=== PATIENT | female | born 1950 | race Caucasian/White ===

== ENCOUNTER 2023-07-20 08:26 | Outpatient (OUT) | payer MEDICARE, OTHER, SELFPAY ==
--- NOTE | 2023-07-20 08:36 | CT_ITS ---
The [address] [address] Patient Name: MYRNA KIRBY MRN: [id number] date: 1950 Sex: F Assigned Patient Location: CT Current Patient Location: CT Accession/Order Number: [id number] Exam Date: 07/20/2023 08:40 Report Date: 07/20/2023 09:47 At the request of: MUNIRA BERNARDO Procedure: CT chest wo con EXAMINATION: CT chest wo con HISTORY: pulmonary fibrosis J84.10 COMPARISON: 05/27/2022 TECHNIQUE: Multi-planar CT images were created with IV contrast. Axial, Coronal, and Sagittal images. Dose reduction techniques were achieved by using automated exposure control and/or adjustment of mA and/or kV according to patient size and/or use of iterative reconstruction technique. FINDINGS: LUNGS: Left lung volume loss with elevation of the hemidiaphragm. Scattered patchy and linear opacities throughout the left lung appears stable from the 2021 exam. No new pulmonary nodules masses or infiltrates are observed. PLEURA: No mass, effusion, or pneumothorax. VASCULATURE: No abnormality. CHAPARRO: No mass or adenopathy. MEDIASTINUM: No mass or adenopathy. CARDIAC: No enlargement or pericardial effusion. Coronary atherosclerosis AORTA: No aortic aneurysm. Extensive atherosclerosis CHEST WALL: Multiple serpiginous vessels. Median sternotomy wires. BONES: No bone lesion or fracture. LIMITED ABDOMEN: No suspicious findings. Limited images of the upper abdomen. OTHER: Negative. CT/CT chest wo con IMPRESSION: Stable exam. Scattered left lung infiltrates likely representing chronic scarring. Electronically authenticated by: AZALEA COLON Date: 07/20/2023 09:47
== END 2023-07-20 08:27 | disposition home or self-care (01) ==
LOC: CT 08:30
PROVIDERS: PCP Family Medicine; Visit Provider Internal Medicine
DX: J84.10 Pulmonary fibrosis, unspecified (principal); I87.1 Compression of vein
CPT/HCPCS: 71250

== ENCOUNTER 2023-08-07 07:11 | Outpatient (RCR) | payer MEDICARE, OTHER, SELFPAY ==
--- NOTE | 2023-07-28 13:07 | CR1_ITS ---
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
== END 2023-08-07 14:08 | disposition home or self-care (01) ==
LOC: CR 07:11
PROVIDERS: PCP Family Medicine; Visit Provider Internal Medicine
DX: J84.10 Pulmonary fibrosis, unspecified (principal); J98.6 Disorders of diaphragm
CPT/HCPCS: G0239

== ENCOUNTER 2023-08-08 09:48 | Outpatient (OUT) | payer MEDICARE, OTHER, SELFPAY ==
--- OUTSIDE RECORDS SUMMARY | 2023-08-08 09:54 | XMS_ITS | CCD ---
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 unspecified body region, initial encounter Episodic Other liver diseases (5 sources) Abnormal levels of other serum enzymes Onset: 07-13-2021 Resolved: 01-12-2022 Episodic Other lower respiratory disease (1 source) Dyspnea on exertion; Translations: [Other forms of dyspnea] Episodic Other nervous system disorders (20 sources) Carpal tunnel syndrome; Translations: [Carpal tunnel syndrome, unspecified upper limb] Chronic Other nervous system disorders (20 sources) Bilateral carpal tunnel syndrome; Translations: [Carpal tunnel syndrome, bilateral upper limbs] Chronic Other nervous system disorders (8 sources) Critical illness myopathy; 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 Other nutritional; endocrine; and metabolic disorders (3 sources) Abnormal weight loss Episodic Other screening for suspected conditions (not mental disorders or infectious disease) (2 sources) Standard chest X-ray abnormal; Translations: [Abnormal findings on diagnostic imaging of other specified body structures] Chronic Other screening for suspected conditions (not mental disorders or infectious disease) (12 sources) Other specified abnormal findings of blood chemistry; Translations: [Elevated liver function tests] Onset: 07-14-2021 Resolved: 01-12-2022 Episodic Other skin disorders (2 sources) Localized swelling, mass and lump, unspecified Episodic Other upper respiratory disease (20 sources) Allergic rhinitis; Translations: [Allergic rhinitis, unspecified] Chronic Other upper respiratory disease (1 source) Allergic rhinitis, unspecified Chronic Other upper respiratory infections (20 sources) Sinusitis; Translations: [Chronic sinusitis, unspecified] Chronic Pulmonary heart disease (20 sources) Pulmonary hypertension; Translations: [Pulmonary hypertension, unspecified] Onset: 05-27-2021 Resolved: 01-12-2022 Chronic Residual codes; unclassified (8 sources) Edema, unspecified Onset: 10-13-2021 Resolved: 01-12-2022 Episodic Residual codes; unclassified (20 sources) Insomnia; Translations: [Insomnia, unspecified] Episodic Residual codes; unclassified (8 sources) History of extracorporeal membrane oxygenation; Translations: [Personal history of extracorporeal membrane oxygenation (ECMO)] 04-08-2020 Episodic Respiratory failure; insufficiency; arrest (adult) (8 sources) [id number] respiratory failure; Translations: [Acute and chronic respiratory failure, unspecified whether with hypoxia or hypercapnia] Onset: 01-27-2020 04-07-2020 Chronic Respiratory failure; insufficiency; arrest (adult) (8 sources) Acute respiratory failure; Translations: [Acute respiratory failure, unspecified whether with hypoxia or hypercapnia] 04-08-2020 Episodic Retinal detachments; defects; vascular occlusion; and retinopathy (20 sources) Degenerative disorder of macula ; Translations: [Unspecified macular degeneration] Chronic Spondylosis; intervertebral disc disorders; other back problems (4 sources) Pain in thoracic spine; Translations: [Cervicalgia] Onset: 08-08-2019 Episodic Sprains and strains (1 source) Sprain of ligaments of cervical spine, initial encounter; Translations: [SPRAIN LIG CERV SPINE INITIAL ENC] Onset: 08-12-2019 Episodic Superficial injury; contusion (15 sources) Hematoma of scalp; Translations: [Contusion of scalp, initial encounter] 04-06-2022 Episodic Thyroid disorders (20 sources) Hypothyroidism, unspecified; Translations: [Acquired hypothyroidism] Onset: 04-15-2019 Resolved: 01-12-2022 04-07-2020 Chronic Past or Other Problems Problem Classification Problem Date Documented Da te Episodic/Chronic Administrative/social admission (20 sources) Patient encounter status; Translations: [Persons encountering health services in other specified circumstances] Onset: 03-20-2020 04-07-2020 Episodic Complications of surgical procedures or medical care (8 sources) Expected difficult tracheal intubation; Translations: [Failed or difficult intubation, initial encounter] Onset: 01-13-2020 04-01-2020 Episodic Fever of unknown origin (1 source) Fever, unspecified Onset: 01-12-2022 Resolved: 01-12-2022 Episodic Fluid and electrolyte disorders (3 sources) Hypokalemia Onset: 07-14-2021 Resolved: 01-12-2022 Episodic Immunizations and screening for infectious disease (1 source) Encounter for immunization; Translations: [Encounter for immunization Z23] Onset: 04-21-2021 Resolved: 04-21-2021 Episodic Malaise and fatigue (5 sources) Other fatigue; Translations: [Weakness] Onset: 12-30-2018 Resolved: 02-03-2022 Episodic Nonspecific chest pain (1 source) Other chest pain Onset: 02-03-2022 Resolved: 02-03-2022 Episodic Other connective tissue disease (4 sources) Pain in unspecified hand; Translations: [PAIN IN UNSPECIFIED HAND] Onset: 12-20-2018 Episodic Other gastrointestinal disorders (8 sources) Finding of abdomen; Translations: [Intra-abdominal and pelvic swelling, mass and lump, unspecified site] Onset: 08-07-2005 08-07-2005 Episodic Other gastrointestinal disorders (1 source) Flatulence; Translations: [Flatulence R14.3] Onset: 04-07-2021 Resolved: 04-07-2021 Episodic Other liver diseases (8 sources) Enzyme level - finding; Translations: [Transaminitis] Onset: 03-30-2020 04-07-2020 Episodic Other lower respiratory disease (1 source) Other abnormalities of breathing; Translations: [Rhonchi R06.89] Onset: 04-07-2021 Resolved: 04-07-2021 Episodic Other lower respiratory disease (2 sources) Other nonspecific abnormal finding of lung field; Translations: [Other nonspecific abnormal finding of lung field] Onset: 12-16-2022 Episodic Other lower respiratory disease (1 source) Other forms of dyspnea; Translations: [Dyspnea on exertion] Onset: 11-11-2022 Episodic Other nervous system disorders (1 source) Anesthesia of skin; Translations: [ANESTHESIA OF SKIN] Onset: 12-30-2018 Episodic Other non-traumatic joint disorders (1 source) Pain in unspecified joint; Translations: [PAIN IN UNSPECIFIED JOINT] Onset: 12-30-2018 Episodic Other nutritional; endocrine; and metabolic disorders (1 source) Abnormal weight gain Onset: 10-13-2021 Resolved: 10-13-2021 Episodic Other upper respiratory disease (1 source) Other specified disorders of nose and nasal sinuses; Translations: [Sinus drainage J34.89] Onset: 04-07-2021 Resolved: 04-07-2021 Episodic Other upper respiratory infections (3 sources) Acute pharyngitis, unspecified; Translations: [Acute sinusitis, unspecified] Onset: 07-14-2021 Resolved: 08-25-2021 Episodic Ovarian cyst (8 sources) Cyst of ovary; Translations: [Unspecified ovarian cyst, unspecified side] Onset: 08-30-2005 08-30-2005 Episodic Phlebitis; thrombophlebitis and thromboembolism (20 sources) Acute deep venous thrombosis of both upper extremities; Translations: [Acute embolism and thrombosis of deep veins of upper extremity, bilateral] Onset: 02-04-2020 Resolved: 01-12-2022 04-07-2020 Episodic Pleurisy; pneumothorax; pulmonary collapse (16 sources) Hemothorax; Translations: [Hemothorax] Onset: 02-03-2020 04-07-2020 Episodic Residual codes; unclassified (8 sources) Edema; Translations: [Edema, unspecified] Onset: 04-14-1997 11-03-2003 Episodic Residual codes; unclassified (1 source) Insomnia, unspecified Onset: 01-12-2022 Resolved: 01-12-2022 Episodic Unclassified (1 source) Cough R05.9 Onset: 01-12-2022 Resolved: 01-12-2022 Results Test Name Value Interpretation Reference Range Facility Prothrombin Time INRon 07-19 INR Coag (PPP) [Relative time] 1.3 {INR} RFMarq Other [facility] [employer] Other Prothrombin Time INRon 07-06 INR Coag (PPP) [Relative time] 1.3 {INR} RFMarq Other [facility] [employer] Other Prothrombin Time INRon 06-07 INR Coag (PPP) [Relative time] 2.4 {INR} RFMarq Other Prothrombin Time INR [facility] [employer] Other Free T4 (Free Thyroxine)on 07-18-2022 Free T4 [Mass/Vol] 0.90 ng/dL Normal 0.61-1.12 [facility] Comment on above: Performed By: #### T 3F, TSH3, T4F #### [facility] [address] [place] [address] [place] Thyroid Stimulating Hormoneo n 05-18-2023 TSH Qn 1.91 m[IU]/L Normal 0.45-5.33 [facility] Comment on above: Result Comment: PERF ORMED BY: [place] [address] PATHOLOGIST SPLITTING MACHINE OPERATOR LETICIA JAVIER M.D. Performed By: #### T 3F, TSH3, T4F #### [facility] [address] [place] [address] [place] Thyrotropin [Units/volume] i n Serum or PlasmaOrdered By: Azalea Rodrigez on 05-18-2023 TSH Qn 1.91 m[IU]/L 0.45-5.33 [facility] Thyroxine (T4) free [Mass/vo lume] in Serum or PlasmaOrdered By: Azalea Rodrigez on 05-18-2023 Free T4 [Mass/Vol] 0.90 ng/dL 0.61-1.12 [facility] Triiodothyronine (T3) Freeon 05-18-2023 Triiodothyronine (T3) Free 2.45 pg/mL Low 2.50-3.90 [facility] Comment on above: Result Comment: PERF ORMED BY: [place] [address] PATHOLOGIST SPLITTING MACHINE OPERATOR LETICIA JAVIER M.D. Performed By: #### T 3F, TSH3, T4F #### [facility] [address] [place] [id number] [place] Triiodothyronine (T3) Free [ Mass/volume] in Serum or PlasmaOrdered By: Azalea Rodrigez on 05-18-2023 Free T3 [Mass/Vol] 2.45 pg/mL 2.50-3.90 [facility] Prothrombin Time INRon 05-10 INR Coag (PPP) [Relative time] 2.6 {INR} RFMarq Other Prothrombin Time INR [facility] [employer] Other Prothrombin Time INRon 04-27 INR Coag (PPP) [Relative time] 4.1 {INR} RFMarq Other Prothrombin Time INR [facility] [employer] Other Prothrombin Time INRon 03-16 INR Coag (PPP) [Relative time] 2.8 {INR} RFMarq Other Prothrombin Time INR [facility] [employer] Other Acanthocytes [Presence] in B lood by Light microscopyOrdered By: Azalea Rodrigez on 02-15-2023 Acanthocytes LM Ql (Bld) Slight [facility] Alanine aminotransferase [En zymatic activity/volume] in Serum or PlasmaOrdered By: Azalea Rodrigez on 02-15-2023 ALT [Catalytic activity/Vol] 24 U/L 7-52 [facility] Albumin [Mass/volume] in Ser um or Plasma by Bromocresol green (BCG) dye binding methoOrdered By: Azalea Rodrigez on 02-15-2023 Albumin BCG dye [Mass/Vol] 4.4 g/dL 3.5-5.7 [facility] Alkaline Phosphatase Isoenzy meon 02-15-2023 Bone Fraction 36 % Normal 14-68 [facility] Comment on above: Order Comment: FASTI NG: Y Performed By: #### T 3F, TSH3, T4F #### [address] Intestinal Fraction 7 % Normal 0-18 [facility] Comment on above: Order Comment: FASTI NG: Y Result Comment: Perf ormed at: CB - [facility] [address] [id number] Certified Coder: Jayro Zaidi PhD, Phone: [phone] PERFORMED BY: [place] [address] PATHOLOGIST SPLITTING MACHINE OPERATOR LETICIA JAVIER M.D. Performed By: #### T 3F, TSH3, T4F #### [facility] [address] [facility] Alkaline Phosphatase 164 High 44-121 [facility] Comment on above: Order Comment: FASTI NG: Y Performed By: #### T 3F, TSH3, T4F #### [facility] [address] Liver Fraction 57 % Normal 18-85 [facility] Comment on above: Order Comment: FASTI NG: Y Performed By: #### T 3F, TSH3, T4F #### [facility] [address] Alkaline phosphatase [Enzyma tic activity/volume] in Serum or PlasmaOrdered By: Azalea Rodrigez on 02-15-2023 ALP [Catalytic activity/Vol] 148 U/L 34-104 [facility] Anisocytosis LM Ql (Bld)Orde red By: Azalea Rodrigez on 02-15-2023 Anisocytosis Ql (Bld) Slight [facility] Aspartate aminotransferase [ Enzymatic activity/volume] in Serum or PlasmaOrdered By: Azalea Rodrigez on 02-15-2023 AST [Catalytic activity/Vol] 24 U/L 13-39 [facility] Basophils Auto (Bld) [#/Vol] Ordered By: Azalea Rodrigez on 02-15-2023 Basophils (Bld) [#/Vol] N/A [facility] Basophils/100 WBC Auto (Bld) Ordered By: Azalea Rodrigez on 02-15-2023 Basophils/100 WBC (Bld) N/A [facility] Bilirubin.total [Mass/volume ] in Serum or PlasmaOrdered By: Azalea Rodrigez on 02-15-2023 Bilirubin [Mass/Vol] 0.8 mg/dL 0.3-1.0 [facility] [place] cells [Presence] in Blo od by Light microscopyOrdered By: Azalea Rodrigez on 02-15-2023 [place] cells LM Ql (Bld) Slight [facility] Calcium [Mass/volume] in Ser um or PlasmaOrdered By: Azalea Rodrigez on 02-15-2023 Calcium [Mass/Vol] 9.5 mg/dL 8.6-10.3 [facility] Carbon dioxide, total [Moles /volume] in Serum or PlasmaOrdered By: Azalea Rodrigez on 02-15-2023 CO2 [Moles/Vol] 33.0 mmol/L 21.0-31.0 [facility] Chloride [Moles/volume] in S harris or PlasmaOrdered By: Azalea Rodrigez on 02-15-2023 Chloride [Moles/Vol] 100 mmol/L 98-107 [facility] Cholesterol [Mass/volume] in Serum or PlasmaOrdered By: Azalea Rodrigez on 02-15-2023 Cholesterol [Mass/Vol] 133 mg/dL 140-200 [facility] Comment on above: Chol less than 200 m g/dl low riskChol 201-239 mg/dl borderline riskChol 240 mg/dl and greater high risk Cholesterol in LDL Calc [Mas s/Vol]Ordered By: Azalea Rodrigez on 02-15-2023 Cholesterol in LDL [Mass/Vol] 71 mg/dL 0-100 [facility] Comment on above: LDL ATP III CLASSIFI CATIONLDL less than 100 mg/dL OptimalLDL 100-129 mg/dL Near or above optimalLDL 130-159 mg/dL Borderline highLDL 160-189 mg/dL HighLDL greater than 189 mg/dL Very high Cholesterol in VLDL Calc [Ma ss/Vol]Ordered By: Azalea Rodrigez on 02-15-2023 Cholesterol in VLDL [Mass/Vol] 24 mg/dL [facility] Comprehensive Metabolic Pane jennifer 02-15-2023 Albumin [Mass/Vol] 4.4 g/dL Normal 3.5-5.7 [facility] Comment on above: Performed By: #### T 3F, TSH3, T4F #### [facility] [address] [place] [address] [place] Albumin/Globulin [Mass ratio] 2.0 {ratio} Normal [facility] Comment on above: Performed By: #### T 3F, TSH3, T4F #### [facility] [address] [place] [id number] [place] ALP [Catalytic activity/Vol] 148 U/L High 34-104 [facility] Comment on above: Performed By: #### T 3F, TSH3, T4F #### [facility] [address] ALT [Catalytic activity/Vol] 24 U/L Normal 7-52 [facility] Comment on above: Performed By: #### T 3F, TSH3, T4F #### [facility] [address] Anion gap [Moles/Vol] 11.5 mmol/L Normal 6.0-15.0 [facility] Comment on above: Performed By: #### T 3F, TSH3, T4F #### [facility] [address] AST [Catalytic activity/Vol] 24 U/L Normal 13-39 [facility] Comment on above: Performed By: #### T 3F, TSH3, T4F #### [facility] [address] Bilirubin [Mass/Vol] 0.8 mg/dL Normal 0.3-1.0 [facility] Comment on above: Performed By: #### T 3F, TSH3, T4F #### [facility] [address] [place] [address] Calcium [Mass/Vol] 9.5 mg/dL Normal 8.6-10.3 [facility] Comment on above: Performed By: #### T 3F, TSH3, T4F #### [facility] [address] [place] [address] [place] Chloride [Moles/Vol] 100 mmol/L Normal 98-107 [facility] Comment on above: Performed By: #### T 3F, TSH3, T4F #### [facility] [address] [place] [address] [place] CO2 [Moles/Vol] 33.0 mmol/L High 21.0-31.0 [facility] Comment on above: Performed By: #### T 3F, TSH3, T4F #### [facility] [address] Creatinine [Mass/Vol] 1.01 mg/dL Normal 0.60-1.20 [facility] Comment on above: Performed By: #### T 3F, TSH3, T4F #### [facility] [address] [place] [id number] [place] GFR/1.73 sq M.predicted MDRD (S/P/Bld) [Vol rate/Area] 59.887 mL/min/{1.73_m2} Normal [facility] Comment on above: Performed By: #### T 3F, TSH3, T4F #### [facility] [address] [place] [address] [place] Globulin (S) [Mass/Vol] 2.2 g/dL [facility] Comment on above: Performed By: #### T 3F, TSH3, T4F #### [facility] [address] Glucose [Mass/Vol] 88 mg/dL Normal 70-100 [facility] Comment on above: Result Comment: [place] Glucose Reference Range is dependent on time and content of last meal. Glucose of more than 200 mg/dL in a nonstressed, ambulatory subject supports the diagnosis of Diabetes Mellitus. ADA recommended reference range Performed By: #### T 3F, TSH3, T4F #### [facility] [address] [place] [address] [place] Potassium [Moles/Vol] 3.5 mmol/L Normal 3.5-5.1 [facility] Comment on above: Performed By: #### T 3F, TSH3, T4F #### [facility] [address] [place] [id number] [place] Protein [Mass/Vol] 6.6 g/dL Normal 6.4-8.9 [facility] Comment on above: Performed By: #### T 3F, TSH3, T4F #### [facility] [address] [place] [id number] [place] Sodium [Moles/Vol] 141 mmol/L Normal 136-145 [facility] Comment on above: Performed By: #### T 3F, TSH3, T4F #### [facility] [address] [place] [id number] [place] Urea nitrogen [Mass/Vol] 23 mg/dL Normal 7-25 [facility] Comment on above: Performed By: #### T 3F, TSH3, T4F #### [facility] [address] [place] [address] Creatinine [Mass/volume] in Serum or PlasmaOrdered By: Azalea Rodrigez on 02-15-2023 Creatinine [Mass/Vol] 1.01 mg/dL 0.60-1.20 [facility] Diff and CBCon 02-15-2023 Acanthocytes Slight Normal [facility] Comment on above: Performed By: #### C MP, [id number], T3F, TSH3, LIPID, DIFF CBC, T4F #### [facility] [address] [place] [address] #### ALK PHOSIS #### [facility] , Anisocytosis Ql (Bld) Slight Normal [facility] Comment on above: Performed By: #### C MP, [id number], T3F, TSH3, LIPID, DIFF CBC, T4F #### [facility] [address] [place] [address] #### ALK PHOSIS #### [facility] , Crenated RBC Slight Normal [facility] Comment on above: Performed By: #### C MP, [id number], T3F, TSH3, LIPID, DIFF CBC, T4F #### [facility] [address] [place] [address] #### ALK PHOSIS #### [facility] , Eosinophils/100 WBC (Bld) 2 % Normal 1-3 [facility] Comment on above: Performed By: #### C MP, [id number], T3F, TSH3, LIPID, DIFF CBC, T4F #### [facility] [address] [place] [address] [place] #### ALK PHOSIS #### [facility] , Erythrocyte distribution width (RBC) [Ratio] 14.5 % Normal 11.9-15.3 [facility] Comment on above: Performed By: #### C MP, [id number], T3F, TSH3, LIPID, DIFF CBC, T4F #### [facility] [address] [place] [address] [place] #### ALK PHOSIS #### [facility] , Giant Platelet Tally 3 /100{WBC} Normal [facility] Comment on above: Result Comment: PERF ORMED BY: [place] [address] PATHOLOGIST SPLITTING MACHINE OPERATOR LETICIA JAVIER M.D. Performed By: #### C MP, [id number], T3F, TSH3, LIPID, DIFF CBC, T4F #### [address] #### ALK PHOSIS #### [facility] , Hematocrit (Bld) [Volume fraction] 37.3 % Normal 34.0-46.4 [facility] Comment on above: Performed By: #### C MP, [id number], T3F, TSH3, LIPID, DIFF CBC, T4F #### [address] #### ALK PHOSIS #### [facility] , Hemoglobin (Bld) [Mass/Vol] 12.3 g/dL Normal 11.8-15.4 [facility] Comment on above: Performed By: #### C MP, [id number], T3F, TSH3, LIPID, DIFF CBC, T4F #### [facility] [address] [place] [address] [place] #### ALK PHOSIS #### [facility] , Lymphocytes/100 WBC (Bld) 19 % Normal 18-42 [facility] Comment on above: Performed By: #### C MP, [id number], T3F, TSH3, LIPID, DIFF CBC, T4F #### [facility] [address] [place] [address] [place] #### ALK PHOSIS #### [facility] , MCH (RBC) [Entitic mass] 28.8 pg Normal 24.7-34.3 [facility] Comment on above: Performed By: #### C MP, [id number], T3F, TSH3, LIPID, DIFF CBC, T4F #### [facility] [address] [place] [address] #### ALK PHOSIS #### [facility] , MCV (RBC) [Entitic vol] 87.1 fL Normal 80-100 [facility] Comment on above: Performed By: #### C MP, [id number], T3F, TSH3, LIPID, DIFF CBC, T4F #### [address] #### ALK PHOSIS #### [facility] , Mean Corpuscular HGB Conc 33.1 g/dL Normal 32.0-35.0 [facility] Comment on above: Performed By: #### C MP, [id number], T3F, TSH3, LIPID, DIFF CBC, T4F #### [address] #### ALK PHOSIS #### [facility] , Microcytosis Slight Normal [facility] Comment on above: Performed By: #### C MP, [id number], T3F, TSH3, LIPID, DIFF CBC, T4F #### [address] #### ALK PHOSIS #### [facility] , Monocytes/100 WBC (Bld) 10 % Normal 2-11 [facility] Comment on above: Performed By: #### C MP, [id number], T3F, TSH3, LIPID, DIFF CBC, T4F #### [place] [address] [place] #### ALK PHOSIS #### [facility] , Ovalocytes Slight Normal [facility] Comment on above: Performed By: #### C MP, [id number], T3F, TSH3, LIPID, DIFF CBC, T4F #### [facility] [address] [place] [address] #### ALK PHOSIS #### [facility] , Platelet Estimate Normal Normal Normal [facility] Comment on above: Performed By: #### C MP, [id number], T3F, TSH3, LIPID, DIFF CBC, T4F #### [facility] [address] [place] [address] #### ALK PHOSIS #### [facility] , Platelet mean volume (Bld) [Entitic vol] 10.4 fL Normal 6.3-10.7 [facility] Comment on above: Performed By: #### C MP, [id number], T3F, TSH3, LIPID, DIFF CBC, T4F #### [address] #### ALK PHOSIS #### [facility] , Platelets (Bld) [#/Vol] 203 10*3/uL Normal 150-450 [facility] Comment on above: Performed By: #### C MP, [id number], T3F, TSH3, LIPID, DIFF CBC, T4F #### [facility] [address] [place] [address] [place] #### ALK PHOSIS #### [facility] , Poikilocytosis Moderate Normal [facility] Comment on above: Performed By: #### C MP, [id number], T3F, TSH3, LIPID, DIFF CBC, T4F #### [place] [address] [place] #### ALK PHOSIS #### [facility] , RBC (Bld) [#/Vol] 4.28 10*6/uL Normal 3.60-5.00 [facility] Comment on above: Performed By: #### C MP, [id number], T3F, TSH3, LIPID, DIFF CBC, T4F #### [place] [address] [place] #### ALK PHOSIS #### [facility] , Segmented neutrophils/100 WBC (Bld) 70 % Normal 50-70 [facility] Comment on above: Performed By: #### C MP, [id number], T3F, TSH3, LIPID, DIFF CBC, T4F #### [address] #### ALK PHOSIS #### [facility] , WBC (Bld) [#/Vol] 5.6 10*3/uL Normal 3.8-11.6 [facility] [facility] Comment on above: Performed By: #### C MP, [id number], T3F, TSH3, LIPID, DIFF CBC, T4F #### [facility] [address] [place] [address] #### ALK PHOSIS #### [facility] , Eosinophils Auto (Bld) [#/Vo l]Ordered By: Azalea Rodrigez on 02-15-2023 Eosinophils (Bld) [#/Vol] N/A [facility] Eosinophils/100 WBC Auto (Bl d)Ordered By: Azalea Rodrigez on 02-15-2023 Eosinophils/100 WBC (Bld) N/A [facility] Eosinophils/100 WBC Manual c nt (Bld)Ordered By: Azalea Rodrigez on 02-15-2023 Eosinophils/100 WBC (Bld) 2 % 1-3 [facility] Erythrocyte distribution wid th Auto (RBC) [Ratio]Ordered By: Azalea Rodrigez on 02-15-2023 Erythrocyte distribution width (RBC) [Ratio] 14.5 % 11.9-15.3 [facility] Free T4 (Free Thyroxine)on 0 02-15-2023 Free T4 [Mass/Vol] 1.18 ng/dL High 0.61-1.12 [facility] Comment on above: Performed By: #### T 3F, TSH3, T4F #### [address] Giant platelets/100 leukocyt es [Ratio] in Blood by Manual countOrdered By: Azalea Rodrigez on 02-15-2023 Giant platelets/100 WBC Manual cnt (Bld) [Ratio] 3 /100{WBC} [facility] Globulin Calc (S) [Mass/Vol] Ordered By: Azalea Rodrigez on 02-15-2023 Globulin (S) [Mass/Vol] 2.2 g/dL [facility] Glucose [Mass/volume] in Ser um or PlasmaOrdered By: Azalea Rodrigez on 02-15-2023 Glucose [Mass/Vol] 88 mg/dL 70-100 [facility] Comment on above: ADA recommended refe rence rangeRandom Glucose Reference Range is dependent on time and content of last meal. Glucose of more than 200 mg/dL in a nonstressed, ambulatory subject supports the diagnosis of Diabetes Mellitus. Hematocrit Auto (Bld) [Volum e fraction]Ordered By: Azalea Rodrigez on 02-15-2023 Hematocrit (Bld) [Volume fraction] 37.3 % 34.0-46.4 [facility] Hemoglobin [Mass/volume] in BloodOrdered By: Azalea Rodrigez on 02-15-2023 Hemoglobin (Bld) [Mass/Vol] 12.3 g/dL 11.8-15.4 [facility] Leukocytes [#/volume] correc shelly for nucleated erythrocytes in Blood by Automated counOrdered By: Azalea Rodrigez on 02-15-2023 WBC corrected for nucl RBC Auto (Bld) [#/Vol] 5.6 10*3/uL 3.8-11.6 [facility] Lipid Panelon 02-15-2023 Cholesterol [Mass/Vol] 133 mg/dL Low 140-200 [facility] Comment on above: Result Comment: Chol less than 200 mg/dl low risk Chol 201-239 mg/dl borderline risk Chol 240 mg/dl and greater high risk Performed By: #### T 3F, TSH3, T4F #### [facility] [address] Cholesterol in HDL [Mass/Vol] 37 mg/dL Normal 23-92 [facility] Comment on above: Result Comment: HDL CHOL ATP-III CLASSIFICATION Cardiovascular Risk HDL > or equal to 60 mg/dL LOW HDL < 40 mg/dL HIGH Performed By: #### T 3F, TSH3, T4F #### [facility] [address] Cholesterol.total/Chol esterol in HDL [Mass ratio] 3.6 {ratio} Normal <5.0 [facility] Comment on above: Performed By: #### T 3F, TSH3, T4F #### [facility] [address] LDL Cholesterol,Calculated 71 mg/dL Normal 0-100 [facility] Comment on above: Result Comment: LDL ATP III CLASSIFICATION LDL less than 100 mg/dL Optimal LDL 100-129 mg/dL Near or above optimal LDL 130-159 mg/dL Borderline high LDL 160-189 mg/dL High LDL greater than 189 mg/dL Very high Performed By: #### T 3F, TSH3, T4F #### [address] Triglyceride w/Reflex 123 mg/dL Normal 0-149 [facility] Comment on above: Result Comment: TRIG ATP III CLASSIFICATION TRIG less than 150 mg/dL Normal TRIG 150-199 mg/dL Borderline high TRIG 200-500 mg/dL High TRIG greater than 500 mg/dL Very high Standard traceable to the Center for Disease Conrtrol and Prevention (CDC) test method. Performed By: #### T 3F, TSH3, T4F #### [address] VLDL CHOLESTEROL 24 mg/dL Normal [facility] Comment on above: Performed By: #### T 3F, TSH3, T4F #### [address] Lymphocytes Auto (Bld) [#/Vo l]Ordered By: Azalea Rodrigez on 02-15-2023 Lymphocytes (Bld) [#/Vol] N/A [facility] Lymphocytes/100 WBC Auto (Bl d)Ordered By: Azalea Rodrigez on 02-15-2023 Lymphocytes/100 WBC (Bld) N/A [facility] Lymphocytes/100 WBC Manual c nt (Bld)Ordered By: Azalea Rodrigez on 02-15-2023 Lymphocytes/100 WBC (Bld) 19 % 18-42 [facility] MCH Auto (RBC) [Entitic mass ]Ordered By: Azalea Rodrigez on 02-15-2023 MCH (RBC) [Entitic mass] 28.8 pg 24.7-34.3 [facility] MCHC Auto (RBC) [Mass/Vol]Or dered By: Azalea Rodrigez on 02-15-2023 MCHC (RBC) [Mass/Vol] 33.1 g/dL 32.0-35.0 [facility] MCV Auto (RBC) [Entitic vol] Ordered By: Azalea Rodrigez on 02-15-2023 MCV (RBC) [Entitic vol] 87.1 fL 80-100 [facility] Microcytes LM Ql (Bld)Ordere d By: Azalea Rodrigez on 02-15-2023 Microcytes Ql (Bld) Slight [facility] Monocytes Auto (Bld) [#/Vol] Ordered By: Azalea Rodrigez on 02-15-2023 Monocytes (Bld) [#/Vol] N/A [facility] Monocytes/100 WBC Auto (Bld) Ordered By: Azalea Rodrigez on 02-15-2023 Monocytes/100 WBC (Bld) N/A [facility] Monocytes/100 WBC Manual cnt (Bld)Ordered By: Azalea Rodrigez on 02-15-2023 Monocytes/100 WBC (Bld) 10 % 2-11 [facility] Neutrophils Auto (Bld) [#/Vo l]Ordered By: Azalea Rodrigez on 02-15-2023 Neutrophils (Bld) [#/Vol] N/A [facility] Neutrophils/100 WBC Auto (Bl d)Ordered By: Azalea Rodrigez on 02-15-2023 Neutrophils/100 WBC (Bld) N/A [facility] No Panel InformationOrdered By: Azalea Rodrigez on 02-15-2023 Estimated GFR (CKD-EPI) 59.887 mL/Min [facility] Pharmacy Creatinine Clearance (Chem N/A [facility] Nucleated erythrocytes [Pres ence] in Blood by Automated countOrdered By: Azalea Rodrigez on 02-15-2023 Nucleated RBC Auto Ql (Bld) N/A [facility] Ovalocyte detectionOrdered B y: Azalea Rodrigez on 02-15-2023 Ovalocytes LM Ql (Bld) Slight [facility] Platelet adequacy [Presence] in Blood by Light microscopyOrdered By: Azalea Rodrigez on 02-15-2023 Platelets LM Ql (Bld) Normal Normal [facility] Platelet mean volume Auto (B ld) [Entitic vol]Ordered By: Azalea Rodrigez on 02-15-2023 Platelet mean volume (Bld) [Entitic vol] 10.4 fL 6.3-10.7 [facility] Platelet morphology finding [Identifier] in BloodOrdered By: Azalea Rodrigez on 02-15-2023 Platelet morphology finding Nom (Bld) N/A [facility] Platelets Auto (Bld) [#/Vol] Ordered By: Aazlea Rodrigez on 02-15-2023 Platelets (Bld) [#/Vol] 203 10*3/uL 150-450 [facility] Poikilocytosis [Presence] in Blood by Light microscopyOrdered By: Azalea Rodrigez on 02-15-2023 Poikilocytosis LM Ql (Bld) Moderate [facility] Potassium [Moles/volume] in Serum or PlasmaOrdered By: Azalea Rodrigez on 02-15-2023 Potassium [Moles/Vol] 3.5 mmol/L 3.5-5.1 [facility] Protein [Mass/volume] in Ser um or PlasmaOrdered By: Azalea Rodrigze on 02-15-2023 Protein [Mass/Vol] 6.6 g/dL 6.4-8.9 [facility] RBC Auto (Bld) [#/Vol]Ordere d By: Azalea Rodrigez on 02-15-2023 RBC (Bld) [#/Vol] 4.28 10*6/uL 3.60-5.00 [facility] RBC morphologyOrdered By: Adrian Rodrigez on 02-15-2023 RBC morphology finding Nom (Bld) N/A [facility] Segmented neutrophils/100 WB C Manual cnt (Bld)Ordered By: Azalea Rodrigez on 02-15-2023 Segmented neutrophils/100 WBC (Bld) 70 % 50-70 [facility] Serum or plasma albumin/glob ulin mass ratioOrdered By: Azalea Rodrigez on 02-15-2023 Albumin/Globulin [Mass ratio] 2.0 {ratio} [facility] Serum or plasma anion gap de terminationOrdered By: Azalea Rodrigez on 02-15-2023 Anion gap [Moles/Vol] 11.5 mmol/L 6.0-15.0 [facility] Serum or plasma high density lipoprotein (HDL) cholesterol measurementOrdered By: Azalea Rodrigez on 02-15-2023 Cholesterol in HDL [Mass/Vol] 37 mg/dL 23-92 [facility] Comment on above: HDL CHOL ATP-III CLA SSIFICATION Cardiovascular RiskHDL > or equal to 60 mg/dL LOWHDL < 40 mg/dL HIGH Serum or plasma total choles terol/high density lipoprotein (HDL) cholesterol mass ratOrdered By: Azalea Rodrigez on 02-15-2023 Cholesterol.total/Chol esterol in HDL [Mass ratio] 3.6 {ratio} <5.0 [facility] Sodium [Moles/volume] in Ser um or PlasmaOrdered By: Azalea Rodrigez on 02-15-2023 Sodium [Moles/Vol] 141 mmol/L 136-145 [facility] Thyroid Stimulating Hormoneo n 02-15-2023 TSH Qn 0.08 m[IU]/L Low 0.45-5.33 [facility] Comment on above: Performed By: #### T 3F, TSH3, T4F #### [address] Thyrotropin [Units/volume] i n Serum or PlasmaOrdered By: Azalea Rodrigez on 02-15-2023 TSH Qn 0.08 m[IU]/L 0.45-5.33 [facility] Thyroxine (T4) free [Mass/vo lume] in Serum or PlasmaOrdered By: Azalea Rodrigez on 02-15-2023 Free T4 [Mass/Vol] 1.18 ng/dL 0.61-1.12 [facility] Triglyceride [Mass/volume] i n Serum or PlasmaOrdered By: Azalea Rodrigez on 02-15-2023 Triglyceride [Mass/Vol] 123 mg/dL 0-149 [facility] Comment on above: TRIG ATP III CLASSIF ICATIONTRIG less than 150 mg/dL NormalTRIG 150-199 mg/dL Borderline highTRIG 200-500 mg/dL High TRIG greater than 500 mg/dL Very highStandard traceable to the Center for Disease Conrtrol and Prevention (CDC) test method. Triiodothyronine (T3) Freeon 02-15-2023 Triiodothyronine (T3) Free 2.86 pg/mL Normal 2.50-3.90 [facility] Comment on above: Result Comment: PERF ORMED BY: [place] [id number] PATHOLOGIST SPLITTING MACHINE OPERATOR LETICIA JAVIER M.D. Performed By: #### T 3F, TSH3, T4F #### [facility] [address] [place] [id number] [facility] Triiodothyronine (T3) Free [ Mass/volume] in Serum or PlasmaOrdered By: Azalea Rodrigez on 02-15-2023 Free T3 [Mass/Vol] 2.86 pg/mL 2.50-3.90 [facility] Urea nitrogen [Mass/volume] in Serum or PlasmaOrdered By: Azalea Rodrigez on 02-15-2023 Urea nitrogen [Mass/Vol] 23 mg/dL 7-25 [facility] Vitamin D 25 Hydroxy Totalon 02-15-2023 Vitamin D 25 Hydroxy Total 25.1 ng/mL Low 30-100 [facility] Comment on above: Result Comment: VIVIANA MIN D STATUS 25(OH)VITAMIN D RANGE (ng/mL) Deficient <20 Insufficient 20 to <30 Sufficient 30 to 100 Reference: Glendy MF,Sveta NC, Luis Felipe BAUTISTA, et al. Evaluation,treatment, and prevention of vitamin D deficiency; an Endocrine Society clinical practice guideline. JCEM. 2010; 96(7):1911-30. PERFORMED BY: [facility] [address] [place] [address] PATHOLOGIST SPLITTING MACHINE OPERATOR LETICIA JAVIER M.D. Performed By: #### T 3F, TSH3, T4F #### [facility] [address] [place] [id number] [facility] Vitamin D+Metabolites [Mass/ volume] in Serum or PlasmaOrdered By: Azalea Rodrigez on 02-15-2023 Vitamin D+Metabolites [Mass/Vol] 25.1 ng/mL 30-100 [facility] Comment on above: VITAMIN D STATUS 25( [place])VITAMIN D RANGE (ng/mL) Deficient <20 Insufficient 20 to <30Sufficient 30 to 100Reference: Glendy MF,Sveta ORTIZ, Luis Felipe BAUTISTA, et al. Evaluation,treatment, and prevention of vitamin D deficiency; an Endocrine Society clinical practice guideline. JCEM. 2010; 96(7):1911-30. WBC Auto (Bld) [#/Vol]Ordere d By: Azalea Rodrigez on 02-15-2023 WBC (Bld) [#/Vol] 5.6 10*3/uL 3.8-11.6 [facility] Prothrombin Time INRon 02-13 INR Coag (PPP) [Relative time] 2.9 {INR} RFMarq Other Prothrombin Time INR Nort (In)Touch Network Other Prothrombin Time INRon 01-16 INR Coag (PPP) [Relative time] 2.5 {INR} RFMarq Other Prothrombin Time INR Pulse [facility] (In)Touch Network Other XR chest 2V*on 12-16-2022 XR chest 2V* [place] [address] XRay Report Signed Patient: Myrna Kirby MR#: [id number] : 1950 Acct:[id number] Age/Sex: 72 / F ADM Date: 12/16/22 Loc: XD Room: Type: [facility] Attending Dr: Azalea Rodrigez DO Copies to: Azalea Rodrigez DO Ordering Provider: Azalea Rodrigez DO Date of Service: 12/16/22 XR/XR chest 2V*: R91.8 XR chest 2V*, FL fluoroscopy <1hr 12/16/2022 8:58 AM SIGNS AND SYMPTOMS: Follow-up prior CABG procedure requiring chest tubes for hemothorax. 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 PROTOCOL: Frontal and lateral graphs of the chest. Fluoroscopic images of the chest were obtained. COMPARISON: None FINDINGS: Chest radiographs: The trachea is midline. There is evidence of prior sternotomy. There is elevation of the left hemidiaphragm. The heart and mediastinal structures are within normal limits. The lung parenchyma is clear. The bony thorax is intact. There is a dextro convex curvature of the thoracic spine. Sniff test: There is paradoxical movement in the cranial direction involving the left hemidiaphragm during deep inspiration. There is normal downward movement of the right hemidiaphragm during deep inspiration. This is consistent with paralysis of the left hemidiaphragm. Cumulative Air Kerma in mGy: 6.94 mGy XR/XR chest 2V* IMPRESSION: The lung parenchyma is clear. There is paradoxical movement of the left hemidiaphragm on deep inspiration consistent with paralysis of the left hemidiaphragm. Impression dictated by: Marek Barrera M.D.12/16/2022 12:37 PM Dictation Location: [place] [address] Transcribed By: [facility] 12/16/22 1237 Dictated By: Marek Barrera II, MD 12/16/22 1234 Signed By: 12/16/22 1237 [facility] 11-28-2022 CNPN Telephone (CARCMN) ----- MYRNA KIRBY ([id number]) 1950 F Date Time Provider Department 11/28/22 STEVE DENTAZ During your visit today, we recorded the following information about you: Nayeli Bray 12/18/2022 1:07 PM Addendum Office notes mailed today. Nayeli Bray November 28, 2022 4:51 PM Received outside office notes from Pulmonary function test have been placed in OPD folder and uploaded in [employer]. Nayeli Bray December 18, 2022 1:07 PM Allergies As of Date: 11/28/2022 Noted Allergy Reaction CAPTOPRIL 11/11/2022 14 - Other: See Comments CHLORHEXIDINE 04/07/2020 10 - Anaphylaxis 16 - Unknown 9 - Itching EPOETIN FAISAL 11/11/2022 14 - Other: See Comments ERYTHROMYCIN 11/11/2022 14 - Other: See Comments ESCITALOPRAM 11/11/2022 14 - Other: See Comments EZETIMIBE 11/11/2022 8 - GI Upset LEVAQUIN (LEVOFLOXACIN) 12/01/2020 17 - Myalgia LISINOPRIL 11/11/2022 14 - Other: See Comments OXYCODONE 12/26/2019 1 - Mental Status Change READYPREP CHG (CHLORHEXIDINE GLUC*03/31/2020 9 - Itching SULFA (SULFONAMIDE ANTIBIOTICS) 12/26/2019 8 - GI Upset SULFUR 11/11/2022 16 - Unknown SULFUR DIOXIDE 04/07/2020 14 - Other: See Comments TRAMADOL 12/26/2019 14 - Other: See Comments Comments: annorexia TRIAMCINOLONE 11/11/2022 14 - Other: See Comments VENLAFAXINE 11/11/2022 14 - Other: See Comments Date Reviewed: 11/11/2022 Reviewed by: Gilberto Messer MA - Fully Assessed Reason for Visit: Patient Update [1234] Prescriptions as of 12/18/2022 - buPROPion XL (WELLBUTRIN XL) 150 mg 24 hr tablet - cholecalciferol (VITAMIN D3) 50 mcg (2,000 unit) tablet Take by mouth q 24 HR. - metoprolol succinate ER (TOPROL XL) 25 mg 24 hr tablet Take 1 tablet by mouth once daily. - warfarin sodium (WARFARIN ORAL) Take by mouth as directed. Pt's dosage varies - atorvastatin (LIPITOR) 20 mg tablet Take 20 mg by mouth once daily. - torsemide (DEMADEX) 20 mg tablet Take 0.5 tablets by mouth once daily. - potassium chloride ER (K-DUR, KLOR-CON) 20 mEq tablet Take 3 tablets by mouth once daily. - ALPRAZolam (XANAX) 0.25 mg tablet Take 0.25 mg by mouth as needed. - omeprazole (PRILOSEC) 20 mg capsule Take 20 mg by mouth once daily. - levothyroxine (SYNTHROID) 125 mcg tablet Take 1 tablet by mouth DAILY (6 AM). - aspirin 81 mg chewable tablet 1 tablet by ORAL/FEEDING TUBE route once daily. - magnesium oxide (MAG-OX) 400 mg (241.3 mg magnesium) tablet Take 1 tablet by mouth once daily. Facility-Administered Medications as of 12/18/2022 - perflutren lipid microspheres 1.3 mL in NaCl (PF) 0.9% 10 mL injection (DEFINITY) - sodium chloride 0.9 % (flush) 10 mL (BD POSIFLUSH) Problem List As Of Date 11/28/2022 Noted Resolved Aortic valve disorder [I35.9] 04/14/1997 Class: Chronic Edema [R60.9] 04/14/1997 Class: Chronic Chest pain [786.5] 04/14/1997 04/12/2016 Class: Chronic Panic disorder without agoraphobia [F41.0] 02/08/2002 Congenital stenosis of aortic valve [Q23.0] 07/30/2003 03/16/2020 ABD/PEL SWELL/MASS/LUMP UNSP SITE [R19.00] 08/07/2005 OVARIAN CYST NEC/NOS [N83.209] 08/30/2005 S/P Ross procedure [Z95.4] 04/16/2014 Aortic regurgitation [I35.1] 06/04/2016 Right onktuxggp-ht-iiiwyuozj artery (RV-PA) con*06/04/2016 04/04/2020 Congenital aortic stenosis [Q23.0] 12/28/2019 Dyspnea due to congestive heart failure (HCC) *12/28/2019 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] 12/28/2019 03/16/2020 Difficult airway [T88.4XXA] 01/13/2020 Pulmonary edema [J81.1] 01/13/2020 01/25/2020 Post-op pain [G89.18] 01/13/2020 01/17/2020 Coagulopathy (HCC) [D68.9] 01/13/2020 01/15/2020 Acquired hypothyroidism [E03.9] 01/13/2020 Chronic atrial fibrillation (HCC) [I48.20] 01/13/2020 03/04/2020 Personal history of ECMO [Z92.81] 01/13/2020 01/17/2020 Pulmonary artery injury [S25.409A] 01/13/2020 04/04/2020 Postoperative hypertension [I97.3] 01/13/2020 01/13/2020 Hypotension after procedure [I95.81] 01/13/2020 01/18/2020 Obtundation [R40.1] 01/17/2020 01/18/2020 Moderate protein-calorie malnutrition (HCC) [E4*01/17/2020 04/06/2020 Leukocytosis [D72.829] 01/18/2020 03/23/2020 Altered mental status [R41.82] 01/18/2020 01/27/2020 Cardiac insufficiency (HCC) [I50.9] 01/18/2020 01/25/2020 Delirium [R41.0] 01/27/2020 01/27/2020 Acute on chronic respiratory failure (HCC) [J96*01/27/2020 Hypernatremia [E87.0] 01/27/2020 03/01/2020 Hemothorax on left [J94.2] 02/03/2020 Acute deep vein thrombosis (DVT) of both upper *02/04/2020 Atrial flutter (HCC) [I48.92] 02/18/2020 Acute blood loss anemia [D62] 02/22/2020 04/04/2020 Acute deep vein thrombosis (DVT) of right lower*02/23/2020 Ileus (HCC) [K56.7] 02/29/2020 03/03/2020 Encounter for support and coordination of trans*03/04/2020 03/11/2020 Encounter for support and coordination of trans*03/20/2020 Discharge planning issues [Z02.9] 03/25/2020 Postoperative il (more content not included)... Normal [facility] Michelle 11-24-2022 CNPN Telephone (CARCMN) ----- MYRNA KIRBY ([id number]) 1950 F Date Time Provider Department 11/24/22 STEVE DENT During your visit today, we recorded the following information about you: Zoe Saunders 11/24/2022 10:11 AM Signed November 24, 2022 Patient Contact Number: [phone] Patient last seen within the last year: Yes Date of last office visit: 11/11/2022 Reason For Call: Pt's calling in regards to discussion he and pt had with Dr. Dent at [facility]; states that they are to receive visit notes and a letter from the doctor regarding what the patient is going through and how it is affecting her stress levels; also requested [facility] notes be sent to PCP, which I will do. Physician: Carlito Dent MD Patient was informed that non-urgent calls may be returned within the next three business days. Yes Zoe Holland RN 11/24/2022 10:47 AM Signed Message: Pt's calling in regards to discussion he and pt had with Dr. Dent at [facility]; states that they are to receive visit notes and a letter from the doctor regarding what the patient is going through and how it is affecting her stress levels; also requested [facility] notes be sent to PCP, which I will do. 11/11/22: Ms. Myrna Kirby is a pleasant 72 yo F with: Congenital aortic stenosis Full term baby, no complications, NVD Diagnosed with during 2nd at age 34 Surgery 1993: Ross procedure via median sternotomy by Dr. Velez at [facility]. Surgery 12/1995: aortic root homograft replacement via median sternotomy by Dr. Velez at [facility]. Surgery 09/04/1996: RV-PA #25 mm homograft replacement via median sternotomy by Dr. Velez at [facility]. Visit with Dr. 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 RVSP 59 + RA, normal aortic homograft function. Today's Echo 12/26/2019: severe RV-PA conduit PS and FL (PG/MG 72/43 mmHg), moderately dilated RV with low normal systolic function, e/o RV pressure and volume overload, normal aortic homograft. 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 Presentation 12/2019: Very symptomatic with dyspnea on exertion, limited functional capacity, abdominal bloating, early satiety, nausea. TPVR 01/13/2020: severe mixed PS/FL and heavily calcified conduit s/p conduit stenting with 8zig 5cm CP on 18 BIB, [id number] on 20 BIB and 22 Kat however post-dilation at the very end was complicated by PA perforation, VA ECMO was instituted quickly and an attempt at covered stenting of the bleeding source was made however it was difficult to visualize true source given left hemothorax and ECMO flow, patient taken emergently to the OR Surgery 01/13/2020: Emergent Reoperation fourth open-heart surgery. Evacuation of left chest hematoma. Replacement of the pulmonary valve root and proximal pulmonary artery. Removal of the ECMO and reinsertion of VV-ECMO. 01/14/2020: Mediastinal and chest washout 01/16/2020: Chest exploration, washout and closure, VV ECMO decannulation 01/21/2020: Percutaneous tracheostomy (Bivona 8.0 TTS tracheostomy). 02/08/2020: Trach down-sized 02/14/2020: Left thoracotomy, decortication, partial pleurectomy, evacuation of hemothorax, and intercostal nerve block. Atrial fibrillation and atrial flutter: in NSR, on metoprolol, and warfarin (previsouly on diltiazem and apixaban, digoxin, prior DCCV 12/2019), f/b Dr. Louis S/p 2 c-sections, children and grandchildren without known CHD. No FH of CHD or SCA PLAN: Myrna and her present to clinic.She still is not back to normal and still suffers from PTSD given her prolonged hospitalization and complex congenital cardiac history. Her father recently , her brother who was not present in the father's care is suing her, her two sisters are supportive of her. She is under significant emotional stress from such legal troules coming from her family member in regards to her father whom she cared for immensely, and it has taken a toll on her overall health including cardiovascular health. We discussed the importance that for her to get back to a healthy state she must prioritize her cardiac rehabilitation and reduce stress, these legal proceedings are adversely affecting her cardiac recovery and this is overall detrimental. We discussed she needs to maintain a regular exercise regimen, and heart healthy diet. Echo is reassuring and stable, but there is moderate TR which we will monitor,. Dyspnea on exertion: check PFT's and diaphragmatic function with a sniff test, and given FH of CAD and her LUONG can be an anginal equivalent proc (more content not included)... [facility] [facility] CNPNon 11-15-2022 CNPN Telephone (CARCMN) ----- MYRNA KIRBY ([id number]) 1950 F Date Time Provider Department 11/15/22 STEVE DENT CARCGALEN During your visit today, we recorded the following information about you: Nayeli Bray 11/15/2022 8:23 AM Signed Received outside office notes, sent down I purple folder to be uploaded in [employer]. Nayeli Bray November 15, 2022 8:23 AM Allergies As of Date: 11/15/2022 Noted Allergy Reaction CAPTOPRIL 11/11/2022 14 - Other: See Comments CHLORHEXIDINE 04/07/2020 10 - Anaphylaxis 16 - Unknown 9 - Itching EPOETIN FAISAL 11/11/2022 14 - Other: See Comments ERYTHROMYCIN 11/11/2022 14 - Other: See Comments ESCITALOPRAM 11/11/2022 14 - Other: See Comments EZETIMIBE 11/11/2022 8 - GI Upset LEVAQUIN (LEVOFLOXACIN) 12/01/2020 17 - Myalgia LISINOPRIL 11/11/2022 14 - Other: See Comments OXYCODONE 12/26/2019 1 - Mental Status Change READYPREP CHG (CHLORHEXIDINE GLUC*03/31/2020 9 - Itching SULFA (SULFONAMIDE ANTIBIOTICS) 12/26/2019 8 - GI Upset SULFUR 11/11/2022 16 - Unknown SULFUR DIOXIDE 04/07/2020 14 - Other: See Comments TRAMADOL 12/26/2019 14 - Other: See Comments Comments: annorexia TRIAMCINOLONE 11/11/2022 14 - Other: See Comments VENLAFAXINE 11/11/2022 14 - Other: See Comments Date Reviewed: 11/11/2022 Reviewed by: Gilberto Messer MA - Fully Assessed Reason for Visit: OSH [Other] Prescriptions as of 11/15/2022 - buPROPion XL (WELLBUTRIN XL) 150 mg 24 hr tablet - cholecalciferol (VITAMIN D3) 50 mcg (2,000 unit) tablet Take by mouth q 24 HR. - metoprolol succinate ER (TOPROL XL) 25 mg 24 hr tablet Take 1 tablet by mouth once daily. - warfarin sodium (WARFARIN ORAL) Take by mouth as directed. Pt's dosage varies - atorvastatin (LIPITOR) 20 mg tablet Take 20 mg by mouth once daily. - torsemide (DEMADEX) 20 mg tablet Take 0.5 tablets by mouth once daily. - potassium chloride ER (K-DUR, KLOR-CON) 20 mEq tablet Take 3 tablets by mouth once daily. - ALPRAZolam (XANAX) 0.25 mg tablet Take 0.25 mg by mouth as needed. - omeprazole (PRILOSEC) 20 mg capsule Take 20 mg by mouth once daily. - levothyroxine (SYNTHROID) 125 mcg tablet Take 1 tablet by mouth DAILY (6 AM). - aspirin 81 mg chewable tablet 1 tablet by ORAL/FEEDING TUBE route once daily. - magnesium oxide (MAG-OX) 400 mg (241.3 mg magnesium) tablet Take 1 tablet by mouth once daily. Facility-Administered Medications as of 11/15/2022 - perflutren lipid microspheres 1.3 mL in NaCl (PF) 0.9% 10 mL injection (DEFINITY) - sodium chloride 0.9 % (flush) 10 mL (BD POSIFLUSH) - perflutren lipid microspheres 1.3 mL in NaCl (PF) 0.9% 10 mL injection (DEFINITY) - sodium chloride 0.9 % (flush) 10 mL (BD POSIFLUSH) Problem List As Of Date 11/15/2022 Noted Resolved Aortic valve disorder [I35.9] 04/14/1997 Class: Chronic Edema [R60.9] 04/14/1997 Class: Chronic Chest pain [786.5] 04/14/1997 04/12/2016 Class: Chronic Panic disorder without agoraphobia [F41.0] 02/08/2002 Congenital stenosis of aortic valve [Q23.0] 07/30/2003 03/16/2020 ABD/PEL SWELL/MASS/LUMP UNSP SITE [R19.00] 08/07/2005 OVARIAN CYST NEC/NOS [N83.209] 08/30/2005 S/P Ross procedure [Z95.4] 04/16/2014 Aortic regurgitation [I35.1] 06/04/2016 Right xcvivkzpq-pf-ewqsjbagh artery (RV-PA) con*06/04/2016 04/04/2020 Congenital aortic stenosis [Q23.0] 12/28/2019 Dyspnea due to congestive heart failure (HCC) *12/28/2019 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] 12/28/2019 03/16/2020 Difficult airway [T88.4XXA] 01/13/2020 Pulmonary edema [J81.1] 01/13/2020 01/25/2020 Post-op pain [G89.18] 01/13/2020 01/17/2020 Coagulopathy (HCC) [D68.9] 01/13/2020 01/15/2020 Acquired hypothyroidism [E03.9] 01/13/2020 Chronic atrial fibrillation (HCC) [I48.20] 01/13/2020 03/04/2020 Personal history of ECMO [Z92.81] 01/13/2020 01/17/2020 Pulmonary artery injury [S25.409A] 01/13/2020 04/04/2020 Postoperative hypertension [I97.3] 01/13/2020 01/13/2020 Hypotension after procedure [I95.81] 01/13/2020 01/18/2020 Obtundation [R40.1] 01/17/2020 01/18/2020 Moderate protein-calorie malnutrition (HCC) [E4*01/17/2020 04/06/2020 Leukocytosis [D72.829] 01/18/2020 03/23/2020 Altered mental status [R41.82] 01/18/2020 01/27/2020 Cardiac insufficiency (HCC) [I50.9] 01/18/2020 01/25/2020 Delirium [R41.0] 01/27/2020 01/27/2020 Acute on chronic respiratory failure (HCC) [J96*01/27/2020 Hypernatremia [E87.0] 01/27/2020 03/01/2020 Hemothorax on left [J94.2] 02/03/2020 Acute deep vein thrombosis (DVT) of both upper *02/04/2020 Atrial flutter (HCC) [I48.92] 02/18/2020 Acute blood loss anemia [D62] 02/22/2020 04/04/2020 Acute deep vein thrombosis (DVT) of right lower*02/23/2020 Ileus (HCC) [K56.7] 02/29/2020 03/03/2020 Encounter for support and coordination of trans*03/04/2020 03/11/2020 Encounter for support and coordination of trans*03/20/2020 Discharge planning issues [Z02.9] 0 (more content not included)... Normal [facility] CNOVon 11-11-2022 CNOV Office Visit (CARCMN ) ----- MYRNA KIRBY ([id number]) 1950 F Date Time Provider Department 11/11/22 9:45 AM STEVE DENT During your visit today, we recorded the following information about you: Pulse Blood pressure Weight 66/minute 115/68 73.5 kg Steve Dent MD 11/20/2022 7:39 AM [facility] OUTPATIENT VISIT DATE November 11, 2022 OUTPATIENT VISIT TYPE EST PRIMARY CARE PHYSICIAN: Azalea Rodrigez, DO [address] [place] [address] REFERRING PHYSICIAN: Valente Louis MD [address] [facility] [address] CHIEF COMPLAINT: Congenital aortic stenosis s/p Ross procedure CONGENITAL CARDIAC HISTORY: Ms. Myrna Kirby is a pleasant 72 yo F with: Congenital aortic stenosis Full term baby, no complications, NVD Diagnosed with during 2nd at age 34 Surgery 1993: Ross procedure via median sternotomy by Dr. Velez at [facility]. Surgery 12/1995: aortic root homograft replacement via median sternotomy by Dr. Velez at [facility]. Surgery 09/04/1996: RV-PA #25 mm homograft replacement via median sternotomy by Dr. Velez at [facility]. Visit with Dr. 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 RVSP 59 + RA, normal aortic homograft function. Today's Echo 12/26/2019: severe RV-PA conduit PS and FL (PG/MG 72/43 mmHg), moderately dilated RV with low normal systolic function, e/o RV pressure and volume overload, normal aortic homograft. 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 Presentation 12/2019: Very symptomatic with dyspnea on exertion, limited functional capacity, abdominal bloating, early satiety, nausea. TPVR 01/13/2020: severe mixed PS/FL and heavily calcified conduit s/p conduit stenting with 8zig 5cm CP on 18 BIB, [id number] on 20 BIB and 22 Kat however post-dilation at the very end was complicated by PA perforation, VA ECMO was instituted quickly and an attempt at covered stenting of the bleeding source was made however it was difficult to visualize true source given left hemothorax and ECMO flow, patient taken emergently to the OR Surgery 01/13/2020: Emergent Reoperation fourth open-heart surgery. Evacuation of left chest hematoma. Replacement of the pulmonary valve root and proximal pulmonary artery. Removal of the ECMO and reinsertion of VV-ECMO. 01/14/2020: Mediastinal and chest washout 01/16/2020: Chest exploration, washout and closure, VV ECMO decannulation 01/21/2020: Percutaneous tracheostomy (Bivona 8.0 TTS tracheostomy). 02/08/2020: Trach down-sized 02/14/2020: Left thoracotomy, decortication, partial pleurectomy, evacuation of hemothorax, and intercostal nerve block. Atrial fibrillation and atrial flutter: in NSR, on metoprolol, and warfarin (previsouly on diltiazem and apixaban, digoxin, prior DCCV 12/2019), f/b Dr. Louis S/p 2 c-sections, children and grandchildren without known CHD. No FH of CHD or SCA INTERVAL HISTORY: Ms. Kirby is a 71 year old female here today for ACHD follow up visit. She presents with her . Was last evaluated 08/2020 with UTE Beal. At her initial office visit, she was very symptomatic with dyspnea on exertion, limited functional capacity, abdominal bloating, early satiety, nausea, fatigue, dizziness with position changes, and palpitations which wake her up at night. She denied chest pain, syncope. Ms. Kirby had a long hospitalization (01/13/2020-04/07/2020) and is detailed below: Transcatheter PV replacement on 01/13/2020 in heavily calcified conduit, after successful stenting and Kat valve placement, postdilation resulted in PA perforation, resulting in left hemothorax and hemodyamic compromise requiring support with VA ECMO placed percutaneously through left groin vessels, bleeding source could not be identified percutaneously so taken emergently to OR. 01/13/2020: Emergent Reoperation fourth open-heart surgery. Evacuation of left chest hematoma. Replacement of the pulmonary valve root and proximal pulmonary artery. Removal of the ECMO and reinsertion of VV-ECMO. 01/14/2020: Mediastinal and chest washout 01/16/2020: Chest exploration, washout and closure, VV ECMO decannualtion 01/21/2020: Percutaneous tracheostomy (Bivona 8.0 TTS tracheostomy). 02/08/2020: Trach down-sized 02/14/2020: Left thoracotomy, decortication, partial pleurectomy, evacuation of hemothorax, and intercostal nerve block. Last visit, Myrna reports she has been feeling well. She denies chest pain, shortness of breath, PND, orthopnea, palpitations, edema, light headedn (more content not included)... Normal [facility] ECG COMPLETEon 11-11-2022 ECG COMPLETE Ventricular Rate : 6 2 BPM Atrial Rate : 62 BPM P-R Interval : 152 ms QRS Duration : 96 ms Q-T Interval : 414 ms QTC Calculation(Bazett) : 420 ms Calculated P Pep : 16 degrees Calculated R Pep : 91 degrees Calculated T Pep : 71 degrees NORMAL SINUS RHYTHM RIGHT AXIS ANTEROLATERAL T WAVE ABNORMALITY ABNORMAL ECG Confirmed by MD BRAR HEBA ([id number]) on 11/15/2022 7:12:35 PM NAME : MYRNA KIRBY PID : [id number] : 1950 Gender : Female Race : ORD : [id number] Procedure Date : Nov 11 2022 07:09:23 Edit Date : Nov 15 2022 19:12:39 Diagnosis: NORMAL SINUS RHYTHM RIGHT AXIS ANTEROLATERAL T WAVE ABNORMALITY ABNORMAL ECG Confirmed by MD BRAR HEBA ([id number]) on 11/15/2022 7:12:35 PM Test Reason : Location : 314 : J14 J1-4 Overread By : MD BRAR HEBA Edited By : MD BRAR HEBA Referred By : STEVE DENT Acquired by : DENNY KAPLAN [facility] ECHOon 11-11-2022 Echocardiography Echocardiography Rep ort: Transthoracic Echo [facility]-2 Date of service: 11/11/2022 8:04:47 AM NURSE Ordering physician: ZACH GAFFNEY Indication: S/P Ross procedure, Technologist: Debbie Joy [facility] Interpreting physician: Steve Dent MD PATIENT: Name: MRS. MYRNA KIRBY : 1950 Age: 72 years Gender: F History of congenital heart disease, arrhythmia and valvular heart disease. Previous cardiovascular interventions: Ross Procedure (1993) Aortic root homograft & RV-PA conduit replacement (1996) PV root replacement & Proximal PA (01/2020) Primary rhythm: sinus. Height: 175.30 cm BSA: 1.91 m Weight: 74.84 kg BMI: 24.4 kg/m Heart rate 65 bpm Blood pressure 124/63 mmHg Technically difficult exam due to body habitus. Color Doppler was utilized to interrogate the cardiac valves assessed and spectral Doppler was utilized to determine the flow velocities and pressure gradients reported in this exam. MEASUREMENTS: Value Indexed Normal Max aortic dimension 2.4 cm Ao < 3.8 Left atrial volume 61 ml (biplane A-L) 32 ml/m Maryana <= 34 LV ID (diastole) 4.0 cm (2D) 2.10 cm/m LV ID (systole) 2.4 cm (2D) 1.26 cm/m IVS, leaflet tips 0.8 cm (2D) Posterior wall thickness 1.0 cm (2D) Left ventricular mass 110 g (2D) 57 g/m LV stroke volume 34 ml (2D biplane) LV end diastolic volume 56 ml (2D biplane) 29.4 ml/m 29<=EDVi<62 LV end systolic volume 22 ml (2D biplane) 11.3 ml/m Ejection Fraction 61 % (2D biplane) EF > 54 FINDINGS: LEFT VENTRICLE The left ventricle is normal in size. Left ventricular systolic function is normal. Normal left ventricular diastolic function. Mitral annular lateral E/e': 6.7. Mitral annular septal E/e': 8.0. Wall Motion: All scored segments are normal. RIGHT VENTRICLE The right ventricle is mildly dilated. Right ventricular systolic function is low normal. RV systolic tissue Doppler velocity is 9.7 cm/s. Tricuspid annular displacement is 1.0 cm. Estimated right ventricular systolic pressure is 50 mmHg consistent with mild pulmonary hypertension. Estimated right atrial pressure is 3 mmHg based on IVC assessment. LEFT ATRIUM The left atrial cavity is normal in size. Pulmonary Veins: The pulmonary venous pattern showed normal systolic flow. RIGHT ATRIUM The right atrial cavity is mildly dilated. Inferior Vena Cava: The inferior vena cava appears normal measuring 1.7 cm. The vessel decreases greater than 50 percent with inspiration. MITRAL VALVE There is mild mitral annular calcification observed posterior. There is mild (1+) mitral valve regurgitation. The pressure half time is 54 msec. The peak mitral E/A ratio is 1.09. The average mitral E/e' ratio is 7.4. The mitral flow deceleration time is 185 msec. TRICUSPID VALVE There is moderate (2+ - 3+) tricuspid valve regurgitation. There is no thickening. The hepatic venous pattern showed reversed systolic flow. AORTIC VALVE Homograft prosthetic valve. There is trace aortic valve regurgitation. The peak gradient is 28 mmHg (peak velocity = 263.0 cm/s). The mean gradient is 12 mmHg. The LVOT mean velocity is 46.6 cm/s. The aortic VTI is 50.4 cm. The mean velocity in the aortic valve is 164.0 cm/s. The dimensionless valve index is 0.33. PULMONIC VALVE [employer] prosthetic valve size #26. There is mild (1+) pulmonic valve regurgitation. The peak gradient is 26 mmHg. The mean gradient is 15 mmHg. The mean velocity in the pulmonic valve is 181.0 cm/s. AORTA The visualized aorta is normal in size. Measurements - Mid ascending aorta 2.4 cm. Distal descending diaphragmatic level 1.9 cm. PULMONARY ARTERIES The pulmonary arteries are unseen or not interrogated. INTERATRIAL SEPTUM There is no evidence of intracardiac shunting as detected by Doppler. INTERVENTRICULAR SEPTUM There is abnormal motion of the interventricular septum. There is systolic and diastolic flattening of the interventricular septum consistent with RV pressure and volume overload. There is no flow through the interventricular septum as detected by Doppler. PERICARDIUM There is no pericardial effusion. CONCLUSIONS: - Technically difficult exam due to body habitus. - Exam indication: S/P Ross procedure, - Congenital aortic stenosis s/p Ross procedure (1993, [facility]), aortic root homograft (1995, [facility]), RV-PA homograft replacement (04-SEP-1996, [facility]), and replacement of the pulmonary valve root and proximal pulmonary artery (13-JAN-2020, [facility]). - The left ventricle is normal in size. Left ventricular systolic function is normal. EF = 61 5% (2D biplane) Normal left ventricular diastolic function. - The right ventricle is mildly dilated. Right ventricular systolic function is low normal. - The right atrial cavity is mildly dilated. - Mild (1+) MR. - There is moderate (2+ - 3+) tricuspid valve regurgitation. - Homograft prosthetic ao (more content not included)... Normal [facility] TSH SerPl-aCncon 11-11-2022 TSH Qn 2.190 m[IU]/L Normal 0.270-4.20 0 [facility] Comment on above: Order Comment: Speci men Type: BLOOD SPECIMEN Ordering Facility: [facility] Address: [address] [place] [id number] Performed By: #### 3 016-3 #### [facility] CLIA [id number] [facility] [place] [address] [place] Prothrombin Time INRon 10-18 INR Coag (PPP) [Relative time] 2.6 {INR} RFMarq Other Prothrombin Time INR [employer] jodie [employer] Other Alanine aminotransferase [En zymatic activity/volume] in Serum or PlasmaOrdered By: Azalea Rodrigez on 10-12-2022 ALT [Catalytic activity/Vol] 13 U/L 7-52 [facility] Albumin [Mass/volume] in Ser um or Plasma by Bromocresol green (BCG) dye binding methoOrdered By: Azalea Rodrigez on 10-12-2022 Albumin BCG dye [Mass/Vol] 4.5 g/dL 3.5-5.7 [facility] Alkaline phosphatase [Enzyma tic activity/volume] in Serum or PlasmaOrdered By: Azalea Rodrigez on 10-12-2022 ALP [Catalytic activity/Vol] 129 U/L 34-104 [facility] Aspartate aminotransferase [ Enzymatic activity/volume] in Serum or PlasmaOrdered By: Azalea Rodrigez on 10-12-2022 AST [Catalytic activity/Vol] 19 U/L 13-39 [facility] Basophils Auto (Bld) [#/Vol] Ordered By: Azalea Rodrigez on 10-12-2022 Basophils (Bld) [#/Vol] 0.0 10*3/uL 0.0-0.2 [facility] Basophils/100 WBC Auto (Bld) Ordered By: Azalea Rodrigez on 10-12-2022 Basophils/100 WBC (Bld) 0.9 % . [facility] Bilirubin.total [Mass/volume ] in Serum or PlasmaOrdered By: Azalea Rodrigez on 10-12-2022 Bilirubin [Mass/Vol] 1.2 mg/dL 0.3-1.0 [facility] Calcium [Mass/volume] in Ser um or PlasmaOrdered By: Azalea Rodrigez on 10-12-2022 Calcium [Mass/Vol] 9.9 mg/dL 8.6-10.3 [facility] Carbon dioxide, total [Moles /volume] in Serum or PlasmaOrdered By: Azalea Rodrigez on 10-12-2022 CO2 [Moles/Vol] 32.1 mmol/L 21.0-31.0 [facility] Chloride [Moles/volume] in S harris or PlasmaOrdered By: Azalea Rodrigez on 10-12-2022 Chloride [Moles/Vol] 104 mmol/L 98-107 [facility] Complete Blood Count Auto Di ffon 10-12-2022 Basophils (Bld) [#/Vol] 0.0 10*3/uL Normal 0.0-0.2 [facility] Comment on above: Result Comment: PERF ORMED BY: [place] [address] PATHOLOGIST SPLITTING MACHINE OPERATOR LETICIA JAVIER M.D. Performed By: #### C BC, CMP, TSH3, T4F, T3F #### [address] Basophils/100 WBC (Bld) 0.9 % Normal . [facility] Comment on above: Performed By: #### C BC, CMP, TSH3, T4F, T3F #### [address] Eosinophils (Bld) [#/Vol] 0.2 10*3/uL Normal 0.0-0.45 [facility] Comment on above: Performed By: #### C BC, CMP, TSH3, T4F, T3F #### [address] Eosinophils/100 WBC (Bld) 2.9 % Normal . [facility] Comment on above: Performed By: #### C BC, CMP, TSH3, T4F, T3F #### [address] Erythrocyte distribution width (RBC) [Ratio] 14.5 % Normal 11.9-15.3 [facility] Comment on above: Performed By: #### C BC, CMP, TSH3, T4F, T3F #### [address] Hematocrit (Bld) [Volume fraction] 39.4 % Normal 34.0-46.4 [facility] Comment on above: Performed By: #### C BC, CMP, TSH3, T4F, T3F #### [place] [address] [place] Hemoglobin (Bld) [Mass/Vol] 12.8 g/dL Normal 11.8-15.4 [facility] Comment on above: Performed By: #### C BC, CMP, TSH3, T4F, T3F #### [address] Lymphocytes (Bld) [#/Vol] 1.5 10*3/uL Normal 1.00-4.8 [facility] Comment on above: Performed By: #### C BC, CMP, TSH3, T4F, T3F #### [address] Lymphocytes/100 WBC (Bld) 25.5 % Normal . [facility] Comment on above: Performed By: #### C BC, CMP, TSH3, T4F, T3F #### [address] MCH (RBC) [Entitic mass] 28.6 pg Normal 24.7-34.3 [facility] Comment on above: Performed By: #### C BC, CMP, TSH3, T4F, T3F #### [address] MCV (RBC) [Entitic vol] 88.0 fL Normal 80-100 [facility] Comment on above: Performed By: #### C BC, CMP, TSH3, T4F, T3F #### [address] Mean Corpuscular HGB Conc 32.5 g/dL Normal 32.0-35.0 [facility] Comment on above: Performed By: #### C BC, CMP, TSH3, T4F, T3F #### [address] Monocytes (Bld) [#/Vol] 0.4 10*3/uL Normal 0.0-0.8 [facility] Comment on above: Performed By: #### C BC, CMP, TSH3, T4F, T3F #### [place] [address] [place] Monocytes/100 WBC (Bld) 7.7 % Normal . [facility] Comment on above: Performed By: #### C BC, CMP, TSH3, T4F, T3F #### [facility] [address] Neutrophils (Bld) [#/Vol] 3.7 10*3/uL Normal 1.8-7.7 [facility] Comment on above: Performed By: #### C BC, CMP, TSH3, T4F, T3F #### [address] Neutrophils/100 WBC (Bld) 63.0 % Normal . [facility] Comment on above: Performed By: #### C BC, CMP, TSH3, T4F, T3F #### [address] NRBC% 0.1 /100{WBC} Normal 0-0.5 [facility] Comment on above: Performed By: #### C BC, CMP, TSH3, T4F, T3F #### [address] Platelet mean volume (Bld) [Entitic vol] 10.4 fL Normal 6.3-10.7 [facility] Comment on above: Performed By: #### C BC, CMP, TSH3, T4F, T3F #### [place] [address] [place] Platelets (Bld) [#/Vol] 205 10*3/uL Normal 150-450 [facility] Comment on above: Performed By: #### C BC, CMP, TSH3, T4F, T3F #### [facility] [address] [place] [address] [place] RBC (Bld) [#/Vol] 4.47 10*6/uL Normal 3.60-5.00 [facility] Comment on above: Performed By: #### C BC, CMP, TSH3, T4F, T3F #### [place] [address] [place] WBC (Bld) [#/Vol] 5.8 10*3/uL Normal 3.8-11.6 [facility] Comment on above: Performed By: #### C BC, CMP, TSH3, T4F, T3F #### [facility] [address] Comprehensive Metabolic Pane jennifer 10-12-2022 Albumin [Mass/Vol] 4.5 g/dL Normal 3.5-5.7 [facility] Comment on above: Performed By: #### C BC, CMP, TSH3, T4F, T3F #### [facility] [address] Albumin/Globulin [Mass ratio] 1.9 {ratio} Normal [facility] Comment on above: Performed By: #### C BC, CMP, TSH3, T4F, T3F #### [facility] [address] ALP [Catalytic activity/Vol] 129 U/L High 34-104 [facility] Comment on above: Performed By: #### C BC, CMP, TSH3, T4F, T3F #### [facility] [address] ALT [Catalytic activity/Vol] 13 U/L Normal 7-52 [facility] Comment on above: Performed By: #### C BC, CMP, TSH3, T4F, T3F #### [facility] [address] Anion gap [Moles/Vol] 9.6 mmol/L Normal 6.0-15.0 [facility] Comment on above: Performed By: #### C BC, CMP, TSH3, T4F, T3F #### [facility] [address] [place] [address] AST [Catalytic activity/Vol] 19 U/L Normal 13-39 [facility] Comment on above: Performed By: #### C BC, CMP, TSH3, T4F, T3F #### [facility] [address] Bilirubin [Mass/Vol] 1.2 mg/dL High 0.3-1.0 [facility] Comment on above: Performed By: #### C BC, CMP, TSH3, T4F, T3F #### [address] Calcium [Mass/Vol] 9.9 mg/dL Normal 8.6-10.3 [facility] Comment on above: Performed By: #### C BC, CMP, TSH3, T4F, T3F #### [address] Chloride [Moles/Vol] 104 mmol/L Normal 98-107 [facility] Comment on above: Performed By: #### C BC, CMP, TSH3, T4F, T3F #### [address] CO2 [Moles/Vol] 32.1 mmol/L High 21.0-31.0 [facility] Comment on above: Performed By: #### C BC, CMP, TSH3, T4F, T3F #### [address] Creatinine [Mass/Vol] 0.87 mg/dL Normal 0.60-1.20 [facility] Comment on above: Performed By: #### C BC, CMP, TSH3, T4F, T3F #### [address] GFR/1.73 sq M.predicted MDRD (S/P/Bld) [Vol rate/Area] mL/min/{1.73_m2} [facility] Comment on above: Performed By: #### C BC, CMP, TSH3, T4F, T3F #### [address] Globulin (S) [Mass/Vol] 2.4 g/dL [facility] Comment on above: Performed By: #### C BC, CMP, TSH3, T4F, T3F #### [address] Glucose [Mass/Vol] 91 mg/dL Normal 70-100 [facility] Comment on above: Result Comment: [place] Glucose Reference Range is dependent on time and content of last meal. Glucose of more than 200 mg/dL in a nonstressed, ambulatory subject supports the diagnosis of Diabetes Mellitus. ADA recommended reference range Performed By: #### C BC, CMP, TSH3, T4F, T3F #### [facility] [address] Potassium [Moles/Vol] 3.7 mmol/L Normal 3.5-5.1 [facility] Comment on above: Performed By: #### C BC, CMP, TSH3, T4F, T3F #### [address] Protein [Mass/Vol] 6.9 g/dL Normal 6.4-8.9 [facility] Comment on above: Performed By: #### C BC, CMP, TSH3, T4F, T3F #### [address] Sodium [Moles/Vol] 142 mmol/L Normal 136-145 [facility] Comment on above: Performed By: #### C BC, CMP, TSH3, T4F, T3F #### [address] Urea nitrogen [Mass/Vol] 19 mg/dL Normal 7-25 [facility] Comment on above: Performed By: #### C BC, CMP, TSH3, T4F, T3F #### [address] Creatinine [Mass/volume] in Serum or PlasmaOrdered By: Azalea Rodrigez on 10-12-2022 Creatinine [Mass/Vol] 0.87 mg/dL 0.60-1.20 [facility] Eosinophils Auto (Bld) [#/Vo l]Ordered By: Azalea Rodrigez on 10-12-2022 Eosinophils (Bld) [#/Vol] 0.2 10*3/uL 0.0-0.45 [facility] Eosinophils/100 WBC Auto (Bl d)Ordered By: Azalea Rodrigez on 10-12-2022 Eosinophils/100 WBC (Bld) 2.9 % . [facility] Erythrocyte distribution wid th Auto (RBC) [Ratio]Ordered By: Azalea Rodrigez on 10-12-2022 Erythrocyte distribution width (RBC) [Ratio] 14.5 % 11.9-15.3 [facility] Free T4 (Free Thyroxine)on 0 10-12-2022 Free T4 [Mass/Vol] 0.99 ng/dL Normal 0.61-1.12 [facility] Comment on above: Performed By: #### C BC, CMP, TSH3, T4F, T3F #### [facility] [address] Globulin Calc (S) [Mass/Vol] Ordered By: Azalea Rodrigez on 10-12-2022 Globulin (S) [Mass/Vol] 2.4 g/dL [facility] Glucose [Mass/volume] in Ser um or PlasmaOrdered By: Azalea Rodrigez on 10-12-2022 Glucose [Mass/Vol] 91 mg/dL 70-100 [facility] Comment on above: ADA recommended refe rence rangeRandom Glucose Reference Range is dependent on time and content of last meal. Glucose of more than 200 mg/dL in a nonstressed, ambulatory subject supports the diagnosis of Diabetes Mellitus. Hematocrit Auto (Bld) [Volum e fraction]Ordered By: Azalea Rodrigez on 10-12-2022 Hematocrit (Bld) [Volume fraction] 39.4 % 34.0-46.4 [facility] Hemoglobin [Mass/volume] in BloodOrdered By: Azalea Rodrigez on 10-12-2022 Hemoglobin (Bld) [Mass/Vol] 12.8 g/dL 11.8-15.4 [facility] Leukocytes [#/volume] correc shelly for nucleated erythrocytes in Blood by Automated counOrdered By: Azalea Rodrigez on 10-12-2022 WBC corrected for nucl RBC Auto (Bld) [#/Vol] 5.8 10*3/uL 3.8-11.6 [facility] Lymphocytes Auto (Bld) [#/Vo l]Ordered By: Azalea Rodrigez on 10-12-2022 Lymphocytes (Bld) [#/Vol] 1.5 10*3/uL 1.00-4.8 [facility] Lymphocytes/100 WBC Auto (Bl d)Ordered By: Azalea Rodrigez on 10-12-2022 Lymphocytes/100 WBC (Bld) 25.5 % . [facility] MCH Auto (RBC) [Entitic mass ]Ordered By: Azalea Rodrigez on 10-12-2022 MCH (RBC) [Entitic mass] 28.6 pg 24.7-34.3 [facility] MCHC Auto (RBC) [Mass/Vol]Or dered By: Azalea Rodrigez on 10-12-2022 MCHC (RBC) [Mass/Vol] 32.5 g/dL 32.0-35.0 [facility] MCV Auto (RBC) [Entitic vol] Ordered By: Azalea Rodrigez on 10-12-2022 MCV (RBC) [Entitic vol] 88.0 fL 80-100 [facility] Monocytes Auto (Bld) [#/Vol] Ordered By: Azalea Rodrigez on 10-12-2022 Monocytes (Bld) [#/Vol] 0.4 10*3/uL 0.0-0.8 [facility] Monocytes/100 WBC Auto (Bld) Ordered By: Azalea Rodrigez on 10-12-2022 Monocytes/100 WBC (Bld) 7.7 % . [facility] Neutrophils Auto (Bld) [#/Vo l]Ordered By: Azalea Rodrigez on 10-12-2022 Neutrophils (Bld) [#/Vol] 3.7 10*3/uL 1.8-7.7 [facility] Neutrophils/100 WBC Auto (Bl d)Ordered By: Azalea Rodrigez on 10-12-2022 Neutrophils/100 WBC (Bld) 63.0 % . [facility] No Panel InformationOrdered By: Azalea Rodrigez on 10-12-2022 Estimated GFR (CKD-EPI) > 60.0 mL/Min [facility] Pharmacy Creatinine Clearance (Chem N/A [facility] Nucleated erythrocytes [Pres ence] in Blood by Automated countOrdered By: Azalea Rodrigez on 10-12-2022 Nucleated RBC Auto Ql (Bld) 0.1 /100{WBC} 0-0.5 [facility] Platelet mean volume Auto (B ld) [Entitic vol]Ordered By: Azalea Rodrigez on 10-12-2022 Platelet mean volume (Bld) [Entitic vol] 10.4 fL 6.3-10.7 [facility] Platelets Auto (Bld) [#/Vol] Ordered By: Azalea Rodrigez on 10-12-2022 Platelets (Bld) [#/Vol] 205 10*3/uL 150-450 [facility] Potassium [Moles/volume] in Serum or PlasmaOrdered By: Azalea Rodrigez on 10-12-2022 Potassium [Moles/Vol] 3.7 mmol/L 3.5-5.1 [facility] Protein [Mass/volume] in Ser um or PlasmaOrdered By: Azalea Rodrigez on 10-12-2022 Protein [Mass/Vol] 6.9 g/dL 6.4-8.9 [facility] RBC Auto (Bld) [#/Vol]Ordere d By: Azalea Rodrigez on 10-12-2022 RBC (Bld) [#/Vol] 4.47 10*6/uL 3.60-5.00 [facility] Serum or plasma albumin/glob ulin mass ratioOrdered By: Azalea Rodrigez on 10-12-2022 Albumin/Globulin [Mass ratio] 1.9 {ratio} [facility] Serum or plasma anion gap de terminationOrdered By: Azalea Rodrigez on 10-12-2022 Anion gap [Moles/Vol] 9.6 mmol/L 6.0-15.0 [facility] Sodium [Moles/volume] in Ser um or PlasmaOrdered By: Azalea Rodrigez on 10-12-2022 Sodium [Moles/Vol] 142 mmol/L 136-145 [facility] Thyroid Stimulating Hormoneo n 10-12-2022 TSH Qn 1.41 m[IU]/L Normal 0.45-5.33 [facility] Comment on above: Result Comment: PERF ORMED BY: [facility] [address] [place] [address] PATHOLOGIST [employer]PLITTING MACHINE OPERATOR LETICIA JAVIER M.D. Performed By: #### C BC, CMP, TSH3, T4F, T3F #### [facility] [address] [place] [id number] [facility] Thyrotropin [Units/volume] i n Serum or PlasmaOrdered By: Azalea Rodrigez on 10-12-2022 TSH Qn 1.41 m[IU]/L 0.45-5.33 [facility] Thyroxine (T4) free [Mass/vo lume] in Serum or PlasmaOrdered By: Azalea Rodrigez on 10-12-2022 Free T4 [Mass/Vol] 0.99 ng/dL 0.61-1.12 [facility] Triiodothyronine (T3) Freeon 10-12-2022 Triiodothyronine (T3) Free 3.11 pg/mL Normal 2.50-3.90 [facility] Comment on above: Result Comment: PERF ORMED BY: [place] [address] PATHOLOGIST SPLITTING MACHINE OPERATOR LETICIA JAVIER M.D. Performed By: #### C BC, CMP, TSH3, T4F, T3F #### [facility] [address] [place] [id number] [facility] Triiodothyronine (T3) Free [ Mass/volume] in Serum or PlasmaOrdered By: Azalea Rodrigez on 10-12-2022 Free T3 [Mass/Vol] 3.11 pg/mL 2.50-3.90 [facility] Urea nitrogen [Mass/volume] in Serum or PlasmaOrdered By: Azalea Rodrigez on 10-12-2022 Urea nitrogen [Mass/Vol] 19 mg/dL 7-25 [facility] WBC Auto (Bld) [#/Vol]Ordere d By: Azalea Rodrigez on 10-12-2022 WBC (Bld) [#/Vol] 5.8 10*3/uL 3.8-11.6 [facility] Prothrombin Time INRon 09-21 INR Coag (PPP) [Relative time] 2.6 {INR} [place] [employer] Other Prothrombin Time INR [facility] [employer] Other Prothrombin Time INRon 08-24 INR Coag (PPP) [Relative time] 2.4 {INR} [facility] [employer] Other Prothrombin Time INR [facility] [employer] Other Basophils Auto (Bld) [#/Vol] Ordered By: Azalea Rodrigez on 07-27-2022 Basophils (Bld) [#/Vol] 0.1 10*3/uL 0.0-0.2 [facility] Basophils/100 WBC Auto (Bld) Ordered By: Azalea Rodrigez on 07-27-2022 Basophils/100 WBC (Bld) 0.9 % . [facility] Creatinine and Glomerular fi ltration rate.predicted panel (S/P/Bld)Ordered By: Azalea Rodrigez on 07-27-2022 Creatinine [Mass/Vol] 1.04 mg/dL 0.44-1.03 [facility] Eosinophils Auto (Bld) [#/Vo l]Ordered By: Azalea Rodrigez on 07-27-2022 Eosinophils (Bld) [#/Vol] 0.2 10*3/uL 0.0-0.45 [facility] Eosinophils/100 WBC Auto (Bl d)Ordered By: Azalea Rodrigez on 07-27-2022 Eosinophils/100 WBC (Bld) 2.9 % . [facility] Erythrocyte distribution wid th Auto (RBC) [Ratio]Ordered By: Azalea Rodrigez on 07-27-2022 Erythrocyte distribution width (RBC) [Ratio] 14.3 % 11.9-15.3 [facility] Estimated glomerular filtrat ion rate (GFR) non- AmericanOrdered By: Azalea Rodrigez on 07-27-2022 GFR/1.73 sq M.predicted among non-blacks MDRD (S/P/Bld) [Vol rate/Area] 52 mL/Min [facility] Hematocrit Auto (Bld) [Volum e fraction]Ordered By: Azalea Rodrigez on 07-27-2022 Hematocrit (Bld) [Volume fraction] 38.5 % 34.0-46.4 [facility] Hemoglobin [Mass/volume] in BloodOrdered By: Azalea Rodrigez on 07-27-2022 Hemoglobin (Bld) [Mass/Vol] 12.3 g/dL 11.8-15.4 [facility] Leukocytes [#/volume] correc shelly for nucleated erythrocytes in Blood by Automated counOrdered By: Azalea Rodrigez on 07-27-2022 WBC corrected for nucl RBC Auto (Bld) [#/Vol] 5.9 10*3/uL 3.8-11.6 [facility] Lymphocytes Auto (Bld) [#/Vo l]Ordered By: Azalea Rodrigez on 07-27-2022 Lymphocytes (Bld) [#/Vol] 1.4 10*3/uL 1.00-4.8 [facility] Lymphocytes/100 WBC Auto (Bl d)Ordered By: Azalea Rodrigez on 07-27-2022 Lymphocytes/100 WBC (Bld) 23.3 % . [facility] MCH Auto (RBC) [Entitic mass ]Ordered By: Azalea Rodrigez on 07-27-2022 MCH (RBC) [Entitic mass] 28.5 pg 24.7-34.3 [facility] MCHC Auto (RBC) [Mass/Vol]Or dered By: Azalea Rodrigez on 07-27-2022 MCHC (RBC) [Mass/Vol] 32.0 g/dL 32.0-35.0 [facility] MCV Auto (RBC) [Entitic vol] Ordered By: Azalea Rodrigez on 07-27-2022 MCV (RBC) [Entitic vol] 88.9 fL 80-100 [facility] Monocytes Auto (Bld) [#/Vol] Ordered By: Azalea Rodrigez on 07-27-2022 Monocytes (Bld) [#/Vol] 0.6 10*3/uL 0.0-0.8 [facility] Monocytes/100 WBC Auto (Bld) Ordered By: Azalea Rodrigez on 07-27-2022 Monocytes/100 WBC (Bld) 9.6 % . [facility] Neutrophils Auto (Bld) [#/Vo l]Ordered By: Azalea Rodrigez on 07-27-2022 Neutrophils (Bld) [#/Vol] 3.7 10*3/uL 1.8-7.7 [facility] Neutrophils/100 WBC Auto (Bl d)Ordered By: Azalea Rodrigez on 07-27-2022 Neutrophils/100 WBC (Bld) 63.3 % . [facility] No Panel InformationOrdered By: Azalea Rodrigez on 07-27-2022 Estimated GFR () > 60 mL/Min [facility] Comment on above: GFR estimated refere nce range: According to KDOQI guidelines, <60 ml/min/1.73m2 is sufficient to diagnose a patient with chronic kidney disease. Pharmacy Creatinine Clearance (Chem N/A [facility] Nucleated erythrocytes [Pres ence] in Blood by Automated countOrdered By: Azalea Rodrigez on 07-27-2022 Nucleated RBC Auto Ql (Bld) 0.1 /100{WBC} 0-0.5 [facility] Platelet mean volume Auto (B ld) [Entitic vol]Ordered By: Azalea Rodrigez on 07-27-2022 Platelet mean volume (Bld) [Entitic vol] 10.4 fL 6.3-10.7 [facility] Platelets Auto (Bld) [#/Vol] Ordered By: Azalea Rodrigez on 07-27-2022 Platelets (Bld) [#/Vol] 212 10*3/uL 150-450 [facility] RBC Auto (Bld) [#/Vol]Ordere d By: Azalea Rodrigez on 07-27-2022 RBC (Bld) [#/Vol] 4.33 10*6/uL 3.60-5.00 [facility] Serum or plasma anion gap de terminationOrdered By: Azalea Rodrigez on 07-27-2022 Anion gap [Moles/Vol] 15.0 mmol/L 6.0-15.0 [facility] Serum or plasma calcium kely urement (mass/volume)Ordered By: Azalea Rodrigez on 07-27-2022 Calcium [Mass/Vol] 9.3 mg/dL 8.2-10.2 [facility] Serum or plasma chloride cruz surement (moles/volume)Ordered By: Azalea Rodrigez on 07-27-2022 Chloride [Moles/Vol] 97 mmol/L 95-114 [facility] Serum or plasma glucose kely urement (mass/volume)Ordered By: Azalea Rodrigez on 07-27-2022 Glucose [Mass/Vol] 85 mg/dL 70-100 [facility] Comment on above: ADA recommended refe rence rangeRandom Glucose Reference Range is dependent on time and content of last meal. Glucose of more than 200 mg/dL in a nonstressed, ambulatory subject supports the diagnosis of Diabetes Mellitus. Serum or plasma potassium me asurement (moles/volume)Ordered By: Azalea Rodrigez on 07-27-2022 Potassium [Moles/Vol] 3.9 mmol/L 3.5-5.1 [facility] Serum or plasma sodium measu rement (moles/volume)Ordered By: Azalea Rodrigez on 07-27-2022 Sodium [Moles/Vol] 140 mmol/L 136-146 [facility] Serum or plasma total carbon dioxide measurement (moles/volume)Ordered By: Azalea Rodrigez on 07-27-2022 CO2 [Moles/Vol] 31.9 mmol/L 22.0-30.0 [facility] Serum or plasma urea nitroge n measurement (mass/volume)Ordered By: Azalea Rodrigez on 07-27-2022 Urea nitrogen [Mass/Vol] 22 mg/dL 9-23 [facility] WBC Auto (Bld) [#/Vol]Ordere d By: Azalea Rodrigez on 07-27-2022 WBC (Bld) [#/Vol] 5.9 10*3/uL 3.8-11.6 [facility] Albumin [Mass/volume] in Ser um or PlasmaOrdered By: Azalea Rodrigez on 07-13-2022 Albumin [Mass/Vol] 4.0 g/dL 3.2-5.5 [facility] Automated erythrocytes count in urine sediment (number/area)Ordered By: Azalea Rodrigez on 07-13-2022 RBC Auto (Urine sed) [#/Area] 0-1 [HPF] 0-4 [facility] Automated leukocytes count i n urine sediment (number/area)Ordered By: Azalea Rodrigez on 07-13-2022 WBC Auto (Urine sed) [#/Area] 5-9 [HPF] 0-4 [facility] Basophils Auto (Bld) [#/Vol] Ordered By: Azalea Rodrigez on 07-13-2022 Basophils (Bld) [#/Vol] 0.1 10*3/uL 0.0-0.2 [facility] Basophils/100 WBC Auto (Bld) Ordered By: Azalea Rodrigez on 07-13-2022 Basophils/100 WBC (Bld) 0.9 % . [facility] Bilirubin Test strip Ql (U)O rdered By: Azalea Rodrigez on 07-13-2022 Bilirubin Ql (U) Negative Negative [facility] Cholesterol [Mass/volume] in Serum or PlasmaOrdered By: Azalea Rodrigez on 07-13-2022 Cholesterol [Mass/Vol] 139 mg/dL 140-[facility] Comment on above: Chol less than 200 m g/dl low riskChol 201-239 mg/dl borderline riskChol 240 mg/dl and greater high risk Cholesterol in LDL Calc [Mas s/Vol]Ordered By: Azalea Rodrigez on 07-13-2022 Cholesterol in LDL [Mass/Vol] 79 mg/dL 0-100 [facility] Comment on above: LDL ATP III CLASSIFI CATIONLDL less than 100 mg/dL OptimalLDL 100-129 mg/dL Near or above optimalLDL 130-159 mg/dL Borderline highLDL 160-189 mg/dL HighLDL greater than 189 mg/dL Very high Cholesterol in VLDL Calc [Ma ss/Vol]Ordered By: Azalea Rodrigez on 07-13-2022 Cholesterol in VLDL [Mass/Vol] 24 mg/dL [facility] Color Auto (U)Ordered By: Adrian Rodrigez on 07-13-2022 Color (U) Yellow Yellow [facility] Creatinine and Glomerular fi ltration rate.predicted panel (S/P/Bld)Ordered By: Azalea Rodrigez on 07-13-2022 Creatinine [Mass/Vol] 0.95 mg/dL 0.44-1.03 [facility] Eosinophils Auto (Bld) [#/Vo l]Ordered By: Azalea Rodrigez on 07-13-2022 Eosinophils (Bld) [#/Vol] 0.2 10*3/uL 0.0-0.45 [facility] Eosinophils/100 WBC Auto (Bl d)Ordered By: Azalea Rodrigez on 07-13-2022 Eosinophils/100 WBC (Bld) 3.6 % . [facility] Erythrocyte distribution wid th Auto (RBC) [Ratio]Ordered By: Azalea Rodrigez on 07-13-2022 Erythrocyte distribution width (RBC) [Ratio] 14.0 % 11.9-15.3 [facility] Estimated glomerular filtrat ion rate (GFR) non- AmericanOrdered By: Azalea Rodrigez on 07-13-2022 GFR/1.73 sq M.predicted among non-blacks MDRD (S/P/Bld) [Vol rate/Area] 58 mL/Min [facility] Globulin Calc (S) [Mass/Vol] Ordered By: Azalea Rodrigez on 07-13-2022 Globulin (S) [Mass/Vol] 2.1 g/dL [facility] Hematocrit Auto (Bld) [Volum e fraction]Ordered By: Azalea Rodrigez on 07-13-2022 Hematocrit (Bld) [Volume fraction] 36.6 % 34.0-46.4 [facility] Hemoglobin [Mass/volume] in BloodOrdered By: Azalea Rodrigez on 07-13-2022 Hemoglobin (Bld) [Mass/Vol] 12.0 g/dL 11.8-15.4 [facility] Ketones Auto test strip (U) [Mass/Vol]Ordered By: Azalea Rodrigez on 07-13-2022 Ketones (U) [Mass/Vol] Negative Negative [facility] Laboratory - UrinalysisOrder ed By: Azalea Rodrigez on 07-13-2022 Hyaline casts LM Ql (Urine sed) 0-8 [LPF] 0-8 [facility] Leukocytes [#/volume] correc shelly for nucleated erythrocytes in Blood by Automated counOrdered By: Azalea Rodrigez on 07-13-2022 WBC corrected for nucl RBC Auto (Bld) [#/Vol] 5.6 10*3/uL 3.8-11.6 [facility] Lymphocytes Auto (Bld) [#/Vo l]Ordered By: Azalea Rodrigez on 07-13-2022 Lymphocytes (Bld) [#/Vol] 1.6 10*3/uL 1.00-4.8 [facility] Lymphocytes/100 WBC Auto (Bl d)Ordered By: Azalea Rodrigez on 07-13-2022 Lymphocytes/100 WBC (Bld) 28.4 % . [facility] MCH Auto (RBC) [Entitic mass ]Ordered By: Azalea Rodrigez on 07-13-2022 MCH (RBC) [Entitic mass] 28.9 pg 24.7-34.3 [facility] MCHC Auto (RBC) [Mass/Vol]Or dered By: Azalea Rodrigez on 07-13-2022 MCHC (RBC) [Mass/Vol] 32.7 g/dL 32.0-35.0 [facility] MCV Auto (RBC) [Entitic vol] Ordered By: Azalea Rodrigez on 07-13-2022 MCV (RBC) [Entitic vol] 88.5 fL 80-100 [facility] Monocytes Auto (Bld) [#/Vol] Ordered By: Azalea Rodrigez on 07-13-2022 Monocytes (Bld) [#/Vol] 0.4 10*3/uL 0.0-0.8 [facility] Monocytes/100 WBC Auto (Bld) Ordered By: Azalea Rodrigez on 07-13-2022 Monocytes/100 WBC (Bld) 8.0 % . [facility] Neutrophils Auto (Bld) [#/Vo l]Ordered By: Azalea Rodrigez on 07-13-2022 Neutrophils (Bld) [#/Vol] 3.3 10*3/uL 1.8-7.7 [facility] Neutrophils/100 WBC Auto (Bl d)Ordered By: Azalea Rodrigez on 07-13-2022 Neutrophils/100 WBC (Bld) 59.1 % . [facility] Nitrite Test strip Ql (U)Ord ered By: Azalea Rodrigez on 07-13-2022 Nitrite Ql (U) Negative Negative [facility] No Panel InformationOrdered By: Azalea Rodrigez on 07-13-2022 25-Hydroxy Vitamin D Total 16.4 ng/mL 30-100 [facility] Comment on above: VITAMIN D STATUS 25( [place])VITAMIN D RANGE (ng/mL) Deficient <20 Insufficient 20 to <30Sufficient 30 to 100Reference: Glendy MF,Sveta ORTIZ, Luis Felipe BAUTISTA, et al. Evaluation,treatment, and prevention of vitamin D deficiency; an Endocrine Society clinical practice guideline. JCEM. 2010; 96(7):1911-30. Estimated GFR () > 60 mL/Min [facility] Comment on above: GFR estimated refere nce range: According to KDOQI guidelines, <60 ml/min/1.73m2 is sufficient to diagnose a patient with chronic kidney disease. Pharmacy Creatinine Clearance (Chem N/A [facility] Nucleated erythrocytes [Pres ence] in Blood by Automated countOrdered By: Azalea Rodrigez on 07-13-2022 Nucleated RBC Auto Ql (Bld) 0.2 /100{WBC} 0-0.5 [facility] Platelet mean volume Auto (B ld) [Entitic vol]Ordered By: Azalea Rodrigez on 07-13-2022 Platelet mean volume (Bld) [Entitic vol] 10.4 fL 6.3-10.7 [facility] Platelets Auto (Bld) [#/Vol] Ordered By: Azalea Rodrigez on 07-13-2022 Platelets (Bld) [#/Vol] 220 10*3/uL 150-450 [facility] Protein Auto test strip (U) [Mass/Vol]Ordered By: Azalea Rodrigez on 07-13-2022 Protein (U) [Mass/Vol] Negative Negative [facility] Protein [Mass/volume] in Ser um or PlasmaOrdered By: Azalea Rodrigez on 07-13-2022 Protein [Mass/Vol] 6.1 g/dL 6.1-7.9 [facility] RBC Auto (Bld) [#/Vol]Ordere d By: Azalea Rodrigez on 07-13-2022 RBC (Bld) [#/Vol] 4.14 10*6/uL 3.60-5.00 [facility] Serum or plasma alanine guillen otransferase measurement without P-5'-P (enzymatic activiOrdered By: Azalea Rodrigez on 07-13-2022 ALT No additional P-5'-P [Catalytic activity/Vol] 26 U/L 10-60 [facility] Serum or plasma albumin/glob ulin mass ratioOrdered By: Azalea Rodrigez on 07-13-2022 Albumin/Globulin [Mass ratio] 1.9 {ratio} [facility] Serum or plasma alkaline sujatha sphatase measurement (enzymatic activity/volume)Ordered By: Azalea Rodrigez on 07-13-2022 ALP [Catalytic activity/Vol] 130 U/L 32-92 [facility] ALP [Catalytic activity/Vol] 149 U/L 44-121 [facility] Serum or plasma anion gap de terminationOrdered By: Azalea Rodrigez on 07-13-2022 Anion gap [Moles/Vol] 12.1 mmol/L 6.0-15.0 [facility] Serum or plasma aspartate am inotransferase measurement (enzymatic activity/volume)Ordered By: Azalea Rodrigez on 07-13-2022 AST [Catalytic activity/Vol] 25 U/L 10-42 [facility] Serum or plasma bone alkalin e phosphatase/total alkaline phosphatase ratioOrdered By: Azalea Rodrigez on 07-13-2022 ALP Bone [Catalytic fraction] 38 % 14-68 [facility] Serum or plasma calcium kely urement (mass/volume)Ordered By: Azalea Rodrigez on 07-13-2022 Calcium [Mass/Vol] 9.2 mg/dL 8.2-10.2 [facility] Serum or plasma chloride cruz surement (moles/volume)Ordered By: Azalea Rodrigez on 07-13-2022 Chloride [Moles/Vol] 100 mmol/L 95-114 [facility] Serum or plasma glucose kely urement (mass/volume)Ordered By: Azalea Rodrigez on 07-13-2022 Glucose [Mass/Vol] 77 mg/dL 70-100 [facility] Comment on above: ADA recommended refe rence rangeRandom Glucose Reference Range is dependent on time and content of last meal. Glucose of more than 200 mg/dL in a nonstressed, ambulatory subject supports the diagnosis of Diabetes Mellitus. Serum or plasma high density lipoprotein (HDL) cholesterol measurementOrdered By: Azalea Rodrigez on 07-13-2022 Cholesterol in HDL [Mass/Vol] 36 mg/dL 35-85 [facility] Comment on above: HDL CHOL ATP-III CLA SSIFICATION Cardiovascular RiskHDL > or equal to 60 mg/dL LOWHDL < 40 mg/dL HIGH Serum or plasma intestinal a lkaline phosphatase/total alkaline phosphatase ratio (catOrdered By: Azalea Rodrigez on 07-13-2022 ALP Intest [Catalytic fraction] 3 % 0-18 [facility] Comment on above: Performed at: [address] [id number] Director: Jayro Zaidi PhD, Phone: [phone] Serum or plasma potassium me asurement (moles/volume)Ordered By: Azalea Rodrigez on 07-13-2022 Potassium [Moles/Vol] 3.5 mmol/L 3.5-5.1 [facility] Serum or plasma sodium measu rement (moles/volume)Ordered By: Azalea Rodrigez on 07-13-2022 Sodium [Moles/Vol] 138 mmol/L 136-146 [facility] Serum or plasma total biliru bin measurement (mass/volume)Ordered By: Azalea Rodrigez on 07-13-2022 Bilirubin [Mass/Vol] 0.8 mg/dL 0.3-1.2 [facility] Serum or plasma total carbon dioxide measurement (moles/volume)Ordered By: Azalea Rodrigez on 07-13-2022 CO2 [Moles/Vol] 29.4 mmol/L 22.0-30.0 [facility] Serum or plasma total choles terol/high density lipoprotein (HDL) cholesterol mass ratOrdered By: Azalea Rodrigez on 07-13-2022 Cholesterol.total/Chol esterol in HDL [Mass ratio] 3.9 {ratio} <5.0 [facility] Serum or plasma urea nitroge n measurement (mass/volume)Ordered By: Azalea Rodrigez on 07-13-2022 Urea nitrogen [Mass/Vol] 17 mg/dL 9-23 [facility] Specific gravity Auto test s trip (U) [Rel density]Ordered By: Azalea Rodrigez on 07-13-2022 Specific gravity (U) [Rel density] 1.018 1.001-1.03 0 [facility] Squamous epithelial cells de tection in urine sediment by light microscopyOrdered By: Azalea Rodrigez on 07-13-2022 Epithelial cells.squamous LM Ql (Urine sed) 1-2 [HPF] 0-2 [facility] TSH DL <= 0.005 mIU/L QnOrde red By: Azalea Rodrigez on 07-13-2022 TSH Qn 5.34 m[IU]/L 0.45-5.33 [facility] Thyroxine (T4) free [Mass/vo lume] in Serum or PlasmaOrdered By: Azalea Rodrigez on 07-13-2022 Free T4 [Mass/Vol] 0.96 ng/dL 0.61-1.12 [facility] Total alkaline phosphatase m easurement with isoenzyme panelOrdered By: Azalea Rodrigez on 07-13-2022 ALP Iso Pnl 60 % 18-85 [facility] Triglyceride [Mass/volume] i n Serum or PlasmaOrdered By: Azalea Rodrigez on 07-13-2022 Triglyceride [Mass/Vol] 121 mg/dL 35-149 [facility] Comment on above: TRIG ATP III CLASSIF ICATIONTRIG less than 150 mg/dL NormalTRIG 150-199 mg/dL Borderline highTRIG 200-500 mg/dL High TRIG greater than 500 mg/dL Very highStandard traceable to the Center for Disease Conrtrol and Prevention (CDC) test method. Triiodothyronine (T3) Free [ Mass/volume] in Serum or PlasmaOrdered By: Azalea Rodrigez on 07-13-2022 Free T3 [Mass/Vol] 3.11 pg/mL 2.50-3.90 [facility] Urine bacteria detection by automated methodOrdered By: Azalea Rodrigez on 07-13-2022 Bacteria Auto Ql (U) None seen None Seen [facility] Urine clarity by refractomet ry automatedOrdered By: Azalea Rodrigez on 07-13-2022 Clarity Refractometry automated (U) Clear Clear [facility] Urine culture routineOrdered By: Azalea Rodrigez on 07-13-2022 Bacteria identified Cx Nom (U) 2 Days [facility] Urine glucose measurement by automated test strip (mass/volume)Ordered By: Azalea Rodrigez on 07-13-2022 Glucose Auto test strip (U) [Mass/Vol] Normal mg/dL Normal [facility] Urine hemoglobin detection b y automated test stripOrdered By: Azalea Rodrigez on 07-13-2022 Hemoglobin Auto test strip Ql (U) Trace Negative [facility] Urine leukocyte esterase det ection by automated test stripOrdered By: Azalea Rodrigez on 07-13-2022 Leukocyte esterase Auto test strip Ql (U) 2+ Negative [facility] Urobilinogen Auto test strip (U) [Mass/Vol]Ordered By: Azalea Rodrigez on 07-13-2022 Urobilinogen (U) [Mass/Vol] Normal mg/dL Normal [facility] WBC Auto (Bld) [#/Vol]Ordere d By: Azalea Rodrigez on 07-13-2022 WBC (Bld) [#/Vol] 5.6 10*3/uL 3.8-11.6 [facility] pH Auto test strip (U)Ordere d By: Azalea Rodrigez on 07-13-2022 pH (U) 5.5 [pH] 5.0-9.0 [facility] Creatinine and Glomerular fi ltration rate.predicted panel (S/P/Bld)Ordered By: Azalea Rodrigez on 05-27-2022 Creatinine [Mass/Vol] 1.27 mg/dL 0.44-1.03 [facility] Estimated glomerular filtrat ion rate (GFR) non- AmericanOrdered By: Azalea Rodrigez on 05-27-2022 GFR/1.73 sq M.predicted among non-blacks MDRD (S/P/Bld) [Vol rate/Area] 42 mL/Min [facility] No Panel InformationOrdered By: Azalea Rodrigez on 05-27-2022 Estimated GFR () 50 mL/Min [facility] Comment on above: GFR estimated refere nce range: According to KDOQI guidelines, <60 ml/min/1.73m2 is sufficient to diagnose a patient with chronic kidney disease. Pharmacy Creatinine Clearance (Chem N/A [facility] Serum or plasma urea nitroge n measurement (mass/volume)Ordered By: Azalea Rodrigez on 05-27-2022 Urea nitrogen [Mass/Vol] 20 mg/dL 9 [facility] Prothrombin Time INRon 05-26 INR Coag (PPP) [Relative time] 2.8 {INR} [employer] Other Prothrombin Time INR [facility] [employer] Other Prothrombin Time INRon 04-28 INR Coag (PPP) [Relative time] 2.0 {INR} [employer] Other Prothrombin Time INR [facility] [employer] Other Prothrombin Time INRon 04-14 INR Coag (PPP) [Relative time] 3.7 {INR} [facility] [employer] Other Prothrombin Time INR [facility] [employer] Other TSH DL <= 0.005 mIU/L QnOrde red By: Azalea Rodrigez on 04-08-2022 TSH Qn 2.19 m[IU]/L 0.45-5.33 [facility] Thyroxine (T4) free [Mass/vo lume] in Serum or PlasmaOrdered By: Azalea Rodrigez on 04-08-2022 Free T4 [Mass/Vol] 0.74 ng/dL 0.61-1.12 [facility] Triiodothyronine (T3) Free [ Mass/volume] in Serum or PlasmaOrdered By: Azalea Rodrigez on 04-08-2022 Free T3 [Mass/Vol] 2.88 pg/mL 2.50-3.90 [facility] Basophils Auto (Bld) [#/Vol] Ordered By: Dm Paris on 04-06-2022 Basophils (Bld) [#/Vol] 0.0 10*3/uL 0.0-0.2 [facility] Basophils/100 WBC Auto (Bld) Ordered By: Dm Paris on 04-06-2022 Basophils/100 WBC (Bld) 0.8 % . [facility] Blood hemoglobin measurement (mass/volume)Ordered By: Dm Paris on 04-06-2022 Hemoglobin (Bld) [Mass/Vol] 12.3 g/dL 11.8-15.4 [facility] Blood leukocytes automated c ount (number/volume)Ordered By: Dm Paris on 04-06-2022 WBC (Bld) [#/Vol] 6.2 10*3/uL 4.5-11.0 [facility] Creatinine and Glomerular fi ltration rate.predicted panel (S/P/Bld)Ordered By: Dm Paris on 04-06-2022 Creatinine [Mass/Vol] 0.99 mg/dL 0.44-1.03 [facility] Eosinophils Auto (Bld) [#/Vo l]Ordered By: Dm Paris on 04-06-2022 Eosinophils (Bld) [#/Vol] 0.2 10*3/uL 0.0-0.45 [facility] Eosinophils/100 WBC Auto (Bl d)Ordered By: Dm Paris on 04-06-2022 Eosinophils/100 WBC (Bld) 2.9 % . [facility] Erythrocyte distribution wid th Auto (RBC) [Ratio]Ordered By: Dm Paris on 04-06-2022 Erythrocyte distribution width (RBC) [Ratio] 14.9 % 11.9-15.3 [facility] Estimated glomerular filtrat ion rate (GFR) non- AmericanOrdered By: Dm Paris on 04-06-2022 GFR/1.73 sq M.predicted among non-blacks MDRD (S/P/Bld) [Vol rate/Area] 56 mL/Min [facility] Hematocrit Auto (Bld) [Volum e fraction]Ordered By: Dm Paris on 04-06-2022 Hematocrit (Bld) [Volume fraction] 37.4 % 34.0-46.4 [facility] Laboratory - CoagulationOrde red By: Dm Paris on 04-06-2022 PT Coag (PPP) [Time] 25.9 s 9.0-12.9 [facility] Laboratory - Hematology and Cell countsOrdered By: Dm Paris on 04-06-2022 Nucleated RBC/100 WBC (Bld) [Ratio] 0.0 % 0-0.5 [facility] Lymphocytes Auto (Bld) [#/Vo l]Ordered By: Dm Paris on 04-06-2022 Lymphocytes (Bld) [#/Vol] 0.8 10*3/uL 1.00-4.8 [facility] Lymphocytes/100 WBC Auto (Bl d)Ordered By: Dm Paris on 04-06-2022 Lymphocytes/100 WBC (Bld) 12.5 % . [facility] MCH Auto (RBC) [Entitic mass ]Ordered By: Dm Paris on 04-06-2022 MCH (RBC) [Entitic mass] 29.2 pg 24.7-34.3 [facility] MCHC Auto (RBC) [Mass/Vol]Or dered By: Dm Paris on 04-06-2022 MCHC (RBC) [Mass/Vol] 32.8 g/dL 32.0-35.0 [facility] MCV Auto (RBC) [Entitic vol] Ordered By: Dm Paris on 04-06-2022 MCV (RBC) [Entitic vol] 89.0 fL 80-100 [facility] Monocytes Auto (Bld) [#/Vol] Ordered By: Dm Paris on 04-06-2022 Monocytes (Bld) [#/Vol] 0.5 10*3/uL 0.0-0.8 [facility] Monocytes/100 WBC Auto (Bld) Ordered By: Dm Paris on 04-06-2022 Monocytes/100 WBC (Bld) 8.4 % . [facility] Neutrophils Auto (Bld) [#/Vo l]Ordered By: Dm Paris on 04-06-2022 Neutrophils (Bld) [#/Vol] 4.7 10*3/uL 1.8-7.7 [facility] Neutrophils/100 WBC Auto (Bl d)Ordered By: Dm Paris on 04-06-2022 Neutrophils/100 WBC (Bld) 75.4 % . [facility] No Panel InformationOrdered By: Dm Paris on 04-06-2022 Estimated GFR () > 60 mL/Min [facility] Comment on above: GFR estimated refere nce range: According to KDOQI guidelines, <60 ml/min/1.73m2 is sufficient to diagnose a patient with chronic kidney disease. Pharmacy Creatinine Clearance (Chem 56.05 [facility] Platelet mean volume Auto (B ld) [Entitic vol]Ordered By: Dm Paris on 04-06-2022 Platelet mean volume (Bld) [Entitic vol] 9.7 fL 6.3-10.7 [facility] Platelet poor plasma interna tional normalized ratio (INR) by coagulation assay (relatOrdered By: Dm Paris on 04-06-2022 INR Coag (PPP) [Relative time] 2.3 {INR} [facility] Comment on above: INR Therapeutic Rang e A) Pre- and Peroperative OAT started two weeks before surgery. NOT HIP SURGERY: 1.5 - 2.5 HIP SURGERY: 2 - 3B) Primary and secondary prevention of venous THROMBOSIS: 2 - 3C) Active venous thrombosis, pulmonary embolismand prevention of recurrent venous thrombosis: 2 - 3D) Prevention of arterial thromboembolismincluding patients with mechanical heart valves: 3 - 4.5 Platelets Auto (Bld) [#/Vol] Ordered By: Dm Paris on 04-06-2022 Platelets (Bld) [#/Vol] 206 10*3/uL 150-450 [facility] RBC Auto (Bld) [#/Vol]Ordere d By: Dm Paris on 04-06-2022 RBC (Bld) [#/Vol] 4.20 10*6/uL 3.60-5.00 [facility] Serum or plasma anion gap de terminationOrdered By: Dm Paris on 04-06-2022 Anion gap [Moles/Vol] 14.1 mmol/L 6.0-15.0 [facility] Serum or plasma calcium kely urement (mass/volume)Ordered By: Dm Paris on 04-06-2022 Calcium [Mass/Vol] 9.2 mg/dL 8.2-10.2 [facility] Serum or plasma chloride cruz surement (moles/volume)Ordered By: Dm Paris on 04-06-2022 Chloride [Moles/Vol] 100 mmol/L 95-114 [facility] Serum or plasma glucose kely urement (mass/volume)Ordered By: Dm Paris on 04-06-2022 Glucose [Mass/Vol] 86 mg/dL 70-100 [facility] Comment on above: ADA recommended refe rence rangeRandom Glucose Reference Range is dependent on time and content of last meal. Glucose of more than 200 mg/dL in a nonstressed, ambulatory subject supports the diagnosis of Diabetes Mellitus. Serum or plasma potassium me asurement (moles/volume)Ordered By: Dm Paris on 04-06-2022 Potassium [Moles/Vol] 3.8 mmol/L 3.5-5.1 [facility] Serum or plasma sodium measu rement (moles/volume)Ordered By: Dm Paris on 04-06-2022 Sodium [Moles/Vol] 139 mmol/L 136-146 [facility] Serum or plasma total carbon dioxide measurement (moles/volume)Ordered By: Dm Paris on 04-06-2022 CO2 [Moles/Vol] 28.7 mmol/L 22.0-30.0 [facility] Serum or plasma urea nitroge n measurement (mass/volume)Ordered By: Dm Paris on 04-06-2022 Urea nitrogen [Mass/Vol] 20 mg/dL 9 [facility] Prothrombin Time INRon 03-31 INR Coag (PPP) [Relative time] 1.3 {INR} [employer] Other Prothrombin Time INR [place] [employer] Other Prothrombin Time INRon 03-17 INR Coag (PPP) [Relative time] 1.7 {INR} [employer] Other Prothrombin Time INR [facility] [employer] Other Basophils Auto (Bld) [#/Vol] Ordered By: Azalea Rodrigez on 02-01-2022 Basophils (Bld) [#/Vol] 0.0 10*3/uL 0.0-0.2 [facility] Basophils/100 WBC Auto (Bld) Ordered By: Azalea Rodrigez on 02-01-2022 Basophils/100 WBC (Bld) 0.6 % . [facility] Blood hemoglobin measurement (mass/volume)Ordered By: Azalea Rodrigez on 02-01-2022 Hemoglobin (Bld) [Mass/Vol] 13.3 g/dL 11.8-15.4 [facility] Blood leukocytes automated c ount (number/volume)Ordered By: Azalea Rodrigez on 02-01-2022 WBC (Bld) [#/Vol] 6.6 10*3/uL 4.5-11.0 [facility] Eosinophils Auto (Bld) [#/Vo l]Ordered By: Azalea Rodrigez on 02-01-2022 Eosinophils (Bld) [#/Vol] 0.2 10*3/uL 0.0-0.45 [facility] Eosinophils/100 WBC Auto (Bl d)Ordered By: Azalea Rodrigez on 02-01-2022 Eosinophils/100 WBC (Bld) 2.9 % . [facility] Erythrocyte distribution wid th Auto (RBC) [Ratio]Ordered By: Azalea Rodrigez on 02-01-2022 Erythrocyte distribution width (RBC) [Ratio] 13.6 % 11.9-15.3 [facility] Hematocrit Auto (Bld) [Volum e fraction]Ordered By: Azalea Rodrigez on 02-01-2022 Hematocrit (Bld) [Volume fraction] 40.7 % 34.0-46.4 [facility] Laboratory - Hematology and Cell countsOrdered By: Azalea Rodrigez on 02-01-2022 Nucleated RBC/100 WBC (Bld) [Ratio] 0.0 % 0-0.5 [facility] Lymphocytes Auto (Bld) [#/Vo l]Ordered By: Azalea Rodrigez on 02-01-2022 Lymphocytes (Bld) [#/Vol] 1.5 10*3/uL 1.00-4.8 [facility] Lymphocytes/100 WBC Auto (Bl d)Ordered By: Azalea Rodrigez on 02-01-2022 Lymphocytes/100 WBC (Bld) 22.2 % . [facility] MCH Auto (RBC) [Entitic mass ]Ordered By: Azalea Rodrigez on 02-01-2022 MCH (RBC) [Entitic mass] 29.3 pg 24.7-34.3 [facility] MCHC Auto (RBC) [Mass/Vol]Or dered By: Azalea Rodrigez on 02-01-2022 MCHC (RBC) [Mass/Vol] 32.8 g/dL 32.0-35.0 [facility] MCV Auto (RBC) [Entitic vol] Ordered By: Azalea Rodrigez on 02-01-2022 MCV (RBC) [Entitic vol] 89.5 fL 80-100 [facility] Monocytes Auto (Bld) [#/Vol] Ordered By: Azalea Rodrigez on 02-01-2022 Monocytes (Bld) [#/Vol] 0.7 10*3/uL 0.0-0.8 [facility] Monocytes/100 WBC Auto (Bld) Ordered By: Azalea Rodrigez on 02-01-2022 Monocytes/100 WBC (Bld) 10.7 % . [facility] Neutrophils Auto (Bld) [#/Vo l]Ordered By: Azalea Rodrigez on 02-01-2022 Neutrophils (Bld) [#/Vol] 4.2 10*3/uL 1.8-7.7 [facility] Neutrophils/100 WBC Auto (Bl d)Ordered By: Azalea Rodrigez on 02-01-2022 Neutrophils/100 WBC (Bld) 63.6 % . [facility] Platelet mean volume Auto (B ld) [Entitic vol]Ordered By: Azalea Rodrigez on 02-01-2022 Platelet mean volume (Bld) [Entitic vol] 10.8 fL 6.3-10.7 [facility] Platelets Auto (Bld) [#/Vol] Ordered By: Azalea Rodrigez on 02-01-2022 Platelets (Bld) [#/Vol] 227 10*3/uL 150-450 [facility] RBC Auto (Bld) [#/Vol]Ordere d By: Azalea Rodrigez on 02-01-2022 RBC (Bld) [#/Vol] 4.55 10*6/uL 3.60-5.00 [facility] Prothrombin Time INRon 01-27 INR Coag (PPP) [Relative time] 5.5 {INR} [place] [employer] Other Prothrombin Time INR [facility] [employer] Other Prothrombin Time INRon 01-13 INR Coag (PPP) [Relative time] 3.9 {INR} [employer] Other Prothrombin Time INR [facility] [employer] Other XR chest 2V*on 01-13-2022 XR chest 2V* [facility] [employer] Other XR chest 2V* [facility] [employer] Other XR chest 2V* [address] [place] [address] [employer] Other XR chest 2V* [place] [address] [facility] [employer] Other XR chest 2V* XRay Report [place] [employer] Other XR chest 2V* Signed [place] [employer] Other XR chest 2V* Patient: Nellie Kirby MR#: [id number] [employer] Other XR chest 2V* 728 [employer] Other XR chest 2V* : 1950 Acct:[id number] [employer] Other XR chest 2V* Age/Sex: 71 / F ADM Date: 01/13/22 [employer] Other XR chest 2V* Loc: XD Room: Type: [facility] [employer] Other XR chest 2V* Attending Dr: Azalea Rodrigez DO [employer] Other XR chest 2V* Copies to: Azalea Rodrigez, [employer] Other XR chest 2V* Ordering Provider: Tracey Rodrigez DO [employer] Other XR chest 2V* Date of Service: 01/13/22 [employer] Other XR chest 2V* XR/XR chest 2V*: Cough;Fever [employer] Other XR chest 2V* Plain film chest2 view [employer] Other XR chest 2V* HISTORY:Cough and fe georges for one week [employer] Other XR chest 2V* COMPARISON:11/22/19 [facility] [employer] Other XR chest 2V* FINDINGS:Sternal wir es and mediastinal clips identified. Cardiac, mediastinal and hilar [employer] Other XR chest 2V* silhouettes are stab le. The LEFT apical and basilar consolidation identified. No large pleural [employer] Other XR chest 2V* effusion or pneumoth orax identified. Thoracic spondylosis identified. [employer] Other XR chest 2V* X R/XR chest 2V* [employer] Other XR chest 2V* IMPRESSION: LEFT api deb and basilar consolidation. Consider infiltrate. [employer] Other XR chest 2V* Impression dictated by: Hector Luciano M.D.01/13/2022 10:42 AM [employer] Other XR chest 2V* Dictation Location: [facility] [employer] Other XR chest 2V* Transcribed By: PWS 01/13/22 104 [employer] Other XR chest 2V* Dictated By: Sloan Luciano DO 01/13/22 [facility] [employer] Other XR chest 2V* Signed By: [employer] Other XR chest 2V* 01/13/22 [facility] [email or web address] [facility] [employer] Other Basophils Auto (Bld) [#/Vol] Ordered By: Azalea Rodrigez on 01-03-2022 Basophils (Bld) [#/Vol] 0.0 10*3/uL 0.0-0.2 [facility] Basophils/100 WBC Auto (Bld) Ordered By: Azalea Rodrigez on 01-03-2022 Basophils/100 WBC (Bld) 0.8 % . [facility] Blood hemoglobin measurement (mass/volume)Ordered By: Azalea Rodrigez on 01-03-2022 Hemoglobin (Bld) [Mass/Vol] 12.1 g/dL 11.8-15.4 [facility] Blood leukocytes automated c ount (number/volume)Ordered By: Azalea Rodrigez on 01-03-2022 WBC (Bld) [#/Vol] 4.9 10*3/uL 4.5-11.0 [facility] Body fluid albumin measureme nt (mass/volume)Ordered By: Azalea Rodrigez on 01-03-2022 Albumin (Body fld) [Mass/Vol] 4.0 g/dL 3.2-5.5 [facility] Cholesterol [Mass/volume] in Serum or PlasmaOrdered By: Azalea Rodrigez on 01-03-2022 Cholesterol [Mass/Vol] 171 mg/dL 140-200 [facility] Comment on above: Chol less than 200 m g/dl low risk Chol 201-239 mg/dl borderline risk Chol 240 mg/dl and greater high risk Cholesterol in LDL Calc [Mas s/Vol]Ordered By: Azalea Rodrigez on 01-03-2022 Cholesterol in LDL [Mass/Vol] 96 mg/dL 0-100 [facility] Comment on above: LDL ATP III CLASSIFI CATION LDL less than 100 mg/dL Optimal LDL 100-129 mg/dL Near or above optimal LDL 130-159 mg/dL Borderline high LDL 160-189 mg/dL High LDL greater than 189 mg/dL Very high Cholesterol in VLDL Calc [Ma ss/Vol]Ordered By: Azalea Rodrigez on 01-03-2022 Cholesterol in VLDL [Mass/Vol] 33 mg/dL [facility] Creatinine and Glomerular fi ltration rate.predicted panel (S/P/Bld)Ordered By: Azalea Rodrigez on 01-03-2022 Creatinine [Mass/Vol] 1.05 mg/dL 0.44-1.03 [facility] Eosinophils Auto (Bld) [#/Vo l]Ordered By: Azalea Rodrigez on 01-03-2022 Eosinophils (Bld) [#/Vol] 0.2 10*3/uL 0.0-0.45 [facility] Eosinophils/100 WBC Auto (Bl d)Ordered By: Azalea Rodrigez on 01-03-2022 Eosinophils/100 WBC (Bld) 3.5 % . [facility] Erythrocyte distribution wid th Auto (RBC) [Ratio]Ordered By: Azalea Rodrigez on 01-03-2022 Erythrocyte distribution width (RBC) [Ratio] 14.2 % 11.9-15.3 [facility] Estimated glomerular filtrat ion rate (GFR) non- AmericanOrdered By: Azalea Rodrigez on 01-03-2022 GFR/1.73 sq M.predicted among non-blacks MDRD (S/P/Bld) [Vol rate/Area] 52 mL/Min [facility] Globulin Calc (S) [Mass/Vol] Ordered By: Azalea Rodrigez on 01-03-2022 Globulin (S) [Mass/Vol] 2.1 g/dL [facility] Hematocrit Auto (Bld) [Volum e fraction]Ordered By: Azalea Rodrigez on 01-03-2022 Hematocrit (Bld) [Volume fraction] 36.8 % 34.0-46.4 [facility] Laboratory - Hematology and Cell countsOrdered By: Azalea Rodrigez on 01-03-2022 Nucleated RBC/100 WBC (Bld) [Ratio] 0.1 % 0-0.5 [facility] Lymphocytes Auto (Bld) [#/Vo l]Ordered By: Azalea Rodrigez on 01-03-2022 Lymphocytes (Bld) [#/Vol] 1.2 10*3/uL 1.00-4.8 [facility] Lymphocytes/100 WBC Auto (Bl d)Ordered By: Azalea Rodrigez on 01-03-2022 Lymphocytes/100 WBC (Bld) 24.7 % . [facility] MCH Auto (RBC) [Entitic mass ]Ordered By: Azalea Rodrigez on 01-03-2022 MCH (RBC) [Entitic mass] 29.5 pg 24.7-34.3 [facility] MCHC Auto (RBC) [Mass/Vol]Or dered By: Azalea Rodrigez on 01-03-2022 MCHC (RBC) [Mass/Vol] 32.9 g/dL 32.0-35.0 [facility] MCV Auto (RBC) [Entitic vol] Ordered By: Azalea Rodrigez on 01-03-2022 MCV (RBC) [Entitic vol] 89.9 fL 80-100 [facility] Monocytes Auto (Bld) [#/Vol] Ordered By: Azalea Rodrigez on 01-03-2022 Monocytes (Bld) [#/Vol] 0.5 10*3/uL 0.0-0.8 [facility] Monocytes/100 WBC Auto (Bld) Ordered By: Azalea Rodrigez on 01-03-2022 Monocytes/100 WBC (Bld) 10.0 % . [facility] Neutrophils Auto (Bld) [#/Vo l]Ordered By: Azalea Rodrigez on 01-03-2022 Neutrophils (Bld) [#/Vol] 3.0 10*3/uL 1.8-7.7 [facility] Neutrophils/100 WBC Auto (Bl d)Ordered By: Azalea Rodrigez on 01-03-2022 Neutrophils/100 WBC (Bld) 61.0 % . [facility] No Panel InformationOrdered By: Azalea Rodrigez on 01-03-2022 25-Hydroxy Vitamin D Total 31.5 ng/mL 30-100 [facility] Comment on above: VITAMIN D STATUS 25( [place])VITAMIN D RANGE (ng/mL) Deficient <20 Insufficient 20 to <30 Sufficient 30 to 100 Reference: Glendy MF,Sveta NC, Luis Felipe BAUTISTA, et al. Evaluation,treatment, and prevention of vitamin D deficiency; an Endocrine Society clinical practice guideline. JCEM. 2010; 96(7):1911-30. Estimated GFR () > 60 mL/Min [facility] Comment on above: GFR estimated refere nce range: According to KDOQI guidelines, <60 ml/min/1.73m2 is sufficient to diagnose a patient with chronic kidney disease. Pharmacy Creatinine Clearance (Chem N/A [facility] Platelet mean volume Auto (B ld) [Entitic vol]Ordered By: Azalea Rodrigez on 01-03-2022 Platelet mean volume (Bld) [Entitic vol] 10.6 fL 6.3-10.7 [facility] Platelets Auto (Bld) [#/Vol] Ordered By: Azalea Rodrigez on 01-03-2022 Platelets (Bld) [#/Vol] 195 10*3/uL 150-450 [facility] Protein [Mass/volume] in Ser um or PlasmaOrdered By: Azalea Rodrigez on 01-03-2022 Protein [Mass/Vol] 6.1 g/dL 6.1-7.9 [facility] RBC Auto (Bld) [#/Vol]Ordere d By: Azalea Rodrigez on 01-03-2022 RBC (Bld) [#/Vol] 4.09 10*6/uL 3.60-5.00 [facility] Serum or plasma alanine guillen otransferase measurement without P-5'-P (enzymatic activiOrdered By: Azalea Rodrigez on 01-03-2022 ALT No additional P-5'-P [Catalytic activity/Vol] 18 U/L 10-60 [facility] Serum or plasma albumin/glob ulin mass ratioOrdered By: Azalea Rodrigez on 01-03-2022 Albumin/Globulin [Mass ratio] 1.9 {ratio} [facility] Serum or plasma alkaline sujatha sphatase measurement (enzymatic activity/volume)Ordered By: Azalea Rodrigez on 01-03-2022 ALP [Catalytic activity/Vol] 148 U/L 44-121 [facility] Serum or plasma aspartate am inotransferase measurement (enzymatic activity/volume)Ordered By: Azalea Rodrigez on 01-03-2022 AST [Catalytic activity/Vol] 20 U/L 10-42 [facility] Serum or plasma bone alkalin e phosphatase/total alkaline phosphatase ratioOrdered By: Azalea Rodrigez on 01-03-2022 ALP Bone [Catalytic fraction] 43 % 14-68 [facility] Serum or plasma calcium kely urement (mass/volume)Ordered By: Azalea Rodrigez on 01-03-2022 Calcium [Mass/Vol] 9.5 mg/dL 8.2-10.2 [facility] Serum or plasma chloride cruz surement (moles/volume)Ordered By: Azalea Rodrigez on 01-03-2022 Chloride [Moles/Vol] 100 mmol/L 95-114 [facility] Serum or plasma glucose kely urement (mass/volume)Ordered By: Azalea Rodrigez on 01-03-2022 Glucose [Mass/Vol] 81 mg/dL 70-100 [facility] Comment on above: ADA recommended refe rence range Random Glucose Reference Range is dependent on time and content of last meal. Glucose of more than 200 mg/dL in a nonstressed, ambulatory subject supports the diagnosis of Diabetes Mellitus. Serum or plasma high density lipoprotein (HDL) cholesterol measurementOrdered By: Azalea Rodrigez on 01-03-2022 Cholesterol in HDL [Mass/Vol] 41 mg/dL 35-85 [facility] Comment on above: HDL CHOL ATP-III CLA SSIFICATION Cardiovascular Risk HDL > or equal to 60 mg/dL LOW HDL < 40 mg/dL HIGH Serum or plasma intestinal a lkaline phosphatase/total alkaline phosphatase ratio (catOrdered By: Azalea Rodrigez on 01-03-2022 ALP Intest [Catalytic fraction] 1 % 0-18 [facility] Comment on above: Performed at: - [address] [id number] Certified Coder: Jayro Zaidi PhD, Phone: [phone] Serum or plasma potassium me asurement (moles/volume)Ordered By: Azalea Rodrigez on 01-03-2022 Potassium [Moles/Vol] 3.8 mmol/L 3.5-5.1 [facility] Serum or plasma sodium measu rement (moles/volume)Ordered By: Azalea Rodrigez on 01-03-2022 Sodium [Moles/Vol] 141 mmol/L 136-146 [facility] Serum or plasma total biliru bin measurement (mass/volume)Ordered By: Azalea Rodrigez on 01-03-2022 Bilirubin [Mass/Vol] 1.1 mg/dL 0.3-1.2 [facility] Serum or plasma total carbon dioxide measurement (moles/volume)Ordered By: Azalea Rodrigez on 01-03-2022 CO2 [Moles/Vol] 31.0 mmol/L 22.0-30.0 [facility] Serum or plasma total choles terol/high density lipoprotein (HDL) cholesterol mass ratOrdered By: Azalea Rodrigez on 01-03-2022 Cholesterol.total/Chol esterol in HDL [Mass ratio] 4.2 {ratio} <5.0 [facility] Serum or plasma urea nitroge n measurement (mass/volume)Ordered By: Azalea Rodrigez on 01-03-2022 Urea nitrogen [Mass/Vol] 18 mg/dL 9-23 [facility] TSH DL <= 0.005 mIU/L QnOrde red By: Azalea Rodrigez on 01-03-2022 TSH Qn 0.19 m[IU]/L 0.45-5.33 [facility] Thyroxine (T4) free [Mass/vo lume] in Serum or PlasmaOrdered By: Azalea Rodrigez on 01-03-2022 Free T4 [Mass/Vol] 1.06 ng/dL 0.61-1.12 [facility] Total alkaline phosphatase m easurement with isoenzyme panelOrdered By: Azalea Rodrigez on 01-03-2022 ALP Iso Pnl 55 % 18-85 [facility] Triglyceride [Mass/volume] i n Serum or PlasmaOrdered By: Azalea Rodrigez on 01-03-2022 Triglyceride [Mass/Vol] 169 mg/dL 35-149 [facility] Comment on above: TRIG ATP III CLASSIF ICATION TRIG less than 150 mg/dL Normal TRIG 150-199 mg/dL Borderline high TRIG 200-500 mg/dL High TRIG greater than 500 mg/dL Very high Standard traceable to the Center for Disease Conrtrol and Prevention (CDC) test method. Triiodothyronine (T3) Free [ Mass/volume] in Serum or PlasmaOrdered By: Azalea Rodrigez on 01-03-2022 Free T3 [Mass/Vol] 3.32 pg/mL 2.50-3.90 [facility] Prothrombin Time INRon 12-23 INR Coag (PPP) [Relative time] 3.3 {INR} [employer] Other Prothrombin Time INR [facility] [employer] Other Prothrombin Time INRon 12-09 INR Coag (PPP) [Relative time] 1.8 {INR} [employer] Other Prothrombin Time INR [facility] [employer] Other Prothrombin Time INRon 11-11 INR Coag (PPP) [Relative time] 1.7 {INR} [employer] Other Prothrombin Time INR [facility] [employer] Other Prothrombin Time INRon 10-14 INR Coag (PPP) [Relative time] 3.6 {INR} [employer] Other Prothrombin Time INR [facility] [employer] Other Prothrombin Time INRon 08-18 INR Coag (PPP) [Relative time] 2.8 {INR} [employer] Other Prothrombin Time INR [facility] [employer] Other Prothrombin Time INRon 07-22 INR Coag (PPP) [Relative time] 1.9 {INR} [employer] Other Prothrombin Time INR Nort [employer] Other Prothrombin Time INRon 04-21 INR Coag (PPP) [Relative time] 2.7 {INR} [employer] Other Prothrombin Time INR Nort [employer] Other FREE T3on 07-12-2019 Free T3 [Mass/Vol] 2.52 pg/mL Critically low 2.77-5.27 [facility] Comment on above: Performed By: #### C RP, URIC #### [facility] [address] [place] [address] Juan Pablo Lori FREE T4on 07-12-2019 Free T4 [Mass/Vol] 1.28 ng/dL Normal 0.78-2.19 [facility] Comment on above: Performed By: #### C RP, URIC #### [facility] [address] [place] [address] Juan Pablo Lori TSHon 07-12-2019 TSH Qn 0.113 uIU/mL Critically low 0.470-4.68 0 [facility] Comment on above: Performed By: #### C RP, URIC #### [facility] [address] [place] [address] Juan Pablo Lori TSH Qn SEE BELOW Normal [facility] Comment on above: Result Comment: <0.3 4 UIU/ml HYPERTHYROID 0.34-5.60 UIU/ml EUTHYROID >5.60 UIU/ml HYPOTHYROID Performed By: #### C RP, URIC #### [facility] [address] [place] [address] Juan Pablo Lori CBC AUTO DIFFon 04-11-2019 Basophils (Bld) [#/Vol] 0.1 103/ul Normal 0.0-0.1 [facility] Comment on above: Performed By: #### C BC #### [facility] [address] [place] [address] Juan Pablo Lori Basophils/100 WBC (Bld) 0.8 % Normal 0.2-2.0 [facility] Comment on above: Performed By: #### C BC #### [facility] [address] [id number] Juan Pablo Lori Eosinophils (Bld) [#/Vol] 0.2 103/ul Normal 0.0-0.7 [facility] Comment on above: Performed By: #### C BC #### [facility] [address] [id number] Juan Pablo Lori Eosinophils/100 WBC (Bld) 2.3 % Normal 0.9-7.0 [facility] Comment on above: Performed By: #### C BC #### [facility] [address] [place], [place] [id number] Juan Pablo Lori Erythrocyte distribution width (RBC) [Ratio] 13.3 % Normal 11.0-15.0 [facility] Comment on above: Performed By: #### C BC #### [facility] [address] [place] [address] Juan Pablo Lori Hematocrit (Bld) [Volume fraction] 38.6 % Normal 36.0-48.0 [facility] Comment on above: Performed By: #### C BC #### [facility] [address] [place], [place] [id number] Juan Pablo Lori Hemoglobin (Bld) [Mass/Vol] 12.4 g/dL Normal 12.0-16.0 [facility] Comment on above: Performed By: #### C BC #### [facility] [address] [place], [place] [id number] Juan Pablo Lori IG # 0.04 10e3/ul Critically high 0.00-0.03 [facility] Comment on above: Performed By: #### C BC #### [facility] [address] [place], [place] [id number] Juan Pablo Lori IG % 0.5 % Normal 0.0-0.5 [facility] Comment on above: Performed By: #### C BC #### [facility] [address] [place], [place] [id number] Juan Pablo Lori Lymphocytes (Bld) [#/Vol] 1.5 103/ul Normal 1.2-3.8 [facility] Comment on above: Performed By: #### C BC #### [facility] [address] [place], [place] [address] Juan Pablo Lori Lymphocytes/100 WBC (Bld) 18.9 % Critically low 20.5-60.0 [facility] Comment on above: Performed By: #### C BC #### [facility] [address] [place], [place] [address] Juan Pablo Lori MANUAL DIFF REQ NO Normal [facility] Comment on above: Performed By: #### C BC #### [facility] [address] [place], [place] [address] Juan Pablo Lori MCH (RBC) [Entitic mass] 29.0 pg Normal 26.7-34.0 [facility] Comment on above: Performed By: #### C BC #### [facility] [address] [place] [address] Juan Pablo Lori MCHC (RBC) [Mass/Vol] 32.1 g/dL Normal 29.9-35.2 [facility] Comment on above: Performed By: #### C BC #### [facility] [address] [place] [address] Juan Pablo Lori MCV (RBC) [Entitic vol] 90.4 fL Normal 81.0-99.0 [facility] Comment on above: Performed By: #### C BC #### [facility] [address] [place] [address] Juan Pablo Lori Monocytes (Bld) [#/Vol] 0.6 103/ul Normal 0.3-0.8 [facility] Comment on above: Performed By: #### C BC #### [facility] [address] [place] [address] Juan Pablo Lori Monocytes/100 WBC (Bld) 7.8 % Normal 1.7-12.0 [facility] Comment on above: Performed By: #### C BC #### [facility] [address] [place], [place] [address] Juan Pablo Lori Neutrophils (Bld) [#/Vol] 5.4 103/ul Normal 1.4-6.5 [facility] Comment on above: Performed By: #### C BC #### [facility] [address] [place], [place] [address] Juan Pablo Lori Neutrophils/100 WBC (Bld) 69.7 % Normal 43.0-75.0 [facility] Comment on above: Performed By: #### C BC #### [facility] [address] [place] [address] Juan Pablo Lori Platelet mean volume (Bld) [Entitic vol] 10.9 fL Normal 9.5-13.5 [facility] Comment on above: Performed By: #### C BC #### [facility] [address] [place] [address] Juan Pablo Lori Platelets (Bld) [#/Vol] 227 103/ul Normal 150-450 [facility] Comment on above: Performed By: #### C BC #### [facility] [address] [place], [place] [phone] Juan Pablo Lori RBC (Bld) [#/Vol] 4.27 106/ul Normal 4.20-5.40 [facility] Comment on above: Performed By: #### C BC #### [facility] [address] [place] [address] Juan Pablo Lori WBC (Bld) [#/Vol] 7.7 103/ul Normal 4.0-11.0 [facility] Comment on above: Performed By: #### C BC #### [facility] [address] [place], [place] [phone] Juan Pablo Lori CULTURE URINEon 04-11-2019 CULTURE URINE Culture Observations : No growth Normal [facility] Comment on above: Performed By: #### C RP, URIC #### [facility] [address] [place] [address] Juan Pablo Lori FREE T3on 04-11-2019 Free T3 [Mass/Vol] 2.42 pg/mL Critically low 2.77-5.27 [facility] Comment on above: Performed By: #### C RP, URIC #### [facility] [address] [place], [place] [phone] Juan Pablo Lori FREE T4on 04-11-2019 Free T4 [Mass/Vol] 1.17 ng/dL Normal 0.78-2.19 [facility] Comment on above: Performed By: #### F T4 #### [facility] [address] [place], [place] [address] Juan Pablo Lori LIPID PROFILEon 04-11-2019 CHOL-HDL RATIO NORM SEE BELOW Normal [facility] Comment on above: Result Comment: 3.3 - 4.4 LOW RISK 4.4 - 7.1 AVERAGE RISK 7.1 - 11.0 MODERATE RISK >11.0 HIGH RISK Performed By: #### C RP, URIC #### [facility] [address] [place], [place] [address] Juan Pablo Lori Cholesterol [Mass/Vol] 155 mg/dL Normal <=200 [facility] Comment on above: Performed By: #### C RP, URIC #### [facility] [address] [place] [address] Juan Pablo Lori Cholesterol in HDL [Mass/Vol] 53 mg/dL Normal [facility] Comment on above: Performed By: #### C RP, URIC #### [facility] [address] [place] [address] Juan Pablo Lori Cholesterol in HDL [Mass/Vol] > or = 60 mg/dl - LOW CARDIOVASCULAR RISK <40 mg/dl - HIGH CARDIOVASCULAR RISK Normal [facility] Comment on above: Performed By: #### C RP, URIC #### [facility] [address] [place] [address] Juan Pablo Lori Cholesterol in LDL [Mass/Vol] SEE BELOW Normal [facility] Comment on above: Result Comment: <100 mg/dl OPTIMAL 100 - 129 mg/dl NEAR OR ABOVE OPTIMAL 130 - 159 mg/dl BORDERLINE HIGH 160 - 189 mg/dl HIGH >190 mg/dl VERY HIGH Performed By: #### C RP, URIC #### [facility] [address] [place], [place] [phone] Juan Pablo Lori Cholesterol in LDL [Mass/Vol] 83.8 mg/dL Normal [facility] Comment on above: Performed By: #### C RP, URIC #### [facility] [address] [place] [address] Juan Pablo Lori Cholesterol.total/Chol esterol in HDL [Mass ratio] 2.9 {ratio} Normal [facility] Comment on above: Performed By: #### C RP, URIC #### [facility] [address] [place], [place] [phone] Juan Pablo Lori Triglyceride [Mass/Vol] 91 mg/dL Normal <=150 [facility] Comment on above: Performed By: #### C RP, URIC #### [facility] [address] [place], [place] [phone] Juan Pablo Lori VLDL CALC 18.2 mg/dL Normal [facility] Comment on above: Performed By: #### C RP, URIC #### [facility] [address] [place], [place] [phone] Juan Pablo Lori PROF 14(COMP METB)on 019 Albumin [Mass/Vol] 3.7 g/dL Normal 3.5-5.0 [facility] Comment on above: Performed By: #### C RP, URIC #### [facility] [address] [place] [address] Juan Pablo Lori Albumin/Globulin [Mass ratio] 1.0 {ratio} Normal [facility] Comment on above: Performed By: #### C RP, URIC #### [facility] [address] [place] [address] Juan Pablo Lori ALP [Catalytic activity/Vol] 121 U/L Normal 38-126 [facility] Comment on above: Performed By: #### C RP, URIC #### [facility] [address] [place] [address] Juan Pablo Lori ALT [Catalytic activity/Vol] 21 U/L Normal 9-52 [facility] Comment on above: Performed By: #### C RP, URIC #### [facility] [address] [place], [place] [phone] Juan Pablo Lori Anion gap [Moles/Vol] 9.6 mmol/L Normal [facility] Comment on above: Performed By: #### C RP, URIC #### [facility] [address] [place], [place] [address] Juan Pablo Lori AST [Catalytic activity/Vol] 15 U/L Normal 14-36 [facility] Comment on above: Performed By: #### C RP, URIC #### [facility] [address] [place] [address] Juan Pablo Lori Bilirubin Ql (U) 0.9 mg/dL Normal 0.2-1.3 [facility] Comment on above: Performed By: #### C RP, URIC #### [facility] [address] [place] [address] Juan Pablo Lori Calcium [Mass/Vol] 9.4 mg/dL Normal 8.4-10.2 [facility] Comment on above: Performed By: #### C RP, URIC #### [facility] [address] [place] [address] Juan Pablo Lori Chloride [Moles/Vol] 106 mmol/L Normal 98-107 [facility] Comment on above: Performed By: #### C RP, URIC #### [facility] [address] [place] [address] Juan Pablo Lori CO2 [Moles/Vol] 29.6 mmol/L Normal 22.0-30.0 [facility] Comment on above: Performed By: #### C RP, URIC #### [facility] [address] [place] [address] Juan Pablo Lori Creatinine [Mass/Vol] 0.70 mg/dL Normal 0.52-1.04 [facility] Comment on above: Performed By: #### C RP, URIC #### [facility] [address] [place], [place] [phone] Juan Pablo Lori EGFR-AF SWAZI >60 Normal >=60 [facility] Comment on above: Performed By: #### C RP, URIC #### [facility] [address] [place], [place] [address] Juan Pablo Lori EGFR-NON AF SWAZI >60 Normal >=60 [facility] Comment on above: Performed By: #### C RP, URIC #### [facility] [address] [place] [address] Juan Pablo Lori Globulin (S) [Mass/Vol] 3.6 g/dL Normal [facility] Comment on above: Performed By: #### C RP, URIC #### [facility] [address] [id number] Juan Pablo Lori Glucose [Mass/Vol] 92 mg/dL Normal 74-106 [facility] Comment on above: Performed By: #### C RP, URIC #### [facility] [address] [phone] Juan Pablo Lori Potassium [Moles/Vol] 4.2 mmol/L Normal 3.4-5.0 [facility] Comment on above: Performed By: #### C RP, URIC #### [facility] [address] [place], [place] [phone] Juan Pablo Lori Protein [Mass/Vol] 7.3 g/dL Normal 6.1-8.2 [facility] Comment on above: Performed By: #### C RP, URIC #### [facility] [address] [place] [address] Juan Pablo Lori Sodium [Moles/Vol] 141 mmol/L Normal 137-145 [facility] Comment on above: Performed By: #### C RP, URIC #### [facility] [address] [place] [address] Juan Pablo Lori Urea nitrogen [Mass/Vol] 10.0 mg/dL Normal 7.0-17.0 [facility] Comment on above: Performed By: #### C RP, URIC #### [facility] [address] [place] [address] Juan Pablo Lori Urea nitrogen/Creatinine [Mass ratio] 14.3 mg/mg Normal [facility] Comment on above: Performed By: #### C RP, URIC #### [facility] [address] [place], [place] [phone] Juan Pablo Lori TSHon 04-11-2019 TSH Qn SEE BELOW Normal [facility] Comment on above: Result Comment: <0.3 4 UIU/ml HYPERTHYROID 0.34-5.60 UIU/ml EUTHYROID >5.60 UIU/ml HYPOTHYROID Performed By: #### T SH, CMP, LIPID, FT3 #### [facility] [address] [place] [address] Juan Pablo Lori TSH Qn 0.311 uIU/mL Critically low 0.470-4.68 0 [facility] Comment on above: Performed By: #### T SH, CMP, LIPID, FT3 #### [facility] [address] [place] [address] Juan Pablo Lori UA RANDOM W/MICROSCOPICon Bacteria LM.HPF (Urine sed) [#/Area] TRACE Normal NONE SEEN [facility] Comment on above: Performed By: #### C RP, URIC #### [facility] [address] [place] [address] Juan Pablo Lori Bilirubin [Mass/Vol] Negative Normal NEGATIVE [facility] Comment on above: Performed By: #### C RP, URIC #### [facility] [address] [place] [address] Juan Pablo Lori BLOOD TRACE-INTACT Normal NEGATIVE [facility] Comment on above: Performed By: #### C RP, URIC #### [facility] [address] [place] [address] Juan Pablo Lori CAST NONE SEEN Normal NONE SEEN [facility] Comment on above: Performed By: #### C RP, URIC #### [facility] [address] [place] [address] Juan Pablo Lori Clarity (U) CLEAR Normal [facility] Comment on above: Performed By: #### C RP, URIC #### [facility] [address] [place] [address] Juan Pablo Lori Color (U) LT. YELLOW Normal YELLOW [facility] Comment on above: Performed By: #### C RP, URIC #### [facility] [address] [place] [address] Juan Pablo Lori Crystals LM Nom (Urine sed) NONE SEEN Normal NONE SEEN [facility] Comment on above: Performed By: #### C RP, URIC #### [facility] [address] [place] [address] Juan Pablo Lori Epithelial cells LM.HPF (Urine sed) [#/Area] FEW Normal [facility] Comment on above: Performed By: #### C RP, URIC #### [facility] [address] [place] [address] Juan Pablo Lori Glucose [Mass/Vol] Negative Normal NEGATIVE [facility] Comment on above: Performed By: #### C RP, URIC #### [facility] [address] [place] [address] Juan Pablo Lori Ketones Ql (U) Negative Normal NEGATIVE [facility] Comment on above: Performed By: #### C RP, URIC #### [facility] [address] [place] [address] Juan Pablo Lori MUCOUS NONE SEEN Normal NONE SEEN [facility] Comment on above: Performed By: #### C RP, URIC #### [facility] [address] [place] [address] Juan Pablo Lori Nitrite Ql (U) Negative Normal NEGATIVE [facility] Comment on above: Performed By: #### C RP, URIC #### [facility] [address] [place] [address] Juan Pablo Lori pH (Bld) 5.5 Normal 5-9 [facility] Comment on above: Performed By: #### C RP, URIC #### [facility] [address] [place] [address] Juan Pablo Lori Protein [Mass/Vol] Negative Normal [facility] Comment on above: Performed By: #### C RP, URIC #### [facility] [address] [place] [address] Juan Pablo Lori RBC (Bld) [#/Vol] 0-2 Normal 0-2 [facility] Comment on above: Performed By: #### C RP, URIC #### [facility] [address] [place] [address] Juan Pablo Lori SPEC GRAVITY 1.020 Normal 1.005-<=1. 025 [facility] Comment on above: Performed By: #### C RP, URIC #### [facility] [address] [place] [address] Juan Pablo Lori Urobilinogen Qn (U) 0.2 EU/dl Normal [facility] Comment on above: Performed By: #### C RP, URIC #### [facility] [address] [address] Juan Pablo Lori WBC (Bld) [#/Vol] 0-2 Normal NONE SEEN [facility] Comment on above: Performed By: #### C RP, URIC #### [facility] [address] [address] Juan Pablo Lori WBC (Bld) [#/Vol] Negative Normal NEGATIVE [facility] Comment on above: Performed By: #### C RP, URIC #### [facility] [address] [address] Juan Pablo Lori ESTUARDO by IFAon 12-21-2018 Antinuclear Antibodies, IFA Positive Abnormal [facility] Comment on above: Result Comment: Nega tive <1:80 Borderline 1:80 Positive >1:80 Performed By: #### A NAIFA #### [facility] [address] [place] [address] Juan Pablo Lori Centriole Pattern Normal [facility] Comment on above: Performed By: #### A NAIFA #### [facility] [address] [address] Juan Pablo Lori Centromere Pattern Normal [facility] Comment on above: Performed By: #### A NAIFA #### [facility] [address] [address] Juan Pablo Lori Homogeneous Pattern Normal [facility] Comment on above: Performed By: #### A NAIFA #### [facility] [address] [place] [address] Juan Pablo Lori Midbody Pattern Normal [facility] Comment on above: Performed By: #### A NAIFA #### [facility] [address] [address] Juan Pablo Lori Note: Comment Normal [facility] Comment on above: Result Comment: A po sitive ESTUARDO result may occur in healthy individuals (low titer) or be associated with a variety of diseases. See interpretation chart which is not all inclusive: . Pattern Antigen Detected Suggested Disease Association Homogeneous DNA(ds,ss), SLE - High titers Nucleosomes, Histones Drug-induced SLE Speckled Sm, [employer], SCL-70, SLE,MCTD,PSS (diffuse form), SS-A/SS-B Sjogrens Nucleolar SCL-70, PM-1/SCL High titers Scleroderma, PM/DM Centromere Centromere PSS (limited form) w/Crest syndrome variable Nuclear Dot Sp100,[id number] Primary Biliary Cirrhosis Nuclear GP210, Primary Biliary Cirrhosis Membrane raeann A,B,C Performed By: #### A NEAL #### [address] [address] Juan Pablo Lori Nuclear Dot Pattern Normal [facility] Comment on above: Performed By: #### A NAIFA #### [facility] [address] [address] Juan Pablo Lori Nuclear Membrane Pattern Normal [facility] Comment on above: Performed By: #### A NAIFA #### [facility] [address] [address] Juan Pablo Lori Nucleolar Pattern Normal [facility] Comment on above: Performed By: #### A NAIFA #### [facility] [address] [address] Juan Pablo Lori PCNA Pattern Normal [facility] Comment on above: Performed By: #### A NAIFA #### [facility] [address] [place] [address] Juan Pablo Lori Speckled Pattern 1:160 Critically high [facility] Comment on above: Result Comment: Dens e Fine Speckled pattern is noted. This pattern suggests the presence of DFS70 antibody which has a low prevalence in systemic autoimmune rheumatic diseases. Performed By: #### A NAIFA #### [facility] [address] [place] [address] Juan Pablo Lori Spindle Apparatus Pattern Normal [facility] Comment on above: Performed By: #### A NAIFA #### [facility] [address] [place] [address] Juan Pablo Sandoval ANTISTREPTOLYSIN O AB (ASO)o n 12-21-2018 Antistreptolysin O Ab 64.7 IU/mL Normal 0.0-200.0 [facility] Comment on above: Performed By: #### R F, ASOAB #### [facility] [address] [place] [address] Juan Pablo Gormanen RHEUMATOID FACTORon 12-22-19 19 RA Latex Turbid. <10.0 Normal 0.0-13.9 [facility] Comment on above: Performed By: #### R F, ASOAB #### [facility] [address] [address] Juan Pablobharat Sandoval CRPon 12-20-2018 CRP [Mass/Vol] mg/L Normal <=1.0 [facility] Comment on above: Performed By: #### C RP, URIC #### [facility] [address] [place] [address] Juan Pablo Sandoval SED RATE WESTERGRENon 2018 SED RATE 20 mm/hr Normal <=30 [facility] Comment on above: Performed By: #### S EDR #### [facility] [address] [place] [address] Juan Pablo Sandoval SEDRH METHOD AND NORMAL CH JAMIE 08/14/15. RESULTS ARE NOT AFFECTED BY HEMATOCRIT. Normal [facility] Comment on above: Performed By: #### S EDR #### [facility] [address] [place] [address] Juan Pablo Sandoval URIC ACID SERUMon 12-20-2018 Urate [Mass/Vol] 5.3 mg/dL Normal 2.5-6.2 [facility] Comment on above: Performed By: #### C RP, URIC #### [facility] [address] [place] [address] Juan Pablo Sandoval XR HAND RT MIN 3Von 12-21-19 19 XR HAND RT MIN 3V Patient: KHANH KIRBY. Exam Date: 12/20/2018 : 1950 Gender:F Ordering : DR AZALEA RODRIGEZ Admission #: [id number] Family : Order #: [id number] CLICK HERE TO VIEW EXAM RADIOLOGY REPORT PROCEDURE: RADIOGRAPH HAND RIGHT MIN 3 VIEWS COMPARISON: XR HAND URI MIN 3V, 12/20/2013. INDICATIONS: Chronic right hand pain without injury FINDINGS: BONES: Narrowing of the interphalangeal joints with small periarticular degenerative osteophytes. Narrowing of the 1st carpal-metacarpal joints. SOFT TISSUES: No visible soft tissue swelling or radiopaque foreign body. OTHER: Negative. CONCLUSION: 1. Multifocal moderate degenerative joint disease favoring osteoarthritis. Dictated by: Fallon Adam M.D. on 12/20/2018 at 10:53 Approved by: Fallon Adam M.D. on 12/20/2018 at 10:58 Normal [facility] Vital Signs Date Time Vital Sign Value Performing Clinician Facility 05-25-2023 09:50-0500 Body height 173.99 cm Azalea Rain Other [facility] Other 02-22-2023 09:50-0400 Body height 173.99 cm Azalea Rain Other [facility] Other 02-22-2023 09:50-0400 Body mass index (BMI) [Ratio] 24.42 kg/m2 Azalea Rodrigez Other [facility] Other 02-22-2023 09:50-0400 Body temperature 97.8 [degF] Azalea Rodrigez Other [facility] Other 02-22-2023 09:50-0400 Body weight 73.94 kg Azalea Rodrigez Other [facility] Other 02-22-2023 09:50-0400 Diastolic blood pressure 82 mm[Hg] Azalea Rain Other [facility] Other 02-22-2023 09:50-0400 Respiratory rate 18 /min Azalea Rodrigez Other [facility] Other 02-22-2023 09:50-0400 SaO2% (BldA) [Mass fraction] 96 % Azalea Rodrigez Other [facility] Other 02-22-2023 09:50-0400 Systolic blood pressure 118 mm[Hg] Azalea Rodrigez Other [facility] Other 07-19-2022 09:30-0500 Body height 173.99 cm Azalea Rodrigez Other [facility] Other 07-19-2022 09:30-0500 Body mass index (BMI) [Ratio] 25.32 kg/m2 Azalea Rodrigez Other [facility] Other 07-19-2022 09:30-0500 Body temperature 97.1 [degF] Azalea Rodrigez Other [facility] Other 07-19-2022 09:30-0500 Body weight 76.66 kg Azalea Rodrigez Other [facility] Other 07-19-2022 09:30-0500 Diastolic blood pressure 78 mm[Hg] Azalea Rodrigez Other [facility] Other 07-19-2022 09:30-0500 Respiratory rate 18 /min Azalea Rodrigez Other [facility] Other 07-19-2022 09:30-0500 SaO2% (BldA) [Mass fraction] 98 % Azalea Rain Other [facility] Other 07-19-2022 09:30-0500 Systolic blood pressure 114 mm[Hg] Azalea Rodrigez Other [facility] Other 06-21-2022 15:05-0500 Body weight 74.84 kg Zach Gaffney APRN.ENROLLMENT NURSE Work Phone: [facility] 06-21-2022 15:05-0500 Diastolic blood pressure 78 mm[Hg] Zach Gaffney APRN.ENROLLMENT NURSE Work Phone: [facility] 06-21-2022 15:05-0500 Heart rate 94 /min Zach Gaffney HEAD TELLER.ENROLLMENT NURSE Work Phone: [facility] 06-21-2022 15:05-0500 Respiratory rate 19 /min Zach Gaffney APRN.ENROLLMENT NURSE Work Phone: [facility] 06-21-2022 15:05-0500 SaO2% (BldA) [Mass fraction] 95 % Zach Gaffney APRN.ENROLLMENT NURSE Work Phone: [facility] 06-21-2022 15:05-0500 Systolic blood pressure 110 mm[Hg] Zach Gaffney APRN.ENROLLMENT NURSE Work Phone: [facility] 05-18-2022 11:30-0500 Body height 173.99 cm Azalea Rodrigez Other [facility] Other 04-13-2022 10:50-0400 Body height 173.99 cm Azalea Rodrigez Other [facility] Other 04-13-2022 10:50-0400 Body mass index (BMI) [Ratio] 25.39 kg/m2 Azalea Rodrigez Other [facility] Other 04-13-2022 10:50-0400 Body temperature 97.2 [degF] Azalea Rodrigez Other [facility] Other 04-13-2022 10:50-0400 Body weight 76.89 kg Azalea Rodrigez Other [facility] Other 04-13-2022 10:50-0400 Diastolic blood pressure 78 mm[Hg] Azalea Rodrigez Other [facility] Other 04-13-2022 10:50-0400 Respiratory rate 18 /min Azalea Rodrigez Other [facility] Other 04-13-2022 10:50-0400 SaO2% (BldA) [Mass fraction] 98 % Azalea Rodrigez Other [facility] Other 04-13-2022 10:50-0400 Systolic blood pressure 120 mm[Hg] Azalea Rodrigez Other [facility] Other 04-06-2022 13:19-0400 Diastolic blood pressure 79 mm[Hg] DO Azalea Rodrigez Work Phone: [facility] 04-06-2022 13:19-0400 Heart rate 65 /min DO Azalea Rodrigez Work Phone: [facility] 04-06-2022 13:19-0400 Respiratory rate 18 /min DO Azalea Rodrigez Work Phone: [facility] 04-06-2022 13:19-0400 SaO2% (BldA) [Mass fraction] 99 % DO Azalea Rodrigez Work Phone: [facility] 04-06-2022 13:19-0400 Systolic blood pressure 182 mm[Hg] DO Azalea Rodrigez Work Phone: [facility] 04-06-2022 11:20-0400 Body height 175.26 cm DO Azalea Rodrigez Work Phone: [facility] 04-06-2022 11:20-0400 Body temperature 97.9 [degF] DO Azalea Rodrigez Work Phone: [facility] 04-06-2022 11:20-0400 Body weight 72.57 kg DO Azalea Rodrigez Work Phone: [facility] 02-10-2022 07:29-0400 Diastolic blood pressure 64 mm[Hg] Michael Donohue MD Work Phone: [facility] 02-10-2022 07:29-0400 Heart rate 75 /min Michael Donohue MD Work Phone: [facility] 02-10-2022 07:29-0400 Systolic blood pressure 120 mm[Hg] Michael Donohue MD Work Phone: [facility] 02-10-2022 07:23-0400 Body height 175.3 cm Michael Donohue MD Work Phone: [facility] 02-10-2022 07:23-0400 Body weight 76.34 kg Michael Donohue MD Work Phone: [phone] [place] [address] 02-03-2022 10:50-0400 Body height 173.99 cm Azalea Rodrigez Other [facility] Other 02-03-2022 10:50-0400 Body mass index (BMI) [Ratio] 25.17 kg/m2 Azalea Rodrigez Other [facility] Other 02-03-2022 10:50-0400 Body temperature 96.9 [degF] Azalea Rodrigez Other [facility] Other 02-03-2022 10:50-0400 Body weight 76.2 kg Azalea Rodrigez Other [facility] Other 02-03-2022 10:50-0400 Diastolic blood pressure 76 mm[Hg] Azalea Rodrigez Other [facility] Other 02-03-2022 10:50-0400 Respiratory rate 20 /min Azalea Rodrigez Other [facility] Other 02-03-2022 10:50-0400 SaO2% (BldA) [Mass fraction] 95 % Azalea Rodrigez Other [facility] Other 02-03-2022 10:50-0400 Systolic blood pressure 118 mm[Hg] Azalea Rodrigez Other [facility] Other 10-13-2021 10:10-0400 Body height 173.99 cm Azalea Rodrigez Other [facility] Other 10-13-2021 10:10-0400 Body mass index (BMI) [Ratio] 24.42 kg/m2 Azalea Rodrigez Other [facility] Other 10-13-2021 10:10-0400 Body temperature 97.2 [degF] Azalea Rodrigez Other [facility] Other 10-13-2021 10:10-0400 Body weight 73.94 kg Azalea Rodrigez Other [facility] Other 10-13-2021 10:10-0400 Diastolic blood pressure 78 mm[Hg] Azalea Rodrigez Other [facility] Other 10-13-2021 10:10-0400 Respiratory rate 18 /min Azalea Rodrigez Other [facility] Other 10-13-2021 10:10-0400 SaO2% (BldA) [Mass fraction] 97 % Azalea Rodrigez Other [facility] Other 10-13-2021 10:10-0400 Systolic blood pressure 116 mm[Hg] Azalea Rodrigez Other [facility] Other 04-30-2021 10:30-0400 Body height 173.99 cm Azalea Rodrigez Other [facility] Other 04-30-2021 10:30-0400 Body mass index (BMI) [Ratio] 21.72 kg/m2 Azalea Rodrigez Other [facility] Other 04-30-2021 10:30-0400 Body temperature 98.2 [degF] Azalea Rodrigez Other [facility] Other 04-30-2021 10:30-0400 Body weight 65.77 kg Azalea Rodrigez Other [facility] Other 04-30-2021 10:30-0400 Diastolic blood pressure 74 mm[Hg] Azalea Rodrigez Other [facility] Other 04-30-2021 10:30-0400 Respiratory rate 18 /min Azalea Rodrigez Other [facility] Other 04-30-2021 10:30-0400 SaO2% (BldA) [Mass fraction] 97 % Azalea Rodrigez Other [facility] Other 04-30-2021 10:30-0400 Systolic blood pressure 118 mm[Hg] Azalea Rodrigez Other [facility] Other 04-07-2021 09:10-0400 Body height 173.99 cm Azalea Rodrigez Other [facility] Other 04-07-2021 09:10-0400 Body mass index (BMI) [Ratio] 21.35 kg/m2 Azalea Rodrigez Other [facility] Other 04-07-2021 09:10-0400 Body temperature 97.7 [degF] Azalea Rodrigez Other [facility] Other 04-07-2021 09:10-0400 Body weight 64.64 kg Azalea Rodrigez Other [facility] Other 04-07-2021 09:10-0400 Diastolic blood pressure 70 mm[Hg] Azalea Rodrigez Other [facility] Other 04-07-2021 09:10-0400 Respiratory rate 18 /min Azalea Rodrigez Other [facility] Other 04-07-2021 09:10-0400 SaO2% (BldA) [Mass fraction] 98 % Azalea Rodrigez Other [facility] Other 04-07-2021 09:10-0400 Systolic blood pressure 110 mm[Hg] Azalea Rodrigez Other [facility] Other Encounters Encounter Date Encounter Type Care Provider Facility Start: 08-03-2023 ambulatory Azalea Rodrigez Facility:[facility] Start: 08-01-2023 End: 08-01-2023 ambulatory STEVE DENT Facility:[facility] Start: 07-19-2023 ([facility] R A/c) [facility] Re peat A/C Kaitlyn Silvino [facility] Start: 07-19-2023 End: 07-19-2023 ambulatory Kaitlyn Hampton Other [facility] Other Start: 07-18-2023 End: 07-18-2023 ambulatory DUY MARTINEZ Not Available Start: 07-17-2023 End: 07-17-2023 ambulatory Azalea Rain Other [facility] Other Start: 07-17-2023 Telephone encounter Azalea Rodrigez [facility] Start: 07-06-2023 ([facility] R A/c) [facility] Re peat A/C Kaitlyn Hampton [facility] Start: 07-06-2023 End: 07-06-2023 ambulatory Kaitlyn Silvino Other [facility] Other Start: 06-07-2023 ([facility] R A/c) [facility] Re peat A/C Kaitlyn Silvino [facility] Start: 06-07-2023 End: 06-07-2023 ambulatory Kaitlyn Hampton Other [facility] Other Start: 06-06-2023 End: 06-06-2023 ambulatory ANTHONY JC Not Available Start: 05-26-2023 Telephone encounter Steve causey MD Work Phone: Cardiology Comment on above: Appointment Start: 05-25-2023 End: 05-25-2023 ambulatory Azalea Rodrigez Other [email or web address] [facility] [employer] Other Start: 05-25-2023 Telephone encounter Azalea Rain [facility] [place] Start: 05-24-2023 Telephone encounter Steve causey MD Work Phone: Cardiology Start: 05-23-2023 End: 05-23-2023 ambulatory DUY MARTINEZ [facility] [employer] Other Start: 05-23-2023 Tele[facility] Start: 05-18-2023 End: 05-18-2023 ambulatory Azalea Rodrigez Facility:[facility] Start: 05-18-2023 End: 05-18-2023 ambulatory DO Azalea Rodrigez Work Phone: [facility] Work Phone: Start: 05-18-2023 End: 05-18-2023 Patient encounter procedure DO Azalea Rodrigez Work Phone: [facility] [place] Work Phone: Start: 05-10-2023 ([facility] R A/c) [facility] Re peat A/C Kaitlyn Dubois [facility] Start: 05-10-2023 End: 05-10-2023 ambulatory Kaitlyn Dubois Other [facility] [employer] Other Start: 05-10-2023 Registered Recurring DO Azalea Rodrigez Work Phone: [facility] Work Phone: Start: 05-02-2023 End: 05-02-2023 ambulatory Azalea Rodrigez Other [facility] [employer] Other Start: 05-02-2023 Telephone encounter [facility] Start: 04-27-2023 ([facility] R A/c) [facility] Re peat A/C Marlen Macdonald [facility] Start: 04-27-2023 End: 04-27-2023 ambulatory Marlen Macdonald Other [facility] Other Start: 04-27-2023 Telephone encounter Marlen Crane [facility] Start: 04-13-2023 End: 04-13-2023 ambulatory Marlen Macdonald Other [facility] Other Start: 04-13-2023 Telephone encounter Marlen Crane [facility] Start: 04-10-2023 End: 04-10-2023 ambulatory Azalea Rodrigez Other [facility] Other Start: 04-10-2023 Telephone encounter Azalea Rodrigez [facility] Start: 03-16-2023 ([facility] R A/c) [facility] Re peat A/C Kaitlyn Silvino [facility] Start: 03-16-2023 End: 03-16-2023 ambulatory Kaitlyn Dubois Other [facility] Other Start: 02-22-2023 End: 02-22-2023 ambulatory Azalea Rodrigez Other [facility] Other Start: 02-22-2023 Office outpatient vi sit 25 minutes Azalea Rodrigez [facility] Start: 02-15-2023 End: 02-15-2023 ambulatory Azalea Rodrigez Facility:[facility] Start: 02-15-2023 End: 02-15-2023 ambulatory DO Azalea Rodrigez Work Phone: [facility] Work Phone: Start: 02-15-2023 End: 02-15-2023 Patient encounter procedure DO Azalea Rodrigez Work Phone: [facility] [place] Work Phone: Start: 02-13-2023 ([facility] R A/c) [facility] Re peat A/C Kaitlyn Dubois [facility] Start: 02-13-2023 End: 02-13-2023 ambulatory Kaitlyn Hampton Other [facility] Other Start: 02-13-2023 Registered Recurring DO Azalea Rodrigez Work Phone: [facility] Work Phone: Start: 01-16-2023 ([facility] R A/c) [facility] Re peat A/C Nael Santamariabrigida [facility] Start: 01-16-2023 End: 01-16-2023 ambulatory Nayakgladis Pate Other [facility] Other Start: 01-04-2023 End: 01-04-2023 ambulatory Azalea Rodrigez Other [facility] Other Start: 01-04-2023 Telephone encounter Azalea Rodrigez [facility] Start: 12-26-2022 End: 12-26-2022 ambulatory Azalea Rodrigez Other [facility] Other Start: 12-26-2022 Telephone encounter Azalea Rodrigez [facility] Start: 12-16-2022 End: 12-16-2022 ambulatory Azalea Rodrigez Facility:[facility] Start: 12-16-2022 End: 12-16-2022 ambulatory Azalea Rodrigez Facility:[facility] Start: 12-16-2022 End: 12-16-2022 Patient encounter procedure DO Azalea Rodrigez Work Phone: [facility] [place] Work Phone: Start: 12-16-2022 End: 12-16-2022 Patient encounter procedure DO Azalea Rodrigez Work Phone: [facility] Work Phone: Start: 12-06-2022 End: 12-06-2022 ambulatory Azalea Rodrigez Other [facility] Other Start: 12-06-2022 Telephone encounter Azalea Rodrigez [facility] [place] Start: 11-17-2022 End: 11-17-2022 ambulatory Azalea Fatimahjustin Other [facility] Other Start: 11-17-2022 Telephone encounter Azalea Fatimahjustin [facility] [place] Start: 11-15-2022 End: 11-15-2022 ambulatory Marlen Macdonald Other [facility] Other Start: 11-15-2022 Telephone encounter Steve causey MD Work Phone: Cardiology Comment on above: OSH Start: 11-14-2022 End: 11-14-2022 ambulatory Azalea Rodrigez Other [facility] Other Start: 11-14-2022 Telephone encounter Azalea Rodrigez [facility] [place] Start: 11-11-2022 End: 11-11-2022 ambulatory STEVEMISSY MELCHORRIAL Facility:[facility] Start: 11-11-2022 End: 11-12-2022 ambulatory [facility] Facility:[facility] Start: 11-10-2022 End: 11-10-2022 ambulatory Azalea Rodrigez Other [facility] Other Start: 11-10-2022 Telephone encounter Azalea Rain [facility] [place] Start: 11-09-2022 End: 11-09-2022 ambulatory Azalea Rain Other [facility] Other Start: 11-09-2022 Telephone encounter Azalea Rodrigez [facility] [place] Start: 10-19-2022 End: 10-19-2022 ambulatory Azalea Fatimahjustin Other [facility] Other Start: 10-19-2022 Telephone encounter Azalea Fatimahjustin [facility] [place] Start: 10-18-2022 ([facility] R A/c) [facility] Re peat A/C Kaitlyn Silvino [facility] Start: 10-18-2022 End: 10-18-2022 ambulatory Kaitlyn Silvino Other [facility] Other Start: 10-12-2022 End: 10-12-2022 ambulatory Azalea Fatimahjustin Facility:[facility] Start: 10-12-2022 End: 10-12-2022 ambulatory DO Azalea Rodrigez Work Phone: [facility] Work Phone: Start: 10-12-2022 End: 10-12-2022 Patient encounter procedure DO Azalea Rodrigez Work Phone: [facility] [place] Work Phone: Start: 10-10-2022 End: 10-10-2022 ambulatory Azalea Rodrigez Other [facility] Other Start: 10-10-2022 Telephone encounter [facility] Start: 09-21-2022 ([facility] R A/c) [facility] Re peat A/C Kaitlyn Silvino [facility] Start: 09-21-2022 End: 09-21-2022 ambulatory Kaitlyn Silvino Other [facility] Other Start: 09-21-2022 Registered Recurring DO Azalea Rodrigez Work Phone: [facility] Work Phone: Start: 09-14-2022 End: 09-14-2022 ambulatory Azalea Rodrigez Other [facility] Other Start: 09-14-2022 Telephone encounter Azalea Rodrigez [facility] [place] Start: 09-13-2022 ambulatory Steve atkinson MD Work Phone: Cardiology Comment on above: upcoming apt. Start: 08-24-2022 ([facility] R A/c) [facility] Re peat A/C Nael Pate [facility] Start: 08-24-2022 End: 08-24-2022 ambulatory Nael Rosaliobrigida Other [facility] Other Start: 08-15-2022 End: 08-15-2022 ambulatory Azalea Rodrigez Other [facility] Other Start: 08-15-2022 Telephone encounter Azalea Rodrigez [facility] [place] Start: 07-27-2022 Telephone encounter Azalea Rodrigez [facility] [place] Start: 07-27-2022 End: 07-27-2022 ambulatory DO Azalea Rodrigez Work Phone: [facility] Work Phone: Start: 07-27-2022 End: 07-27-2022 Patient encounter procedure DO Azalea Rodrigez Work Phone: [facility] [place] Work Phone: Start: 07-21-2022 Registered Recurring DO Azalea Rodrigez Work Phone: [facility] Work Phone: Start: 07-19-2022 End: 07-19-2022 ambulatory Azalea Rodrigez Other [facility] Other Start: 07-19-2022 Office outpatient vi sit 25 minutes Azalea Rodrigez [facility] [place] Start: 07-13-2022 End: 07-13-2022 ambulatory DO Azalea Rodrigez Work Phone: [facility] Work Phone: Start: 07-13-2022 End: 07-13-2022 Patient encounter procedure DO Azalea Rodrigez Work Phone: [facility] [place] Work Phone: Start: 06-24-2022 End: 06-24-2022 ambulatory Azalea Rodrigez Other [facility] Other Start: 06-24-2022 Telephone encounter Azalea Rodrigez [facility] Start: 06-23-2022 ([facility] R A/c) [facility] Re peat A/C Kaitlyn Silvino [facility] Start: 06-23-2022 End: 06-23-2022 ambulatory Kaitlyn Silvino Other [facility] Other Start: 06-23-2022 Registered Recurring Azalea Rain Work Phone: [facility] Work Phone: Start: 06-21-2022 End: 06-21-2022 Patient encounter procedure Zach Gaffney APRN.[facility] Work Phone: Cardiology Comment on above: Congenital heart dis ease (Primary Dx); Fatigue, unspecified type; Hypothyroidism, unspecified type; Elevated Lp(a); Mixed hyperlipidemia; Congenital aortic stenosis; H/O Ross procedure; S/P Ross procedure; Dyspnea on exertion Start: 05-31-2022 End: 05-31-2022 ambulatory Azalea Rodrigez Other [facility] Other Start: 05-31-2022 Telephone encounter Azalea Rodrigez [facility] Start: 05-27-2022 End: 05-27-2022 Patient encounter procedure DO Azalea Rodrigez Work Phone: [facility]-CT Scan Main [place] Work Phone: Start: 05-26-2022 ([facility] R A/c) [facility] Re peat A/C Alexandro Noe [facility] Start: 05-26-2022 End: 05-26-2022 ambulatory Alexandro Noe Other [facility] Other Start: 05-26-2022 Telephone encounter Azalea Rodrigez [facility] Start: 05-23-2022 ambulatory Steve atkinson MD Work Phone: Cardiology Comment on above: upcoming MRI Start: 05-20-2022 End: 05-20-2022 ambulatory Azalea Rodrigez Other [facility] Other Start: 05-20-2022 Telephone encounter Azalea Rodrigez [facility] [place] Start: 05-18-2022 End: 05-18-2022 ambulatory Azalea Rodrigez Other [facility] Other Start: 05-18-2022 Telephone encounter Azalea Rodrigez [facility] [place] Start: 05-17-2022 End: 05-17-2022 ambulatory Azalea Rodrigez Work Phone: [facility] Work Phone: Start: 05-17-2022 End: 05-17-2022 Patient encounter procedure DO Azalea Sheridanjustin Work Phone: [facility] Start: 05-16-2022 End: 05-16-2022 ambulatory Azalea Rodrigez Other [facility] Other Start: 05-16-2022 Telephone encounter Azalea Rodrigez [facility] [place] Start: 04-28-2022 ([facility] R A/c) [facility] Re peat A/C Marlen Macdonald [facility] Start: 04-28-2022 End: 04-28-2022 ambulatory Marlen Macdonald Other [facility] Other Start: 04-28-2022 Registered Recurring DO Azalea Rodrigez Work Phone: [facility] Start: 04-20-2022 End: 04-20-2022 ambulatory Azalea Rodrigez Other [facility] Other Start: 04-20-2022 Telephone encounter Azalea Rodrigez [facility] [place] Start: 04-14-2022 ([facility] R A/c) [facility] Re peat A/C Marlen Fitt [facility] Start: 04-14-2022 End: 04-14-2022 ambulatory Marlen Fitt Other [facility] Other Start: 04-13-2022 End: 04-13-2022 ambulatory Azalea Rodrigez Other [facility] Other Start: 04-13-2022 Office outpatient vi sit 15 minutes Azalea Rodrigez [facility] Start: 04-12-2022 End: 04-12-2022 ambulatory Azalea Rodrigez Other [facility] Other Start: 04-12-2022 Telephone encounter Azalea Rodrigez [facility] Start: 04-08-2022 End: 04-08-2022 Patient encounter procedure DO Azalea Rodrigez Work Phone: [facility]-Lab [place] Start: 04-06-2022 End: 04-06-2022 ambulatory Marlen Fitt Other [facility] Other Start: 04-06-2022 Telephone encounter Marlen Macdonald [facility] Start: 04-06-2022 End: 04-06-2022 Emergency department patient visit DO Azalea Rodrigez Work Phone: [facility]-Emergency Room Start: 04-01-2022 End: 04-01-2022 ambulatory Azalea Rodrigez Other [facility] Other Start: 04-01-2022 Telephone encounter Azalea Rodrigez [facility] Start: 03-31-2022 ([facility] R A/c) [facility] Re peat A/C Marlen Fitt [facility] Start: 03-31-2022 End: 03-31-2022 ambulatory Marlen Fitt Other [facility] Other Start: 03-31-2022 Registered Recurring DO Azalea Rodrigez Work Phone: [facility] Start: 03-30-2022 End: 03-30-2022 ambulatory Azalea Rodrigez Other [facility] Other Start: 03-30-2022 Telephone encounter Azalea Rodrigez [facility] Start: 03-17-2022 ([facility] R A/c) [facility] Re peat A/C Marlen Dennysara [facility] Start: 03-17-2022 End: 03-17-2022 ambulatory Marlen Dennyt Other [facility] Other Start: 03-02-2022 End: 03-02-2022 ambulatory Azalea Rodrigez Other [facility] Other Start: 03-02-2022 Telephone encounter Azalea Rodrigez [facility] Start: 02-14-2022 End: 02-14-2022 ambulatory Marlen Dennyt Other [facility] Other Start: 02-14-2022 Telephone encounter Marlen Crane [facility] Start: 02-10-2022 End: 02-10-2022 ambulatory Marlen Fitt Other [facility] Other Start: 02-10-2022 Telephone encounter Marlensaba Crane [facility] Start: 02-10-2022 End: 02-10-2022 Patient encounter procedure Michael Donohue MD Work Phone: Preventive Cardiology Comment on above: Elevated Lp(a) (Prim santi Dx); Mixed hyperlipidemia; Congenital heart disease; Paroxysmal atrial fibrillation (HCC); Hypothyroidism, unspecified type Start: 02-07-2022 End: 02-07-2022 ambulatory Azalea Rodrigez Other [facility] Other Start: 02-07-2022 Telephone encounter Azalea Rodrigez [facility] [place] Start: 02-03-2022 End: 02-03-2022 ambulatory Azalea Rodrigez Other [facility] Other Start: 02-03-2022 Office outpatient vi sit 15 minutes Azalea Rodrigez [facility] [place] Start: 02-01-2022 End: 02-01-2022 Patient encounter procedure DO Azalea Rodrgiez Work Phone: [facility] [place] Start: 01-31-2022 End: 01-31-2022 ambulatory Azalea Rodrigez Other [facility] Other Start: 01-31-2022 Telephone encounter Azalea Rodrigez [facility] [place] Start: 01-27-2022 ([facility] R A/c) [facility] Re peat A/C Marlen Fitt [facility] Start: 01-27-2022 End: 01-27-2022 ambulatory Marlen Macdonald Other [facility] Other Start: 01-13-2022 ([facility] R A/c) [facility] Re peat A/C Marlen Fitt [facility] Start: 01-13-2022 End: 01-13-2022 ambulatory Azalea Rodrigez Other [facility] Other Start: 01-13-2022 Telephone encounter Azalea Rodrigez [facility] [place] Start: 01-13-2022 End: 01-13-2022 Patient encounter procedure DO Azalea Rodrigez Work Phone: [facility]-XRay Main [place] Start: 01-12-2022 End: 01-12-2022 ambulatory Azalea Rodrigez Other [facility] Other Start: 01-12-2022 Telephone encounter Azalea Rodrigez [facility] [place] Start: 01-03-2022 End: 01-03-2022 ambulatory Azalea Rodrigez Other [facility] Other Start: 01-03-2022 Telephone encounter [facility] Start: 01-03-2022 End: 01-03-2022 Patient encounter procedure DO Azalea Rodrigez Work Phone: [facility] [place] Start: 12-28-2021 End: 12-28-2021 ambulatory Azalea Sheridanjustin Other [facility] Other Start: 12-28-2021 Telephone encounter [facility] Start: 12-23-2021 ([facility] R A/c) [facility] Marlen Fitt [facility] Start: 12-23-2021 End: 12-23-2021 ambulatory Marlen Fitt Other [facility] Other Start: 12-21-2021 End: 12-21-2021 ambulatory Azalea Rodrigez Other [facility] Other Start: 12-21-2021 Telephone encounter Azalea Fatimahjustin [facility] Start: 12-09-2021 ([facility] R A/c) [facility]C Marlen Fitt [facility] Start: 12-09-2021 End: 12-09-2021 ambulatory Marlen Fitt Other [facility] Other Start: 11-26-2021 Orders Only Michael coe MD Work Phone: Cardiology Comment on above: Mixed hyperlipidemia (Primary Dx) Start: 11-25-2021 End: 11-25-2021 ambulatory Azalea Rodrigez Other [facility] Other Start: 11-25-2021 Telephone encounter [facility] Start: 11-11-2021 ([facility] R A/c) [facility] Marlen Fitt [facility] Start: 11-11-2021 End: 11-11-2021 ambulatory Marlen Baldwint Other [facility] Other Start: 10-28-2021 End: 10-28-2021 ambulatory Azalea Rodrigez Other [facility] Other Start: 10-28-2021 Telephone encounter Azalea Rodrigez [facility] [place] Start: 10-25-2021 End: 10-25-2021 ambulatory Azalea Rodrigez Other [facility] Other Start: 10-25-2021 Telephone encounter Azalea Rodrigez [facility] [place] Start: 10-19-2021 End: 10-19-2021 ambulatory Azalea Rodrigez Other [facility] Other Start: 10-19-2021 Telephone encounter Azalea Rodrigez [facility] [place] Start: 10-14-2021 ([facility] R A/c) [facility] Re peat A/C Marlen Fitt [facility] Start: 10-14-2021 End: 10-14-2021 ambulatory Marlen Baldwint Other [facility] Other Start: 10-13-2021 End: 10-13-2021 ambulatory Azalea Rodrigez Other [facility] Other Start: 10-13-2021 Office outpatient vi sit 15 minutes Azalea Rodrigez [facility] [place] Start: 09-30-2021 End: 09-30-2021 ambulatory Azalea Rodrigez Other [facility] Other Start: 09-30-2021 Telephone encounter Azalea Rodrigez [facility] [place] Start: 08-25-2021 End: 08-25-2021 ambulatory Azalea Rodrigez Other [facility] Other Start: 08-25-2021 Telephone encounter Azalea Rodrigez [facility] [place] Start: 08-18-2021 ([facility] R A/c) [facility] Re peat A/C Marlen Fitt [facility] Start: 08-18-2021 End: 08-18-2021 ambulatory Marlen Fitt Other [facility] Other Start: 08-04-2021 End: 08-04-2021 ambulatory Azalea Rodrigez Other [facility] Other Start: 08-04-2021 Telephone encounter Azalea Rodrigez [facility] Start: 07-22-2021 ([facility] R A/c) [facility] Re peat A/C Marlen Fitt [facility] Start: 07-22-2021 End: 07-22-2021 ambulatory Marlen Fitt Other [facility] Other Start: 07-14-2021 End: 07-14-2021 ambulatory Marlen Fitt Other [facility] Other Start: 07-14-2021 Telephone encounter Marlen Fitt [facility] Start: 07-13-2021 End: 07-13-2021 ambulatory Azalea Rodrigez Other [facility] Other Start: 07-13-2021 Telephone encounter [facility] Start: 06-28-2021 End: 06-28-2021 ambulatory Azalea Rodrigez Other [facility] Other Start: 06-28-2021 Telephone encounter Azalea Rodrigez [facility] Medicine [place] Start: 06-07-2021 End: 06-07-2021 ambulatory Azalea Rodrigez Other [facility] Other Start: 06-07-2021 Telephone encounter [facility] Start: 05-27-2021 End: 05-27-2021 ambulatory Azalea Rodrigez Other [facility] Other Start: 05-27-2021 Telephone encounter [facility] Start: 2021 End: 2021 ambulatory Azalea Rodrigez Other [facility] Other Start: 2021 Telephone encounter [facility] Start: 05-19-2021 ([facility] R A/c) [facility] Re peat A/C Marlen Fitt [facility] Start: 05-19-2021 End: 05-19-2021 ambulatory Marlen Macdonald Other [facility] Other Start: 05-07-2021 Telephone encounter Azale[facility] Start: 05-06-2021 Telephone encounter Azalea Rodrigez [facility] Start: 04-30-2021 Office outpatient vi sit 15 minutes Azalea Rodrigez [facility] Start: 04-21-2021 ([facility] R A/c) [facility] Re peat A/C Marlen Fitt [facility] Start: 04-13-2021 Telephone encounter Marlen Macdonald [facility] Start: 04-07-2021 Office outpatient vi sit 15 minutes Azalea Rod[facility]igez [facility] Start: 08-08-2019 End: 08-08-2019 Patient encounter procedure AZALEA RODRIGEZ Facility:[facility] Start: 07-12-2019 End: 07-13-2019 Patient encounter procedure AZALEA RODRIGEZ Facility:[facility] Start: 04-11-2019 End: 04-12-2019 Patient encounter procedure AZALEA RODRIGEZ Facility:[facility] Start: 12-20-2018 End: 12-21-2018 Patient encounter procedure AZALEA RODRIGEZ Facility: Procedures Date Procedure Procedure Detail Performing Clinician Start: 12-16-2022 Plain chest X-ray DO Azalea Rodrigez Work Phone: Start: 07-13-2022 Urine culture DO Azalea Rodrigez Work Phone: Start: 05-27-2022 Computed tomography of abdomen and pelvis with contrast DO Azalea Rodrigez Work Phone: Start: 05-27-2022 CT of thorax with contrast DO Azalea Rodrigez Work Phone: Start: 05-17-2022 Plain X-ray abdomen DO Azalea Rodrigez Work Phone: Start: 04-06-2022 Plain X-ray of right forearm DO Azalea Rodrigez Work Phone: Start: 04-06-2022 CT cervical spine without contrast DO Azalea Rodrigez Work Phone: Start: 04-06-2022 CT of head without contrast DO Azalea Rodrigez Work Phone: Start: 02-08-2022 Adult depression screening assessment Michael Donohue MD Work Phone: Start: 01-13-2022 Plain chest X-ray DO Azalea Rodrigez Work Phone: Start: 01-09-2020 Lipid 1996 panel - Serum or Plasma Steve Dent MD Work Phone: H/O: tracheostomy S/P emergency tracheotomy for assistance in breathing DO Azalea Rodrigez Work Phone: Plan of Treatment Date Care Activity Detail Author Start: 05-17-2027 Urine microalbumin profile [facility] Start: 06-21-2025 DIABETES SCREEN DIABETES SCREEN [facility] Start: 06-21-2025 Diabetes Screening Diabetes Screenin g [facility] Start: 01-08-2025 Lipid 1996 panel - S harris or Plasma Lipid Screening [facility] Start: 01-08-2025 LIPID SCREEN LIPID SCREEN [facility] Start: 07-20-2024 DIABETES SCREEN DIABETES SCREEN [facility] Start: 06-21-2023 End: 08-21-2023 CBC W Auto Differential panel - Blood CBC + DIFF Lab Routine Congenital heart disease Fatigue, unspecified type Hypothyroidism, unspecified type Elevated Lp(a) Mixed hyperlipidemia Congenital aortic stenosis H/O Ross procedure S/P Ross procedure Dyspnea on exertion Expected: 06/21/2023, Expires: 08/21/2023 [facility] Work Phone: Comment on above: Expected: 06/21/2023 , Expires: 08/21/2023 Start: 06-21-2023 End: 08-21-2023 Comprehensive metabolic 2000 panel - Serum or Plasma COMP METABOLIC PANEL Lab Routine Congenital heart disease Fatigue, unspecified type Hypothyroidism, unspecified type Elevated Lp(a) Mixed hyperlipidemia Congenital aortic stenosis H/O Ross procedure S/P Ross procedure Dyspnea on exertion Expected: 06/21/2023, Expires: 08/21/2023 [facility] Work Phone: Comment on above: Expected: 06/21/2023 , Expires: 08/21/2023 Start: 06-21-2023 End: 06-21-2023 ECG COMPLETE ECG COMPLETE ECG Routine Congenital heart disease Fatigue, unspecified type Hypothyroidism, unspecified type Elevated Lp(a) Mixed hyperlipidemia Congenital aortic stenosis H/O Ross procedure S/P Ross procedure Dyspnea on exertion Expected: 06/21/2023, Expires: 06/21/2023 [facility] Work Phone: Comment on above: Expected: 06/21/2023 , Expires: 06/21/2023 Start: 06-21-2023 End: 06-21-2023 Echocardiography ECHO Cardiology Routine Congenital heart disease Fatigue, unspecified type Hypothyroidism, unspecified type Elevated Lp(a) Mixed hyperlipidemia Congenital aortic stenosis H/O Ross procedure S/P Ross procedure Dyspnea on exertion Expected: 06/21/2023, Expires: 06/21/2023 [facility] Work Phone: Comment on above: Expected: 06/21/2023 , Expires: 06/21/2023 Start: 06-21-2023 End: 08-21-2023 Lipid 1996 panel - Serum or Plasma LIPID PANEL BASIC Lab Routine Congenital heart disease Fatigue, unspecified type Hypothyroidism, unspecified type Elevated Lp(a) Mixed hyperlipidemia Congenital aortic stenosis H/O Ross procedure S/P Ross procedure Dyspnea on exertion Expected: 06/21/2023, Expires: 08/21/2023 [facility] Work Phone: Comment on above: Expected: 06/21/2023 , Expires: 08/21/2023 Start: 06-21-2023 End: 08-21-2023 Natriuretic peptide.B prohormone N-Terminal [Mass/volume] in Serum or Plasma NT PRO BNP Lab Routine Congenital heart disease Fatigue, unspecified type Hypothyroidism, unspecified type Elevated Lp(a) Mixed hyperlipidemia Congenital aortic stenosis H/O Ross procedure S/P Ross procedure Dyspnea on exertion Expected: 06/21/2023, Expires: 08/21/2023 [facility] Work Phone: Comment on above: Expected: 06/21/2023 , Expires: 08/21/2023 Start: 03-10-2023 Covid-19 Vaccine () Covid-19 Vaccine () [facility] Start: 03-10-2023 Influenza vaccination Influenza Vacc ine (#1) [facility] Start: 02-15-2023 [facility] Start: 02-08-2023 Adult depression screening assessment DEPRESSION SCREENING [facility] Start: 09-19-2022 End: 11-19-2022 Thyrotropin [Units/volume] in Serum or Plasma TSH BLD Lab Routine Congenital heart disease Fatigue, unspecified type Hypothyroidism, unspecified type Elevated Lp(a) Mixed hyperlipidemia Congenital aortic stenosis H/O Ross procedure S/P Ross procedure Dyspnea on exertion Expected: 09/19/2022, Expires: 11/19/2022 [facility] Work Phone: Comment on above: Expected: 09/19/2022 , Expires: 11/19/2022 Start: 07-13-2022 [facility] Start: 07-10-2022 ADVANCE DIRECTIVE DISCUSSION ADVANCE DIRECTIVE DISCUSSION [facility] Start: 07-10-2022 DEPRESSION ASSESSMENT DEPRESSION ASS ESSMENT [facility] Start: 03-10-2022 Influenza vaccination C [facility] Start: 02-28-2022 Registered Recurring Registered Recu rring [facility] Start: 02-10-2022 End: 04-12-2022 Lipid 1996 panel - Serum or Plasma LIPID PANEL BASIC Lab Routine Mixed hyperlipidemia Expected: 02/10/2022, Expires: 04/12/2022 [facility] Work Phone: Comment on above: Expected: 02/10/2022 , Expires: 04/12/2022 Start: 02-10-2022 End: 04-12-2022 Thyrotropin [Units/volume] in Serum or Plasma TSH BLD Lab Routine Hypothyroidism, unspecified type Expected: 02/10/2022, Expires: 04/12/2022 [facility] Work Phone: Comment on above: Expected: 02/10/2022 , Expires: 04/12/2022 Start: 12-06-2021 COVID-19 VACCINE (5 - Booster for Pfizer series) COVID-19 VACCINE (5 - Booster for Pfizer series) [facility] Start: 08-05-2021 COVID-19 VACCINE (4 - Booster for Pfizer series) COVID-19 VACCINE (4 - Booster for Pfizer series) [facility] Start: 07-10-2021 ADVANCE DIRECTIVE DISCUSSION ADVANCE DIRECTIVE DISCUSSION [facility] Start: 07-10-2021 DEPRESSION ASSESSMENT DEPRESSION ASS ESSMENT [facility] Start: 2017 BONE DENSITY BONE DENSITY [facility] Start: 2017 Bone Density Screening Bone Density Screening [facility] Start: 2012 RSV Vaccine (1 - 1-d ose 60+ series) RSV Vaccine (1 - 1-dose 60+ series) [facility] Start: 1997 COLOGUARD (FIT-DNA) COLOGUARD (FIT-D NA) [facility] Start: 1997 Colonoscopy COLONOSCOPY [facility] Start: 1997 COLORECTAL CANCER SCREENING COLORECTAL CANCER SCREENING [facility] Start: [address] COLONOGRAPHY [facility] Start: 1997 FECAL OCCULT BLOOD FECAL OCCULT BLOO D [facility] Start: 1997 SIGMOIDOSCOPY SIGMOIDOSCOPY [facility] Start: 1992 Mammography [facility] Start: 1970 ANNUAL PCP TEAM BASEBALL GLOVE STUFFER JOY DISEASE VISIT ANNUAL PCP TEAM CHRONIC DISEASE VISIT [facility] Start: 1964 Adult depression screening assessment DEPRESSION SCREENING [facility] Alkaline phosphatase - bone isoenzyme measurement [facility] Alkaline phosphatase [Enzymatic activity/volume] in Serum or Plasma [facility] Alkaline phosphatase isoenz panel - Serum or Plasma [facility] End: 11-26-2022 ECG COMPLETE ECG COMPLETE ECG Routine Mixed hyperlipidemia 1 Occurrences starting 11/26/2021 until 11/26/2022 [facility] Work Phone: Comment on above: 1 Occurrences starti ng 11/26/2021 until 11/26/2022 Intestinal alkaline phosphatase measurement [facility] Patient Education Closed Head In jury Contusion (DC) [facility] Work Phone: Patient referral [facility] Work Phone: [facility] Immunizations Immunization Date Immunization Notes Care Provider Katey breaux 04-07-2023 Flu Shot - Documentation Purposes Only Azalea Rodrigez Other [facility] Other 05-05-2022 Prevnar 20 Azalea Rodrigez Other [facility] Other 05-05-2022 influenza, seasonal, injectable Azalea Rodrigez Other [facility] Other 05-05-2022 influenza virus vaccine, unspecified formulation Steve Dent MD Work Phone: [facility] 03-21-2022 COVID-19 Pfizer (bivalent) Azalea Rodrigez Other [facility] Other 10-11-2021 COVID-19 Pfizer Azalea Rodrigez Other [facility] Other 10-11-2021 COVID-19 Vaccine Pfi zer - Documentation Purposes Only Azalea Rodrigez Other [facility] Other 04-21-2021 influenza, seasonal, injectable Marlen Dennysara Other [facility] Other 04-05-2021 Do not use COVID-19 Pfizer 2 dose Azalea Rodrigez Other [facility] Other 09-11-2020 COVID-19 Vaccine Pfi zer - Documentation Purposes Only Azalea Rodrigez Other [facility] Other 08-21-2020 COVID-19 Vaccine Pfi zer - Documentation Purposes Only Azalea Rodrigez Other [facility] Other 03-28-2020 influenza, high-dose , quadrivalent vaccine (FLUZONE HIGH DOSE QUADRIVALENT) Michael Donohue MD Work Phone: [facility] 07-08-2019 zoster vaccine recombinant Azalea Rodrigez Other [facility] 06-12-2019 influenza, high dose seasonal, preservative-free Michael Donohue MD Work Phone: [facility] 05-10-2019 influenza, high dose seasonal, preservative-free Michael Donohue MD Work Phone: [facility] 05-10-2019 pneumococcal conjuga te vaccine, 13 rian Donohue MD Work Phone: [facility] 05-07-2019 zoster vaccine recombinant Michael Donohue MD Work Phone: [facility] 02-12-2019 Kenalog -40 mg Azalea Rodrigez Other [facility] Other 06-20-2018 pneumococcal polysaccharide vaccine, 23 valmart Donohue MD Work Phone: [facility] 05-10-2018 pneumococcal polysaccharide vaccine, 23 valmart Donohue MD Work Phone: [facility] 05-04-2018 Seasonal trivalent influenza vaccine, adjuvanted, preservative free Michael Donohue MD Work Phone: [facility] 06-08-2017 influenza, high dose seasonal, preservative-free Michael Donohue MD Work Phone: [facility] 06-08-2017 pneumococcal conjuga te vaccine, 13 valmart Donohue MD Work Phone: [facility] 05-17-2017 tetanus toxoid, redu miroslava diphtheria toxoid, and acellular pertussis vaccine, adsorbed Azalea Rodrigez Other [facility] 05-25-2016 influenza, injectabl e, quadrivalent, preservative free Michael Donohue MD Work Phone: [facility] 04-22-2015 influenza, injectabl e, quadrivalent, preservative free Michael Donohue MD Work Phone: [facility] 04-30-2014 influenza, injectabl e, quadrivalent, preservative free Michael Donohue MD Work Phone: [facility] 07-31-2013 influenza, seasonal, injectable Michael Donohue MD Work Phone: [facility] 11-19-2012 KENALOG - 10 mg Azalea Rodrigez Other [facility] Other 05-23-2012 zoster vaccine, live Michael Donohue MD Work Phone: [facility] Payers Date Payer Category Payer Unknown [id number] 2020 Self-pay [id number] 2017 Medicare MEDICARE MEDICAR E A AND B [id number] 2017-Present [phone] [place] [address] Medicare [id number] 2017 Medicare MEDICARE MEDICAR E A AND B [id number] 2017-Present [phone] [place] [address] Medicare [id number] 2017 Unknown 2017 Unknown HOSPITAL/MEDICAL GENERIC MEDICAL GENERIC [id number] 2017-Present [phone] [address] [address] [place] [address] Indemnity [id number] 1959 Medicare [id number] 1959 Unknown [id number] 1952 Unknown [id number] 1952 Unknown [id number] 1952 Unknown [id number] 1952 Unknown [id number] 1952 Unknown [id number] 9 1952 Unknown [id number] 9 1952 Unknown [id number] 9 Unknown [facility] [id number] Unknown [id number] Unknown [id number] Unknown [id number] [id number] Unknown [id number] Unknown [id number] Unknown [id number] Social History Date Type Detail Facility Start: 12-26-2019 End: 04-08-2020 Tobacco smoking status NHIS Never smoked tobacco [facility] Start: 07-20-2021 End: 02-10-2022 Alcohol intake Current drinker of alcohol (finding) [facility] Start: 08-14-2020 History SDOH Alcohol Comment occasional beer [facility] Start: 01-14-2020 History SDOH Financial 5 [facility] Start: 01-14-2020 History SDOH Food Worry 1 [facility] Start: 01-14-2020 History SDOH Transpo rt Med 2 [facility] Start: 1950 Sex Assigned At Not on file C [facility] Start: 10-31-2021 End: 11-10-2021 Exposure to SARS-CoV-2 (event) Unable to assess [facility] Start: 02-10-2022 End: 11-11-2022 Sex Assigned At [facility] Work Phone: Start: 01-31-2022 End: 02-10-2022 Exposure to SARS-CoV-2 (event) Not sure [facility] Start: 1950 Sex Assigned At Female F [facility] Start: 12-26-2019 Tobacco use and exposure Smoke less tobacco non-user [facility] Start: 02-10-2022 End: 11-11-2022 History of Social function [facility] Work Phone: How hard is it for y ou to pay for the very basics like food, housing, medical care, and heating Not hard at all [facility] Work Phone: (I/We) worried whestephanie er (my/our) food would run out before (I/we) got money to buy more. Never true [facility] Work Phone: Start: 08-10-2020 Gender identity Identifies as female gender (finding) [facility] Start: 08-10-2020 Sexual orientation Choose not to dis close [facility] Medical Equipment Procedure Code Equipment Code Equipment Origin al Text Equipment Identifier Dates Graft 22mm Pulmo nary Valve Soft Tissue - [id number] Start: 01-13-2020 Comment on above: Description: SIZE 26 MM X 3.5 CM Home Thk1.65mm P tfe 4x.5in Cardiovascular Sterile - [id number] Start: 01-13-2020 Tube Bivona Tts 11mm 8mm Silicone 88mm Tracheostomy Cuff Clip In Obturator - [id number] Start: 01-21-2020 Clinical Notes 03-26-2020 to 07-19-2023 Note Date & Type Note Facility 07-19-2023 Evaluation note Encounter Date Diagnosis Assessment Notes Jul, Medication monitoring encounter (ICD-10 - Z51.81) Referring Provider: Azalea Rodrigez ([facility]) Diagnosis: Atrial Fibrillation , DVT (2019) INR Goal: 2-3 INR: 1.3 Warfarin Tablet Size: 5mg Monday: 7.5mg Monday: 5mg Monday: 7.5mg Monday: 7.5mg : 7.5mg Monday: 5mg Monday: 7.5mg Total Weekly Dose: 47.5mg Boost by 2.5mg for 3 days, then begin plan above, a 12% increase. Follow up in 2 weeks. Patient reports starting trazodone in June, probable cause of subtherapeutic INR. Patient reports doubling dose of trazodone from 50mg to 100mg yesterday 07/18. Seen by Tosha Dubois, [facility] Other 12-28-2023 Evaluation note* Encounter Date Diagnosis Assessment Notes Treatment Notes Treatment Clinical Notes Jun, Medication monitoring encounter (ICD-10 - Z51.81) Referring Provider: Azalea Rodrigez ([facility]) Diagnosis: Atrial Fibrillation, DVT (2019) INR Goal: 2-3 INR: 1.3 Warfarin Tablet Size: 5mg Monday: 7.5mg Monday: 5mg Monday: 7.5mg Monday: 5mg : 7.5mg Monday: 5mg Monday: 5mg Total Weekly Dose: 42.5mg Boost by 2.5mg for 3 days, then continue current plan. Follow up in 2 weeks. Unable to determine cause of subtherapeutic INR. Patient reports weaning off sertraline over the past month. Unlikley that this is the cause of the subtherapeutic INR. Patient denies missed doses of warfarin. Seen by Tosha Dubois, [facility] Other 11-29-2023 Evaluation note* Encounter Date Diagnosis Assessment Notes Treatment Notes Treatment Clinical Notes May, Medication monitoring encounter (ICD-10 - Z51.81) Referring Provider: Azalea Rodrigez ([facility]) Diagnosis: Atrial Fibrillation, DVT (2019) INR Goal: 2-3 INR: 2.4 Warfarin Tablet Size: 5mg Monday: 7.5mg Monday: 5mg Monday: 7.5mg Monday: 5mg : 7.5mg Monday: 5mg Monday: 5mg Total Weekly Dose: 42.5mg Continue current plan. Follow up in 4 weeks. Seen by Tosha Dubois [facility] Other [phone] Miscellaneous Notes* Telephone Encounter - Nayeli Bray - 05/26/2023 6:18 PM EST Phone visit has been scheduled reminder placed in the mail. Nayeli Bray May 26, 2023 6:18 PM documented [facility]23 Miscellaneous Notes* Telephone Encounter - Rebecca Garcia RN - 05/26/2023 3:57 PM EST Called and spoke with patient. Told her to hold Torsemide. She will decrease metoprolol by half (now to be on 12.5mg). She will let us know how she is feeling in 1 week and will be set up for next available virtual visit (routed to admin to assist). Rebecca Garcia RN * Telephone Encounter - Rebecca Garcia RN - 05/26/2023 10:[address] Dent, please hold torsemide. Cut beta rober in half. Oral hydration is cope. Eat healthy. See how you are feeling. Please update us in 1 week and a virtual visit next available. * Telephone Encounter - Nayeli Bray - 05/24/2023 10:49 AM EST May 24, 2023 Patient Contact Number: [phone] Patient last seen within the last year: Yes Date of last office visit: 11/11/22 Reason For Call: Patient called and states she has been having some symptoms not sure if it her medication (metoprolol) she's been fatigue, upset stomach, head pressure BP dropping 98/72 and she states she has almost fainted. Denies any pain Physician: Carlito Dent MD Patient was informed that non-urgent calls may be returned within the next three business days. Yes Nayeli Bray documented in this encounterR[facility]11-16-[facility] Evaluation note* Encounter Date Diagnosis Assessment Notes Treatment Notes Treatment Clinical Notes May, Hypothyroidism (ICD-10 - E03.9) We discussed her thyroid results today. Her TSH is 1.91. Free T3 is 2.45. Free T4 is 0.90. Her symptoms of low blood pressure do not appear to be related to her thyroid or her Zoloft. After discussion we decided to keep her Levothyroxine dose the same. May, Elevated blood pressure (ICD-10 - R03.0) She voices that her blood pressure has been on the low side, and she has felt fatigued and has had pressure in her head. She has contacted her rhinestone setter but is still waiting to hear back from them. At times when she would stand up her vision would go black and her pulse would drop down into the low 40-50's. Her systolic reading has been low. We discussed that her blood pressure is too low and her medications could be discontinued or lowered but this is something that needs to be done under the guidance of her rhinestone setter. May, Edema (ICD-10 - R60.9) She may hold the Torsemide and Potassium and see if she feels better and if her blood pressure does not go down so low. She may do this until she hears back from the [facility]. May, Weight loss (ICD-10 - R63.4) She weighed 153 pounds since last seen. She has been trying to lose weight but voices that she has not been hungry and does not feel like eating. I did explain to her that weight loss will contribute to her blood pressure coming down. Again, her weight loss is intentional. May, Other 10:28 AM - 10:42 AM [facility] Other 11-01-2023 Evaluation note* Encounter Date Diagnosis Assessment Notes Treatment Notes Treatment Clinical Notes May, Medication monitoring encounter (ICD-10 - Z51.81) Referring Provider: Azalea Rodrigez ([facility]) Diagnosis: Atrial Fibrillation, DVT (2019) INR Goal: 2-3 INR: 2.6 Warfarin Tablet Size: 5mg Monday: 7.5mg Monday: 5mg Monday: 7.5mg Monday: 5mg : 7.5mg Monday: 5mg Monday: 5mg Total Weekly Dose: 42.5mg Continue current plan. Follow up in 4 weeks per patient preference. Seen by Tosha Dubois, [facility] Other 10-24-2023 Evaluation note* Encounter Date Diagnosis Assessment Notes Treatment Notes Treatment Clinical Notes Apr, Hypothyroidism (ICD-10 - E03.9) [facility] Other 10-19-2023 Evaluation note* Encounter Date Diagnosis Assessment Notes Treatment Notes Treatment Clinical Notes Apr, Medication monitoring encounter (ICD-10 - Z51.81) Referring Provider: Azalea Rodrigez ([facility]) Diagnosis: Atrial Fibrillation, DVT (2019) INR Goal: 2-3 INR: 4.1 Warfarin Tablet Size: 5mg Monday: 7.5mg Monday: 5mg Monday: 7.5mg Monday: 5mg : 7.5mg Monday: 5mg Monday: 5mg Total Weekly Dose: 42.5mg Hold dose today 04/27, reduce to 2.5mg tomorrow 04/28, then continue current plan. Follow up in 2 weeks. Patient started a new medication yesterday to help her sleep. She cannot recall the name of it so she will call back later. She is trying to wean off alprazolam. Seen by Marlen Macdonald, [facility] Other 10-02-2023 Evaluation note* Encounter Date Diagnosis Assessment Notes Treatment Notes Treatment Clinical Notes Apr, Edema (ICD-10 - R60.9) [facility] Other 09-07-2023 Evaluation note* Encounter Date Diagnosis Assessment Notes Treatment Notes Treatment Clinical Notes Mar, Medication monitoring encounter (ICD-10 - Z51.81) Referring Provider: Azalea Rodrigez ([facility]) Diagnosis: Atrial Fibrillation, DVT (2019) INR Goal: 2-3 INR: 2.8 Warfarin Tablet Size: 5mg Monday: 7.5mg Monday: 5mg Monday: 7.5mg Monday: 5mg : 7.5mg Monday: 5mg Monday: 5mg Total Weekly Dose: 42.5mg Continue current plan. Follow up in 4 weeks. Seen by Tosha Dubois [facility] Other 08-16-2023 Evaluation note* Encounter Date Diagnosis Assessment Notes Treatment Notes Treatment Clinical Notes Feb, Hypothyroidism (ICD-10 - E03.9) Discussed thyroid results with patient today. TSH is 0.08. Free T3 is 2.86. Free T4 is 1.18. At this time I would like her to decrease her dose to 88 MCG daily. Guidance is given on how to take the new dose. I would like to repeat lab in three months. She believes she has the 88 MCG dose at home, if not she will call and we will send this in for her. Feb, Hyperlipidemia (ICD-10 - E78.5) Discussed cholesterol results with patient today. Total is 133. HDL is 37. LDL is 71. Triglycerides are 123. VLDL is 24. Encouraged her to continue with above medication daily, watch intake of carbs and sugars. Stay active. Feb, Elevated alkaline phosphatase level (ICD-10 - R74.8) Her alk phos level was 148. Alk phos isoenzymes showed a level of 164. Liver fraction was 57. Bone fraction was 36. Intestinal fraction was 7. I suspect that her readings are related to her Vitamin D level being low. Feb, Vitamin D deficiency (ICD-10 - E55.9) Vitamin D level is 25.1. She is going to return to taking her Vitamin D supplement daily. I did recommend that she take this daily as directed. 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 Her BUN is 23. Creatinine is 1.01. EGFR is 59.887. Feb, Anxiety (ICD-10 - F41.9) She is seeing Duy Martinez for evaluation and was put on Zoloft. She was also encouraged to walk daily to help with anxiety. She voices that she has been trying to walk daily for at least 10 minutes. Her dose of Xanax was decreased and it is still written as three times a day but she is only using it at night and hopes to come off the medicine. She did take the Zoloft but was miserable for two weeks so her dose was cut in half until she could tolerate it and now she is up to 1 tablet daily. She feels her mood is much better. Feb, Atrial fibrillation (ICD-10 - I48.91) Continue to follow with the [facility] for evaluation/manageme nt of Coumadin. Feb, Low hemoglobin (ICD-10 - D64.9) Her hemoglobin level is staying steady at 12.3. She refuses a colonoscopy, FOBT today 02-22-23. Feb, Pulmonary hypertension (ICD-10 - I27.20) Blood pressure is controlled. Continue with above medication daily as directed. Feb, Edema (ICD-10 - R60.9) Continue with above medication as directed. Feb, Nocturia (ICD-10 - R35.1) Feb, Weight loss (ICD-10 - R63.4) She has lost five pounds since last seen. She voices that she is walking for exercise and to help with her anxiety. [facility] Other 08-07-2023 Evaluation note* Encounter Date Diagnosis Assessment Notes Treatment Notes Treatment Clinical Notes Feb, Medication monitoring encounter (ICD-10 - Z51.81) Referring Provider: Azalea Rodrigez ([facility]) Diagnosis: Atrial Fibrillation, DVT (2019) INR Goal: 2-3 INR: 2.9 Warfarin Tablet Size: 5mg Monday: 7.5mg Monday: 5mg Monday: 7.5mg Monday: 5mg : 7.5mg Monday: 5mg Monday: 5mg Total Weekly Dose: 42.5mg Continue current plan. Follow up in 4 weeks. Seen by Tosha Dubois jodie [place] [employer] Other 07-10-2023 Evaluation note* Encounter Date Diagnosis Assessment Notes Treatment Notes Treatment Clinical Notes Jan, Medication monitoring encounter (ICD-10 - Z51.81) Referring Provider: Azalea Rodrigez ([facility]) Diagnosis: Atrial Fibrillation, DVT (2019) INR Goal: 2-3 INR: 2.5 Warfarin Tablet Size: 5mg Monday: 7.5mg Monday: 5mg Monday: 7.5mg Monday: 5mg : 7.5mg Monday: 5mg Monday: 5mg Total Weekly Dose: 42.5mg Continue current plan. Follow up in 4 weeks. Patient started on Zoloft once daily, unsure of dose. No other changes to medications or diet. Seen by Nael Pate PharmD [place] [employer] [facility] [employer] Other 05-09-2023 Miscellaneous Notes* Telephone Encounter - Nayeli Bray - 11/15/2022 8:22 AM EDT Received outside office notes, sent down I purple folder to be uploaded in [employer]. Nayeli Bray November 15, 2022 8:23 AM documented in this encounterR[facility]05-[facility]23 NoteHNO ID: [id number] Author: Steve Dent MD Service: ? Author Type: Physician Type: Progress Notes Filed: 11/20/2022 7:39 AM Note Text: [facility] OUTPATIENT VISIT DATE November 11, 2022 OUTPATIENT VISIT TYPE EST PRIMARY CARE PHYSICIAN: Azalea Rodrigez, DO [address] [place] [address] REFERRING PHYSICIAN: Valente Louis MD [address] [facility] [address] CHIEF COMPLAINT: Congenital aortic stenosis s/p Ross procedure CONGENITAL CARDIAC HISTORY: Ms. Myrna Kirby is a pleasant 72 yo F with: Congenital aortic stenosis Full term baby, no complications, NVD Diagnosed with during 2nd at age 34 Surgery 1993: Ross procedure via median sternotomy by Dr. Velez at [facility]. Surgery 12/1995: aortic root homograft replacement via median sternotomy by Dr. Velez at [facility]. Surgery 09/04/1996: RV-PA #25 mm homograft replacement via median sternotomy by Dr. Velez at [facility]. Visit with Dr. 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 RVSP 59 + RA, normal aortic homograft function. Today's Echo 12/26/2019: severe RV-PA conduit PS and FL (PG/MG 72/43 mmHg), moderately dilated RV with low normal systolic function, e/o RV pressure and volume overload, normal aortic homograft. 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 Presentation 12/2019: Very symptomatic with dyspnea on exertion, limited functional capacity, abdominal bloating, early satiety, nausea. TPVR 01/13/2020: severe mixed PS/FL and heavily calcified conduit s/p conduit stenting with 8zig 5cm CP on 18 BIB, [id number] on 20 BIB and 22 Kat however post-dilation at the very end was complicated by PA perforation, VA ECMO was instituted quickly and an attempt at covered stenting of the bleeding source was made however it was difficult to visualize true source given left hemothorax and ECMO flow, patient taken emergently to the OR Surgery 01/13/2020: Emergent Reoperation fourth open-heart surgery. Evacuation of left chest hematoma. Replacement of the pulmonary valve root and proximal pulmonary artery. Removal of the ECMO and reinsertion of VV-ECMO. 01/14/2020: Mediastinal and chest washout 01/16/2020: Chest exploration, washout and closure, VV ECMO decannulation 01/21/2020: Percutaneous tracheostomy (Bivona 8.0 TTS tracheostomy). 02/08/2020: Trach down-sized 02/14/2020: Left thoracotomy, decortication, partial pleurectomy, evacuation of hemothorax, and intercostal nerve block. Atrial fibrillation and atrial flutter: in NSR, on metoprolol, and warfarin (previsouly on diltiazem and apixaban, digoxin, prior DCCV 12/2019), f/b Dr. Louis S/p 2 c-sections, children and grandchildren without known CHD. No FH of CHD or SCA INTERVAL HISTORY: Ms. Kirby is a 71 year old female here today for ACHD follow up visit. She presents with her . Was last evaluated 08/2020 with UTE Beal. At her initial office visit, she was very symptomatic with dyspnea on exertion, limited functional capacity, abdominal bloating, early satiety, nausea, fatigue, dizziness with position changes, and palpitations which wake her up at night. She denied chest pain, syncope. Ms. Kirby had a long hospitalization (01/13/2020-04/07/2020) and is detailed below: Transcatheter PV replacement on 01/13/2020 in heavily calcified conduit, after successful stenting and Kat valve placement, postdilation resulted in PA perforation, resulting in left hemothorax and hemodyamic compromise requiring support with VA ECMO placed percutaneously through left groin vessels, bleeding source could not be identified percutaneously so taken emergently to OR. 01/13/2020: Emergent Reoperation fourth open-heart surgery. Evacuation of left chest hematoma. Replacement of the pulmonary valve root and proximal pulmonary artery. Removal of the ECMO and reinsertion of VV-ECMO. 01/14/2020: Mediastinal and chest washout 01/16/2020: Chest exploration, washout and closure, VV ECMO decannualtion 01/21/2020: Percutaneous tracheostomy (Bivona 8.0 TTS tracheostomy). 02/08/2020: Trach down-sized 02/14/2020: Left thoracotomy, decortication, partial pleurectomy, evacuation of hemothorax, and intercostal nerve block. Last visit, Myrna reports she has been feeling well. She denies chest pain, shortness of breath, PND, orthopnea, palpitations, edema, light headedness and syncope. Her accompanies her. She is doing quite well and spending a lot of time with her grandchildren. We reviewed the events of her prolonged hospitalization in detail, we discussed the transcatheter interventi (more content not included)...[facility]05-03-2023 Evaluation note* Encounter Date Diagnosis Assessment Notes Treatment Notes Treatment Clinical Notes November, Anxiety (ICD-10 - F41.9) [facility] Other 04-12-2023 Evaluation note* Encounter Date Diagnosis Assessment Notes Treatment Notes Treatment Clinical Notes Oct, Hypothyroidism (ICD-10 - E03.9) Discussed thyroid results with patient today. TSH is 1.41. Free T3 is 3.11. Free T4 is 0.99. I would like her to continue with the same dose of Levothyroxine. Oct, Anxiety (ICD-10 - F41.9) She voices that she is talking to her counselor about her situation with her brother, she is unsure if this is contributing to her depression symptoms. She is not on medication to treat depression. An OARRS report was reviewed no discrepancies noted. She does continue to use and benefit from the Xanax. Frequent appointments needed due to addiction potential of medication. She should return in three months for evaluation. Side effects/risks/benef its of medication were reviewed. Oct, Depression (ICD-10 - F32.9) She admits she is having a difficult time because her brother is suing her because he feels she did not care for her parents and he does not live in the area. She is very upset by this and it has caused her to be depressed. 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 She is talking to her counselor about this. She is trying to get out and walk every day to help her mood. There have been days she has difficulty getting out of the house or out of bed. In the past we have tried medication for anxiety/depression but she has never been able to continue with the medicine due to side effects. We discussed Wellbutrin today. 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 She is willing to try the Wellbutrin. Guidance is given on how to take the medicatin. She has never had a seizure. She is to take this in the morning. We can increase the dose if needed. She does need to let the [facility] know that she is starting the Wellbutrin incase they need to check her PT/INR sooner. Oct, Other keno terminal operator (current) drug therapy (ICD-10 - Z79.899) Oct, Low hemoglobin (ICD-10 - D64.9) Her hemoglobin is 12.8 at this time. Will continue to monitor. Oct, Allergic rhinitis (ICD-10 - J30.9) She felt like she was getting plugged up at night so she began taking Zyrtec. She admits to getting spring allergies. During the day she feels she needs something. I did recommend that she take Claritin in the morning and take Zyrtec at night just through the spring season. Do not take any D version of either medication. Oct, Edema (ICD-10 - R60.9) She voices that she is only taking 2 Potassium in the morning and not the evening dose. Her potassium is 3.7. She can continue with this. Oct, Other One of her sist er was recently diagnosed with early onset dementia at age 71. Her mother had dementia in her late 70's but in her 90's. I did advise her that the best thing she can do for dementia is to walk. She got her last COVID-19 vaccine in Mar (2021) and is told that she does not need another one until the fall of 2022. Her CO2 level was 32.1. She admits she snores. She did do a sleep study at one point and was not diagnosed with sleep apnea, she was told she was a loud sleeper . She is encouraged to try to avoid sleeping on her back. 10:18 AM - 10:40 AM [facility] Other 04-11-2023 Evaluation note* Encounter Date Diagnosis Assessment Notes Treatment Notes Treatment Clinical Notes Oct, Medication monitoring encounter (ICD-10 - Z51.81) Referring Provider: Azalea Rodrigez ([facility]) Diagnosis: Atrial Fibrillation, DVT (2019) INR Goal: 2-3 INR: 2.6 Warfarin Tablet Size: 5mg Monday: 7.5mg Monday: 5mg Monday: 7.5mg Monday: 5mg : 7.5mg Monday: 5mg Monday: 5mg Total Weekly Dose: 42.5mg Continue current plan. Follow up in 4 weeks. Seen by Tosha Dubois, [facility]q Other 04-03-2023 Evaluation note* Encounter Date Diagnosis Assessment Notes Treatment Notes Treatment Clinical Notes Oct, Anxiety (ICD-10 - F41.9) [facility] Other 03-15-2023 Evaluation note* Encounter Date Diagnosis Assessment Notes Treatment Notes Treatment Clinical Notes Sep, Medication monitoring encounter (ICD-10 - Z51.81) Referring Provider: Azalea Rodrigez ([facility]) Diagnosis: Atrial Fibrillation, DVT (2019) INR Goal: 2-3 INR: 2.6 Warfarin Tablet Size: 5mg Monday: 7.5mg Monday: 5mg Monday: 7.5mg Monday: 5mg : 7.5mg Monday: 5mg Monday: 5mg Total Weekly Dose: 42.5mg Continue current plan. Follow up in 4 weeks. Seen by Tosha Dubois [facility]q Other 03-08-2023 Evaluation note* Encounter Date Diagnosis Assessment Notes Treatment Notes Treatment Clinical Notes Sep, Anxiety (ICD-10 - F41.9) [facility] Other 02-15-2023 Evaluation note* Encounter Date Diagnosis Assessment Notes Treatment Notes Treatment Clinical Notes Aug, Medication monitoring encounter (ICD-10 - Z51.81) Referring Provider: Azalea Rodrigez ([facility]) Diagnosis: Atrial Fibrillation, DVT (2019) INR Goal: 2-3 INR: 2.4 Warfarin Tablet Size: 5mg Monday: 7.5mg Kiran: 5mg Monday: 7.5mg Monday: 5mg : 7.5mg Monday: 5mg Monday: 5mg Total Weekly Dose: 42.5mg Continue current plan. Follow up in 4 weeks. Patient reports missing at least two doses about two weeks ago while on vacation, but was very adherent following up to her appointment. Seen by Nael Pate PharmD, [facility]q Other 02-06-2023 Evaluation note* Encounter Date Diagnosis Assessment Notes Treatment Notes Treatment Clinical Notes Aug, Anxiety (ICD-10 - F41.9) [facility]Marq Other 01-10-2023 Evaluation note* Encounter Date Diagnosis Assessment Notes Treatment Notes Treatment Clinical Notes Jul, Hypothyroidism (ICD-10 - E03.9) Discussed thyroid results with patient today. TSH is 5.34. Free T3 is 3.11. Free T4 is 0.96. She voices that she has been more sensitive to the cold recently. At this time we need to increase her dose of medication to 100 MCG daily. Guidance is given on how to increase her dose. Jul, Hyperlipidemia (ICD-10 - E78.5) She changed her diet and is eating more oatmeal. Discussed her cholesterol today. Total is 139. HDL is 36. LDL is 79. Triglycerides are 121. VLDL is 24. Continue with above medication daily. Watch intake of carbs and sugars. Jul, Low hemoglobin (ICD-10 - D64.9) She denies black stools. We discussed that her lab work from Jun (2021) that was done at the [facility] and the lab that was recently done shows that she was likely dehydrated when she had lab drawn in Jun (2021) Her HGB in Jun at the clinic was 14.6 but now it is 12.0. She voices that she is unsure if they had the right chart when she was at the [facility], she does not feel that the PA she saw had even looked at her chart before she was seen. I would like her to have a CBC repeated in two weeks and call for results. Jul, Elevated alkaline phosphatase level (ICD-10 - R74.8) Her alk phos level was 130. Alk phos isoenzyme level was 149. Liver fraction was 60. Bone fraction was 38. Intestine fraction was 3. Again, suspect this was elevated due to her low Vitamin D level. Jul, Vitamin D deficiency (ICD-10 - E55.9) Her Vitamin D level is low at 16.4. I did recommend that she go back on the Vitamin D supplement daily. I suspect this level being low is why her alk phos level is elevated. Jul, Hematuria (ICD-10 - R31.9) No infection was noted in the urine. We discussed that there was a trace of blood but when evaluated further she only had 0-1 blood cells in the urine which is normal. Will continue to monitor. Jul, Other keno terminal operator (current) drug therapy (ICD-10 - Z79.899) Jul, Other abnormal blood chemistry (ICD-10 - R79.89) She voices that she is drinking more water at this time instead of pop. When she was seen at the [facility] in Jun (2021) she was informed she was drinking too much pop which she admits she was at the time so she did switch to drinking more water instead. Her kidney studies are good at this time but they were poor when checked at the [facility] in Jun (2021). We discussed that drinking pop can irritate the stomach and she was drinking alot of pop so I did recommend that she avoid this and continue with the water. I will have her get a BMP drawn in two weeks to recheck her kidney studies. Jul, Atrial fibrillation (ICD-10 - I48.91) She went to the [facility] in Jun (2021) for evaluation and voices that she had an echo and an EKG done. She was seen by a physician treasury assistant but that particular day they did not have the results available to give her. I did ask her to look on her My Chart and see what her ejection fraction was on her echocardiogram and call me with that result. I would also like her to contact them and ask them to send me a copy of her office visit notes. Jul, Weight loss (ICD-10 - R63.4) Jul, Pulmonary hypertension (ICD-10 - I27.20) Continue with above medication daily as directed. Jul, Edema (ICD-10 - R60.9) Continue with above medications daily as directed. Jul, Anxiety (ICD-10 - F41.9) An [facility] report was reviewed no discrepancies noted. Frequent appointments needed due to addiction potential of medication. She does continue to use and benefit from the Xanax. I will see her back in three months. Side effects/risks/benef its of medication were reviewed. Jul, Other She was told th at she needed to have a test for sleep apnea and she told her specialist she already had one done and was just a noisy sleeper she was never contacted by anyone for a repeat sleep study. She voices that right now she feels good, she stopped taking all her vitamins and her stomach feels better. She currently has projects that she is working on which she thinks helps her to feel better. She can return to taking her eye vitamin and her Vitamin D and otherwise should avoid the other vitamins, her normal [place] diet should provide her with everything else she needs. RFMarq Other 12-16-2022 Evaluation note* Encounter Date Diagnosis Assessment Notes Treatment Notes Treatment Clinical Notes Jun, Anxiety (ICD-10 - F41.9) RFMarq Other 12-15-2022 Evaluation note* Encounter Date Diagnosis Assessment Notes Treatment Notes Treatment Clinical Notes Jun, Medication monitoring encounter (ICD-10 - Z51.81) Referring Provider: Azalea Rodrigez () Diagnosis: Atrial Fibrillation, DVT (2019) INR Goal: 2-3 INR: 1.5 Warfarin Tablet Size: 5mg Monday: 7.5mg Monday: 5mg Monday: 7.5mg Monday: 5mg : 7.5mg Monday: 5mg Monday: 5mg Total Weekly Dose: 42.5mg Boost an additional 2.5mg for 2 days, then continue current plan. Follow up in 4 weeks. Patient missed her dose on Monday06/21/22 which is likely the reason for the subtherapeutic INR. Seen by Tosha Dubois [facility]Marq Other 12-13-2022 Instructions* Patient Instructions* Zach Gaffney APRN.ENROLLMENT NURSE - 06/21/2022 4:04 PM EST PLAN: As discussed in office with Dr. Dent - Continue current medications. - Continue heart healthy, low salt/fat diet - Continue to monitor blood pressure at home at least once daily, 1-2 hours after morning medications --record. - Continue to monitor and record your daily weights at home. If you gain more than 3 lbs in one dayof 5 lbs in one week please call or MyChart us. - Continue to increase physical activity as tolerated. - Follow up with Dr. Dent in 3 months with ECHO, ECG, FLP, CMP, CBC, and NT Pro BNP testing [facility] of Present illness Narrative* Zach Gaffney APRN.CNP - 06/21/2022 3:30 PM EST Images from the original note were not included. [facility] OUTPATIENT VISIT DATE June 21, 2022 OUTPATIENT VISIT TYPE ESTABLISHED PRIMARY CARE PHYSICIAN: Azalea Rodrigez [address] [place] [id number] REFERRING PHYSICIAN: Steve Dent [address] [facility] [id number] CHIEF COMPLAINT: Congenital aortic stenosis s/p Ross procedure CONGENITAL CARDIAC HISTORY: Ms. Myrna Kirby is a pleasant 72 yo F with: Congenital aortic stenosis Full term baby, no complications, NVD Diagnosed with during 2nd at age 34 Surgery 1993: Ross procedure via median sternotomy by Dr. Velez at [facility]. Surgery 12/1995: aortic root homograft replacement via median sternotomy by Dr. Velez at [facility]. Surgery 09/04/1996: RV-PA #25 mm homograft replacement via median sternotomy by Dr. Velez at [facility]. Visit with Dr. 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 RVSP 59 + RA, normal aortic homograft function. Today's Echo 12/26/2019: severe RV-PA conduit PS and FL (PG/MG 72/43 mmHg), moderately dilated RV with low normal systolic function, e/o RV pressure and volume overload, normal aortic homograft. CTA chest 12/2019: severe pulmonary homograft calcification, the aortic homograft is also calcified,not as heavily, possible small anterior, leftward pseudoaneurysm from the ascending aortic homograft at its distal end. Presentation 12/2019: Very symptomatic with dyspnea on exertion, limited functional capacity, abdominal bloating, early satiety, nausea. TPVR 01/13/2020: severe mixed PS/FL and heavily calcified conduit s/p conduit stenting with 8zig 5cm CP on 18 BIB, [id number] on 20 BIB and 22 Kat however post- dilation at the very end was complicated byPA perforation, VA ECMO was instituted quickly and an attempt at covered stenting of the bleeding source was made however it was difficult to visualize true source given left hemothorax and ECMO flow, patient taken emergently to the OR Surgery 01/13/2020: Emergent Reoperation fourth open-heart surgery. Evacuation of left chest hematoma. Replacement of the pulmonary valve root and proximal pulmonary artery. Removal of the ECMO and reinsertion of VV-ECMO. 01/14/2020: Mediastinal and chest washout 01/16/2020: Chest exploration, washout and closure, VV ECMO decannulation 01/21/2020: Percutaneous tracheostomy (Bivona 8.0 TTS tracheostomy). 02/08/2020: Trach down-sized 02/14/2020: Left thoracotomy, decortication, partial pleurectomy, evacuation of hemothorax, and intercostal nerve block. Atrial fibrillation and atrial flutter: in NSR, on metoprolol, and warfarin (previsouly on diltiazem and apixaban, digoxin, prior DCCV 12/2019), f/b Dr. Louis S/p 2 c-sections, children and grandchildren without known CHD. No FH of CHD or SCA INTERVAL HISTORY: Ms. Kirby Is delightful 72 year old female who presents today for cardiovascular medicine follow up. She is an established patient who was last evaluated in the office on 07/20/[address] Dent with impression as follows: PLAN: Myrna is doing well from a cardiovascular standpoint, her echo is reassuring. She has fatigue symptoms, that are likely not cardiac related given her reported symptoms of poor nutrition and poor sleep, but from her report, there is concern for malnutrition, as well as either sleep apnea versus insomnia. I have placed a nutrition referral, sleep medicine referral with a sleepstudy. In addition, given she has had some palpitations, she will get an event monitor. Repeat CXR today to re-evaluate lung parenchyma - reviewed, looks clear She has expressed concern for CAD with her FH of premature CAD, a lipid panel and Lp(a) is ordered. Plan for follow up in 12-18 months with repeat echo Today she is accompanied by her . She reports that since her MIKALA she had been seeing her local PCP regarding having trouble eating/getting full quickly and being extra tired. Her PCP ordered aCT of abdomen that per her was negative. She reports that she got very frustrated and stopped taking all of her medications for 2-3 days around this time. Reports that her PCP gave her a firm talkingto about how she can not just stop taking her thyroid and heart medications and states that she nowunderstands that it could make symptoms worse and cause worse issues like blood clots/strokes. Today she is endorsing worsening LUONG. It has progressively gotten worse over the last several months to the point that she is barely able to make it up 3 flights of stairs at her doctors office and is very short of breath when she does and previously she was able to do it with no LUONG. She reports that she is also tiring very quickly and gets very cold and has to curl up on the couch in multiple thick blankets to try to get warm and that is new for her. She denies chest pain, orthopnea, cough, edema, palpitations, PND, lightheadedness or syncope. +shortness of breath and fatigue as detailed above PAST MEDICAL HISTORY Diagnosis Date Aortic valve insufficiency Atrial fibrillation (HCC) DVT (deep vein thrombosis) in History of tracheostomy Hypothyroidism Moderate protein-calorie malnutrition (HCC) 01/17/2020 History: Recommended Malnutrition Diagnosis: Moderate Protein-Calorie Malnutrition In the context of: Acute Illness or Injury Based on: Insufficient Energy Intake; Muscle Loss. Assessment: 02/28 Patient with nausea/vomiting, KUB revealed mild ileus. Held TF, started miralax, colace, and dulcolax suppository, patient with multiple BMs. Nausea/vomiting resolved Plan: Tolerating TF at goal, advanced t Pulmonary vein stenosis PAST SURGICAL HISTORY Procedure Laterality Date APPENDECTOMY BACK SURGERY HX SNGL x2 CARDIAC VALVE SURGERY HX 1993 ROSS procedure DECORTICATION LUNG, PARTIAL 02/14/2020 02/14/2020: Left thoracotomy, decortication, partial pleurectomy, evacuation of hemothorax, and intercostal nerve block. KNEE SURGERY HX x3 OTHER attempted PV replacement, resulting in PA perf and HD instability SALPINGECTOMY OR OOPHERECTOMY-ECTOPIC TRACH DECANULATION DRESSING PLACEMENT 03/2020 tracheostomy decanulation TRACHEOSTOMY (SPECIFY) 01/21/2020 Percutaneous tracheostomy (Bivona 8.0 TTS Tracheostomy) UNLISTED CARDIAC SURGERY 1995 aortic root homograft replacement UNLISTED CARDIAC SURGERY 1996 RV-PA homograft replacement UNLISTED CARDIAC SURGERY 01/13/2020 01/13/2020: Emergent Reoperation fourth open-heart surgery. Evacuation of left chest hematoma. Replacement of the pulmonary valve root and proximal pulmonary artery. Removal of the ECMO and reinsertionof VV-ECMO. SOCIAL HISTORY Social History Tobacco Use Smoking status: Never Smokeless tobacco: Never Vaping Use Vaping Use: Never used Substance Use Topics Alcohol use: Yes Comment: occasional beer Drug use: Never FAMILY HISTORY Problem Relation Age of Onset Alzheimer's Disease Mother Thyroid Mother Thyroid Father Heart Attack Father Coronary Artery Disease Father Hyperlipidemia Father Hypertension Father Hypertension Brother ALLERGIES: ALLERGIES Allergen Reactions Levaquin [Levofloxa* Myalgia Oxycodone Mental Status Change Readyprep Chg [Chlo* Itching Sulfa (Sulfonamide * GI Upset Tramadol Other: See Comments annorexia MEDICATIONS: metoprolol succinate ER (TOPROL XL) 25 mg 24 hr tablet^Take 1 tablet by mouth once daily.^Disp: ^Rfl: warfarin sodium (WARFARIN ORAL)^Take by mouth as directed. Pt's dosage varies^Disp: ^Rfl: atorvastatin (LIPITOR) 20 mg tablet^Take 20 mg by mouth once daily. ^Disp: ^Rfl: torsemide (DEMADEX) 20 mg tablet^Take 0.5 tablets by mouth once daily.^Disp: ^Rfl: potassium chloride ER (K-DUR, KLOR-CON) 20 mEq tablet^Take 3 tablets by mouth once daily.^Disp: ^Rfl: ALPRAZolam (XANAX) 0.25 mg tablet^Take 0.25 mg by mouth as needed.^Disp: ^Rfl: omeprazole (PRILOSEC) 20 mg capsule^Take 20 mg by mouth once daily.^Disp: ^Rfl: levothyroxine (SYNTHROID) 125 mcg tablet^Take 1 tablet by mouth DAILY (6 AM).^Disp: ^Rfl: (Patient taking differently: Take 120 mcg by mouth DAILY (6 AM). ) aspirin 81 mg chewable tablet^1 tablet by ORAL/FEEDING TUBE route once daily.^Disp: ^Rfl: magnesium oxide (MAG-OX) 400 mg (241.3 mg magnesium) tablet^Take 1 tablet by mouth once daily.^Disp: ^Rfl: REVIEW OF SYSTEMS: Positives in bold GENERAL: Negative for: Weight loss or gain, Fever or Chills, Weakness and Sleep difficulties. HEENT: Negative for: Headache, Impaired Vision, Glasses, Hearing Impairment, Ringing in Ears, Nosebleeds, Poor dental care, Bleeding Gums, Dentures NECK: Negative for: Swelling, Pain, Stiffness RESPIRATORY: Negative for: Cough, Blood in Sputum, Shortness of breath, Wheezing, Apnea GASTROINTESTINAL: Negative for: Trouble swallowing, Heartburn, Change in bowel habits, Blood in stool, Dark black stools MUSCULOSKELETAL: Negative for: Muscle or joint pain, Stiffness , Joint swelling NEUROLOGIC/PSYCHIATRIC: Negative for: Weakness, Paralysis, Numbness, Tingling, Tremor, Nervousness,Depressed mood, Memory loss SKIN: Negative for: Rashes, Itching HEMATOLOGICAL/LYMPHATIC: Negative for: Easy bruising , Easy bleeding ENDOCRINE: Negative for: Heat or cold intolerance, Excessive sweating, Frequent urination, Frequentthirst PHYSICAL EXAMINATION: BP 110/78 Pulse 94 Resp 19 Wt 74.8 kg (165 lb) SpO2 95% BMI 24.37 kg/m General: Well appearing, in no acute distress, speaking in complete sentences. Skin: No clubbing, no cyanosis. Eyes: Extra ocular movements intact Neck: no jugular venous distention, Lungs: Clear to auscultation bilaterally, no wheezing or rhonchi. Heart: Regular rhythm, PMI not displaced, S1, S2 normal, and + murmur. Abdomen: Soft, bowel sounds normal Extremities: No peripheral edema . Grade 2/4 distal pulses bilaterally. Neuro: Oriented to person, place and time, alert, cooperative, gait coordinated. CARDIOVASCULAR MEDICINE TESTING: ECG 06/21/2022 ECHO Pending Labs 06/21/2022 Pending CMP and NT Pro BNP Component Latest Ref Rng & Units 06/21/2022 WBC 3.70 - 11.00 k/uL 8.26 RBC 3.90 - 5.20 m/uL 4.97 Hemoglobin 11.5 - 15.5 g/dL 14.6 Hematocrit 36.0 - 46.0 % 45.4 MCV 80.0 - 100.0 fL 91.3 MCH 26.0 - 34.0 pg 29.4 MCHC 30.5 - 36.0 g/dL 32.2 RDW-CV 11.5 - 15.0 % 12.9 Platelet Count 150 - 400 k/uL 282 MPV 9.0 - 12.7 fL 12.3 Absolute nRBC <0.01 k/uL <0.01 ECG 07/20/2021: NSR, 80's TTE 07/20/2021: - Exam indication: H/O Ross Procedure; TPVR, AVR - Congenital aortic stenosis s/p Ross procedure (1993, [facility]), aortic root homograft (1995, [facility]), RV-PA homograft replacement (04-SEP-1996, [facility]), and replacement of the pulmonary valve root and proximal pulmonary artery (13-JAN-2020, [facility]). - The left ventricle is normal in size. Left ventricular systolic function is normal. EF = 66 5% (2D 4-ch.) - The right ventricle is normal in size. Right ventricular systolic function is normal. - There is moderate (2+ - 3+) tricuspid valve regurgitation. - Homograft prosthetic aortic valve. Prosthetic leaflets not seen. There is trace aortic valve regurgitation. The peak gradient is 20 mmHg, the mean gradient is 8 mmHg and the dimensionless valve index is 0.38. Prior pk/mn AV gradients were 24/13 mmHg. - Cryolife Homograft prosthetic pulmonic valve (size #26). Prosthetic leaflets not seen. Peak/mean gradients 21/11 mmHg. Mild (1+) pulmonary regurgitation. Prior peak/mean gradients 22/13 mmHg. - Estimated right ventricular systolic pressure is 48 mmHg. In the setting of pulmonary prosthesis with outflow gradient, RVSP does not estimate PA pressure. Estimated right atrial pressure is 3 mmHg based on IVC assessment. - Exam was compared with the prior echocardiographic exam performed on 12/01/2020. Tricuspid regurgitation has increased slightly. Otherwise similar findings. ECG 12/01/2020 TTE 11/27/2020 - Congenital aortic stenosis s/p Ross procedure (1993, [facility]), aortic root homograft (1995, ), RV-PA homograft replacement (04-SEP-1996, [facility]), and replacement of the pulmonary valve root and proximal pulmonary artery (13-JAN-2020, [facility]). - The left ventricle is normal in size. Left ventricular systolic function is normal. EF = 68 5% (2D biplane) Grade II left ventricular diastolic dysfunction. - The right ventricle is normal in size. Right ventricular systolic function is normal. - Homograft prosthetic aortic valve. Prosthetic leaflets not seen. There is trace aortic valve regurgitation. The peak gradient is 24 mmHg, the mean gradient is 13 mmHg and the dimensionless valve index is 0.38. Prior aortic peak/mean gradients were 18/9 mmHg. - Cryolife Homograft prosthetic pulmonic valve (size #26). Prosthetic leaflets not seen. Peak/mean gradients 22/13 mmHg. Trivial prosthetic regurgitation. Prior peak/mean gradients 21/11 mmHg. - Estimated right ventricular systolic pressure is 50 mmHg consistent with mild pulmonary hypertension. Estimated right atrial pressure is 3 mmHg based on IVC assessment. - Exam was compared with the prior [facility] echocardiographic exam performed on 08/14/2020. RVSP slightly higher. CT Chest 12/01/2020 1. Interval resolution of consolidative and groundglass opacities in the right lung suggestive of infectious/inflammatory etiology. 2. Interval improvement without complete resolution of the consolidative opacities in the left lung and residual peripheral groundglass opacities representing improved infection/inflammation with residual scarring/atelectasis. 3. Interval resolution of left hemothorax since the prior exam. 4. Postsurgical changes of aortic root repair, pulmonic root repair and pulmonary valve replacement. TTE 08/14/2020 CONCLUSIONS: - Exam indication: post PV replacement - The left ventricle is normal in size. Left ventricular systolic function is normal. EF = 63 5% (2D biplane) - The right ventricle is normal in size. Right ventricular systolic function is normal. - Mild mitral and tricuspid valve regurgitation. - Homograft prosthetic aortic valve. There is trace (trace - 1+) aortic valve regurgitation. The peak gradient is 18 mmHg, the mean gradient is 9 mmHg and the dimensionless valve index is 0.47. - Cryolife Homograft prosthetic pulmonic valve (size #26). Pk/Mn gradients 16/9 mmHg. No evidence of pulmonic regurgitation. Prior peak/mean gradients 14/6 mmHg. - Exam was compared with the prior [facility] echocardiographic exam performed on 05/13/2020. Similar findings. GIANFRANCO 03/12/2020 CONCLUSIONS: - Exam indication: Pre Cardioversion, Pre AF Ablation - The left ventricle is small. Left ventricular systolic function is normal. EF = 60 5% (visual est.) - The right ventricle is normal in size. Right ventricular systolic function is normal. - The left atrial cavity is dilated. - The right atrial cavity is dilated. - S/P Ross procedure and re-do aortic valve surgery. The aortic leaflets are not optimally visualized. The leaflets appear calcific. Normal Doppler profile. - Status post pulmonary valve deployment with Akt valve and stent complicated by PA rupture requiring emergent replacement of the pulmonary valve root and proximal pulmonary artery. The pulmonic valve leaflets are not optimally visualized. Pulmonic valve Vmax = 80 cm/sec. Remote Ross procedure and aortic valve and reoperations with aortic and pulmonary root replacementswith homograft aortic root and homograft pulmonic root in place - Exam was compared with the prior [facility] echocardiographic exam performed on 01/24/2020. Better visualization of the cardiac structures and function, as above. CTA TPVR 12/27/2019: IMPRESSION: COMPLEX SURGICAL REPAIR OF THE AORTIC ROOT AND CENTRAL PULMONARY ARTERY CENTRAL PULMONARY ARTERY: CHANGES CONSISTENT WITH DENSELY CALCIFIED HOMOGRAFT Max. and min. Diameter (systole) PROXIMAL ASPECT OF GRAFT: 1.4 x 1 cm; AREA 1.2 cm2 orthogonal Angulations e.g.: LAO20 cranial 22; LAO0 cranial 24; RAO20 cranial 23 [place] left and right central pulmonary artery 2.7 and 2 cm; no evidence of branch vessel stenosis PULMONIC VALVE: Assessment is limited in the current study, leaflets are not identified - no evidence of leaflet calcification AORTA: CHANGES CONSISTENT WITH CALCIFIED HOMOGRAFT AORTIC ROOT AND ASCENDING AORTA - Aortic Valve: appears trileaflet, moderate calcification at the base of the leaflets - likely unrestricted leaflet opening, but assessment is limited in the current study - extensive calcification and surgical changes of the graft -in the left anterior aspect of the distal anastomosis is a small approximately 1 cm high density structure which likely represents surgical material. However in the absence of a noncontrast acquisition definitively exclusion of a small pseudoaneurysm is not possible Electrocardiogram 12/26/2019: Diagnosis:ATRIAL FIBRILLATION WITH PREMATURE VENTRICULAR COMPLEXES RIGHT AXIS POSSIBLE INFERIOR MYOCARDIAL INFARCTION , AGE UNDETERMINED ST & LATERAL T WAVE ABNORMALITY ABNORMAL ECG TTE 12/26/2019: - Exam indication: RV-PA conduit stenosis; Homograft AVR - The left ventricle is normal in size. Left ventricular systolic function is normal. EF = 62 5% (2D biplane) - The right ventricle is moderately dilated. Right ventricular systolic function is low normal. Septal flattening throughout systole and diastole consistent with RV volume and pressure overload (in the setting of severe RV_PA conduit stenosis and regurgitation) - The right atrial cavity is dilated. - There is moderate (2+ - 3+) tricuspid valve regurgitation. - Homograft prosthetic aortic valve. There is no aortic valve regurgitation. There is no aortic valve stenosis. The peak gradient is 18 mmHg, the mean gradient is 11 mmHg and the dimensionless valve index is 0.32. - #25 pulmonary homograft with severe stenosis, peak velocity 4.2 m/s, PG/MG 72/43 mmHg. Severe (4+) pulmonic valve regurgitation with P1/2T 70 ms, PRindex <0.77. - Estimated right ventricular systolic pressure is 79 mmHg, in the context of severe RV-PA conduit stenosis, this is consistent with normal pulmonary pressures. Estimated right atrial pressure is 8 mmHg based on IVC assessment. - Normal mitral valve structure and function. - Normal aortic arch flow pattern - Exam was compared with the prior [facility] echocardiographic exam performed on 05/30/2016. The conduit has progressed in severity. ECHO 05-30-2016 INTERPRETATION SUMMARY 1. Status post Ross procedure, aortic root homograft replacement, RV-PA homograft replacement. 2. The RV-PA conduit is not well visualized. Spectral Doppler shows moderate conduit stenosis - peak 50mmHg, mean 29mmHg (similar to previous study.) Color flow and spectral Doppler demonstates moderate conduit regurgitation. 3. Trivial aortic regurgitation and trivial LVOT stenosis. 4. Mild tricuspid regurgitation. TR velocity estimates an RV systolic pressure of 59mmHg above right atrial pressure. 5. Trivial mitral regurgitation. 6. No arch obstruction. 7. Mildly dilated right ventricle. 8. Qualitatively normal biventricular systolic function. LVEF 63%. 9. Abnormal LV diastolic filling patterns. 10. No pericardial effusion. MEASUREMENTS: Ventricles Zscore IVS d, Mmode 1.04 cm 0.26 LV d, Mmode 3.96 cm -3.09 LV s, Mmode 2.58 cm -2.03 LVPW d, Mmode 1.14 cm 1.63 LV EF (A/L, A4C) 61.4 % LV FS Mmode 34.9 % LV vol d, MOD A4C 62.5 ml LV vol s, MOD A4C 22.9 ml LV Vol Index d, A4C: 33.12 ml/m LV Stroke Vol: 21.0 ml/m LV EF (A4C): 63.4 % LV Mass M-Mode 176 g LV Mass index g/m*pow2.7 (m-mode) 40.801 Pulmonary Valve Value PV Peak Velocity 3.52 m/s PV Peak Grad 49.5 mmHg PV Mean Velocity 2.603 m/s PV Mean Grad 29.4 mmHg PV VTI 0.905 m PV Ejection Time 348 msec TR Vmax: 3.83 m/s TR Peak Grad: 58.8 mmHg Aortic valve Ao V Vmax 2.00 m/s Ao V Peak Grad 15.9 mmHg LPA: 1.86 cm Z score: 1.63 RPA: 1.95 cm Z score: 1.72 POSITION/CONNECTION: Situs: Abdominal visceral situs solitus. Levocardia. Normal atrioventricular alignment. Normally related great arteries. VEINS: Systemic Veins: A right superior vena cava drains normally to the right atrium. The inferior vena cava is right-sided, entering the atrium. There is intermittent systolic flow reversal in the IVC / hepatics. ATRIA/SEPTUM: Atria: The left atrium is normal size. The right atrium is normal in size. No hemodynamically significant atrial septal defect. AV VALVES/CANAL: Mitral Valve: The mitral valve leaflets are normal in appearance. Trivial mitral regurgitation is present. Tricuspid Valve: The tricuspid valve is normal in appearance. Mild tricuspid regurgitation is present. TR velocity estimates an RV systolic pressure 59mmHg above right atrial pressure (1/3 systemic.) VENTRICLES: Left Ventricle: The left ventricle is normal in size. There is normal wall thickness. Left ventricular systolic function is normal. Left ventricular diastolic Doppler filling patterns are abnormal. There is mild septal flattening in diastole. Right Ventricle: The right ventricular chamber is mildly dilated. The right ventricular function appears qualitatively normal. OUTFLOW TRACTS: LVOT: There is no left ventricular outflow tract obstruction. Aortic Valve: Status post Ross and aortic root homograft replacement. There is trivial stenosis across the LVOT - peak velocity 2.00 m/s by continuous wave Doppler. Pulmonic Valve: Status post RV-PA conduit. The conduit is not well visualized but the proximal portion is seen. There is moderate conduit stenosis - peak velocity 3.5 m/sec estimating a peak gradient of 50mmHg and mean gradient of 29mmHg - similar to prior study. Color flow and spectral Doppler demonstrates moderate conduit regurgitation. There is no flow reversal seen in the branch pulmonary arteries. GREAT ARTERIES: Aorta: Ascending aorta is normal. No evidence of coarctation of the aorta. The descending aortic Doppler pattern is nonobstructive. The abdominal aortic Doppler pattern is normal. The aortic root could not be accurately measured. Pulmonary Arteries: Proximal branch PAs from the suprasternal notch appear to be good size with no holodiastolic flow reversal. OTHER: Pericardium: There is no pericardial effusion. Interventional / Surgical Procedures: Status post right ventricle to pulmonary artery homograft and aortic valve replacement. PEDS EXERCISE METABOLIC STRESS 04-18-2014 Interpretation 1. Fair aerobic (5.4 METS) and good exercise (8.4 eMETS) capacity. 2. Normal heart rate response with max HR 151 (95% APMHR), normal HR recovery (7.3% 1 min, 15.2% 2 min). 3. Normal systolic and diastolic BP response. 4. Peak VO2 (1.55 l/min) and VO2/kg (18.7 ml/min/kg). 5. AT/kg (17.3 l/min/kg); 92.3% VO2max. 6. Oxygen pulse (10.3 ml) with normal rise throughout exercise. 7. Total ventilation (VE/ht2.5 12.0 l/ht2.5; VT/kg 14.1 ml/kg; RR 41.0/min). 8. Peak exercise ETCO2 (39.2 torr). 9. VE/VCO2 at AT and slope (23.6). 10. NSR with occassional PVCs at rest, 4 PVCs during exercise and occassional PVCs in recovery. 11. Normal SpO2's during study- 94-100%. 94% at peak exercise. 12. Patient complained of slight shortness of breath with exercise. She also did need to hold on to bars for support. Conclusion: Normal cardiopulmonary response to maximal exercise (RER 1.10, max HR, no HR plateau or VO2 plateau) with no evidence of cardiac limitation based on normal VO2, AT, VE/VCO2, ETCO2, oxygen pulse and HR recovery. Validated by: Abhi Steiner Name Unit Pred Max Resting AT MaxLoad 10 09:18 VO2/kg ml/kg/min 18.0 18.7 4.8 17.2 18.7 RER - 1.10 0.77 1.00 1.10 HR 1/min 159 150 85 143 150 RR 1/min 28 41 35 31 41 PETCO2 mmHg - 41.9 29.4 41.6 39.2 VE l/min 50.42 48.02 10.48 38.50 48.02 O2 pulse ml/beat 11.2 10.2 4.6 9.9 10.2 VE/VCO2 slope = 23.64 F/V-Nr.: 1 2 3 4 5 Load W 101.00 - - - - Time min 0:08:00 - - - - EELV l 1.93 - - - - IC l 1.72 - - - - VT l 1.36 - - - - ti-fv s 1.02 - - - - te-fv s 1.73 - - - - ti/te-fv % 59 - - - - Vfl l 1.23 - - - - Vfl/VT % 89.88 - - - - EMF l/s 2.32 - - - - IMF l/s 2.45 - - - - EILV l 3.30 - - - - EILV/VC % 199.82 - - - - Name Value Unit Protocol SDBRRAMP Stress Type Treadmill Rest. HR 80 bpm Rest. Syst. BP 122 mmHg Rest. Diast. BP 86 mmHg Max. HR 152 bpm Max. Syst. BP 156 mmHg Max. Diast. BP 74 mmHg Max. Double 193 mmHg/min Dur. of Recording 14:56 MM:SS Dur. of Exercise 5:08 MM:SS Dur. of Recovery 5:08 MM:SS Breakreason 1 Fatigue I have personally reviewed the Electrocardiogram and CBC Laboratory Testing. The ECHO, CMP, and NT Pro BNP test results are still pending. Will MyChart the Patient when the results are available. ASSESSMENT: Ms. Myrna Kirby is a pleasant 72 yo F with: Congenital aortic stenosis Full term baby, no complications, NVD Diagnosed with during 2nd at age 34 Surgery 1993: Ross procedure via median sternotomy by Dr. Velez at [facility]. Surgery 12/1995: aortic root homograft replacement via median sternotomy by Dr. Velez at [facility]. Surgery 09/04/1996: RV-PA #25 mm homograft replacement via median sternotomy by Dr. Velez at [facility]. Visit with Dr. 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 RVSP 59 + RA, normal aortic homograft function. Today's Echo 12/26/2019: severe RV-PA conduit PS and FL (PG/MG 72/43 mmHg), moderately dilated RV with low normal systolic function, e/o RV pressure and volume overload, normal aortic homograft. CTA chest 12/2019: severe pulmonary homograft calcification, the aortic homograft is also calcified,not as heavily, possible small anterior, leftward pseudoaneurysm from the ascending aortic homograft at its distal end. Presentation 12/2019: Very symptomatic with dyspnea on exertion, limited functional capacity, abdominal bloating, early satiety, nausea. TPVR 01/13/2020: severe mixed PS/FL and heavily calcified conduit s/p conduit stenting with 8zig 5cm CP on 18 BIB, [id number] on 20 BIB and 22 Kat however post- dilation at the very end was complicated byPA perforation, VA ECMO was instituted quickly and an attempt at covered stenting of the bleeding source was made however it was difficult to visualize true source given left hemothorax and ECMO flow, patient taken emergently to the OR Surgery 01/13/2020: Emergent Reoperation fourth open-heart surgery. Evacuation of left chest hematoma. Replacement of the pulmonary valve root and proximal pulmonary artery. Removal of the ECMO and reinsertion of VV-ECMO. 01/14/2020: Mediastinal and chest washout 01/16/2020: Chest exploration, washout and closure, VV ECMO decannulation 01/21/2020: Percutaneous tracheostomy (Bivona 8.0 TTS tracheostomy). 02/08/2020: Trach down-sized 02/14/2020: Left thoracotomy, decortication, partial pleurectomy, evacuation of hemothorax, and intercostal nerve block. Atrial fibrillation and atrial flutter: in NSR, on metoprolol, and warfarin (previsouly on diltiazem and apixaban, digoxin, prior DCCV 12/2019), f/b Dr. Louis S/p 2 c-sections, children and grandchildren without known CHD. No FH of CHD or SCA Delightful 72 year old year old female who presents today for a Cardiovascular Medicine follow up visit. She is an established Clinical patient of Dr. Dent. Patients past medical history, physical, medications, tests, and results are as detailed above. Today she overall feels okay. She is endorsing worsening LUONG and fatigue. She is taking all medications as prescribed including ASA, Atorvastatin, Metoprolol succinate, and Coumadin. She has been taking 1 whole Torsemide 20 mg tablet instead of the prescribed 10 mg or halfa tablet and she has also only been taking 40 mEq of Potassium chloride daily instead of the ordered 60 mEq daily. Her blood pressure in office is 110/78, and her pulse is 94. She does not obtain blood pressure and pulse at home. Patient is here for routine follow up. Most recent testing, including ECG and CBC, were reviewed and are detailed above. ECHO, CMP, and NTPro BNP test results are still pending. She is normotensive, euvolemic, and stable from a cardiac perspective. RTC as detailed below. PLAN: As discussed in office with Dr. Dent -Patient has appointment with PCP in July and will be getting thyroid levels checked at that time and will also be asking to be evaluated for CARMEN/sleep study need. - Continue current medications. -----Patient educated at length about taking medications as prescribed and verbalized understanding. - Continue heart healthy, low salt/fat diet - Continue to monitor blood pressure at home at least once daily, 1-2 hours after morning medications --record. Goal < 130/80 - Continue to monitor and record your daily weights at home. If you gain more than 3 lbs in one dayof 5 lbs in one week please call or MyChart us. - Increase physical activity as tolerated. - Follow up with Dr. Dent in 3 months with ECHO, ECG, FLP, CMP, CBC, and NT Pro BNP testing prior. I spent 90 minutes in the visit, with more than 50% of the total [id number] time of the visit in counseling / coordination of care. Zach Gaffney APRN.ENROLLMENT NURSE documented [facility] this [facility] Evaluation note* Encounter Date Diagnosis Assessment Notes Treatment Notes Treatment Clinical Notes May, Mass (ICD-10 - R22.9) bone mass I did review the CT scan of the chest, abdomen/pelvis results with her today. Results showed lower neck: thyroid gland within normal limits, no supraclavicle adenopathy. Vessels: Atherosclerotic changes are noted in the thoracic aorta and origins of the great vessels. Atherosclerotic changes are noted in the coronary arteries. 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 Heart: There is cardiomegaly. No pericardial effusion. Airways: Within normal limits. Lungs: Subpleural airspace opacities are noted which may represent subpleural fibrosis throughout the left upper and lower lobes. Mild hazy airspace opacity is noted peripherally in the right lower lobe. Pleura: Within normal limits. Chest Wall: Within normal limits. Abdomen: Liver: within normal limits. Bile ducts: normal caliber. Gallbladder: No calcified gallstones, Normal caliber wall. Pancreas, Spleen, Adrenals, Kidneys all within normal limits. Pelvis: Reproductive organs: No pelvic masses. Ureters and Bladder within normal limits. Bowel: There are a few uncomplicated colonic diverticula. Mesenteric lymph nodes: no enlarged mesenteric lymph nodes. Peritoneum: No ascites or free air, no fluid collection. Vessels: Atherosclerotic changes are noted in the abdominal aorta and its branches. Retroperitoneum: within normal limits. Abdominal wall: There are venous collaterals are noted along the left anterior abdominal wall. Bones: Degenerative changes are noted in the hips and sacroiliac joints. There is evidence of prior sternotomy. There is a mild dextro convex curvature of the thoracic spine. Impression: No acute cardiopulmonary pathology. 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 There are also venous collaterals communicating with the azygos system and extending over the left anterior abdominal wall. There is cardiomegaly. No bowel obstruction or obstructive uropathy. No free fluid or free air. The MRI was not done because the radiology department wanted the model number of her artificial valve, but she has a cadaver valve, but they would not listen to her. She did get clearance from her rhinestone setter to have the MRI done. I do recommend that she have the MRI done as soon as possible, if she chooses not to do this then she could miss the diagnosis of cancer in the bone. She voices that she understands this risk and chooses not to have the MRI done at this time. She is not going to return to have the MRI done right now. She denies any pain in the right side of the pelvic bone at this time. May, Abdominal fullness (ICD-10 - R19.8) She voices that she stopped taking all of her vitamins and she has not had any abdominal fullness. She is going to continue to monitor. May, Hypothyroidism (ICD-10 - E03.9) She voices that she is taking her thyroid medication daily. May, Hyperlipidemia (ICD-10 - E78.5) She voices that she is taking the statin medication daily. May, Atrial fibrillation (ICD-10 - I48.91) She voices that she is taking her Coumadin and is following with the [facility] as scheduled. May, Edema (ICD-10 - R60.9) She voices that she had stopped taking Torsemide because she was not sure if it had contributed to the abdominal fullness she was having, she since stopped taking her vitamins and her symptoms resolved. I did recommend that she return to taking the diuretic and the potassium and if she has issue with her stomach then she contact her specialist in [place] and see if they can change her potassium to something different. May, Other 2:38 PM - 3:02 PM We discussed the right lung base opacity seen on the CT scan of the chest, this was not mentioned in the impression portion of the report. She does not follow with a cosmetology teacher but will go to [place] in Jun (2021). I will mail her a copy of this report and asked her to show this to the specialist so they can see this. She will be having a chest x-ray done at that office visit. [facility] Other 11-17-2022 Miscellaneous Notes* Telephone Encounter - Margaret Hernandez RN - 05/26/2022 4:46 PM EST Reviewed chart with UTE Cook. She had an abdominal MRI since her surgery. She has no know pacemaker/ICD. No contraindication as long as no device. * Telephone Encounter - Nayeli Bary - 05/26/2022 1:06 PM EST Patient calling back MRI is scheduled or tomorrow she is nervous and just wanted an answer to her firs message Nayeli Bray 2 documented in this encounterR[facility]11-[facility]* Encounter Date Diagnosis Assessment Notes Treatment Notes Treatment Clinical Notes May, Medication monitoring encounter (ICD-10 - Z51.81) Referring Provider: Azalea Rodrigez () Diagnosis: Atrial Fibrillation, DVT (2019) INR Goal: 2-3 INR: 2.8 Warfarin Tablet Size: 5mg Stas: 7.5mg Monday: 5mg Monday: 7.5mg Monday: 5mg : 7.5mg Monday: 5mg Monday: 5mg Total Weekly Dose: 42.5mg Continue current plan. Follow up in 4 weeks. Seen by Alexandro Noe PharmD [facility] Other 11-17-2022 Evaluation note* Encounter Date Diagnosis Assessment Notes Treatment Notes Treatment Clinical Notes May, Anxiety (ICD-10 - F41.9) [facility] Other 11-09-2022 Evaluation note* Encounter Date Diagnosis Assessment Notes Treatment Notes Treatment Clinical Notes May, Abdominal fullness (ICD-10 - R19.8) I did review her abdominal x-ray results with her today. Her results showed osseous structures demonstrate degenerative changes. Masslike irregularity involving the right iliac bone. Further evaluation with MRI is recommended. She is having regular bowel movements, and she denies that these are pencil thin. She has never had a colonoscopy. She voices that according to her clothing she has not lost weight. 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 She voices that because of this the top of her pelvic bones are shaped weird. I would like to order an MRI of the pelvis with and without contrast. I am also going to order a CT scan of the chest, abdomen and pelvis to rule out abnormalities. She is in agreement to this. Based on her results we may need to refer her to a learning specialist and we would likely [facility] to the [facility] ([facility] locally. May, Mass (ICD-10 - R22.9) bone mass May, Nausea (ICD-10 - R11.0) She voices that she has been queasy for the last few days because she stopped taking all of her medication. She used to be able to shop but yesterday she could only make it a half a day before she felt weird and was shaky. May, Weakness generalized (ICD-10 - R53.1) She voices that she has been feeling very weak and overall not well recently. May, Other 10:37 AM - 11:0 0 AM I did advise her that she should not suddenly stop taking the Metoprolol. I did recommend that she take all of her medicine but especially the Metoprolol, Levothyroxine and Coumadin. [facility] Other 11-07-2022 Evaluation note* Encounter Date Diagnosis Assessment Notes Treatment Notes Treatment Clinical Notes May, Nausea (ICD-10 - R11.0) May, Abdominal fullness (ICD-10 - R19.8) [facility] Other 10-20-2022 Evaluation note* Encounter Date Diagnosis Assessment Notes Treatment Notes Treatment Clinical Notes Apr, Medication monitoring encounter (ICD-10 - Z51.81) Referring Provider: Azalea Rodrigez ([facility]) Diagnosis: Atrial Fibrillation, DVT (2019) INR Goal: 2-3 INR: 2.0 Warfarin Tablet Size: 5mg Monday: 7.5mg Monday: 5mg Monday: 7.5mg Monday: 5mg : 7.5mg Monday: 5mg Monday: 5mg Total Weekly Dose: 42.5mg Continue current plan. Follow up in 4 weeks. Of note, patient has decreased use of APAP and is only using it once a day or every other day. Seen by Kim Rajan PharmD [facility] Other 10-06-2022 Evaluation note* Encounter Date Diagnosis Assessment Notes Treatment Notes Treatment Clinical Notes Apr, Medication monitoring encounter (ICD-10 - Z51.81) Referring Provider: Azalea Rodrigez ([facility]) Diagnosis: Atrial Fibrillation, DVT (2019) INR Goal: 2-3 INR: 3.7 Warfarin Tablet Size: 5mg Monday: 7.5mg Monday: 5mg Monday: 7.5mg Monday: 5mg : 7.5mg Monday: 5mg Monday: 5mg Total Weekly Dose: 42.5mg Hold today, then continue current plan. Follow up in 2 weeks. INR likely high due to increase in APAP due to fall, INR was therapeutic in ER when evaluated for fall since last appointment. Seen by Alexandro Noe PharmD [facility] Other 10-05-2022 Evaluation note* Encounter Date Diagnosis Assessment Notes Treatment Notes Treatment Clinical Notes Apr, Hypothyroidism (ICD-10 - E03.9) Discussed lab results with patient today. TSH is 2.19. Free T3 is 2.88. Free T4 is 0.74. I would like her to continue with the same dose of Levothyroxine (88 MCG) Apr, Scalp hematoma (ICD-10 - S00.03XA) She still has a large hematoma on the back of her scalp. All the blood from there will slowly drain down and she will see this on her skin. It will take 3-4 months before this is completely healed. Apr, Closed head injury (ICD-10 - S09.90XA) She voices that she fell and hit her head on the concrete in her garage. She does not think she was alert when she fell because she does not remember what happened prior to the fall and did not protect herself when she fell. She remembers hitting her head on the concrete and waking up and wondering what happened. She was alert when she woke and knew where she was and what was going on. She does not have a hand rail on the right side of her stairs when she goes out to her garage and reached across to the left side to hold onto the hand rail that was on the left side. She did go tot he ER for evaluation. Apr, Hematoma (ICD-10 - T14.8XXA) right arm Again, it can take 3-4 months for this to completely heal. Apr, Anxiety (ICD-10 - F41.9) An [facility] report was reviewed no discrepancies noted. Frequent appointments needed due to addiction potential of medication were reviewed. She does continue to use and benefit from the Xanax. I will see her back in three months. Side effects/risks/benef its of medication were reviewed. Apr, Macular degeneration (ICD-10 - H35.30) She is following with Dr. Bharat Nettles for evaluation and is going to have cataracts removed later this month. She is told that OTC medications for macular degeneration can be taken but she needs to let the [facility] know that she is taking the vitamins. Apr, Hyperlipidemia (ICD-10 - E78.5) She saw a specialist through [facility] to discuss the lipoprotein a result and he advised her that all she can do right now is continue with the statin medication and watch her LDL. Apr, Other She got the COVID-19 bivalent booster about two weeks ago. I did recommend that she get her flu vaccine after she has her cataract surgeries completed. I did recommend that she get the pneumonia vaccine at her retail pharmacy or health department. She refuses a mammogram and colonoscopy. [facility] Other 09-23-2022 Evaluation note* Encounter Date Diagnosis Assessment Notes Treatment Notes Treatment Clinical Notes Mar, Anxiety (ICD-10 - F41.9) [facility] Other 09-22-2022 Evaluation note* Encounter Date Diagnosis Assessment Notes Treatment Notes Treatment Clinical Notes Mar, Medication monitoring encounter (ICD-10 - Z51.81) Referring Provider: Azalea Rodrigez ([facility]) Diagnosis: Atrial Fibrillation, DVT (2019) INR Goal: 2-3 INR: 1.3 Warfarin Tablet Size: 5mg Monday: 7.5mg Monday: 5mg Monday: 7.5mg Monday: 5mg : 7.5mg Monday: 5mg Monday: 5mg Total Weekly Dose: 42.5mg Boost an extra 2.5mg for 2 days, then begin new plan above, a 6% increase. Follow up in 2 weeks. INR likely low due to reduced dosing post-COVID infection. Resuming prior TWD with therapeutic INRs. Seen by Alexandro Noe PharmD [facility] Other 09-21-2022 Evaluation note* Encounter Date Diagnosis Assessment Notes Treatment Notes Treatment Clinical Notes Mar, Anxiety (ICD-10 - F41.9) [facility] Other 09-08-2022 Evaluation note* Encounter Date Diagnosis Assessment Notes Treatment Notes Treatment Clinical Notes Mar, Medication monitoring encounter (ICD-10 - Z51.81) Referring Provider: Azalea Rodrigez ([facility]) Diagnosis: Atrial Fibrillation, DVT (01/2020) INR Goal: 2-3 INR: 1.7 Tablet Size: 5mg Monday: 5mg Monday: 5mg Monday: 7.5mg Monday: 5mg : 7.5mg Monday: 5mg Monday: 5mg Total Weekly Dose: 40mg Begin new plan above, a 7% increase. TWD reduced at previous visit as patient was taking higher doses of Tyenol, had been recovering from recent COVID infection which were likely contributing to elevated INR. Today, she supports taking much less Tylenol and says she feels recovered since COVID infection. Follow up in 2 weeks. Seen by Castro Giordano, SandraD [facility] Other 08-24-2022 Evaluation note* Encounter Date Diagnosis Assessment Notes Treatment Notes Treatment Clinical Notes Feb, Anxiety (ICD-10 - F41.9) [facility] Other 08-04-2022 Instructions* Patient Instructions* Michael Donohue MD - 02/10/2022 7:46 AM EDT 1. Please obtain a fasting lipid panel and a TSH. 2. Please continue all your current medications. 3. The LDL cholesterol goal for you is less than 70 mg/dl. [facility] History of Present illness Narrative* Michael Donohue MD - 02/10/2022 7:15 AM EDT Images from the original note were not included. [facility] Department of Cardiovascular Medicine SECTION OF PREVENTIVE CARDIOLOGY Date: 02/10/2022 Patient: Myrna Kirby : 1950 CHIEF COMPLAINT: HISTORY OF PRESENT CARDIOVASCULAR ILLNESS: I had the pleasure of seeing Myrna Kirby today in the Preventive Cardiology Clinic for a cardiac consultation at the request of Dr. Dent. A copy of this consultation note will be provided to the requesting physician by way of shared Medical record or letter to requesting physician via US mail. Myrna Kirby is a 71 year old year-old female patient with a past medical history of congenital aortic stenosis and status post multiple corrective operations, atrial fibrillation, LP(a) elevation, family history of premature coronary artery disease, hypothyroidism. She follows with Dr. Dent and had requested to visit with preventive cardiology for cardiovascular risk assessment. She previously had laboratory testing done in July, which revealed an elevated LP(a) of 143 mg/dL. She had a lipid panel done about 2 years ago, which revealed an LDL cholesterol of 67 mg/dL on atorvastatin 20 mg, which she continues to take. She has been on atorvastatin for the past 20 years. Her sister had a myocardial infarction at age 65. Subjectively, she endorses tiredness, but denies any exertional complaints. PAST MEDICAL HISTORY: PAST MEDICAL HISTORY Diagnosis Date Aortic valve insufficiency Atrial fibrillation (HCC) DVT (deep vein thrombosis) in History of tracheostomy Hypothyroidism Moderate protein-calorie malnutrition (HCC) 01/17/2020 History: Recommended Malnutrition Diagnosis: Moderate Protein-Calorie Malnutrition In the context of: Acute Illness or Injury Based on: Insufficient Energy Intake; Muscle Loss. Assessment: 02/28 Patient with nausea/vomiting, KUB revealed mild ileus. Held TF, started miralax, colace, and dulcolax suppository, patient with multiple BMs. Nausea/vomiting resolved Plan: Tolerating TF at goal, advanced t Pulmonary vein stenosis PAST SURGICAL HISTORY: PAST SURGICAL HISTORY Procedure Laterality Date APPENDECTOMY BACK SURGERY HX SNGL x2 CARDIAC VALVE SURGERY HX 1993 ROSS procedure DECORTICATION LUNG, PARTIAL 02/14/2020 02/14/2020: Left thoracotomy, decortication, partial pleurectomy, evacuation of hemothorax, and intercostal nerve block. KNEE SURGERY HX x3 OTHER attempted PV replacement, resulting in PA perf and HD instability SALPINGECTOMY OR OOPHERECTOMY-ECTOPIC TRACH DECANULATION DRESSING PLACEMENT 03/2020 tracheostomy decanulation TRACHEOSTOMY (SPECIFY) 01/21/2020 Percutaneous tracheostomy (Bivona 8.0 TTS Tracheostomy) UNLISTED CARDIAC SURGERY 1995 aortic root homograft replacement UNLISTED CARDIAC SURGERY 1996 RV-PA homograft replacement UNLISTED CARDIAC SURGERY 01/13/2020 01/13/2020: Emergent Reoperation fourth open-heart surgery. Evacuation of left chest hematoma. Replacement of the pulmonary valve root and proximal pulmonary artery. Removal of the ECMO and reinsertionof VV-ECMO. FAMILY HISTORY FAMILY HISTORY Problem Relation Age of Onset Alzheimer's Disease Mother Thyroid Mother Thyroid Father Heart Attack Father Coronary Artery Disease Father Hyperlipidemia Father Hypertension Father Hypertension Brother SOCIAL HISTORY Employer And Job Title: None on file Years Of Education Completed: Not specified Marital Status: Alcohol Use: Yes (occasional beer) CURRENT MEDS: Current Outpatient Medications Medication Sig apixaban (ELIQUIS) 5 mg tab(s) Take 1 tablet by mouth twice daily. busPIRone (BUSPAR) 5 mg tablet Take 5 mg by mouth three times daily. atorvastatin (LIPITOR) 20 mg tablet Take 20 mg by mouth once daily. torsemide (DEMADEX) 20 mg tablet Take 0.5 tablets by mouth once daily. metoprolol succinate ER (TOPROL XL) 25 mg 24 hr tablet Take 1 tablet by mouth once daily. (Patient taking differently: Take 50 mg by mouth once daily. ) potassium chloride ER (K-DUR, KLOR-CON) 20 mEq tablet Take 3 tablets by mouth once daily. ALPRAZolam (XANAX) 0.25 mg tablet Take 0.25 mg by mouth as needed. omeprazole (PRILOSEC) 20 mg capsule Take 20 mg by mouth once daily. levothyroxine (SYNTHROID) 125 mcg tablet Take 1 tablet by mouth DAILY (6 AM). (Patient taking differently: Take 120 mcg by mouth DAILY (6 AM). ) aspirin 81 mg chewable tablet 1 tablet by ORAL/FEEDING TUBE route once daily. magnesium oxide (MAG-OX) 400 mg (241.3 mg magnesium) tablet Take 1 tablet by mouth once daily. Current Facility-Administered Medications Medication Dose Route Frequency perflutren lipid microspheres 1.3 mL in NaCl (PF) 0.9% 10 mL injection (DEFINITY) INTRAVENOUS DIRECTED PRN sodium chloride 0.9 % (flush) 10 mL (BD POSIFLUSH) 10 mL INTRAVENOUS DIRECTED PRN perflutren lipid microspheres 1.3 mL in NaCl (PF) 0.9% 10 mL injection (DEFINITY) INTRAVENOUS DIRECTED PRN sodium chloride 0.9 % (flush) 10 mL (BD POSIFLUSH) 10 mL INTRAVENOUS DIRECTED PRN ALLERGIES: ALLERGIES Allergen Reactions Levaquin [Levofloxa* Myalgia Oxycodone Mental Status Change Readyprep Chg [Chlo* Itching Sulfa (Sulfonamide * GI Upset Tramadol Other: See Comments annorexia REVIEW OF SYSTEMS: CONSTITUTIONAL: Mild tiredness and fatigue HEENT: Negative for frequent or significant headaches, No changes in hearing or vision, no nose bleeds or other nasal problems. RESPIRATORY: Negative for cough, wheezing, or shortness of breath CARDIOVASCULAR: Negative for chest pain, leg swelling or palpitations GI: Negative for abdominal discomfort, blood in stools or black stools or change in bowel habits. : No history of dysuria, frequency, or incontinence and No difficulty urination, nocturia >1 times per night or hematuria. MUSCULOSKELETAL: Negative for joint pain or swelling, back pain or muscle pain. ENDOCRINE: Negative for cold or heat intolerance, polyuria, polydipsia and goiter HEMATOLOGIC/LYMPHATIC: Negative for prolonged bleeding, bruising easily or swollen nodes. NEUROLOGIC: No history or headaches, syncope, paralysis, seizures or tremors. INTEGUMENTARY: Negative for lesions, rash, and itching. PHYSICAL EXAMINATION: BP 120/64 (BP Site: Left Arm, BP Position: Sitting, BP Cuff Size: Regular Adult) Pulse 75 Ht 175.3 cm (5' 9 ) Wt 76.3 kg (168 lb 4.8 oz) BMI 24.85 kg/m GENERAL: Well nourished, non-obese, well-appearing, in no acute distress. SKIN: No rashes, no clubbing, no cyanosis. EYES: Extra ocular movements intact. OROPHARYNX: Ears normal, pharynx not examined, wearing mask. NECK: Non-tender, no lymphadenopathy, thyroid with normal size, no nodules appreciate, no jugular venous distention, no carotid bruits, carotids have a normal upstroke. LUNGS: Clear to auscultation bilaterally, no wheezing or rhonchi. HEART: 2/6 systolic murmur. ABDOMEN: Soft, nontender, bowel sounds normal, no palpable organomegaly, no bruits. EXTREMITIES: No peripheral edema. Regular distal pulses bilaterally. NEURO: Non-focal, movement intact PSYCHIATRY: Oriented to person, place and time, alert, cooperative. CLINICAL TESTING RESULTS: I have personally reviewed the following: Electrocardiogram 02/10/22: NSR< HR 64 bpm, anterior TWI. LABS: Glucose (mg/dL) Date Value 07/20/2021 127 (H) BUN (mg/dL) Date Value 07/20/2021 23 (H) Creatinine (mg/dL) Date Value 07/20/2021 1.08 (H) Sodium (mmol/L) Date Value 07/20/2021 144 Potassium (mmol/L) Date Value 07/20/2021 3.9 Chloride (mmol/L) Date Value 07/20/2021 101 CO2 (mmol/L) Date Value 07/20/2021 29 Protein, Total (g/dL) Date Value 07/20/2021 7.5 Albumin (g/dL) Date Value 07/20/2021 4.8 Calcium (mg/dL) Date Value 07/20/2021 10.1 Alkaline Phosphatase (U/L) Date Value 07/20/2021 184 (H) Bilirubin, Total (mg/dL) Date Value 07/20/2021 0.8 AST (U/L) Date Value 07/20/2021 30 ALT (U/L) Date Value 07/20/2021 28 WBC (k/uL) Date Value 07/20/2021 6.54 RBC (m/uL) Date Value 07/20/2021 4.52 Hemoglobin (g/dL) Date Value 07/20/2021 13.3 Hematocrit (%) Date Value 07/20/2021 41.6 MCV (fL) Date Value 07/20/2021 92.0 MCH (pG) Date Value 07/20/2021 29.4 MCHC (g/dL) Date Value 07/20/2021 32.0 RDW-CV (%) Date Value 07/20/2021 12.3 Platelet Count (k/uL) Date Value 07/20/2021 266 MPV (fL) Date Value 07/20/2021 11.1 PT INR (no units) Date Value 08/14/2020 2.3 (H) Cholesterol, Total Date Value Ref Range Status 01/09/2020 123 <200 mg/dL Final Comment: <200 mg/dL, Desirable 200-239 mg/dL, Borderline high >239 mg/dL, High HDL Cholesterol Date Value Ref Range Status 01/09/2020 35 (L) >39 mg/dL Final Comment: 40-59 mg/dL, Acceptable >59 mg/dL, High: Negative risk factor for coronary heart disease <40 mg/dL, Low: Positive risk factor for coronary heart disease LDL Cholesterol Date Value Ref Range Status 01/09/2020 67 <100 mg/dL Final Comment: <100 mg/dL, Optimal 100-129 mg/dL, Near optimal/above optimal 130-159 mg/dL, Borderline high 160-189 mg/dL, High >189 mg/dL, Very high Secondary prevention optimal LDL Cholesterol levels are recommended to be < 70 mg/dL Triglyceride Date Value Ref Range Status 01/09/2020 104 <150 mg/dL Final Comment: <150 mg/dL, Normal 150-199 mg/dL, Borderline high 200-499 mg/dL, High >499 mg/dL, Very high TSH Date Value Ref Range Status 04/06/2020 36.640 (H) 0.270 - 4.200 uU/mL Final No results found for: HBA1C PATIENT ENTERED QUESTIONNAIRE SCORES ALERT: PHQ-9 Score: 13 indicates Moderate to Severe Depression PHQ-9 02/08/2022 Score 13 PROMIS Global Health - (T-Scores - the mean of general population = 50. Five points is a clinicallymeaningful difference.) 02/08/2022 08/10/2020 Physical T-Score 44.9 47.7 Mental T-Score 53.3 50.8 ASSESSMENT AND PLAN: In addition to the above history and physical exam, the results of prior labs and testing, were reviewed. The following plans and goals have been established to address current medical problems and optimize control of cardiovascular risk factors to reduce the risk of future heart disease: 1. Hypercholesterolemia and LP(a) elevation: Ms. Kirby is currently treated with atorvastatin 20 mg. I have recommended to obtain an updated lipid panel. I would target an LDL cholesterol of less than 70 mg/dL, as she had previously already had. 2. Coronary artery calcification: She did have mild coronary artery calcification on a chest CT scan done in November 2020, which I personally reviewed. She will continue her aspirin 81 mg. 3. Tiredness and fatigue: We will obtain a TSH on her current replacement with levothyroxine 125 mcg. FOLLOW UP: I have discussed with Myrna Kirby that I recommend a follow-up visit with me as needed. Michael Donohue MD, PhD Section of Preventive Cardiology [facility] Department of Cardiovascular Medicine [facility] [place] [address] Office Appointments: [phone] Voice recognition software was used in the creation of this document. There may be unintended errors in spelling, grammar, syntax or punctuation present. [facility]* Encounter Date Diagnosis Assessment Notes Treatment Notes Treatment Clinical Notes Jan, Low hemoglobin (ICD-10 - D64.9) I discussed with her that her hemoglobin has gone back up to 13.3 and is normal. Will continue to monitor. Jan, Chest heaviness (ICD-10 - R07.89) She voices that her symptoms have not really changed since we last spoke. She feels the chest heaviness is worse, she will wake up feeling fine and as the day goes on her chest feels heavier. She feels burning down in her chest. We discussed that the antibiotic should have treated any bacterial infection she had. I do not feel this is an issue with her lungs. Her oxygen level is normal. I suspect this is either her heart or anxiety. The most common symptom of anxiety is chest pressure. We discussed that she has been under a great deal of stress. She is going to take Xanax when this happens and see if it relieves the heaviness she feels. She is going to keep me posted. Lung sounds are clear on exam today. Jan, Fatigue (ICD-10 - R53.83) She voices that she is very fatigued and tired. Jan, Anxiety (ICD-10 - F41.9) She voices that she has been under alot of stress, her dad is not currently doing well which adds more stress to her life. Her dad is angry and yells at her and takes it out on her which she feels is okay but she wonders if maybe the chest heaviness she has is actually anxiety. We discussed that she has been on several medications for anxiety but has always stopped them. She voices that she has been trying to cut down on her Xanax, she had only been taking them at night and was not taking any during the day. I did recommend that if this heaviness comes on she take a Xanax and see if the heaviness she feels goes away. She will try this and call me with whether or not it works. An OARRS report was reviewed no discrepancies noted. Side effects/risks/benefi ts of medication were reviewed. She is considering returning to her counselor. [facility] Other 07-21-2022 Evaluation note* Encounter Date Diagnosis Assessment Notes Treatment Notes Treatment Clinical Notes Jan, Medication monitoring encounter (ICD-10 - Z51.81) Referring Provider: Azalea Rodrigez ([facility]) Diagnosis: Atrial Fibrillation, DVT (01/2020) INR Goal: 2-3 INR: 5.5 Tablet Size: 5mg Monday: 7.5mg Monday: 5mg Monday: 7.5mg Monday: 5mg : 7.5mg Monday: 5mg Monday: 5mg Total Weekly Dose: 42.5mg Hold for three days, then begin new plan, a 6% decrease. Follow-up in 2 weeks. Patient reports recent illness with decreased appetite, activity, and increased APAP usage, could be causes for elevated INR. Counseled on high INR precautions. Seen by Alexandro Noe PharmD [facility] Other 07-07-2022 Evaluation note* Encounter Date Diagnosis Assessment Notes Treatment Notes Treatment Clinical Notes Jan, Medication monitoring encounter (ICD-10 - Z51.81) Referring Provider: Azalea Rodrigez ([facility]) Diagnosis: Atrial Fibrillation, DVT (01/2020) INR Goal: 2-3 INR: 3.9 Tablet Size: 5mg Monday: 7.5mg Monday: 5mg Monday: 7.5mg Monday: 5mg : 7.5mg Monday: 5mg Monday: 7.5mg Total Weekly Dose: 45mg Hold today's dose to, then continue above plan. Follow up in 2 weeks. Patient reports being ill the last week and taking APAP around the clock to reduce fever for 5 days. After 5 day patient reports APAP was not working to lower fever so they were advised by PCP to use Ibuprofen instead for their fever. Educated patient on the effects of APAP on warfarin and the risk of using NSAIDS like ibuprofen. Educated on diet effects and how to keep vitamin K intake consistent. Patient had a recent dose increase (12/09) and reported being nonadherent to new dosing schedule (12/21) at past appointments as well as recent illness, we will reassess dose at their 2 week follow up. Patient reports to working hard to stay adherent. Seen by Jacque Richter PharmD candidate/Alexandro Noe PharmD [facility] Other 07-06-2022 Evaluation note* Encounter Date Diagnosis Assessment Notes Treatment Notes Treatment Clinical Notes Jan, Hypothyroidism (ICD-10 - E03.9) Discussed thyroid results with patient today. TSH is 0.19. Free T3 is 3.32. Free T4 is 1.06. We discussed that her thyroid is over replaced and this can make her jittery. I would like to decrease her dose to 88 MCG daily. Guidance is given on how to take the new dose. Will repeat lab in three months. Jan, Hyperlipidemia (ICD-10 - E78.5) Discussed cholesterol results with patient today. Total is 171. HDL is 41. LDL is 96. Triglycerides are 169. Readigs are at goal. Continue with above medication as directed. Jan, Cough (ICD-10 - R05.9) She voices that her chest feels heavy and she is coughing. I would like to treat her for pneumonia. She does bring out phlegm from her nose and is coughing this up and it is fernandez in color, first it was green and yellow but has changed to fernandez. She is in agreement to taking an antibiotic. Guidance was given on how to take the medication. She is to eat yogurt daily while on the medication to prevent GI upset. Rest, push fluids. I did recommend she get a chest x-ray done but she would prefer to wait and see how she does with the antibiotic. I will send an order to [facility] for a chest xray and if she worsens by tomorrow 01-13-22 then she should have this done. Medication can make her sensitive to the sun. Use sunscreen. She can use Mucinex (plain) if she would like to help thin secretions and make them easier to expel. Jan, Elevated alkaline phosphatase level (ICD-10 - R74.8) Alk phos level is 148. Liver fraction is 55. Bone fraction is 43. Intestinal fraction is 1. Jan, Vitamin D deficiency (ICD-10 - E55.9) Her Vitamin D level is 31.5. Jan, PTSD (post-traumatic stress disorder) (ICD-10 - F43.10) She voices that she wants to come off the Buspar (generic) at this time. She feels the medication makes her jittery. She has only been taking 5 MG per day instead of twice a day. She feels the sunshine has been helping her and she is not depressed. I did advise her that she can just stop this, she does not have to wean off this. Jan, Other penitentiary (current) drug therapy (ICD-10 - Z79.899) Jan, Anxiety (ICD-10 - F41.9) I did advise her that she cannot take any more than two Xanax per day. She admits that she was using more than two per day but knows that she cannot do this so she did go back to two per day. Addiction potential was discussed. Any day she does not need to take a second Xanax or any at all she should avoid taking it. An OARRS report was reviewed no discrepancies noted. Frequent appointments needed due to addiction potential. Side effects/risks/benef its of medication were reviewed. I will see her back in three months. She can call for refills when needed. Jan, Atrial fibrillation (ICD-10 - I48.91) Continue with above medication as directed. Jan, Other abnormal blood chemistry (ICD-10 - R79.89) Discussed her kidney studies with her today. BUN is 18. Creatinine is 1.05. EGFR is 52. Will continue to monitor. Jan, Fever (ICD-10 - R50.9) She took her temperature this morning and it is already 100. She voices that she has never had a viral syndrome last this long. She took her second COVID-19 test yesterday and it was negative. She has been taking Tylenol for her fever but voices that this affects her Warfarin. She does not feel the Tylenol has helped her fever and questions if she can take something else. She can take Motrin for her fever. Jan, Low hemoglobin (ICD-10 - D64.9) Her hemoglobin has gone down from 13.3 to 12.1, I would like to repeat a CBC in one month to be sure this has not gone down further. An order is provided. Jan, Insomnia (ICD-10 - G47.00) She feels she can come off Xanax if she could sleep at night. I did advise her that she could only take the Xanax at bedtime to help her sleep at night. If this is able to help her sleep at night then we could discuss switching this out with something else. I do not want to make too many changes at the same time. She will keep me posted. Jan, DVT (deep venous thrombosis) (ICD-10 - I82.409) b/l upper extremities Continue to follow with [facility] as scheduled Jan, Pulmonary hypertension (ICD-10 - I27.20) Continue with above medication. Jan, Hypokalemia (ICD-10 - E87.6) Continue with above medication. Jan, Nausea (ICD-10 - R11.0) Continue with above medications as needed/directed. Jan, Edema (ICD-10 - R60.9) Continue with above medication daily as directed. Jan, Nocturia (ICD-10 - R35.1) Jan, Other 9:32 AM - 9:57 AM [facility] Other 06-27-2022 Evaluation note* Encounter Date Diagnosis Assessment Notes Treatment Notes Treatment Clinical Notes Dec, Anxiety (ICD-10 - F41.9) [facility] Other 06-21-2022 Evaluation note* Encounter Date Diagnosis Assessment Notes Treatment Notes Treatment Clinical Notes Dec, Anxiety (ICD-10 - F41.9) [facility] Other 06-16-2022 Evaluation note* Encounter Date Diagnosis Assessment Notes Treatment Notes Treatment Clinical Notes Dec, Medication monitoring encounter (ICD-10 - Z51.81) Referring Provider: Azalea Rodrigez ([facility]) Diagnosis: Atrial Fibrillation, DVT (01/2020) INR Goal: 2-3 INR: 3.3 Tablet Size: 5mg Monday: 7.5mg Monday: 5mg Monday: 7.5mg Monday: 5mg : 7.5mg Monday: 5mg Monday: 7.5mg Total Weekly Dose: 45mg Reduce today's dose to 5mg, then continue above plan. Follow up in 3 weeks. Patient had a dose increase 2 weeks ago (12/09), but did not follow that regimen. She continued the previous regimen. She has had trouble following medication instructions in the past as well. Patient voiced understanding of the warfarin instructions given to her today. Seen by Price Montero, PharmD candidate/ Marlen Macdonald, [facility] [employer] Other 06-14-2022 Evaluation note* Encounter Date Diagnosis Assessment Notes Treatment Notes Treatment Clinical Notes Dec, Anxiety (ICD-10 - F41.9) [place] [employer] Other 06-02-2022 Evaluation note* Encounter Date Diagnosis Assessment Notes Treatment Notes Treatment Clinical Notes Dec, Medication monitoring encounter (ICD-10 - Z51.81) Referring Provider: Azalea Rodrigez ([facility]) Diagnosis: Atrial Fibrillation, DVT (01/2020) INR Goal: 2-3 INR: 1.8 Tablet Size: 5mg Monday: 7.5mg Monday: 5mg Monday: 7.5mg Monday: 7.5mg : 7.5mg Monday: 5mg Monday: 7.5mg Total Weekly Dose: 47.5mg Boost an additional 2.5mg today and then begin new plan, a 6% increase. INR may be low due to missing doses or eating additional vitamin K. Patient admits to being tired of taking medications and has not paid attention to this as she should. Follow up in 2 weeks. Discussed risks, encouraged patient to use pill box for warfarin, provided pill box. Seen by Elena Patel RN [place] [employer] Other 05-20-2022 History of Present illness Narrative* Star Mcmanus - 11/26/2021 10:17 AM EDT [facility]* Encounter Date Diagnosis Assessment Notes Treatment Notes Treatment Clinical Notes November, Anxiety (ICD-10 - F41.9) [place] [employer] Other 05-05-2022 Evaluation note* Encounter Date Diagnosis Assessment Notes Treatment Notes Treatment Clinical Notes November, Medication monitoring encounter (ICD-10 - Z51.81) Referring Provider: Azalea Rodrigez ([facility]) Diagnosis: Atrial Fibrillation, DVT (01/2020) INR Goal: 2-3 INR: 1.7 Tablet Size: 5mg Monday: 7.5mg Monday: 5mg Monday: 7.5mg Monday: 5mg : 7.5mg Monday: 5mg Monday: 7.5mg Total Weekly Dose: 45mg Boost an additional 2.5mg today 11/11/21, then continue plan above. Follow up in 4 weeks. Patient states that she missed one dose of warfarin last week, ate broccoli/cauliflow er soup and has been eating asparagus from her garden. Instructed patient that if she plans on increasing her intake of Vit K rich foods to call the coumadin clinc for instructions, verbalized understanding. Seen by Amber Ivey LPN [facility] Other 04-21-2022 Evaluation note* Encounter Date Diagnosis Assessment Notes Treatment Notes Treatment Clinical Notes Oct, Anxiety (ICD-10 - F41.9) [facility] Other 04-18-2022 Evaluation note* Encounter Date Diagnosis Assessment Notes Treatment Notes Treatment Clinical Notes Oct, PTSD (post-traumatic stress disorder) (ICD-10 - F43.10) [facility] Other 04-07-2022 Evaluation note* Encounter Date Diagnosis Assessment Notes Treatment Notes Treatment Clinical Notes Oct, Medication monitoring encounter (ICD-10 - Z51.81) Referring Provider: Azalea Rodrigez ([facility]) Diagnosis: Atrial Fibrillation, DVT (01/2020) INR Goal: 2-3 INR: 3.7 Tablet Size: 5mg Monday: 7.5mg Monday: 5mg Monday: 7.5mg Monday: 5mg : 7.5mg Monday: 5mg Monday: 7.5mg Total Weekly Dose: 45mg Hold warfarin today and then continue current plan. INR is elevated due to taking Tylenol 2-3 times a day. Reviewed NSAIDS and warfarin education. Follow up in 4 weeks. Seen by Elena Patel RN [facility] Other 04-06-2022 Evaluation note* Encounter Date Diagnosis Assessment Notes Treatment Notes Treatment Clinical Notes Oct, Hyperlipidemia (ICD-10 - E78.5) I did advise her that [facility] a Lipoprotein A level on her in July (2021) she was unaware of this, but her reading was elevated (143). She is taking the Atorvastatin daily as directed. She does not smoke. She does not have Diabetes. Avoid processed sugars and flours, things that bring on inflammation. Oct, Hypokalemia (ICD-10 - E87.6) Provided her with a new prescription for above medication today. Oct, PTSD (post-traumatic stress disorder) (ICD-10 - F43.10) She voices that she was not taking the evening dose of her Buspirone and when she discussed this with her counselor she realized she was replacing the second dose with sweets/sugars. She voices that just in the last six months she has been able to taste again and her favorite thing is sweets but when she first came home from the hospital she could not eat them because they tasted bad but now that she can taste again she has been eating them again. She did begin taking the second Buspirone at night and noticed that she is not eating as many sweets as she was when she was not taking it. I explained to her that once she is not eating them she should find that she does not want them as much. If she wants to reward herself she should eat the darkest chocolate that she can find (the more bitter the less sugar). Oct, Anxiety (ICD-10 - F41.9) An OARRS report was reviewed no discrepancies noted. Side effects/risks/benef its of medication were reviewed. Frequent appointments needed due to addiction potential of medication. She does continue to use and benefit from the Xanax. She does use the Xanax daily. I will see her back in three months. If she is able to only take 1 Xanax per day or go any day without Xanax this would be beneficial. Oct, Nausea (ICD-10 - R11.0) Provided her with a new prescription for Ondansetron today. Oct, Weight gain (ICD-10 - R63.5) She admits that she has gained weight because she has been eating alot of sweets. She voices that her enables her and brings her candy bars. She is going to cut back on her intake of carbs and sugars. Oct, Edema (ICD-10 - R60.9) If she does not take her medication she feels full so she tries to take these earlier in the day. I did recommend that she take these daily as the [facility] directed. Oct, Other I did recommend that she have her lab work drawn soon, she voices that she will do this. She voices that she has been achy and her stamina has been low but she plans to get out and be more active as the weather improves. We discussed that sugar feeds inflammation and she has been eating alot of sweets/sugars/carbs . [facility] Other 03-24-2022 Evaluation note* Encounter Date Diagnosis Assessment Notes Treatment Notes Treatment Clinical Notes Sep, Anxiety (ICD-10 - F41.9) [facility] Other 02-16-2022 Evaluation note* Encounter Date Diagnosis Assessment Notes Treatment Notes Treatment Clinical Notes Aug, Acute sinusitis (ICD-10 - J01.90) [facility] Other 02-09-2022 Evaluation note* Encounter Date Diagnosis Assessment Notes Treatment Notes Treatment Clinical Notes Aug, Medication monitoring encounter (ICD-10 - Z51.81) Referring Provider: Azalea Rodrigez ([facility]) Diagnosis: Atrial Fibrillation, DVT (01/2020) INR Goal: 2-3 INR: 2.8 Tablet Size: 5mg Monday: 7.5mg Monday: 5mg Monday: 7.5mg Monday: 5mg : 7.5mg Monday: 5mg Monday: 7.5mg Total Weekly Dose: 45mg Continue current plan. Follow up in 4 weeks. Seen by Elena Patel RN [facility] Other 01-26-2022 Evaluation note* Encounter Date Diagnosis Assessment Notes Treatment Notes Treatment Clinical Notes Jul, Anxiety (ICD-10 - F41.9) [facility] Other 01-13-2022 Evaluation note* Encounter Date Diagnosis Assessment Notes Treatment Notes Treatment Clinical Notes Jul, Medication monitoring encounter (ICD-10 - Z51.81) Referring Provider: Azalea Rodrigez ([facility]) Diagnosis: Atrial Fibrillation, DVT (01/2020) INR Goal: 2-3 INR: 1.9 Tablet Size: 5mg Monday: 7.5mg Monday: 5mg Monday: 7.5mg Monday: 5mg : 7.5mg Monday: 5mg Monday: 7.5mg Total Weekly Dose: 45mg Continue current plan. Follow up in 4 weeks. Seen by Alexandro Noe PharmD [facility] Other 01-04-2022 Evaluation note* Encounter Date Diagnosis Assessment Notes Treatment Notes Treatment Clinical Notes Jul, Elevated alkaline phosphatase level (ICD-10 - R74.8) [facility] Other 12-20-2021 Evaluation note* Encounter Date Diagnosis Assessment Notes Treatment Notes Treatment Clinical Notes Jun, Anxiety (ICD-10 - F41.9) [facility] Other 11-29-2021 Evaluation note* Encounter Date Diagnosis Assessment Notes Treatment Notes Treatment Clinical Notes May, Anxiety (ICD-10 - F41.9) [facility] Other 11-18-2021 Evaluation note* Encounter Date Diagnosis Assessment Notes Treatment Notes Treatment Clinical Notes May, Atrial fibrillation (ICD-10 - I48.91) May, Pulmonary hypertension (ICD-10 - I27.20) [facility] Other 11-10-2021 Evaluation note* Encounter Date Diagnosis Assessment Notes Treatment Notes Treatment Clinical Notes May, Medication monitoring encounter (ICD-10 - Z51.81) Referring Provider: Azalea Rodrigez ([facility]) Diagnosis: Atrial Fibrillation, DVT (01/2020) INR Goal: 2-3 INR: 3.1 Tablet Size: 5mg Monday: 7.5mg Monday: 5mg Monday: 7.5mg Monday: 5mg : 7.5mg Monday: 5mg Monday: 7.5mg Total Weekly Dose: 45mg Continue current plan. Follow up in 4 weeks. Seen by Elena Patel RN [facility] Other 10-29-2021 Evaluation note* Encounter Date Diagnosis Assessment Notes Treatment Notes Treatment Clinical Notes Apr, Anxiety (ICD-10 - F41.9) [facility] Other 10-22-2021 Evaluation note* Encounter Date Diagnosis Assessment Notes Treatment Notes Treatment Clinical Notes Apr, Anxiety (ICD-10 - F41.9) Her anxiety level is at an all time high. She has been able to go to volleyball games but prefers to sit in the corner alone, her insides shake the whole time she is there. She loses time and her counselor thinks she is retrieving . She can sit for hours and not realize it. She will have to set a timer if she has to go do something so she does not forget. If there is commotion going on she has to go to her room and settle herself down. She and her counselor do not feel she is depressed but do feel her anxiety is elevated. She is trying not to take the Xanax as much, but admits she has to take it sometimes to get herself to a volleyball game or if something comes up she will have to take one. She describes it as being an egg and someone shaking it up and feeling like a scrambled egg. Apr, PTSD (post-traumatic stress disorder) (ICD-10 - F43.10) She voices that she is on Fluoxetine 20 MG daily right now and has five tablets left. She was on the lower dose of Effexor before and had headaches and constipation but feels this helped her for awhile. I did discuss referring her to a psychiatrist but she voices that this causes her a great deal of anxiety to even think about seeing a psychiatrist. I explained that we have two choices, we can treat with Buspar but this can cause dizziness or we can put her back on a low dose of Effexor and refer her to a psychiatrist. She voices that her counselor also discussed referring her to a psychiatrist. They can treat with medications that I cannot. She ultimately agrees to see a psychiatrist, I recommend she contact Dr. Roque. She is to stop the Fluoxetine. She would like to start the Buspar. I asked her to take 1/2 tablet at bedtime and then the following day take 1/2 tablet twice a day for one week and keep me posted weekly so we can give guidance on how to continue to ramp up the medication. Side effects/risks/benefi ts of medication were reviewed. She may feel dizzy as she switches medications. She is to call me in one week with progress. [facility] Other 10-13-2021 Evaluation note* Encounter Date Diagnosis Assessment Notes Treatment Notes Treatment Clinical Notes Apr, Medication monitoring encounter (ICD-10 - Z51.81) Referring Provider: Azalea Rodrigez ([facility]) Diagnosis: Atrial Fibrillation, DVT (01/2020) INR Goal: 2-3 INR: 2.7 Tablet Size: 5mg Monday: 7.5mg Monday: 5mg Monday: 7.5mg Monday: 5mg : 7.5mg Monday: 5mg Monday: 7.5mg Total Weekly Dose: 45mg Continue current plan. Follow up in 4 weeks. Seen by Elena Patel RN Apr, Encounter for immunization (ICD-10 - Z23) Patient is afebrile at this time; Patient denies current cold or flu symptoms; Patients denies previous reaction to flu vaccines; Patient denies allergies to chicken, eggs, or feathers; Influenza (Flu) Vaccine (Inactivated or Recombinant): What You Need to Know material was given to patient; Seen by: Elena Patel RN [facility] Other 09-29-2021 Evaluation note* Encounter Date Diagnosis Assessment Notes Treatment Notes Treatment Clinical Notes Mar, Anxiety (ICD-10 - F41.9) An OARRS report was reviewed, no discrepancies noted. She does admit that she has been using more Xanax to help her sleep at night. She continues to get nervous about certain things. She tries to only take 2 per day. Frequent appointments required due to addiction potential of medication. She is to take the medication as directed. Side effects/risks/benef its of medication were reviewed. Mar, Nausea (ICD-10 - R11.0) Will switch Omeprazole to Pepcid. Guidance was given on how to take the medication. Mar, PTSD (post-traumatic stress disorder) (ICD-10 - F43.10) She has not had any nightmares recently. She feels overall she is doing better. She does not feel that the Prozac is working, she has not had any panic attacks but she has no feelings about anything. She feels like a zombie. She could care less about going out or doing anything. She feels down on the Prozac. She would like to come off the medication. She is taking Prozac 40 MG daily, I do not want her to suddenly stop I would like her to wean down on the medication and guidance was given on how to do this. Will have her decrease to 30 MG daily for one week then down to 20 MG daily for one week then down to 10 MG daily for a week and then every other day until weaned off. She may find that she needs the Prozac and may be able to continue with the 10 MG daily. She was asked to keep me posted with progress. Mar, Flatulence (ICD-10 - R14.3) She voices that she still gets an upset stomach and has alot of gas. Her pharmacist advised her that Prilosec could cause gas. She wonders if she should switch to Pepcid. Mar, Rhonchi (ICD-10 - R06.89) Noted on the right on exam. Recommend she take deep breaths every 15 min throughout the day to prevent bronchitis or pneumonia. Mar, Hyperlipidemia (ICD-10 - E78.5) Provided her with a refill on above medication today. Mar, Sinus drainage (ICD-10 - J34.89) She admits to having sinus drainage but does not feel sick. She had her third Pfizer COVID-19 vaccine earlier this week. [facility] Other 09-17-2020 History of Past illness Narrative* Problem Noted Date Resolved Date Postoperative ileus 03/26/2020 04/04/2020 Overview: History: post op KUB on 02/29/2020- mild ileus Assessment: KUB 03/26- no dilated bowels. + flatus. +BM 04/01/2020 Plan: continue current regimen. 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 Pacing Wires: None Chronological List of Surgeries and Major Events:Attempted transcatheter PV replacement resulting in PA perforation resulting in left hemothorax and pulmonary compression with respiratory and hemodyamic failure requiring support with VA ECMO placed percutaneously through left groin vessels. 01/13/2020 Emergency Redo-sternotomy (4th op), Reconstruction of main and left pulmonary artery with homograft. VA ECMO changed to VV-ECMO (fem-fem; pulmonary edema), evacuation left hemothorax 01/14/2020: Reoperation for postoperative bleeding, chest washout, open chest, maintain VV ECMO 01/16/2020: Chest exploration, washout and closure, VV ECMO decannulation. 01/21/2020:Tracheostomy 02/11/2020: Blood Tx reaction with chills. 02/14/2020: Left thoracotomy, evacuation of hematoma, decortication. FINDINGS: blood clots, hematoma in left chest; thick pleural rind 02/21/2020: Bronchoscopy: normal findings with no secretions 03/10/2020: Readmit for hypotension, mental status changes, and respiratory distress A/P of Major Active Problems: Neuro: CVA/SDH: 01/22 MRI brain - R caudate infarct. ?1mm R cerebellar SDH without mass effect. NSGY consulted, now signed off with stable head CT. Neurologically intact, follows commands, answers questions appropriately.Lethargic.Generalized weakness. Hx of anxiety: Patient endorses anxiety and panic attacks, taken xanax previously, excessive drowsiness noted . Psychiatry consulted for guidance of management of anxiety/panic attacks. Continue effexor, Xanax PRN. Buspar recommended by last psych note 03/03 however was discontinued on 03/02 and pt is tolerating this well. Cardiac: Afib/Aflutter. Change to lovenox per GP and discussion with thoracic surgery. Monitor for s/sx bleeding. Previously on amiodarone, metoprolol which were dc'd on 02/25 due to bradycardic event in ICU. Poor rate control noted on 03/04- Resumed low dose BB 03/09, stopped on transfer to CVICU due to hypotension. Currently AF RVR, HR 110s. Resume meds as clinically indicated. Replete lytes prn Pulmonary: Respiratory failure with hypoxia: s/p Trach 01/20. Trach downsized (7.0 to 6.0) by thoracic on 02/07 d/t absence of air leak. 03/01 patient with stridor, racemic epi given, no re-occurrence of stridor. Previously trach capping as tolerated, 5-6 hours on vent at night for lung expansion and vent rest as needed. 03/10 over night desat to 80%, placed back on PCV 50%/10, increasing consolidation of RML and RLL. Vent wean as able. Lt lung consolidation as well as large loculated Lt hemothorax. L pigtail placed 01/30 and 02/04. Multiple TPA administrations- minimal improvement. Chest CT 02/13/2020: large hemothorax and hematoma in posterior recess. Thoracic surgery (Dr. Perry) consulted. - Now s/p Left thoracotomy and decortication 02/14/2020. Repeat CT chest 02/17 with persistent left pleural collection-no surgical intervention per thoracic surgery. Worsening of pleural effusion and partial collapse noted on CXR 03/04, reviewed with Dr. Otero. CT Chest obtained, again reviewed with Dr. Otero. Thoracic saw pt prior to review of CT scan and recommend bronchoscopy. Aggressive pulmonary hygiene with RT- discussed with evening RT (chest physiotherapy, therapep). Pt on vent overnight 03/04. 03/05 Bronch done-removal of mucous plug from Lt main stem bronchus compression of the airway noted also by the Lt effusion. Cpap on 03/07, capped overnight last night doing well. Renal: Volume overload: Moderate peripheral edema. Continue lasix 20 mg IV Q8, trend I&O/labs and adjust diuresis accordingly - GI: Malnutrition: Nausea/vomiting resolved. TF at goal. MBS 03/03: Ok for regular diet with thin liquids per LEGAL CLERK. Nutrition following, will continue nocturnal TF until PO intake improves. Ileus: 02/28 Patient with nausea/vomiting, KUB revealed mild ileus. Now resolved-patient with multiple BMs. Tolerating TF, monitor for tolerance. Vascular: BUE acute DVTs: Lovenox for AC as discussed per GP and thoracic surgery. Hematology: Acute blood loss anemia. H/H stable (needs pre-medicated with IV Benadryl 25 mg and IV Hydrocortisone 100 mg d/t history of transfusion reaction.) Trend H/H and further transfuse as clinically appropriate ID: Leukocytosis: low grade fever overnight, WBC 11k -> 20k. Eugene cx 03/10. Started on Cipro and aztreonam. ID consulted To Do or to Watch: Persistent Left Hemothorax: Previously trach capping, vent wean/trach cap as able F/u ID recs [facility]. PT/OT following- skilled for acute rehab; PM&R consulted. Dispo planning. Will need to discuss f/u plan with pt as dispo becomes more clear. Discharge Planning: Anticipated Discharge Date: Unknown Barriers to Discharge: Multi-system issues: Weaning from vent, facility placement (PM&R consulted), heart rate control and - In Process Care Management Discharge Needs: Needs Prior to Discharge: To Be Determined;Accepting Facility;Facility or Agency Choices;Discharge Transportation Ileus 02/29/2020 03/03/2020 Overview: A/P: See coordination of care note Acute blood loss anemia 02/22/2020 04/04/20 Overview: History: Postoperative. History of transfusion rxn Assessment: H/H 9.1 / 30.6 on 03/31/2020 . no evidence of bleeding Plan: Monitor for bleeding. Every other day CBC, minimize blood draws Trend H/H and further transfuse as clinically appropriate. NOTE: Requires pre-medication with IV Benadryl 25 mg and IV Hydrocortisone 100 mg d/t history of transfusion reaction. Delirium 01/27/2020 01/27/2020 Hypernatremia 01/27/2020 03/01/2020 Overview: History: Postoperative. Assessment: NA 139 Plan:Decrease FWF, Continue diuresis, continue to trend NA closely Leukocytosis 01/18/2020 03/23/2020 Overview: History 03/10/2020 New-onset leukocytosis (11 > 20), fatigue/somnolence, and hypotension. Empiric cipro and aztreonam started. ID consulted. Blood cultures and BAL sent. Assessment 8.24 K Afebrile. BAL no growth of date. Plan ID following. Observe off ATB Altered mental status 01/18/2020 01/27/2020 Overview: Assessment/Plan: Refer to care coordination note Cardiac insufficiency 01/18/2020 01/25/2020 Overview: Assessment: Postop requiring inotropic support on epinephrine infusion. Plan: Wean epi for goal CI > 2.2. Obtundation 01/17/2020 01/18/2020 Overview: History: minimal upper and lower extremity movement post op after propofol weaning (01/16), nods to verbal stimuli while intubated 01/17/2020 Neurology consulted, CT Brain: no acute process Assessment/Plan: Most likely sedation related. F/u Neuro recs. Moderate protein-calorie malnutrition 01/17/2020 04/06/2020 Overview: History: Recommended Malnutrition Diagnosis: Moderate Protein-Calorie Malnutrition In the context of: Acute Illness or Injury Based on: Insufficient Energy Intake; Muscle Loss Assessment: Improved appetite. Plan: Nutrition following recs Regular diet Continue nocturnal feeds (Osmolite 1.2. Goal Rate (mL/hr x hours): 60 ml x 8 hours (480 ml, 576 kcals, 27 g pro) Water Flush Volume (mL x frequency: flush 30 ml 6x/day) Speech following ok for reg diet while off the vent Plan to remove [place] on 04/06 Pulmonary edema 01/13/2020 01/25/2020 Overview: History:Pulmonary Edema 2/2 coagulopathy. On home Lasix 40 mg. A/P: Wean lasix gtt to 20 bid, d/c metolazone, daily CXR. Post-op pain 01/13/2020 01/17/2020 Overview: February 18, 2020 History: acute postop Assessment: intubated Plan: prn pain medication Coagulopathy 01/13/2020 01/15/2020 Overview: History: OR Assessment: Required Required 8 Unit, 11 FFP, 7 units of platelets in OR. Upon arrival to ICU first hour patient chest tube output 900cc. Take back to OR. Plan: Continue to monitor CT output, coags. Transfuse prn Chronic atrial fibrillation 01/13/202002/08 Overview: See Atrial Flutter Personal history of ECMO 01/13/2020 020 Overview: History: PA perforation requiring VA ECMO- DC in OR and changed to VV ECMO due to pulmonary edema (coagulopathy w massive transfusion) Flow: 4.5 Speed: 2985 Ecmo Fio2: 100 Sweep: 1.0 LPM Vent FiO2: 30 Oxygenator without clots Cannula site looks clean/dry Anticoagulation: None Decannulation 01/16/2020 Pulmonary artery injury 01/13/2020 04/04/20 Overview: History: 01/13/2020 PA perforation following transcatheter PV replacement pt to OR for Emergency Redo-sternotomy (4th), Reconstruction of main and left pulmonary artery with homograft. VA ECMO changed to VV-ECMO (fem-fem; pulmonary edema) 01/14/2020: Reoperation for bleeding, chest washout, open chest, maintain VV ECMO 01/16/2020: Chest exploration, washout and closure, VV ECMO decannulation. Assessment: recent CXR Moderate left pleural effusion - loculated - stable Plan: Daily ASA PRN CXR Postoperative hypertension 01/13/202001/12 Overview: History: OR Assessment: MAPs 90's upon arrival to ICU Plan: Wean NTG gtt for MAP goal 65-75 Hypotension after procedure 01/13/202001/07 Overview: History: Post-op Assessment: Hypotension s/p OR Plan: Epi and Vasopressin gtt for MAP > 65 mm Hg Nonrheumatic pulmonary valve stenosis 12/28/2019 03/16/2020 Right tikkypxmi-qv-jijpvgreh artery (RV-PA) conduit obstruction 06/04/2016 04/04/2020 Overview: History: Congenital bicuspid aortic stenosis s/p Ross procedure in 1993 (she had aortic root homograft in 1995 and right ventricle to pulmonary homograft replacement in 1996; mild residual right ventricular outflow tract obstruction) Assessment: 01/13/2020: PA perforation following transcatheter PV replacement pt to OR for Emergency Redo-sternotomy (4th), Reconstruction of main and left pulmonary artery with homograft. VA ECMO removal and Bilateral femoral venous ECMO (OPEN CHEST). 01/14/2020: Reoperation for bleeding, open chest. 01/16/2020: Chest washout, closure, and ECMO decannulation. Plan: Daily ASA. Monitor left groin site s/p ECMO cannulation site- betadine bid. site CDI Congenital stenosis of aortic valve 07/30/2003 03/16/2020 Overview: February 18, 2020 Per history Chest pain 04/14/1997 04/12/2016 documented as of this encounter (statuses as of 11/26/2021) [facility] History of Past illness Narrative* Problem Noted Date Resolved Date Postoperative ileus 03/26/2020 04/04/2020 Overview: History: post op KUB on 02/29/2020- mild ileus Assessment: KUB 03/26- no dilated bowels. + flatus. +BM 04/01/2020 Plan: continue current regimen. 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 Pacing Wires: None Chronological List of Surgeries and Major Events:Attempted transcatheter PV replacement resulting in PA perforation resulting in left hemothorax and pulmonary compression with respiratory and hemodyamic failure requiring support with VA ECMO placed percutaneously through left groin vessels. 01/13/2020 Emergency Redo-sternotomy (4th op), Reconstruction of main and left pulmonary artery with homograft. VA ECMO changed to VV-ECMO (fem-fem; pulmonary edema), evacuation left hemothorax 01/14/2020: Reoperation for postoperative bleeding, chest washout, open chest, maintain VV ECMO 01/16/2020: Chest exploration, washout and closure, VV ECMO decannulation. 01/21/2020:Tracheostomy 02/11/2020: Blood Tx reaction with chills. 02/14/2020: Left thoracotomy, evacuation of hematoma, decortication. FINDINGS: blood clots, hematoma in left chest; thick pleural rind 02/21/2020: Bronchoscopy: normal findings with no secretions 03/10/2020: Readmit for hypotension, mental status changes, and respiratory distress A/P of Major Active Problems: Neuro: CVA/SDH: 01/22 MRI brain - R caudate infarct. ?1mm R cerebellar SDH without mass effect. NSGY consulted, now signed off with stable head CT. Neurologically intact, follows commands, answers questions appropriately.Lethargic.Generalized weakness. Hx of anxiety: Patient endorses anxiety and panic attacks, taken xanax previously, excessive drowsiness noted . Psychiatry consulted for guidance of management of anxiety/panic attacks. Continue effexor, Xanax PRN. Buspar recommended by last psych note 03/03 however was discontinued on 03/02 and pt is tolerating this well. Cardiac: Afib/Aflutter. Change to lovenox per GP and discussion with thoracic surgery. Monitor for s/sx bleeding. Previously on amiodarone, metoprolol which were dc'd on 02/25 due to bradycardic event in ICU. Poor rate control noted on 03/04- Resumed low dose BB 03/09, stopped on transfer to CVICU due to hypotension. Currently AF RVR, HR 110s. Resume meds as clinically indicated. Replete lytes prn Pulmonary: Respiratory failure with hypoxia: s/p Trach 01/20. Trach downsized (7.0 to 6.0) by thoracic on 02/07 d/t absence of air leak. 03/01 patient with stridor, racemic epi given, no re-occurrence of stridor. Previously trach capping as tolerated, 5-6 hours on vent at night for lung expansion and vent rest as needed. 03/10 over night desat to 80%, placed back on PCV 50%/10, increasing consolidation of RML and RLL. Vent wean as able. Lt lung consolidation as well as large loculated Lt hemothorax. L pigtail placed 01/30 and 02/04. Multiple TPA administrations- minimal improvement. Chest CT 02/13/2020: large hemothorax and hematoma in posterior recess. Thoracic surgery (Dr. Perry) consulted. - Now s/p Left thoracotomy and decortication 02/14/2020. Repeat CT chest 02/17 with persistent left pleural collection-no surgical intervention per thoracic surgery. Worsening of pleural effusion and partial collapse noted on CXR 03/04, reviewed with Dr. Otero. CT Chest obtained, again reviewed with Dr. Otero. Thoracic saw pt prior to review of CT scan and recommend bronchoscopy. Aggressive pulmonary hygiene with RT- discussed with evening RT (chest physiotherapy, therapep). Pt on vent overnight 03/04. 03/05 Bronch done-removal of mucous plug from Lt main stem bronchus compression of the airway noted also by the Lt effusion. Cpap on 03/07, capped overnight last night doing well. Renal: Volume overload: Moderate peripheral edema. Continue lasix 20 mg IV Q8, trend I&O/labs and adjust diuresis accordingly - GI: Malnutrition: Nausea/vomiting resolved. TF at goal. MBS 03/03: Ok for regular diet with thin liquids per LEGAL CLERK. Nutrition following, will continue nocturnal TF until PO intake improves. Ileus: 02/28 Patient with nausea/vomiting, KUB revealed mild ileus. Now resolved-patient with multiple BMs. Tolerating TF, monitor for tolerance. Vascular: BUE acute DVTs: Lovenox for AC as discussed per GP and thoracic surgery. Hematology: Acute blood loss anemia. H/H stable (needs pre-medicated with IV Benadryl 25 mg and IV Hydrocortisone 100 mg d/t history of transfusion reaction.) Trend H/H and further transfuse as clinically appropriate ID: Leukocytosis: low grade fever overnight, WBC 11k -> 20k. [place] cx 03/10. Started on Cipro and aztreonam. ID consulted To Do or to Watch: Persistent Left Hemothorax: Previously trach capping, vent wean/trach cap as able F/u ID recs From [facility]. PT/OT following- skilled for acute rehab; PM&R consulted. Dispo planning. Will need to discuss f/u plan with pt as dispo becomes more clear. Discharge Planning: Anticipated Discharge Date: Unknown Barriers to Discharge: Multi-system issues: Weaning from vent, facility placement (PM&R consulted), heart rate control and - In Process Care Management Discharge Needs: Needs Prior to Discharge: To Be Determined;Accepting Facility;Facility or Agency Choices;Discharge Transportation Ileus 02/29/2020 03/03/2020 Overview: A/P: See coordination of care note Acute blood loss anemia 02/22/2020 04/04/20 Overview: History: Postoperative. History of transfusion rxn Assessment: H/H 9.1 / 30.6 on 03/31/2020 . no evidence of bleeding Plan: Monitor for bleeding. Every other day CBC, minimize blood draws Trend H/H and further transfuse as clinically appropriate. NOTE: Requires pre-medication with IV Benadryl 25 mg and IV Hydrocortisone 100 mg d/t history of transfusion reaction. Delirium 01/27/2020 01/27/2020 Hypernatremia 01/27/2020 03/01/2020 Overview: History: Postoperative. Assessment: NA 139 Plan:Decrease FWF, Continue diuresis, continue to trend NA closely Leukocytosis 01/18/2020 03/23/2020 Overview: History 03/10/2020 New-onset leukocytosis (11 > 20), fatigue/somnolence, and hypotension. Empiric cipro and aztreonam started. ID consulted. Blood cultures and BAL sent. Assessment 8.24 K Afebrile. BAL no growth of date. Plan ID following. Observe off ATB Altered mental status 01/18/2020 01/27/2020 Overview: Assessment/Plan: Refer to care coordination note Cardiac insufficiency 01/18/2020 01/25/2020 Overview: Assessment: Postop requiring inotropic support on epinephrine infusion. Plan: Wean epi for goal CI > 2.2. Obtundation 01/17/2020 01/18/2020 Overview: History: minimal upper and lower extremity movement post op after propofol weaning (01/16), nods to verbal stimuli while intubated 01/17/2020 Neurology consulted, CT Brain: no acute process Assessment/Plan: Most likely sedation related. F/u Neuro recs. Moderate protein-calorie malnutrition 01/17/2020 04/06/2020 Overview: History: Recommended Malnutrition Diagnosis: Moderate Protein-Calorie Malnutrition In the context of: Acute Illness or Injury Based on: Insufficient Energy Intake; Muscle Loss Assessment: Improved appetite. Plan: Nutrition following recs Regular diet Continue nocturnal feeds (Osmolite 1.2. Goal Rate (mL/hr x hours): 60 ml x 8 hours (480 ml, 576 kcals, 27 g pro) Water Flush Volume (mL x frequency: flush 30 ml 6x/day) Speech following ok for reg diet while off the vent Plan to remove Corpak on 04/06 Pulmonary edema 01/13/2020 01/25/2020 Overview: History:Pulmonary Edema 2/2 coagulopathy. On home Lasix 40 mg. A/P: Wean lasix gtt to 20 bid, d/c metolazone, daily CXR. Post-op pain 01/13/2020 01/17/2020 Overview: February 18, 2020 History: acute postop Assessment: intubated Plan: prn pain medication Coagulopathy 01/13/2020 01/15/2020 Overview: History: OR Assessment: Required Required 8 Unit, 11 FFP, 7 units of platelets in OR. Upon arrival to ICU first hour patient chest tube output 900cc. Take back to OR. Plan: Continue to monitor CT output, coags. Transfuse prn Chronic atrial fibrillation 01/13/2020 0812/2019 Overview: See Atrial Flutter Personal history of ECMO 01/13/2020 020 Overview: History: PA perforation requiring VA ECMO- DC in OR and changed to VV ECMO due to pulmonary edema (coagulopathy w massive transfusion) Flow: 4.5 Speed: 2985 Ecmo Fio2: 100 Sweep: 1.0 LPM Vent FiO2: 30 Oxygenator without clots Cannula site looks clean/dry Anticoagulation: None Decannulation 01/16/2020 Pulmonary artery injury 01/13/2020 04/04/20 Overview: History: 01/13/2020 PA perforation following transcatheter PV replacement pt to OR for Emergency Redo-sternotomy (4th), Reconstruction of main and left pulmonary artery with homograft. VA ECMO changed to VV-ECMO (fem-fem; pulmonary edema) 01/14/2020: Reoperation for bleeding, chest washout, open chest, maintain VV ECMO 01/16/2020: Chest exploration, washout and closure, VV ECMO decannulation. 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 VA ECMO removal and Bilateral femoral venous ECMO (OPEN CHEST). 01/14/2020: Reoperation for bleeding, open chest. 01/16/2020: Chest washout, closure, and ECMO decannulation. Plan: Daily ASA. Monitor left groin site s/p ECMO cannulation site- betadine bid. site CDI Congenital stenosis of aortic valve 07/30/2003 03/16/2020 Overview: February 18, 2020 Per history Chest pain 04/14/1997 04/12/2016 documented as of this encounter (statuses as of 02/10/2022) [facility]09-17-2020 History of Past illness Narrative* Problem Noted Date Resolved Date Postoperative ileus 03/26/2020 04/04/2020 Overview: History: post op KUB on 02/29/2020- mild ileus Assessment: KUB 03/26- no dilated bowels. + flatus. +BM 04/01/2020 Plan: continue current regimen. 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 Pacing Wires: None Chronological List of Surgeries and Major Events:Attempted transcatheter PV replacement resulting in PA perforation resulting in left hemothorax and pulmonary compression with respiratory and hemodyamic failure requiring support with VA ECMO placed percutaneously through left groin vessels. 01/13/2020 Emergency Redo-sternotomy (4th op), Reconstruction of main and left pulmonary artery with homograft. VA ECMO changed to VV-ECMO (fem-fem; pulmonary edema), evacuation left hemothorax 01/14/2020: Reoperation for postoperative bleeding, chest washout, open chest, maintain VV ECMO 01/16/2020: Chest exploration, washout and closure, VV ECMO decannulation. 01/21/2020:Tracheostomy 02/11/2020: Blood Tx reaction with chills. 02/14/2020: Left thoracotomy, evacuation of hematoma, decortication. FINDINGS: blood clots, hematoma in left chest; thick pleural rind 02/21/2020: Bronchoscopy: normal findings with no secretions 03/10/2020: Readmit for hypotension, mental status changes, and respiratory distress A/P of Major Active Problems: Neuro: CVA/SDH: 01/22 MRI brain - R caudate infarct. ?1mm R cerebellar SDH without mass effect. NSGY consulted, now signed off with stable head CT. Neurologically intact, follows commands, answers questions appropriately.Lethargic.Generalized weakness. Hx of anxiety: Patient endorses anxiety and panic attacks, taken xanax previously, excessive drowsiness noted . Psychiatry consulted for guidance of management of anxiety/panic attacks. Continue effexor, Xanax PRN. Buspar recommended by last psych note 03/03 however was discontinued on 03/02 and pt is tolerating this well. Cardiac: Afib/Aflutter. Change to lovenox per GP and discussion with thoracic surgery. Monitor for s/sx bleeding. Previously on amiodarone, metoprolol which were dc'd on 02/25 due to bradycardic event in ICU. Poor rate control noted on 03/04- Resumed low dose BB 03/09, stopped on transfer to CVICU due to hypotension. Currently AF RVR, HR 110s. Resume meds as clinically indicated. Replete lytes prn Pulmonary: Respiratory failure with hypoxia: s/p Trach 01/20. Trach downsized (7.0 to 6.0) by thoracic on 02/07 d/t absence of air leak. 03/01 patient with stridor, racemic epi given, no re-occurrence of stridor. Previously trach capping as tolerated, 5-6 hours on vent at night for lung expansion and vent rest as needed. 03/10 over night desat to 80%, placed back on PCV 50%/10, increasing consolidation of RML and RLL. Vent wean as able. Lt lung consolidation as well as large loculated Lt hemothorax. L pigtail placed 01/30 and 02/04. Multiple TPA administrations- minimal improvement. Chest CT 02/13/2020: large hemothorax and hematoma in posterior recess. Thoracic surgery (Dr. Perry) consulted. - Now s/p Left thoracotomy and decortication 02/14/2020. Repeat CT chest 02/17 with persistent left pleural collection-no surgical intervention per thoracic surgery. Worsening of pleural effusion and partial collapse noted on CXR 03/04, reviewed with Dr. Otero. CT Chest obtained, again reviewed with Dr. Otero. Thoracic saw pt prior to review of CT scan and recommend bronchoscopy. Aggressive pulmonary hygiene with RT- discussed with evening RT (chest physiotherapy, therapep). Pt on vent overnight 03/04. 03/05 Bronch done-removal of mucous plug from Lt main stem bronchus compression of the airway noted also by the Lt effusion. Cpap on 03/07, capped overnight last night doing well. Renal: Volume overload: Moderate peripheral edema. Continue lasix 20 mg IV Q8, trend I&O/labs and adjust diuresis accordingly - GI: Malnutrition: Nausea/vomiting resolved. TF at goal. MBS 03/03: Ok for regular diet with thin liquids per LEGAL CLERK. Nutrition following, will continue nocturnal TF until PO intake improves. Ileus: 02/28 Patient with nausea/vomiting, KUB revealed mild ileus. Now resolved-patient with multiple BMs. Tolerating TF, monitor for tolerance. Vascular: BUE acute DVTs: Lovenox for AC as discussed per GP and thoracic surgery. Hematology: Acute blood loss anemia. H/H stable (needs pre-medicated with IV Benadryl 25 mg and IV Hydrocortisone 100 mg d/t history of transfusion reaction.) Trend H/H and further transfuse as clinically appropriate ID: Leukocytosis: low grade fever overnight, WBC 11k -> 20k. Eugene cx 03/10. Started on Cipro and aztreonam. ID consulted To Do or to Watch: Persistent Left Hemothorax: Previously trach capping, vent wean/trach cap as able F/u ID recs From [facility]. PT/OT following- skilled for acute rehab; PM&R consulted. Dispo planning. Will need to discuss f/u plan with pt as dispo becomes more clear. Discharge Planning: Anticipated Discharge Date: Unknown Barriers to Discharge: Multi-system issues: Weaning from vent, facility placement (PM&R consulted), heart rate control and - In Process Care Management Discharge Needs: Needs Prior to Discharge: To Be Determined;Accepting Facility;Facility or Agency Choices;Discharge Transportation Ileus 02/29/2020 03/03/2020 Overview: A/P: See coordination of care note Acute blood loss anemia 02/22/2020 04/04/20 Overview: History: Postoperative. History of transfusion rxn Assessment: H/H 9.1 / 30.6 on 03/31/2020 . no evidence of bleeding Plan: Monitor for bleeding. Every other day CBC, minimize blood draws Trend H/H and further transfuse as clinically appropriate. NOTE: Requires pre-medication with IV Benadryl 25 mg and IV Hydrocortisone 100 mg d/t history of transfusion reaction. Delirium 01/27/2020 01/27/2020 Hypernatremia 01/27/2020 03/01/2020 Overview: History: Postoperative. Assessment: NA 139 Plan:Decrease FWF, Continue diuresis, continue to trend NA closely Leukocytosis 01/18/2020 03/23/2020 Overview: History 03/10/2020 New-onset leukocytosis (11 > 20), fatigue/somnolence, and hypotension. Empiric cipro and aztreonam started. ID consulted. Blood cultures and BAL sent. Assessment 8.24 K Afebrile. BAL no growth of date. Plan ID following. Observe off ATB Altered mental status 01/18/2020 01/27/2020 Overview: Assessment/Plan: Refer to care coordination note Cardiac insufficiency 01/18/2020 01/25/2020 Overview: Assessment: Postop requiring inotropic support on epinephrine infusion. Plan: Wean epi for goal CI > 2.2. Obtundation 01/17/2020 01/18/2020 Overview: History: minimal upper and lower extremity movement post op after propofol weaning (01/16), nods to verbal stimuli while intubated 01/17/2020 Neurology consulted, CT Brain: no acute process Assessment/Plan: Most likely sedation related. F/u Neuro recs. Moderate protein-calorie malnutrition 01/17/2020 04/06/2020 Overview: History: Recommended Malnutrition Diagnosis: Moderate Protein-Calorie Malnutrition In the context of: Acute Illness or Injury Based on: Insufficient Energy Intake; Muscle Loss Assessment: Improved appetite. Plan: Nutrition following recs Regular diet Continue nocturnal feeds (Osmolite 1.2. Goal Rate (mL/hr x hours): 60 ml x 8 hours (480 ml, 576 kcals, 27 g pro) Water Flush Volume (mL x frequency: flush 30 ml 6x/day) Speech following ok for reg diet while off the vent Plan to remove Corpak on 04/06 Pulmonary edema 01/13/2020 01/25/2020 Overview: History:Pulmonary Edema 2/2 coagulopathy. On home Lasix 40 mg. A/P: Wean lasix gtt to 20 bid, d/c metolazone, daily CXR. Post-op pain 01/13/2020 01/17/2020 Overview: February 18, 2020 History: acute postop Assessment: intubated Plan: prn pain medication Coagulopathy 01/13/2020 01/15/2020 Overview: History: OR Assessment: Required Required 8 Unit, 11 FFP, 7 units of platelets in OR. Upon arrival to ICU first hour patient chest tube output 900cc. Take back to OR. Plan: Continue to monitor CT output, coags. Transfuse prn Chronic atrial fibrillation 01/13/202002/08 Overview: See Atrial Flutter Personal history of ECMO 01/13/2020 020 Overview: History: PA perforation requiring VA ECMO- DC in OR and changed to VV ECMO due to pulmonary edema (coagulopathy w massive transfusion) Flow: 4.5 Speed: 2985 Ecmo Fio2: 100 Sweep: 1.0 LPM Vent FiO2: 30 Oxygenator without clots Cannula site looks clean/dry Anticoagulation: None Decannulation 01/16/2020 Pulmonary artery injury 01/13/2020 04/04/20 Overview: History: 01/13/2020 PA perforation following transcatheter PV replacement pt to OR for Emergency Redo-sternotomy (4th), Reconstruction of main and left pulmonary artery with homograft. VA ECMO changed to VV-ECMO (fem-fem; pulmonary edema) 01/14/2020: Reoperation for bleeding, chest washout, open chest, maintain VV ECMO 01/16/2020: Chest exploration, washout and closure, VV ECMO decannulation. Assessment: recent CXR Moderate left pleural effusion - loculated - stable Plan: Daily ASA PRN CXR Postoperative hypertension 01/13/202001/12 Overview: History: OR Assessment: MAPs 90's upon arrival to ICU Plan: Wean NTG gtt for MAP goal 65-75 Hypotension after procedure 01/13/202001/07 Overview: History: Post-op Assessment: Hypotension s/p OR Plan: Epi and Vasopressin gtt for MAP > 65 mm Hg Nonrheumatic pulmonary valve stenosis 12/28/2019 03/16/2020 Right ollwsktrh-qs-xepxejbwo artery (RV-PA) conduit obstruction 06/04/2016 04/04/2020 Overview: History: Congenital bicuspid aortic stenosis s/p Ross procedure in 1993 (she had aortic root homograft in 1995 and right ventricle to pulmonary homograft replacement in 1996; mild residual right ventricular outflow tract obstruction) Assessment: 01/13/2020: PA perforation following transcatheter PV replacement pt to OR for Emergency Redo-sternotomy (4th), Reconstruction of main and left pulmonary artery with homograft. VA ECMO removal and Bilateral femoral venous ECMO (OPEN CHEST). 01/14/2020: Reoperation for bleeding, open chest. 01/16/2020: Chest washout, closure, and ECMO decannulation. Plan: Daily ASA. Monitor left groin site s/p ECMO cannulation site- betadine bid. site CDI Congenital stenosis of aortic valve 07/30/2003 03/16/2020 Overview: February 18, 2020 Per history Chest pain 04/14/1997 04/12/2016 documented as of this encounter (statuses as of 05/26/2022) [facility]09-17-2020 History of Past illness Narrative* Problem Noted Date Resolved Date Postoperative ileus 03/26/2020 04/04/2020 Overview: History: post op KUB on 02/29/2020- mild ileus Assessment: KUB 03/26- no dilated bowels. + flatus. +BM 04/01/2020 Plan: continue current regimen. 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 Pacing Wires: None Chronological List of Surgeries and Major Events:Attempted transcatheter PV replacement resulting in PA perforation resulting in left hemothorax and pulmonary compression with respiratory and hemodyamic failure requiring support with VA ECMO placed percutaneously through left groin vessels. 01/13/2020 Emergency Redo-sternotomy (4th op), Reconstruction of main and left pulmonary artery with homograft. VA ECMO changed to VV-ECMO (fem-fem; pulmonary edema), evacuation left hemothorax 01/14/2020: Reoperation for postoperative bleeding, chest washout, open chest, maintain VV ECMO 01/16/2020: Chest exploration, washout and closure, VV ECMO decannulation. 01/21/2020:Tracheostomy 02/11/2020: Blood Tx reaction with chills. 02/14/2020: Left thoracotomy, evacuation of hematoma, decortication. FINDINGS: blood clots, hematoma in left chest; thick pleural rind 02/21/2020: Bronchoscopy: normal findings with no secretions 03/10/2020: Readmit for hypotension, mental status changes, and respiratory distress A/P of Major Active Problems: Neuro: CVA/SDH: 01/22 MRI brain - R caudate infarct. ?1mm R cerebellar SDH without mass effect. NSGY consulted, now signed off with stable head CT. Neurologically intact, follows commands, answers questions appropriately.Lethargic.Generalized weakness. Hx of anxiety: Patient endorses anxiety and panic attacks, taken xanax previously, excessive drowsiness noted . Psychiatry consulted for guidance of management of anxiety/panic attacks. Continue effexor, Xanax PRN. Buspar recommended by last psych note 03/03 however was discontinued on 03/02 and pt is tolerating this well. Cardiac: Afib/Aflutter. Change to lovenox per GP and discussion with thoracic surgery. Monitor for s/sx bleeding. Previously on amiodarone, metoprolol which were dc'd on 02/25 due to bradycardic event in ICU. Poor rate control noted on 03/04- Resumed low dose BB 03/09, stopped on transfer to CVICU due to hypotension. Currently AF RVR, HR 110s. Resume meds as clinically indicated. Replete lytes prn Pulmonary: Respiratory failure with hypoxia: s/p Trach 01/20. Trach downsized (7.0 to 6.0) by thoracic on 02/07 d/t absence of air leak. 03/01 patient with stridor, racemic epi given, no re-occurrence of stridor. Previously trach capping as tolerated, 5-6 hours on vent at night for lung expansion and vent rest as needed. 03/10 over night desat to 80%, placed back on PCV 50%/10, increasing consolidation of RML and RLL. Vent wean as able. Lt lung consolidation as well as large loculated Lt hemothorax. L pigtail placed 01/30 and 02/04. Multiple TPA administrations- minimal improvement. Chest CT 02/13/2020: large hemothorax and hematoma in posterior recess. Thoracic surgery (Dr. Perry) consulted. - Now s/p Left thoracotomy and decortication 02/14/2020. Repeat CT chest 02/17 with persistent left pleural collection-no surgical intervention per thoracic surgery. Worsening of pleural effusion and partial collapse noted on CXR 03/04, reviewed with Dr. Otero. CT Chest obtained, again reviewed with Dr. Otero. Thoracic saw pt prior to review of CT scan and recommend bronchoscopy. Aggressive pulmonary hygiene with RT- discussed with evening RT (chest physiotherapy, therapep). Pt on vent overnight 03/04. 03/05 Bronch done-removal of mucous plug from Lt main stem bronchus compression of the airway noted also by the Lt effusion. Cpap on 03/07, capped overnight last night doing well. Renal: Volume overload: Moderate peripheral edema. Continue lasix 20 mg IV Q8, trend I&O/labs and adjust diuresis accordingly - GI: Malnutrition: Nausea/vomiting resolved. TF at goal. MBS 03/03: Ok for regular diet with thin liquids per LEGAL CLERK. Nutrition following, will continue nocturnal TF until PO intake improves. Ileus: 02/28 Patient with nausea/vomiting, KUB revealed mild ileus. Now resolved-patient with multiple BMs. Tolerating TF, monitor for tolerance. Vascular: BUE acute DVTs: Lovenox for AC as discussed per GP and thoracic surgery. Hematology: Acute blood loss anemia. H/H stable (needs pre-medicated with IV Benadryl 25 mg and IV Hydrocortisone 100 mg d/t history of transfusion reaction.) Trend H/H and further transfuse as clinically appropriate ID: Leukocytosis: low grade fever overnight, WBC 11k -> 20k. Eugene cx 03/10. Started on Cipro and aztreonam. ID consulted To Do or to Watch: Persistent Left Hemothorax: Previously trach capping, vent wean/trach cap as able F/u ID recs From [facility]. PT/OT following- skilled for acute rehab; PM&R consulted. Dispo planning. Will need to discuss f/u plan with pt as dispo becomes more clear. Discharge Planning: Anticipated Discharge Date: Unknown Barriers to Discharge: Multi-system issues: Weaning from vent, facility placement (PM&R consulted), heart rate control and - In Process Care Management Discharge Needs: Needs Prior to Discharge: To Be Determined;Accepting Facility;Facility or Agency Choices;Discharge Transportation Ileus 02/29/2020 03/03/2020 Overview: A/P: See coordination of care note Acute blood loss anemia 02/22/2020 04/04/20 Overview: History: Postoperative. History of transfusion rxn Assessment: H/H 9.1 / 30.6 on 03/31/2020 . no evidence of bleeding Plan: Monitor for bleeding. Every other day CBC, minimize blood draws Trend H/H and further transfuse as clinically appropriate. NOTE: Requires pre-medication with IV Benadryl 25 mg and IV Hydrocortisone 100 mg d/t history of transfusion reaction. Delirium 01/27/2020 01/27/2020 Hypernatremia 01/27/2020 03/01/2020 Overview: History: Postoperative. Assessment: NA 139 Plan:Decrease FWF, Continue diuresis, continue to trend NA closely Leukocytosis 01/18/2020 03/23/2020 Overview: History 03/10/2020 New-onset leukocytosis (11 > 20), fatigue/somnolence, and hypotension. Empiric cipro and aztreonam started. ID consulted. Blood cultures and BAL sent. Assessment 8.24 K Afebrile. BAL no growth of date. Plan ID following. Observe off ATB Altered mental status 01/18/2020 01/27/2020 Overview: Assessment/Plan: Refer to care coordination note Cardiac insufficiency 01/18/2020 01/25/2020 Overview: Assessment: Postop requiring inotropic support on epinephrine infusion. Plan: Wean epi for goal CI > 2.2. Obtundation 01/17/2020 01/18/2020 Overview: History: minimal upper and lower extremity movement post op after propofol weaning (01/16), nods to verbal stimuli while intubated 01/17/2020 Neurology consulted, CT Brain: no acute process Assessment/Plan: Most likely sedation related. F/u Neuro recs. Moderate protein-calorie malnutrition 01/17/2020 04/06/2020 Overview: History: Recommended Malnutrition Diagnosis: Moderate Protein-Calorie Malnutrition In the context of: Acute Illness or Injury Based on: Insufficient Energy Intake; Muscle Loss Assessment: Improved appetite. Plan: Nutrition following recs Regular diet Continue nocturnal feeds (Osmolite 1.2. Goal Rate (mL/hr x hours): 60 ml x 8 hours (480 ml, 576 kcals, 27 g pro) Water Flush Volume (mL x frequency: flush 30 ml 6x/day) Speech following ok for reg diet while off the vent Plan to remove Corpak on 04/06 Pulmonary edema 01/13/2020 01/25/2020 Overview: History:Pulmonary Edema 2/2 coagulopathy. On home Lasix 40 mg. A/P: Wean lasix gtt to 20 bid, d/c metolazone, daily CXR. Post-op pain 01/13/2020 01/17/2020 Overview: February 18, 2020 History: acute postop Assessment: intubated Plan: prn pain medication Coagulopathy 01/13/2020 01/15/2020 Overview: History: OR Assessment: Required Required 8 Unit, 11 FFP, 7 units of platelets in OR. Upon arrival to ICU first hour patient chest tube output 900cc. Take back to OR. Plan: Continue to monitor CT output, coags. Transfuse prn Chronic atrial fibrillation 01/13/202002/08 Overview: See Atrial Flutter Personal history of ECMO 01/13/2020 020 Overview: History: PA perforation requiring VA ECMO- DC in OR and changed to VV ECMO due to pulmonary edema (coagulopathy w massive transfusion) Flow: 4.5 Speed: 2985 Ecmo Fio2: 100 Sweep: 1.0 LPM Vent FiO2: 30 Oxygenator without clots Cannula site looks clean/dry Anticoagulation: None Decannulation 01/16/2020 Pulmonary artery injury 01/13/2020 04/04/20 20 Overview: History: 01/13/2020 PA perforation following transcatheter PV replacement pt to OR for Emergency Redo-sternotomy (4th), Reconstruction of main and left pulmonary artery with homograft. VA ECMO changed to VV-ECMO (fem-fem; pulmonary edema) 01/14/2020: Reoperation for bleeding, chest washout, open chest, maintain VV ECMO 01/16/2020: Chest exploration, washout and closure, VV ECMO decannulation. 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 VA ECMO removal and Bilateral femoral venous ECMO (OPEN CHEST). 01/14/2020: Reoperation for bleeding, open chest. 01/16/2020: Chest washout, closure, and ECMO decannulation. Plan: Daily ASA. Monitor left groin site s/p ECMO cannulation site- betadine bid. site CDI Congenital stenosis of aortic valve 07/30/2003 03/16/2020 Overview: February 18, 2020 Per history Chest pain 04/14/1997 04/12/2016 documented as of this encounter (statuses as of 06/21/2022) [facility]09-17-2020 History of Past illness Narrative* Problem Noted Date Resolved Date Postoperative ileus 03/26/2020 04/04/2020 Overview: History: post op KUB on 02/29/2020- mild ileus Assessment: KUB 03/26- no dilated bowels. + flatus. +BM 04/01/2020 Plan: continue current regimen. 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 Pacing Wires: None Chronological List of Surgeries and Major Events:Attempted transcatheter PV replacement resulting in PA perforation resulting in left hemothorax and pulmonary compression with respiratory and hemodyamic failure requiring support with VA ECMO placed percutaneously through left groin vessels. 01/13/2020 Emergency Redo-sternotomy (4th op), Reconstruction of main and left pulmonary artery with homograft. VA ECMO changed to VV-ECMO (fem-fem; pulmonary edema), evacuation left hemothorax 01/14/2020: Reoperation for postoperative bleeding, chest washout, open chest, maintain VV ECMO 01/16/2020: Chest exploration, washout and closure, VV ECMO decannulation. 01/21/2020:Tracheostomy 02/11/2020: Blood Tx reaction with chills. 02/14/2020: Left thoracotomy, evacuation of hematoma, decortication. FINDINGS: blood clots, hematoma in left chest; thick pleural rind 02/21/2020: Bronchoscopy: normal findings with no secretions 03/10/2020: Readmit for hypotension, mental status changes, and respiratory distress A/P of Major Active Problems: Neuro: CVA/SDH: 01/22 MRI brain - R caudate infarct. ?1mm R cerebellar SDH without mass effect. NSGY consulted, now signed off with stable head CT. Neurologically intact, follows commands, answers questions appropriately.Lethargic.Generalized weakness. Hx of anxiety: Patient endorses anxiety and panic attacks, taken xanax previously, excessive drowsiness noted . Psychiatry consulted for guidance of management of anxiety/panic attacks. Continue effexor, Xanax PRN. Buspar recommended by last psych note 03/03 however was discontinued on 03/02 and pt is tolerating this well. Cardiac: Afib/Aflutter. Change to lovenox per GP and discussion with thoracic surgery. Monitor for s/sx bleeding. Previously on amiodarone, metoprolol which were dc'd on 02/25 due to bradycardic event in ICU. Poor rate control noted on 03/04- Resumed low dose BB 03/09, stopped on transfer to CVICU due to hypotension. Currently AF RVR, HR 110s. Resume meds as clinically indicated. Replete lytes prn Pulmonary: Respiratory failure with hypoxia: s/p Trach 01/20. Trach downsized (7.0 to 6.0) by thoracic on 02/07 d/t absence of air leak. 03/01 patient with stridor, racemic epi given, no re-occurrence of stridor. Previously trach capping as tolerated, 5-6 hours on vent at night for lung expansion and vent rest as needed. 03/10 over night desat to 80%, placed back on PCV 50%/10, increasing consolidation of RML and RLL. Vent wean as able. Lt lung consolidation as well as large loculated Lt hemothorax. L pigtail placed 01/30 and 02/04. Multiple TPA administrations- minimal improvement. Chest CT 02/13/2020: large hemothorax and hematoma in posterior recess. Thoracic surgery (Dr. Perry) consulted. - Now s/p Left thoracotomy and decortication 02/14/2020. Repeat CT chest 02/17 with persistent left pleural collection-no surgical intervention per thoracic surgery. Worsening of pleural effusion and partial collapse noted on CXR 03/04, reviewed with Dr. Otero. CT Chest obtained, again reviewed with Dr. Otero. Thoracic saw pt prior to review of CT scan and recommend bronchoscopy. Aggressive pulmonary hygiene with RT- discussed with evening RT (chest physiotherapy, therapep). Pt on vent overnight 03/04. 03/05 Bronch done-removal of mucous plug from Lt main stem bronchus compression of the airway noted also by the Lt effusion. Cpap on 03/07, capped overnight last night doing well. Renal: Volume overload: Moderate peripheral edema. Continue lasix 20 mg IV Q8, trend I&O/labs and adjust diuresis accordingly - GI: Malnutrition: Nausea/vomiting resolved. TF at goal. MBS 03/03: Ok for regular diet with thin liquids per LEGAL CLERK. Nutrition following, will continue nocturnal TF until PO intake improves. Ileus: 02/28 Patient with nausea/vomiting, KUB revealed mild ileus. Now resolved-patient with multiple BMs. Tolerating TF, monitor for tolerance. Vascular: BUE acute DVTs: Lovenox for AC as discussed per GP and thoracic surgery. Hematology: Acute blood loss anemia. H/H stable (needs pre-medicated with IV Benadryl 25 mg and IV Hydrocortisone 100 mg d/t history of transfusion reaction.) Trend H/H and further transfuse as clinically appropriate ID: Leukocytosis: low grade fever overnight, WBC 11k -> 20k. Eugene cx 03/10. Started on Cipro and aztreonam. ID consulted To Do or to Watch: Persistent Left Hemothorax: Previously trach capping, vent wean/trach cap as able F/u ID recs From [facility]. PT/OT following- skilled for acute rehab; PM&R consulted. Dispo planning. Will need to discuss f/u plan with pt as dispo becomes more clear. Discharge Planning: Anticipated Discharge Date: Unknown Barriers to Discharge: Multi-system issues: Weaning from vent, facility placement (PM&R consulted), heart rate control and - In Process Care Management Discharge Needs: Needs Prior to Discharge: To Be Determined;Accepting Facility;Facility or Agency Choices;Discharge Transportation Ileus 02/29/2020 03/03/2020 Overview: A/P: See coordination of care note Acute blood loss anemia 02/22/2020 04/04/20 Overview: History: Postoperative. History of transfusion rxn Assessment: H/H 9.1 / 30.6 on 03/31/2020 . no evidence of bleeding Plan: Monitor for bleeding. Every other day CBC, minimize blood draws Trend H/H and further transfuse as clinically appropriate. NOTE: Requires pre-medication with IV Benadryl 25 mg and IV Hydrocortisone 100 mg d/t history of transfusion reaction. Delirium 01/27/2020 01/27/2020 Hypernatremia 01/27/2020 03/01/2020 Overview: History: Postoperative. Assessment: NA 139 Plan:Decrease FWF, Continue diuresis, continue to trend NA closely Leukocytosis 01/18/2020 03/23/2020 Overview: History 03/10/2020 New-onset leukocytosis (11 > 20), fatigue/somnolence, and hypotension. Empiric cipro and aztreonam started. ID consulted. Blood cultures and BAL sent. Assessment 8.24 K Afebrile. BAL no growth of date. Plan ID following. Observe off ATB Altered mental status 01/18/2020 01/27/2020 Overview: Assessment/Plan: Refer to care coordination note Cardiac insufficiency 01/18/2020 01/25/2020 Overview: Assessment: Postop requiring inotropic support on epinephrine infusion. Plan: Wean epi for goal CI > 2.2. Obtundation 01/17/2020 01/18/2020 Overview: History: minimal upper and lower extremity movement post op after propofol weaning (01/16), nods to verbal stimuli while intubated 01/17/2020 Neurology consulted, CT Brain: no acute process Assessment/Plan: Most likely sedation related. F/u Neuro recs. Moderate protein-calorie malnutrition 01/17/2020 04/06/2020 Overview: History: Recommended Malnutrition Diagnosis: Moderate Protein-Calorie Malnutrition In the context of: Acute Illness or Injury Based on: Insufficient Energy Intake; Muscle Loss Assessment: Improved appetite. Plan: Nutrition following recs Regular diet Continue nocturnal feeds (Osmolite 1.2. Goal Rate (mL/hr x hours): 60 ml x 8 hours (480 ml, 576 kcals, 27 g pro) Water Flush Volume (mL x frequency: flush 30 ml 6x/day) Speech following ok for reg diet while off the vent Plan to remove Corpak on 04/06 Pulmonary edema 01/13/2020 01/25/2020 Overview: History:Pulmonary Edema 2/2 coagulopathy. On home Lasix 40 mg. A/P: Wean lasix gtt to 20 bid, d/c metolazone, daily CXR. Post-op pain 01/13/2020 01/17/2020 Overview: February 18, 2020 History: acute postop Assessment: intubated Plan: prn pain medication Coagulopathy 01/13/2020 01/15/2020 Overview: History: OR Assessment: Required Required 8 Unit, 11 FFP, 7 units of platelets in OR. Upon arrival to ICU first hour patient chest tube output 900cc. Take back to OR. Plan: Continue to monitor CT output, coags. Transfuse prn Chronic atrial fibrillation 01/13/202002/08 Overview: See Atrial Flutter Personal history of ECMO 01/13/2020 020 Overview: History: PA perforation requiring VA ECMO- DC in OR and changed to VV ECMO due to pulmonary edema (coagulopathy w massive transfusion) Flow: 4.5 Speed: 2985 Ecmo Fio2: 100 Sweep: 1.0 LPM Vent FiO2: 30 Oxygenator without clots Cannula site looks clean/dry Anticoagulation: None Decannulation 01/16/2020 Pulmonary artery injury 01/13/2020 04/04/20 Overview: History: 01/13/2020 PA perforation following transcatheter PV replacement pt to OR for Emergency Redo-sternotomy (4th), Reconstruction of main and left pulmonary artery with homograft. VA ECMO changed to VV-ECMO (fem-fem; pulmonary edema) 01/14/2020: Reoperation for bleeding, chest washout, open chest, maintain VV ECMO 01/16/2020: Chest exploration, washout and closure, VV ECMO decannulation. Assessment: recent CXR Moderate left pleural effusion - loculated - stable Plan: Daily ASA PRN CXR Postoperative hypertension 01/13/202001/12 Overview: History: OR Assessment: MAPs 90's upon arrival to ICU Plan: Wean NTG gtt for MAP goal 65-75 Hypotension after procedure 01/13/202001/07 Overview: History: Post-op Assessment: Hypotension s/p OR Plan: Epi and Vasopressin gtt for MAP > 65 mm Hg Nonrheumatic pulmonary valve stenosis 12/28/2019 03/16/2020 Right jwqkihnpg-vc-ljbxcimwj artery (RV-PA) conduit obstruction 06/04/2016 04/04/2020 Overview: History: Congenital bicuspid aortic stenosis s/p Ross procedure in 1993 (she had aortic root homograft in 1995 and right ventricle to pulmonary homograft replacement in 1996; mild residual right ventricular outflow tract obstruction) Assessment: 01/13/2020: PA perforation following transcatheter PV replacement pt to OR for Emergency Redo-sternotomy (4th), Reconstruction of main and left pulmonary artery with homograft. VA ECMO removal and Bilateral femoral venous ECMO (OPEN CHEST). 01/14/2020: Reoperation for bleeding, open chest. 01/16/2020: Chest washout, closure, and ECMO decannulation. Plan: Daily ASA. Monitor left groin site s/p ECMO cannulation site- betadine bid. site CDI Congenital stenosis of aortic valve 07/30/2003 03/16/2020 Overview: February 18, 2020 Per history Chest pain 04/14/1997 04/12/2016 documented as of this encounter (statuses as of 09/13/2022) [facility]09-[facility]2020 History of Past illness Narrative* Problem Noted Date Resolved Date Postoperative ileus 03/26/2020 04/04/2020 Overview: History: post op KUB on 02/29/2020- mild ileus Assessment: KUB 03/26- no dilated bowels. + flatus. +BM 04/01/2020 Plan: continue current regimen. 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 Pacing Wires: None Chronological List of Surgeries and Major Events:Attempted transcatheter PV replacement resulting in PA perforation resulting in left hemothorax and pulmonary compression with respiratory and hemodyamic failure requiring support with VA ECMO placed percutaneously through left groin vessels. 01/13/2020 Emergency Redo-sternotomy (4th op), Reconstruction of main and left pulmonary artery with homograft. VA ECMO changed to VV-ECMO (fem-fem; pulmonary edema), evacuation left hemothorax 01/14/2020: Reoperation for postoperative bleeding, chest washout, open chest, maintain VV ECMO 01/16/2020: Chest exploration, washout and closure, VV ECMO decannulation. 01/21/2020:Tracheostomy 02/11/2020: Blood Tx reaction with chills. 02/14/2020: Left thoracotomy, evacuation of hematoma, decortication. FINDINGS: blood clots, hematoma in left chest; thick pleural rind 02/21/2020: Bronchoscopy: normal findings with no secretions 03/10/2020: Readmit for hypotension, mental status changes, and respiratory distress A/P of Major Active Problems: Neuro: CVA/SDH: 01/22 MRI brain - R caudate infarct. ?1mm R cerebellar SDH without mass effect. NSGY consulted, now signed off with stable head CT. Neurologically intact, follows commands, answers questions appropriately.Lethargic.Generalized weakness. Hx of anxiety: Patient endorses anxiety and panic attacks, taken xanax previously, excessive drowsiness noted . Psychiatry consulted for guidance of management of anxiety/panic attacks. Continue effexor, Xanax PRN. Buspar recommended by last psych note 03/03 however was discontinued on 03/02 and pt is tolerating this well. Cardiac: Afib/Aflutter. Change to lovenox per GP and discussion with thoracic surgery. Monitor for s/sx bleeding. Previously on amiodarone, metoprolol which were dc'd on 02/25 due to bradycardic event in ICU. Poor rate control noted on 03/04- Resumed low dose BB 03/09, stopped on transfer to CVICU due to hypotension. Currently AF RVR, HR 110s. Resume meds as clinically indicated. Replete lytes prn Pulmonary: Respiratory failure with hypoxia: s/p Trach 01/20. Trach downsized (7.0 to 6.0) by thoracic on 02/07 d/t absence of air leak. 03/01 patient with stridor, racemic epi given, no re-occurrence of stridor. Previously trach capping as tolerated, 5-6 hours on vent at night for lung expansion and vent rest as needed. 03/10 over night desat to 80%, placed back on PCV 50%/10, increasing consolidation of RML and RLL. Vent wean as able. Lt lung consolidation as well as large loculated Lt hemothorax. L pigtail placed 01/30 and 02/04. Multiple TPA administrations- minimal improvement. Chest CT 02/13/2020: large hemothorax and hematoma in posterior recess. Thoracic surgery (Dr. Perry) consulted. - Now s/p Left thoracotomy and decortication 02/14/2020. Repeat CT chest 02/17 with persistent left pleural collection-no surgical intervention per thoracic surgery. Worsening of pleural effusion and partial collapse noted on CXR 03/04, reviewed with Dr. Otero. CT Chest obtained, again reviewed with Dr. Otero. Thoracic saw pt prior to review of CT scan and recommend bronchoscopy. Aggressive pulmonary hygiene with RT- discussed with evening RT (chest physiotherapy, therapep). Pt on vent overnight 03/04. 03/05 Bronch done-removal of mucous plug from Lt main stem bronchus compression of the airway noted also by the Lt effusion. Cpap on 03/07, capped overnight last night doing well. Renal: Volume overload: Moderate peripheral edema. Continue lasix 20 mg IV Q8, trend I&O/labs and adjust diuresis accordingly - GI: Malnutrition: Nausea/vomiting resolved. TF at goal. MBS 03/03: Ok for regular diet with thin liquids per LEGAL CLERK. Nutrition following, will continue nocturnal TF until PO intake improves. Ileus: 02/28 Patient with nausea/vomiting, KUB revealed mild ileus. Now resolved-patient with multiple BMs. Tolerating TF, monitor for tolerance. Vascular: BUE acute DVTs: Lovenox for AC as discussed per GP and thoracic surgery. Hematology: Acute blood loss anemia. H/H stable (needs pre-medicated with IV Benadryl 25 mg and IV Hydrocortisone 100 mg d/t history of transfusion reaction.) Trend H/H and further transfuse as clinically appropriate ID: Leukocytosis: low grade fever overnight, WBC 11k -> 20k. Eugene cx 03/10. Started on Cipro and aztreonam. ID consulted To Do or to Watch: Persistent Left Hemothorax: Previously trach capping, vent wean/trach cap as able F/u ID recs From [facility]. PT/OT following- skilled for acute rehab; PM&R consulted. Dispo planning. Will need to discuss f/u plan with pt as dispo becomes more clear. Discharge Planning: Anticipated Discharge Date: Unknown Barriers to Discharge: Multi-system issues: Weaning from vent, facility placement (PM&R consulted), heart rate control and - In Process Care Management Discharge Needs: Needs Prior to Discharge: To Be Determined;Accepting Facility;Facility or Agency Choices;Discharge Transportation Ileus 02/29/2020 03/03/2020 Overview: A/P: See coordination of care note Acute blood loss anemia 02/22/2020 04/04/20 Overview: History: Postoperative. History of transfusion rxn Assessment: H/H 9.1 / 30.6 on 03/31/2020 . no evidence of bleeding Plan: Monitor for bleeding. Every other day CBC, minimize blood draws Trend H/H and further transfuse as clinically appropriate. NOTE: Requires pre-medication with IV Benadryl 25 mg and IV Hydrocortisone 100 mg d/t history of transfusion reaction. Delirium 01/27/2020 01/27/2020 Hypernatremia 01/27/2020 03/01/2020 Overview: History: Postoperative. Assessment: NA 139 Plan:Decrease FWF, Continue diuresis, continue to trend NA closely Leukocytosis 01/18/2020 03/23/2020 Overview: History 03/10/2020 New-onset leukocytosis (11 > 20), fatigue/somnolence, and hypotension. Empiric cipro and aztreonam started. ID consulted. Blood cultures and BAL sent. Assessment 8.24 K Afebrile. BAL no growth of date. Plan ID following. Observe off ATB Altered mental status 01/18/2020 01/27/2020 Overview: Assessment/Plan: Refer to care coordination note Cardiac insufficiency 01/18/2020 01/25/2020 Overview: Assessment: Postop requiring inotropic support on epinephrine infusion. Plan: Wean epi for goal CI > 2.2. Obtundation 01/17/2020 01/18/2020 Overview: History: minimal upper and lower extremity movement post op after propofol weaning (01/16), nods to verbal stimuli while intubated 01/17/2020 Neurology consulted, CT Brain: no acute process Assessment/Plan: Most likely sedation related. F/u Neuro recs. Moderate protein-calorie malnutrition 01/17/2020 04/06/2020 Overview: History: Recommended Malnutrition Diagnosis: Moderate Protein-Calorie Malnutrition In the context of: Acute Illness or Injury Based on: Insufficient Energy Intake; Muscle Loss Assessment: Improved appetite. Plan: Nutrition following recs Regular diet Continue nocturnal feeds (Osmolite 1.2. Goal Rate (mL/hr x hours): 60 ml x 8 hours (480 ml, 576 kcals, 27 g pro) Water Flush Volume (mL x frequency: flush 30 ml 6x/day) Speech following ok for reg diet while off the vent Plan to remove Corpak on 04/06 Pulmonary edema 01/13/2020 01/25/2020 Overview: History:Pulmonary Edema 2/2 coagulopathy. On home Lasix 40 mg. A/P: Wean lasix gtt to 20 bid, d/c metolazone, daily CXR. Post-op pain 01/13/2020 01/17/2020 Overview: February 18, 2020 History: acute postop Assessment: intubated Plan: prn pain medication Coagulopathy 01/13/2020 01/15/2020 Overview: History: OR Assessment: Required Required 8 Unit, 11 FFP, 7 units of platelets in OR. Upon arrival to ICU first hour patient chest tube output 900cc. Take back to OR. Plan: Continue to monitor CT output, coags. Transfuse prn Chronic atrial fibrillation 01/13/2020 0812/2019 Overview: See Atrial Flutter Personal history of ECMO 01/13/2020 020 Overview: History: PA perforation requiring VA ECMO- DC in OR and changed to VV ECMO due to pulmonary edema (coagulopathy w massive transfusion) Flow: 4.5 Speed: 2985 Ecmo Fio2: 100 Sweep: 1.0 LPM Vent FiO2: 30 Oxygenator without clots Cannula site looks clean/dry Anticoagulation: None Decannulation 01/16/2020 Pulmonary artery injury 01/13/2020 04/04/20 20 Overview: History: 01/13/2020 PA perforation following transcatheter PV replacement pt to OR for Emergency Redo-sternotomy (4th), Reconstruction of main and left pulmonary artery with homograft. VA ECMO changed to VV-ECMO (fem-fem; pulmonary edema) 01/14/2020: Reoperation for bleeding, chest washout, open chest, maintain VV ECMO 01/16/2020: Chest exploration, washout and closure, VV ECMO decannulation. Assessment: recent CXR Moderate left pleural effusion - loculated - stable Plan: Daily ASA PRN CXR Postoperative hypertension 01/13/202001/12 Overview: History: OR Assessment: MAPs 90's upon arrival to ICU Plan: Wean NTG gtt for MAP goal 65-75 Hypotension after procedure 01/13/202001/07 Overview: History: Post-op Assessment: Hypotension s/p OR Plan: Epi and Vasopressin gtt for MAP > 65 mm Hg Nonrheumatic pulmonary valve stenosis 12/28/2019 03/16/2020 Right pvvowitwq-it-nzokxrgpj artery (RV-PA) conduit obstruction 06/04/2016 04/04/2020 Overview: History: Congenital bicuspid aortic stenosis s/p Ross procedure in 1993 (she had aortic root homograft in 1995 and right ventricle to pulmonary homograft replacement in 1996; mild residual right ventricular outflow tract obstruction) Assessment: 01/13/2020: PA perforation following transcatheter PV replacement pt to OR for Emergency Redo-sternotomy (4th), Reconstruction of main and left pulmonary artery with homograft. VA ECMO removal and Bilateral femoral venous ECMO (OPEN CHEST). 01/14/2020: Reoperation for bleeding, open chest. 01/16/2020: Chest washout, closure, and ECMO decannulation. Plan: Daily ASA. Monitor left groin site s/p ECMO cannulation site- betadine bid. site CDI Congenital stenosis of aortic valve 07/30/2003 03/16/2020 Overview: February 18, 2020 Per history Chest pain 04/14/1997 04/12/2016 documented as of this encounter (statuses as of 11/15/2022) [facility]09-17-2020 History of Past illness Narrative* Problem Noted Date Diagnosed Date Resolved Date Postoperative ileus 03/26/2020 04/04/20 Overview: History: post op KUB on 02/29/2020- mild ileus Assessment: KUB 03/26- no dilated bowels. + flatus. +BM 04/01/2020 Plan: continue current regimen. 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 Pacing Wires: None Chronological List of Surgeries and Major Events:Attempted transcatheter PV replacement resulting in PA perforation resulting in left hemothorax and pulmonary compression with respiratory and hemodyamic failure requiring support with VA ECMO placed percutaneously through left groin vessels. 01/13/2020 Emergency Redo-sternotomy (4th op), Reconstruction of main and left pulmonary artery with homograft. VA ECMO changed to VV-ECMO (fem-fem; pulmonary edema), evacuation left hemothorax 01/14/2020: Reoperation for postoperative bleeding, chest washout, open chest, maintain VV ECMO 01/16/2020: Chest exploration, washout and closure, VV ECMO decannulation. 01/21/2020:Tracheostomy 02/11/2020: Blood Tx reaction with chills. 02/14/2020: Left thoracotomy, evacuation of hematoma, decortication. FINDINGS: blood clots, hematoma in left chest; thick pleural rind 02/21/2020: Bronchoscopy: normal findings with no secretions 03/10/2020: Readmit for hypotension, mental status changes, and respiratory distress A/P of Major Active Problems: Neuro: CVA/SDH: 01/22 MRI brain - R caudate infarct. ?1mm R cerebellar SDH without mass effect. NSGY consulted, now signed off with stable head CT. Neurologically intact, follows commands, answers questions appropriately.Lethargic.Generalized weakness. Hx of anxiety: Patient endorses anxiety and panic attacks, taken xanax previously, excessive drowsiness noted . Psychiatry consulted for guidance of management of anxiety/panic attacks. Continue effexor, Xanax PRN. Buspar recommended by last psych note 03/03 however was discontinued on 03/02 and pt is tolerating this well. Cardiac: Afib/Aflutter. Change to lovenox per GP and discussion with thoracic surgery. Monitor for s/sx bleeding. Previously on amiodarone, metoprolol which were dc'd on 02/25 due to bradycardic event in ICU. Poor rate control noted on 03/04- Resumed low dose BB 03/09, stopped on transfer to CVICU due to hypotension. Currently AF RVR, HR 110s. Resume meds as clinically indicated. Replete lytes prn Pulmonary: Respiratory failure with hypoxia: s/p Trach 01/20. Trach downsized (7.0 to 6.0) by thoracic on 02/07 d/t absence of air leak. 03/01 patient with stridor, racemic epi given, no re-occurrence of stridor. Previously trach capping as tolerated, 5-6 hours on vent at night for lung expansion and vent rest as needed. 03/10 over night desat to 80%, placed back on PCV 50%/10, increasing consolidation of RML and RLL. Vent wean as able. Lt lung consolidation as well as large loculated Lt hemothorax. L pigtail placed 01/30 and 02/04. Multiple TPA administrations- minimal improvement. Chest CT 02/13/2020: large hemothorax and hematoma in posterior recess. Thoracic surgery (Dr. Perry) consulted. - Now s/p Left thoracotomy and decortication 02/14/2020. Repeat CT chest 02/17 with persistent left pleural collection-no surgical intervention per thoracic surgery. Worsening of pleural effusion and partial collapse noted on CXR 03/04, reviewed with Dr. Otero. CT Chest obtained, again reviewed with Dr. Otero. Thoracic saw pt prior to review of CT scan and recommend bronchoscopy. Aggressive pulmonary hygiene with RT- discussed with evening RT (chest physiotherapy, therapep). Pt on vent overnight 03/04. 03/05 Bronch done-removal of mucous plug from Lt main stem bronchus compression of the airway noted also by the Lt effusion. Cpap on 03/07, capped overnight last night doing well. Renal: Volume overload: Moderate peripheral edema. Continue lasix 20 mg IV Q8, trend I&O/labs and adjust diuresis accordingly - GI: Malnutrition: Nausea/vomiting resolved. TF at goal. MBS 03/03: Ok for regular diet with thin liquids per LEGAL CLERK. Nutrition following, will continue nocturnal TF until PO intake improves. Ileus: 02/28 Patient with nausea/vomiting, KUB revealed mild ileus. Now resolved-patient with multiple BMs. Tolerating TF, monitor for tolerance. Vascular: BUE acute DVTs: Lovenox for AC as discussed per GP and thoracic surgery. Hematology: Acute blood loss anemia. H/H stable (needs pre-medicated with IV Benadryl 25 mg and IV Hydrocortisone 100 mg d/t history of transfusion reaction.) Trend H/H and further transfuse as clinically appropriate ID: Leukocytosis: low grade fever overnight, WBC 11k -> 20k. Eugene cx 03/10. Started on Cipro and aztreonam. ID consulted To Do or to Watch: Persistent Left Hemothorax: Previously trach capping, vent wean/trach cap as able F/u ID recs From [facility]. PT/OT following- skilled for acute rehab; PM&R consulted. Dispo planning. Will need to discuss f/u plan with pt as dispo becomes more clear. Discharge Planning: Anticipated Discharge Date: Unknown Barriers to Discharge: Multi-system issues: Weaning from vent, facility placement (PM&R consulted), heart rate control and - In Process Care Management Discharge Needs: Needs Prior to Discharge: To Be Determined;Accepting Facility;Facility or Agency Choices;Discharge Transportation Ileus 02/29/2020 03/03/2020 Overview: A/P: See coordination of care note Acute blood loss anemia 02/22/2020 092 12/2019 Overview: History: Postoperative. History of transfusion rxn Assessment: H/H 9.1 / 30.6 on 03/31/2020 . no evidence of bleeding Plan: Monitor for bleeding. Every other day CBC, minimize blood draws Trend H/H and further transfuse as clinically appropriate. NOTE: Requires pre-medication with IV Benadryl 25 mg and IV Hydrocortisone 100 mg d/t history of transfusion reaction. Delirium 01/27/2020 01/27/2020 Hypernatremia 01/27/2020 03/01/2020 Overview: History: Postoperative. Assessment: NA 139 Plan:Decrease FWF, Continue diuresis, continue to trend NA closely Leukocytosis 01/18/2020 03/23/2020 Overview: History 03/10/2020 New-onset leukocytosis (11 > 20), fatigue/somnolence, and hypotension. Empiric cipro and aztreonam started. ID consulted. Blood cultures and BAL sent. Assessment 8.24 K Afebrile. BAL no growth of date. Plan ID following. Observe off ATB Altered mental status 01/18/20202019 Overview: Assessment/Plan: Refer to care coordination note Cardiac insufficiency 01/18/20202019 Overview: Assessment: Postop requiring inotropic support on epinephrine infusion. Plan: Wean epi for goal CI > 2.2. Obtundation 01/17/2020 01/18/2020 Overview: History: minimal upper and lower extremity movement post op after propofol weaning (01/16), nods to verbal stimuli while intubated 01/17/2020 Neurology consulted, CT Brain: no acute process Assessment/Plan: Most likely sedation related. F/u Neuro recs. Moderate protein-calorie malnutrition 01/17/2020 04/06/2020 Overview: History: Recommended Malnutrition Diagnosis: Moderate Protein-Calorie Malnutrition In the context of: Acute Illness or Injury Based on: Insufficient Energy Intake; Muscle Loss Assessment: Improved appetite. Plan: Nutrition following recs Regular diet Continue nocturnal feeds (Osmolite 1.2. Goal Rate (mL/hr x hours): 60 ml x 8 hours (480 ml, 576 kcals, 27 g pro) Water Flush Volume (mL x frequency: flush 30 ml 6x/day) Speech following ok for reg diet while off the vent Plan to remove Corpak on 04/06 Pulmonary edema 01/13/2020 01/25/2020 Overview: History:Pulmonary Edema 2/2 coagulopathy. On home Lasix 40 mg. A/P: Wean lasix gtt to 20 bid, d/c metolazone, daily CXR. Post-op pain 01/13/2020 01/17/2020 Overview: February 18, 2020 History: acute postop Assessment: intubated Plan: prn pain medication Coagulopathy 01/13/2020 01/15/2020 Overview: History: OR Assessment: Required Required 8 Unit, 11 FFP, 7 units of platelets in OR. Upon arrival to ICU first hour patient chest tube output 900cc. Take back to OR. Plan: Continue to monitor CT output, coags. Transfuse prn Chronic atrial fibrillation 01/13/2020 03/04/2020 Overview: See Atrial Flutter Personal history of ECMO 01/13/202004/2020 Overview: History: PA perforation requiring VA ECMO- DC in OR and changed to VV ECMO due to pulmonary edema (coagulopathy w massive transfusion) Flow: 4.5 Speed: 2985 Ecmo Fio2: 100 Sweep: 1.0 LPM Vent FiO2: 30 Oxygenator without clots Cannula site looks clean/dry Anticoagulation: None Decannulation 01/16/2020 Pulmonary artery injury 01/13/2020 0912/2019 Overview: History: 01/13/2020 PA perforation following transcatheter PV replacement pt to OR for Emergency Redo-sternotomy (4th), Reconstruction of main and left pulmonary artery with homograft. VA ECMO changed to VV-ECMO (fem-fem; pulmonary edema) 01/14/2020: Reoperation for bleeding, chest washout, open chest, maintain VV ECMO 01/16/2020: Chest exploration, washout and closure, VV ECMO decannulation. Assessment: recent CXR Moderate left pleural effusion - loculated - stable Plan: Daily ASA PRN CXR Postoperative hypertension 01/13/2020 0 01/13/2020 Overview: History: OR Assessment: MAPs 90's upon arrival to ICU Plan: Wean NTG gtt for MAP goal 65-75 Hypotension after procedure 01/13/2020 01/18/2020 Overview: History: Post-op Assessment: Hypotension s/p OR Plan: Epi and Vasopressin gtt for MAP > 65 mm Hg Nonrheumatic pulmonary valve stenosis 12/28/2019 03/16/2020 Right brqpioefi-cj-kreguuelc artery (RV-PA) conduit obstruction 06/04/2016 04/04/2020 Overview: History: Congenital bicuspid aortic stenosis s/p Ross procedure in 1993 (she had aortic root homograft in 1995 and right ventricle to pulmonary homograft replacement in 1996; mild residual right ventricular outflow tract obstruction) Assessment: 01/13/2020: PA perforation following transcatheter PV replacement pt to OR for Emergency Redo-sternotomy (4th), Reconstruction of main and left pulmonary artery with homograft. VA ECMO removal and Bilateral femoral venous ECMO (OPEN CHEST). 01/14/2020: Reoperation for bleeding, open chest. 01/16/2020: Chest washout, closure, and ECMO decannulation. Plan: Daily ASA. Monitor left groin site s/p ECMO cannulation site- betadine bid. site CDI Congenital stenosis of aortic valve 07/30/2003 03/16/2020 Overview: February 18, 2020 Per history Chest pain 04/14/1997 04/12/2016 documented as of this encounter (statuses as of 05/26/2023) [facility]09-[facility]-2020 History of Past illness Narrative* Problem Noted Date Diagnosed Date Resolved Date Postoperative ileus 03/26/2020 04/04/20 Overview: History: post op KUB on 02/29/2020- mild ileus Assessment: KUB 03/26- no dilated bowels. + flatus. +BM 04/01/2020 Plan: continue current regimen. 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 Pacing Wires: None Chronological List of Surgeries and Major Events:Attempted transcatheter PV replacement resulting in PA perforation resulting in left hemothorax and pulmonary compression with respiratory and hemodyamic failure requiring support with VA ECMO placed percutaneously through left groin vessels. 01/13/2020 Emergency Redo-sternotomy (4th op), Reconstruction of main and left pulmonary artery with homograft. VA ECMO changed to VV-ECMO (fem-fem; pulmonary edema), evacuation left hemothorax 01/14/2020: Reoperation for postoperative bleeding, chest washout, open chest, maintain VV ECMO 01/16/2020: Chest exploration, washout and closure, VV ECMO decannulation. 01/21/2020:Tracheostomy 02/11/2020: Blood Tx reaction with chills. 02/14/2020: Left thoracotomy, evacuation of hematoma, decortication. FINDINGS: blood clots, hematoma in left chest; thick pleural rind 02/21/2020: Bronchoscopy: normal findings with no secretions 03/10/2020: Readmit for hypotension, mental status changes, and respiratory distress A/P of Major Active Problems: Neuro: CVA/SDH: 01/22 MRI brain - R caudate infarct. ?1mm R cerebellar SDH without mass effect. NSGY consulted, now signed off with stable head CT. Neurologically intact, follows commands, answers questions appropriately.Lethargic.Generalized weakness. Hx of anxiety: Patient endorses anxiety and panic attacks, taken xanax previously, excessive drowsiness noted . Psychiatry consulted for guidance of management of anxiety/panic attacks. Continue effexor, Xanax PRN. Buspar recommended by last psych note 03/03 however was discontinued on 03/02 and pt is tolerating this well. Cardiac: Afib/Aflutter. Change to lovenox per GP and discussion with thoracic surgery. Monitor for s/sx bleeding. Previously on amiodarone, metoprolol which were dc'd on 02/25 due to bradycardic event in ICU. Poor rate control noted on 03/04- Resumed low dose BB 03/09, stopped on transfer to CVICU due to hypotension. Currently AF RVR, HR 110s. Resume meds as clinically indicated. Replete lytes prn Pulmonary: Respiratory failure with hypoxia: s/p Trach 01/20. Trach downsized (7.0 to 6.0) by thoracic on 02/07 d/t absence of air leak. 03/01 patient with stridor, racemic epi given, no re-occurrence of stridor. Previously trach capping as tolerated, 5-6 hours on vent at night for lung expansion and vent rest as needed. 03/10 over night desat to 80%, placed back on PCV 50%/10, increasing consolidation of RML and RLL. Vent wean as able. Lt lung consolidation as well as large loculated Lt hemothorax. L pigtail placed 01/30 and 02/04. Multiple TPA administrations- minimal improvement. Chest CT 02/13/2020: large hemothorax and hematoma in posterior recess. Thoracic surgery (Dr. Perry) consulted. - Now s/p Left thoracotomy and decortication 02/14/2020. Repeat CT chest 02/17 with persistent left pleural collection-no surgical intervention per thoracic surgery. Worsening of pleural effusion and partial collapse noted on CXR 03/04, reviewed with Dr. Otero. CT Chest obtained, again reviewed with Dr. Otero. Thoracic saw pt prior to review of CT scan and recommend bronchoscopy. Aggressive pulmonary hygiene with RT- discussed with evening RT (chest physiotherapy, therapep). Pt on vent overnight 03/04. 03/05 Bronch done-removal of mucous plug from Lt main stem bronchus compression of the airway noted also by the Lt effusion. Cpap on 03/07, capped overnight last night doing well. Renal: Volume overload: Moderate peripheral edema. Continue lasix 20 mg IV Q8, trend I&O/labs and adjust diuresis accordingly - GI: Malnutrition: Nausea/vomiting resolved. TF at goal. MBS 03/03: Ok for regular diet with thin liquids per LEGAL CLERK. Nutrition following, will continue nocturnal TF until PO intake improves. Ileus: 02/28 Patient with nausea/vomiting, KUB revealed mild ileus. Now resolved-patient with multiple BMs. Tolerating TF, monitor for tolerance. Vascular: BUE acute DVTs: Lovenox for AC as discussed per GP and thoracic surgery. Hematology: Acute blood loss anemia. H/H stable (needs pre-medicated with IV Benadryl 25 mg and IV Hydrocortisone 100 mg d/t history of transfusion reaction.) Trend H/H and further transfuse as clinically appropriate ID: Leukocytosis: low grade fever overnight, WBC 11k -> 20k. [place] cx 03/10. Started on Cipro and aztreonam. ID consulted To Do or to Watch: Persistent Left Hemothorax: Previously trach capping, vent wean/trach cap as able F/u ID recs From [facility]. PT/OT following- skilled for acute rehab; PM&R consulted. Dispo planning. Will need to discuss f/u plan with pt as dispo becomes more clear. Discharge Planning: Anticipated Discharge Date: Unknown Barriers to Discharge: Multi-system issues: Weaning from vent, facility placement (PM&R consulted), heart rate control and - In Process Care Management Discharge Needs: Needs Prior to Discharge: To Be Determined;Accepting Facility;Facility or Agency Choices;Discharge Transportation Ileus 02/29/2020 03/03/2020 Overview: A/P: See coordination of care note Acute blood loss anemia 02/22/202003/11 Overview: History: Postoperative. History of transfusion rxn Assessment: H/H 9.1 / 30.6 on 03/31/2020 . no evidence of bleeding Plan: Monitor for bleeding. Every other day CBC, minimize blood draws Trend H/H and further transfuse as clinically appropriate. NOTE: Requires pre-medication with IV Benadryl 25 mg and IV Hydrocortisone 100 mg d/t history of transfusion reaction. Delirium 01/27/2020 01/27/2020 Hypernatremia 01/27/2020 03/01/2020 Overview: History: Postoperative. Assessment: NA 139 Plan:Decrease FWF, Continue diuresis, continue to trend NA closely Leukocytosis 01/18/2020 03/23/2020 Overview: History 03/10/2020 New-onset leukocytosis (11 > 20), fatigue/somnolence, and hypotension. Empiric cipro and aztreonam started. ID consulted. Blood cultures and BAL sent. Assessment 8.24 K Afebrile. BAL no growth of date. Plan ID following. Observe off ATB Altered mental status 01/18/20202019 Overview: Assessment/Plan: Refer to care coordination note Cardiac insufficiency 01/18/20202019 Overview: Assessment: Postop requiring inotropic support on epinephrine infusion. Plan: Wean epi for goal CI > 2.2. Obtundation 01/17/2020 01/18/2020 Overview: History: minimal upper and lower extremity movement post op after propofol weaning (01/16), nods to verbal stimuli while intubated 01/17/2020 Neurology consulted, CT Brain: no acute process Assessment/Plan: Most likely sedation related. F/u Neuro recs. Moderate protein-calorie malnutrition 01/17/2020 04/06/2020 Overview: History: Recommended Malnutrition Diagnosis: Moderate Protein-Calorie Malnutrition In the context of: Acute Illness or Injury Based on: Insufficient Energy Intake; Muscle Loss Assessment: Improved appetite. Plan: Nutrition following recs Regular diet Continue nocturnal feeds (Osmolite 1.2. Goal Rate (mL/hr x hours): 60 ml x 8 hours (480 ml, 576 kcals, 27 g pro) Water Flush Volume (mL x frequency: flush 30 ml 6x/day) Speech following ok for reg diet while off the vent Plan to remove Corpak on 04/06 Pulmonary edema 01/13/2020 01/25/2020 Overview: History:Pulmonary Edema 2/2 coagulopathy. On home Lasix 40 mg. A/P: Wean lasix gtt to 20 bid, d/c metolazone, daily CXR. Post-op pain 01/13/2020 01/17/2020 Overview: February 18, 2020 History: acute postop Assessment: intubated Plan: prn pain medication Coagulopathy 01/13/2020 01/15/2020 Overview: History: OR Assessment: Required Required 8 Unit, 11 FFP, 7 units of platelets in OR. Upon arrival to ICU first hour patient chest tube output 900cc. Take back to OR. Plan: Continue to monitor CT output, coags. Transfuse prn Chronic atrial fibrillation 01/13/2020 03/04/2020 Overview: See Atrial Flutter Personal history of ECMO 01/13/202004/2020 Overview: History: PA perforation requiring VA ECMO- DC in OR and changed to VV ECMO due to pulmonary edema (coagulopathy w massive transfusion) Flow: 4.5 Speed: 2985 Ecmo Fio2: 100 Sweep: 1.0 LPM Vent FiO2: 30 Oxygenator without clots Cannula site looks clean/dry Anticoagulation: None Decannulation 01/16/2020 Pulmonary artery injury 01/13/202003/11 Overview: History: 01/13/2020 PA perforation following transcatheter PV replacement pt to OR for Emergency Redo-sternotomy (4th), Reconstruction of main and left pulmonary artery with homograft. VA ECMO changed to VV-ECMO (fem-fem; pulmonary edema) 01/14/2020: Reoperation for bleeding, chest washout, open chest, maintain VV ECMO 01/16/2020: Chest exploration, washout and closure, VV ECMO decannulation. Assessment: recent CXR Moderate left pleural effusion - loculated - stable Plan: Daily ASA PRN CXR Postoperative hypertension 01/13/2020 0 01/13/2020 Overview: History: OR Assessment: MAPs 90's upon arrival to ICU Plan: Wean NTG gtt for MAP goal 65-75 Hypotension after procedure 01/13/2020 01/18/2020 Overview: History: Post-op Assessment: Hypotension s/p OR Plan: Epi and Vasopressin gtt for MAP > 65 mm Hg Nonrheumatic pulmonary valve stenosis 12/28/2019 03/16/2020 Right hctelzjaz-ko-caraucbey artery (RV-PA) conduit obstruction 06/04/2016 04/04/2020 Overview: History: Congenital bicuspid aortic stenosis s/p Ross procedure in 1993 (she had aortic root homograft in 1995 and right ventricle to pulmonary homograft replacement in 1996; mild residual right ventricular outflow tract obstruction) Assessment: 01/13/2020: PA perforation following transcatheter PV replacement pt to OR for Emergency Redo-sternotomy (4th), Reconstruction of main and left pulmonary artery with homograft. VA ECMO removal and Bilateral femoral venous ECMO (OPEN CHEST). 01/14/2020: Reoperation for bleeding, open chest. 01/16/2020: Chest washout, closure, and ECMO decannulation. Plan: Daily ASA. Monitor left groin site s/p ECMO cannulation site- betadine bid. 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 Mixed hyperlipidemia Congenital heart disease Unspecified congenital anomaly of heart Paroxysmal atrial fibrillation (HCC) Atrial fibrillation Hypothyroidism, unspecified type documented in this encounter [facility] noteNo assessment information availableParkview [facility] Work Phone: Evaluation note* Diagnosis Congenital heart disease- Primary Unspecified congenital anomaly of heart Fatigue, unspecified type Hypothyroidism, unspecified type 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 Mixed hyperlipidemia Congenital aortic stenosis Congenital stenosis of aortic valve H/O Ross procedure Heart valve replaced by transplant S/P Ross procedure Heart valve replaced by other means Dyspnea on exertion Other dyspnea and respiratory abnormality documented in this encounter [facility] noteNort [employer] Other History general Narrative - Reported* Type Description Date Medical History Follows with Anthony dockery at [facility] for Pap/Mammogram 2009 Medical History hyperlipidemia Medical History Hypothyroidism Medical History carpal tunnel Medical History arotic valve disease Medical History Anxiety Medical History Depression Surgical History appendectomy Surgical History heart valve surgery x 2 , pulmo joy valve Surgical History Discectomy Dr. Shiva murphy 05-21-10 Surgical History lt knee replacement - Dr Phyllis schmidt 03/12/15 Surgical History pumonary artery rupture 01/13/20 Hospitalization History see above [employer]Marq Other History general Narrative - Reported* Type Description Date Medical History Follows with Anthony dockery at [facility] for Pap/Mammogram 2009 Medical History hyperlipidemia Medical History Hypothyroidism Medical History carpal tunnel Medical History arotic valve disease Medical History Anxiety Medical History Depression Surgical History appendectomy Surgical History heart valve surgery x 2 , pulmo joy valve Surgical History Discectomy Dr. 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 Hospitalization History see above RFMarq Other History general Narrative - [facility] [employer] Other History general Narrative - ReportedNoBioSignia [employer] Other Hospital Discharge instructions Additional Instructions If your symptoms return/worsen or you develop any further concerns or symptoms please see your doctor or return to the emergency department immediately.[facility] Work Phone: Reason for referral (narrative)* Outpatient Procedure (Routine) - Authorized Specialty Diagnoses / Procedures Referred By Contac t Referred To [facility] Diagnoses Mixed hyperlipidemia Procedures ECG COMPLETE ECG ROUTINE ECG W/LEAST 12 LDS W/I&R Michael Donohue MD [address] [place] [address] [address] Referral ID Status Reason Start Date Expiration Date Visits Requested Visits Authorized [id number] Authorized Auto-Generat ed Referral 11/26/2021 11/26/2022 1 1 [facility] for referral (narrative)* Outpatient Procedure (Routine) - Pending Review Specialty Diagnoses / Procedures Referred By Contac t Referred To Contact [facility] [place] Diagnoses Congenital heart disease Fatigue, unspecified type Hypothyroidism, unspecified type Elevated Lp(a) Mixed hyperlipidemia Congenital aortic stenosis H/O Ross procedure S/P Ross procedure Dyspnea on exertion Procedures ECG COMPLETE ECG ROUTINE ECG W/LEAST 12 LDS W/I&R Zach Gaffney APRN.CNP [address] [place] [address] [address] Referral ID Status Reason Start Date Expiration Date Visits Requested Visits Authorized [id number] Pending Review Auto-Generat ed Referral 03/23/2023 06/21/2023 1 1 * Outpatient Procedure (Routine) - Pending Review Specialty Diagnoses / Procedures Referred By Contac t Referred To Contact [facility] Diagnoses Congenital heart disease Fatigue, unspecified type Hypothyroidism, unspecified type Elevated Lp(a) Mixed hyperlipidemia Congenital aortic stenosis H/O Ross procedure S/P Ross procedure Dyspnea on exertion Procedures ECHO ECHO TTHRC R-T 2D W/WOM-MODE COMPL SPEC&COLR D Zach Gaffney, VERA [address] [place] [address] [address] Referral ID Status Reason Start Date Expiration Date Visits Requested Visits Authorized [id number] Pending Review Auto-Generat ed Referral 03/23/2023 06/21/2023 1 1 [facility] for visit Narrativereview labs/med refill, discuss cough/fever, discuss multiple issues, see treatment plan for further information RFMarq Other Summary Purpose Family History No Family History Records Found Relationship Condition Age at Onset Recorded Date/T t[place] Not Specified Alzheimer's disease Unknown father Malignant neoplasm of prostate Unknown Hypothyroidism Unknown Hyperlipidemia Unknown brother Hypertension Unknown Advance Directives No Advanced Directives Records FoundDocuments on File Type Date Recorded 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 Advance Directive(s) 12/29/2019 5:37 PM Documents on File Type Date Recorded 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 Advance Directive(s) 12/29/2019 5:37 PM Advance Directive Response Recorded Date/ Time Advance Directives No August 8:52pm Advance Directive Response Recorded Date/ Time Advance Directives No August 7:52pm Chief Complaint and Reason for Visit Chief Complaint R74.8 Z79.899 E03.9 E78.5 E55.9 R05.9 see orders Afib and DVT history Chief Complaint R05.9 see orders Afib and DVT history head injury Chief Complaint head injury See order Afib and DVT history r110 r19.8 Chief Complaint r110 r19.8 R22.9 R19.8 R11.0 R53.1 Afib and DVT history See order Chief Complaint r110 r19.8 R22.9 R19.8 R11.0 R53.1 See order Afib and DVT history See order Chief Complaint See order Afib and DVT history See order Chief Complaint q23.0 r91.8 Afib and DVT history See order Chief Complaint Afib and DVT history See order Reason for Referral Reason appt consult to di scuss paralysis lt side of diaphragm per chest xray Diagnosis 1 Abnormal chest xray (R93.89) Diagnosis 2 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 pt understands she will be contacted to schedule this appt. Additional Source Comments INFORMATION SOURCE (unrecogn ized section and content) DATE CREATED AUTHOR 08/12/2019 [facility] DATE CREATED AUTHOR AUTHOR'S ORGANIZ ATION 07/19/2023 [facility] EPIC DATE CREATED AUTHOR AUTHOR'S ORGANIZ ATION 08/04/2023 [facility] DATE CREATED AUTHOR AUTHOR'S ORGANIZ ATION 08/04/2023 [facility] Source Comments (unrecognize d section and content) In the event this informatio n is protected by the Federal Confidentiality of Alcohol and Drug Abuse Patient Records regulations: The Federal rules restrict any use of the information to criminally investigate or prosecute any alcohol or drug abuse patient.[facility] the event this information is protected by the Federal Confidentiality of Alcohol and Drug Abuse Patient Records regulations: The Federal rules restrict any use of the information to criminally investigate or prosecute any alcohol or drug abuse patient.[facility] HospitalIn the event this information is protected by the Federal Confidentiality of Alcohol and Drug Abuse Patient Records regulations: The Federal rules restrict any use of the information to criminally investigate or prosecute any alcohol or drug abuse patient.[facility] HospitalIn the event this information is protected by the Federal Confidentiality of Alcohol and Drug Abuse Patient Records regulations: The Federal rules restrict any use of the information to criminally investigate or prosecute any alcohol or drug abuse patient.[facility] HospitalIn the event this information is protected by the Federal Confidentiality of Alcohol and Drug Abuse Patient Records regulations: The Federal rules restrict any use of the information to criminally investigate or prosecute any alcohol or drug abuse patient.[facility] HospitalIn the event this information is protected by the Federal Confidentiality of Alcohol and Drug Abuse Patient Records regulations: The Federal rules restrict any use of the information to criminally investigate or prosecute any alcohol or drug abuse patient.[facility] HospitalIn the event this information is protected by the Federal Confidentiality of Alcohol and Drug Abuse Patient Records regulations: The Federal rules restrict any use of the information to criminally investigate or prosecute any alcohol or drug abuse patient.[facility] HospitalIn the event this information is protected by the Federal Confidentiality of Alcohol and Drug Abuse Patient Records regulations: The Federal rules restrict any use of the information to criminally investigate or prosecute any alcohol or drug abuse patient.[facility] Care Teams (unrecognized sec tion and content) Team Status: Active Member Role Status Dates Azalea Rodrigez DO Primary Care Provider Active Team Status: Inactive Member Role Status Dates Azalea Rodrigez DO Primary Care Provider, Attending Pro vider Active Team Status: Active Member Role Status Dates Azalea Rodrigez DO Primary Care Provider, Attending Pro vider Active Team Status: Inactive Member Role Status Dates Azalea Rodrigez DO Primary Care Provider Active Steve Dent MD Attending Provider Active Track Manager Relationship Specialty Start Date End Date Azalea Rodrigez DO PCP - General Family Practice 05/10/10 Juan Steven [address] [facility] [address] [facility] [address] [place] [address] Referring Cardiology 12/26/19 Steve Dent MD [address] [place] [address] Primary Staff Physician Cardiology 07/20/21 Track Manager Relationship Specialty Start Date End Date Azalea Rodrigez DO PCP - General Family Practice 05/10/10 Juan Steven [address] [place] [address] Referring Cardiology 12/26/19 Steve Dent MD [address] [place], [place] [id number] Primary Staff Physician Cardiology 07/20/21 Team Status: Inactive Member Role Status Dates Azalea Rodrigez , Primary Care Provider Active Dm Paris , DO Emergency Provider Active Track Manager Relationship Specialty Start Date End Date Azalea Rodrigez DO PCP - General Family Medicine 05/10/10 Juan Steven [address] [place] [address] Referring Cardiology 12/26/19 Steve Dent MD [address] [place] [address] Primary Staff Physician Cardiology 07/20/21 Track Manager Relationship Specialty Start Date End Date Azalea Rodrigez DO PCP - General Family Medicine 05/10/10 Juan Steven [address] [place] [address] Referring Cardiology 12/26/19 Steve Dent MD [address] [place] [address] Primary Staff Physician Cardiology 07/20/21 Track Manager Relationship Specialty Start Date End Date Azalea Rodrigez DO PCP - General Family Medicine 05/10/10 Juan Steven [address] [place] [address] Referring Cardiology 12/26/19 Steve Dent MD [address] [place] [address] Primary Staff Physician Cardiology 07/20/21 Track Manager Relationship Specialty Start Date End Date Azalea Rodrigez DO PCP - General Family Medicine 05/10/10 Juan Steven [address] [place] [address] Referring Cardiology 12/26/19 Steve Dent MD [address] [place] [address] Primary Staff Physician Cardiology 07/20/21 Track Manager Relationship Specialty Start Date End Date Azalea Rodrigez DO PCP - General Family Medicine 05/10/10 Juan Steven MD [address] [place] [address] Referring Cardiology 12/26/19 Steve Dent MD [address] [place] [address] Primary Staff Physician Cardiology 07/20/21 Track Manager Relationship Specialty Start Date End Date Azalea Rodrigez DO PCP - General Family Medicine 05/10/10 Juan Steven MD [address] [place] [address] Referring Cardiology 12/26/19 Steve Dent [facility] [address] [facility] [facility] [place] [address] Primary Staff Physician Cardiology 07/20/21 REASON FOR VISIT (unrecogniz ed section and content) Reason Comments Hyperlipidemia Specialty Diagnoses / Procedures Referred By Contac t Referred To Contact Diagnoses Mixed hyperlipidemia Procedures CONSULT TO PREVENTIVE CARD OFFICE/OUTPATIENT [facility] 60-74 MINUTES Steve Dent MD [address] [facility] [place] [address] Referral ID Status Reason Start Date Expiration Date V isits Requested Visits Authorized [id number] Closed PCP Requested Referral 11/25/2021 11/25/2022 1 1 Reason Comments Follow Up Reason Comments OSH Reason Comments Appointment Goals (unrecognized section and content) Goals may be documented in a n alternate section FOR RECORDS PERTAINING TO PATIENTS WHO ARE OR HAVE BEEN ENROLLED IN A CHEMICAL DEPENDENCY/SUBSTANCEABUSE PROGRAM, SOME INFORMATION MAY BE OMITTED. This clinical summary was aggregated from multiple sources. Caution should be exercised in using it in the provision of clinical care. This summary normalizes information from multiple sources, and as a consequence, information in this document may materially change the coding, format and clinical context of patient data. In addition, data may be omitted in some cases. CLINICAL DECISIONS SHOULD BE BASED ON THE PRIMARY CLINICAL RECORDS. [email or web address] provides no warranty or guarantee of the accuracy or completeness of information in this document.
--- NOTE | 2023-08-08 09:56 | US_ITS ---
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 FINDINGS: The spleen appears normal in size, contour and echotexture measuring 11.7 x 9.9 x 4.1 cm. No focal mass. The visualized portions of the left kidney is normal. No ascites. No focal mass. US/US abdomen limited IMPRESSION: Normal appearance of the left upper quadrant Electronically authenticated by: AZALEA COLON Date: 08/08/2023 10:45
== END 2023-08-08 09:49 | disposition home or self-care (01) ==
LOC: US 09:48
PROVIDERS: PCP Family Medicine; Visit Provider Family Medicine
DX: J98.6 Disorders of diaphragm (principal); R07.81 Pleurodynia
CPT/HCPCS: 76705